=== PATIENT | male | born 1955 | race Caucasian/White ===

== ENCOUNTER 2017-07-28 08:03 | Day surgery (SDC) | payer OTHER, SELFPAY | END 2017-07-28 12:15 | disposition home or self-care (01) | PROVIDERS: Family Provider Pediatrics; Visit Provider Orthopaedic Surgery | DX: S83.241A Other tear of medial meniscus, current injury, right knee, initial encounter (principal); X58.XXXA Exposure to other specified factors, initial encounter; M67.51 Plica syndrome, right knee; M22.41 Chondromalacia patellae, right knee | CPT/HCPCS: 29882; 71020; 93005; 96375; J0131; J2405 ==

== ENCOUNTER → 2017-08-21 07:57 | Outpatient (CLI) | payer OTHER, SELFPAY ==
--- NOTE | 2017-08-21 08:04 | CT_ITS ---
CT heart w calcium score CLINICAL INDICATION: ITS.REASON: ABN EKG, REID ORDERING PHYSICIAN: Jaquan Martinez MD PATIENT AGE: 62 years COMPARISON: None FINDINGS: Coronary artery CT scoring demonstrates a coronary calcium score of 0 with no identifiable atherosclerotic plaque indicating a very low cardiovascular disease risk. Select images submitted are unremarkable. IMPRESSION: Coronary calcium score of 0 with no identifiable atherosclerotic plaque indicating a very low cardiovascular disease risk.
== END ==
PROVIDERS: Family Provider Pediatrics; PCP Internal Medicine Cardiovascular Disease; Visit Provider Internal Medicine Cardiovascular Disease
DX: R94.31 Abnormal electrocardiogram [ECG] [EKG] (principal); R06.09 Other forms of dyspnea
CPT/HCPCS: 75571

== ENCOUNTER → 2017-08-22 06:54 | Outpatient (CLI) | payer OTHER, SELFPAY ==
--- NOTE | 2017-08-22 07:03 | NM_ITS ---
History and Indications tobacco use, palpitations and abnormal EKG Procedure: Patient received a 0.4 mg of Lexiscan, resting heart rate was 75 bpm, resting blood pressure 160/95, with Lexiscan maximum heart rate achieved was 95 bpm which is less than 85% of the maximum predicted heart rate and a blood pressure was a 147/97, with Lexiscan patient complained of mild shortness of breath. Electrocardiogram: Resting electrocardiogram showed sinus rhythm nonspecific ST-T changes, with Lexiscan there is 0.[address] segment depression noted from the baseline EKG, the EKG portion of the Lexiscan Myoview is borderline for ischemia. Cardiac stress and resting SPECT images: Cardiac stress and rest SPECT images were obtained technetium 99 Myoview 10.2 mCi at rest and 32.6 mCi at stress, gated SPECT further analysis of segmental wall motion and calculation of the ejection fraction also done. Cardiac stress and rest SPECT images show a mild fixed defect inferoseptally and apically with normal contractility in the gated SPECT is likely secondary to soft tissue attenuation, no reversible ischemia seen. Computer derived ejection fraction is 56% with no obvious regional wall motion abnormality, right ventricle is mildly enlarged with normal contractility. Conclusion: 1. The EKG portion of the Lexiscan Myoview is borderline for ischemia. 2. No obvious scintigraphic evidence of reversible ischemia seen, computer derived ejection fraction is 56% with no obvious regional wall motion abnormality, right ventricle is mildly enlarged with normal contractility.
--- NOTE | 2017-08-22 08:53 | CA_ITS ---
PROCEDURE: 2-D M-mode and color Doppler study INDICATIONS FOR THE TEST: Chest pain COPD Heart Murmur Tobacco Smoking+ Palpitations+ Fatigue Syncope Edema Hypertension Diabetes Mellitus Rheumatic Fever SOB REID Obesity Hyperlipidemia Family History HD Additional History PATIENT INFORMATION HEIGHT: 70 WEIGHT:195 GENDER: M B/P:160/95 2-D/M-MODE INTERPRETATION: 2-D MEASUREMENTS OBSERVED VALUES IN CMS Right Ventricular Dimension (RVDd) 2.3 Interventricular Septum (Thickness)(IVsd) 1.1 Left Ventricular Internal Dimensions(LVIDd) 4.8 Left Ventricular Posterior Wall (Thickness)(LVPWd) 1.0 Aortic Root 3.9 Aortic Cusp Separation 2.4 Left Atrial Dimensions (LAD) 2.7 2D 1. Left atrium is qualitatively mildly enlarged, left ventricle is normal size, there is mild qualitative concentric left ventricular hypertrophy, visually estimated ejection fraction 55% with no obvious regional wall motion abnormality. 2. The right atrium and right ventricle are normal size and contractility. 3. The aortic valve is minimally thickened and calcified leaflet continue to display mobility. 4. The mitral and tricuspid valve leaflets are grossly normal. 5. The pulmonic valve is poorly visualized. 6. No significant pericardial effusion noted. DOPPLER INTERROGATION: Doppler interrogation of the aortic, mitral and tricuspid valvular presence of mild mitral and tricuspid regurgitation, tricuspid regurgitant jet velocity is insufficient for calculation of the right ventricular systolic pressure, grade 1 diastolic dysfunction seen without tissue Doppler evidence of raised left atrial pressure. CONCLUSION: 1. Mildly enlarged left atrium, normal left ventricular size, mild concentric left ventricular hypertrophy, visually estimated ejection fraction 55% with no obvious regional wall motion abnormality, grade 1 diastolic dysfunction seen without tissue Doppler evidence of raised left atrial pressure. 2. Mild mitral and tricuspid regurgitation. 3. No significant pericardial effusion noted.
== END ==
PROVIDERS: Family Provider Pediatrics; PCP Internal Medicine Cardiovascular Disease; Visit Provider Internal Medicine Cardiovascular Disease
DX: R94.31 Abnormal electrocardiogram [ECG] [EKG] (principal); R06.09 Other forms of dyspnea
CPT/HCPCS: 78452; 93017; 93306; A9502; J2785

== ENCOUNTER 2017-11-02 16:37 | Emergency (ER) | payer OTHER, SELFPAY ==
[2017-11-02 16:56] VITALS: BP 150/101; PULSE 67; RESP 20; TEMP 36.8; O2SAT 98; BMI 28.7
--- NOTE | 2017-11-02 17:11 | HMH.EDUTC ---
[facility] [place] Impression: Gastroenteritis Disposition: Home, Self-Care Condition on Discharge: Good Instructions: DI for Viral Gastroenteritis -- Adult Additional Instructions: ? Drink extra fluids . If you have difficulty drinking, try very small amounts or suck on ice chips. ? Avoid fruit juices, as these do not replace minerals and can actually increase diarrhea. ? Children and adults can use sports drinks to replenish electrolytes. Drink plenty of gatoraid over the next 24-48 hours to replace minerals lost in vomiting and diarrhea and to prevent dehydration ? let your stomach recover. ? Get lots of rest. You may feel tired or weak. ? Preventing Viral Gastroenteritis your Viral gastroenteritis is easily spread. There are some things you can do to lower chances of jeanie the virus or spreading it to others. ? Wash your hands often, especially after using the bathroom and before food preparation. If necessary, use hand svp monetization until you can access soap and water. ? If someone in your household is sick, do not share kitchen utensils, plates, or towels. ? Do not eat raw or undercooked foods. ? Wash fruits and vegetables thoroughly. ? Take special precautions to avoid contaminated water and food when traveling. Avoid ice cubes and use bottled water whenever possible. ? There are two vaccines for rotavirus. These are generally started when an is two months old. Ask your doctor if you should have your vaccinated. Collect stool specimen and bring back to lab for diarrhea panel as advised in [facility] Take medication as prescribed Follow up with family doctor or ER in 24-48 hours if no improvement or worsening of symptoms Straight to ER if any life threatening symptoms or stomach pain Prescriptions: Dicyclomine HCl [Bentyl 10mg capsule] 10 mg PO QID #20 cap Loperamide HCl [Loperamide] 2 mg PO DIRECTED PRN #8 tab PRN Reason: Diarrhea Ondansetron [Zofran 4mg ODT] 4 mg PO Q8H PRN #20 tab.rapdis PRN Reason: Nausea Referrals: Samy Bejarano [Primary Care Provider] - Time of Disposition: 18:42 Medical Decision Making - Medical Records Medical records reviewed: Yes: I reviewed the patient's medical records. - Dank Inquiry Pt receiving controlled substance: No Dank was queried for this patient: No Vital Signs: 11/02/17 16:56 Temperature 98.2 F Temperature Source Temporal Artery Scan Pulse Rate [Right Brachial] 67 Respiratory Rate 20 Blood Pressure [Right Arm] 150/101 Blood Pressure Mean [Right Arm] 117 Blood Pressure Source [Right Arm] Automatic Cuff Blood Pressure Position [Right Arm] Sitting 02 Sat by Pulse Oximetry 98 Oxygen Delivery Method Room Air - Lab Data Lab results reviewed: Yes: I reviewed the patient's lab results. Orders (Tests/Meds): ED MEDICATIONS Discontinued Medications Generic Name Dose Route Start Last Admin Trade Name Kim PRN Reason Stop Dose Admin Dicyclomine HCl 10 mg 11/02/17 17:39 11/02/17 17:46 Bentyl 10mg Capsule PO 11/02/17 17:40 10 mg ONCE ONE Administration Meclizine HCl 25 mg 11/02/17 17:14 11/02/17 17:22 Antivert 25mg Tablet PO 11/02/17 17:15 25 mg ONCE ONE Administration Ondansetron HCl 4 mg 11/02/17 17:14 11/02/17 17:22 Zofran 4mg Odt SL 11/02/17 17:15 4 mg ONCE ONE Administration - Reevaluation(s) Time: 17:42 Reevaluation #1: Patient state that dizziness now gone after medication however cramping has now returned, Again states that cramping like feeling in his middle abdomen and has been occuring just prior to him having an episode of vomiting or diarrhea. Patient given dose of bentyl 10mg po and consulted with ER physician Dr Caballero Time: 18:01 Reevaluation #3: Spoke with Dr Caballero ER physician and he advised that he would be over and speak with patient Time reevaluation 3: 18:24 Reevaluation #2: Dr Caballero came to [facility] and examined patient Patient state that he is now feeling much
--- NOTE | 2017-11-02 17:15 | ED_ITS ---
[facility] – [place] Disposition Clinical Impression: Gastroenteritis Disposition: Home, Self-Care Condition on Discharge: Good Instructions: DI for Viral Gastroenteritis -- Adult Additional Instructions: ? Drink extra fluids . If you have difficulty drinking, try very small amounts or suck on ice chips. ? Avoid fruit juices, as these do not replace minerals and can actually increase diarrhea. ? Children and adults can use sports drinks to replenish electrolytes. Drink plenty of gatoraid over the next 24-48 hours to replace minerals lost in vomiting and diarrhea and to prevent dehydration ? let your stomach recover. ? Get lots of rest. You may feel tired or weak. ? Preventing Viral Gastroenteritis your Viral gastroenteritis is easily spread. There are some things you can do to lower chances of jeanie the virus or spreading it to others. ? Wash your hands often, especially after using the bathroom and before food preparation. If necessary, use hand director advertising until you can access soap and water. ? If someone in your household is sick, do not share kitchen utensils, plates , or towels. ? Do not eat raw or undercooked foods. ? Wash fruits and vegetables thoroughly. ? Take special precautions to avoid contaminated water and food when traveling. Avoid ice cubes and use bottled water whenever possible. ? There are two vaccines for rotavirus. These are generally started when an infant is two months old. Ask your doctor if you should have your vaccinated. Collect stool specimen and bring back to lab for diarrhea panel as advised in [facility] Take medication as prescribed Follow up with family doctor or ER in 24-48 hours if no improvement or worsening of symptoms Straight to ER if any life threatening symptoms or stomach pain Prescriptions: Dicyclomine HCl [Bentyl 10mg capsule] 10 mg PO QID #20 cap Loperamide HCl [Loperamide] 2 mg PO DIRECTED PRN #8 tab PRN Reason: Diarrhea Ondansetron [Zofran 4mg ODT] 4 mg PO Q8H PRN #20 tab.rapdis PRN Reason: Nausea Referrals: Samy Bejarano [Primary Care Provider] - Time of Disposition: 18:42 Medical Decision Making - Medical Records Medical records reviewed: Yes: I reviewed the patient's medical records. - Dank Inquiry Pt receiving controlled substance: No Dank was queried for this patient: No Vital Signs: 11/02/17 16:56 Temperature 98.2 F Temperature Source Temporal Artery Scan Pulse Rate [Right Brachial] 67 Respiratory Rate 20 Blood Pressure [Right Arm] 150/101 Blood Pressure Mean [Right Arm] 117 Blood Pressure Source [Right Arm] Automatic Cuff Blood Pressure Position [Right Arm] Sitting 02 Sat by Pulse Oximetry 98 Oxygen Delivery Method Room Air - Lab Data Lab results reviewed: Yes: I reviewed the patient's lab results. Orders (Tests/Meds): ED MEDICATIONS Discontinued Medications Generic Name Dose Route Start Last Admin Trade Name Lionq PRN Reason Stop Dose Admin Dicyclomine HCl 10 mg 11/02/17 17:39 11/02/17 17:46 Bentyl 10mg Capsule PO 11/02/17 17:40 10 mg ONCE ONE Administration Meclizine HCl 25 mg 11/02/17 17:14 11/02/17 17:22 Antivert 25mg Tablet PO 11/02/17 17:15 25 mg ONCE ONE Administration Ondansetron HCl 4 mg 11/02/17 17:14 11/02/17 17:22 Zofran 4mg Odt SL 11/02/17 17:15 4 mg ONCE ONE Administration -
[2017-11-02 18:49] VITALS: BP 148/88; PULSE 70; RESP 20; TEMP 36.8; O2SAT 97
== END 2017-11-02 18:50 | disposition home or self-care (01) ==
PROVIDERS: Emergency Provider Nurse Practitioner; Family Provider Pediatrics; PCP Family Medicine
DX: K52.9 Noninfective gastroenteritis and colitis, unspecified (principal); F17.210 Nicotine dependence, cigarettes, uncomplicated
CPT/HCPCS: 99201

== ENCOUNTER 2017-11-03 07:46 | Emergency (ER) | payer OTHER, SELFPAY ==
[2017-11-03 07:50] VITALS: BP 150/107; PULSE 105; RESP 18; TEMP 36.6; O2SAT 95
--- NOTE | 2017-11-03 08:01 | CT_ITS ---
CT abdomen pelvis wo con CLINICAL INDICATION: Abdominal pain with nausea, vomiting, diarrhea, and creatinine ITS.REASON: ABDOMINAL PAIN ORDERING PHYSICIAN: Vamsi Cruz MD PATIENT AGE: 62 years COMPARISON: None 1914 TECHNIQUE: Axial images obtained with sagittal and coronal reformats. All CT scans at the facility use one or more dose reduction, viz: automated exposure control; ma/kV adjustment per patient size (including targeted exams where dose is matched to indication; i.e. head); or iterative reconstruction technique. PROCEDURE: Oral Contrast: None IV Contrast: None . FINDINGS: A 5 mm noncalcified nodular opacity is present in the right middle lobe nonspecific. 4 mm noncalcified nodular opacity is present in the left lower lobe not significantly changed. No focal liver lesion. No radio opaque gallstones or biliary dilatation. The spleen, adrenal glands, and pancreas have an unremarkable unenhanced CT appearance. There is some minimal stranding of the fat inferior to the antrum of the stomach nonspecific. The right kidney is unremarkable. There is a nonobstructing 6 mm stone in the lower pole the left kidney. Small exophytic densities project off the lower pole both kidneys and may be due to small cysts. No intestinal obstruction or free air. There is a small appendicolith at 3 mm but no evidence of appendicitis. No evidence of diverticulitis. No pelvic mass or abnormal fluid collection. Central prostate calcifications are present with mild prominence of the prostate. No acute bony anomalies. IMPRESSION: 1. Minimal stranding of the fat inferior to the antrum of the stomach. This is of questionable clinical significance. Mild focal inflammatory change is a consideration. 2. Nonobstructing left nephrolithiasis. 3. No evidence of appendicitis or obstructing ureteral calculus
[2017-11-03 08:16] LABS: Microscopic, Urine URINE MICROSCOPIC (MICROSCOPIC)
[2017-11-03 08:16] LABS: Basophils % 0.1 % (0.1-2.0); Eosinophils # 0.2 K/mm3 (0.0-0.4); Eosinophils % 1.4 % (0.1-12.0); Hematocrit 53.7 % (42.0-52.0); Lymphocytes # 0.8 K/mm3 (0.7-4.5); Lymphocytes % 4.4 K/mm3 (10-50); Mean Corpuscular HGB Conc 34.2 g/dL (31.8-35.4); Mean Corpuscular Hemoglobin 29.8 pg (27.0-31.2); Mean Corpuscular Volume 87.1 fl (80-94); Mean Platelet Volume 7.6 fl (7.4-10.4); Monocytes # 0.6 K/mm3 (0.1-1.0); Monocytes % 3.1 % (1.7-9.3); Platelet Count 289 K/mm3 (142-424); Red Blood Count 6.16 M/mm3 (4.60-6.20); White Blood Count 17.6 K/mm3 (4.8-10.8)
[2017-11-03 08:20] LABS: MANUAL DIFFERENTIAL MANUAL DIFFERENTIAL (MANUAL DIFF)
[2017-11-03 08:20] LABS: Appearance,Urine SL CLOUDY (Clear); Blood, Urine 2+ (Negative); Color,Urine YELLOW (Yellow); Glucose,Urine (UA) Negative (Negative); Ketones,Urine 1+ (Negative); Leukocyte Esterase,Urine Negative (Negative); Nitrate,Urine Negative (Negative); PH,Urine 5.5 (5.0-8.5); Protein,Urine 2+ (Negative); Specific Gravity, Urine >= 1.030 (1.005-1.030); Urobilinogen,Urine 0.2 EU/dl (0.2)
[2017-11-03 08:21] LABS: Bilirubin,Urine Negative (Negative)
--- NOTE | 2017-11-03 08:21 | HMH.EDABDPAI ---
ED Disposition Clinical Impression: Dehydration Gastritis Qualifiers: Gastritis type: unspecified gastritis Chronicity: unspecified Gastritis bleeding: without bleeding Qualified Code(s): K29.70 - Gastritis, unspecified, without bleeding Vomiting Qualifiers: Vomiting type: unspecified Vomiting Intractability: non-intractable Nausea presence: with nausea Qualified Code(s): R11.2 - Nausea with vomiting, unspecified Diarrhea Qualifiers: Diarrhea type: unspecified type Qualified Code(s): R19.7 - Diarrhea, unspecified Disposition: Home, Self-Care Condition on Discharge: Good Instructions: DI for Dehydration -- Adult, DI for Viral Gastroenteritis -- Adult Additional Instructions: Please take the medications prescribed, as directed. Drink plenty of fluids. May take [id number] Imodium, as needed for diarrhea. Prescriptions: Ondansetron [Zofran 4mg ODT] 4 mg PO QIDP PRN #20 tab.rapdis PRN Reason: Nausea Pantoprazole Sodium [Protonix 40mg tablet] 40 mg PO DAILY #30 tablet. Referrals: Samy Wright [Primary Care Provider] - Time of Disposition: 13:17 - Critical Care Critical Care Time: No Attestation: On 11/03/17, the high probability of a clinically significant, sudden or life threatening deterioration of the following system(s) required my full and direct attention, intervention and personal management. The time I documented below is in addition to time spent performing reported procedures but includes the following listed in this critical care notation. Medical Decision Making - Medical Records Medical records reviewed: Yes: I reviewed the patient's medical records. - Dank Inquiry Pt receiving controlled substance: No Vital Signs: 11/03/17 07:50 11/03/17 10:05 11/03/17 13:30 Temperature 98 F 98.5 F 98.3 F Temperature Source Oral Oral Oral Pulse Rate Pulse Rate [Right Radial] 105 H 47 L 49 L Respiratory Rate 18 Blood Pressure Blood Pressure [Right Arm] 150/107 175/104 167/84 Blood Pressure Mean [Right Arm] 121 127 111 Blood Pressure Source [Right Arm] Automatic Cuff Automatic Cuff Manual Cuff/ Palpation Blood Pressure Position [Right Arm] Supine Supine Sitting 02 Sat by Pulse Oximetry 95 98 97 Oxygen Delivery Method Room Air Room Air Room Air 11/03/17 13:37 Temperature 98.4 F Temperature Source Pulse Rate 56 L Pulse Rate [Right Radial] Respiratory Rate 20 Blood Pressure 167/84 Blood Pressure [Right Arm] Blood Pressure Mean [Right Arm] Blood Pressure Source [Right Arm] Blood Pressure Position [Right Arm] 02 Sat by Pulse Oximetry Oxygen Delivery Method Room Air - Lab Data Lab results reviewed: Yes: I reviewed the patient's lab results. Lab Results 11/03/17 08:05: WBC 17.6 H, RBC 6.16, Hgb 18.2 H*, Hct 53.7 H, MCV 87.1, MCH 29.8, MCHC 34.2, RDW 13.0, Plt Count 289, MPV 7.6, Neut % (Auto) 91.0 H, Lymph % (Auto) 4.4 L, Holmes % (Auto) 3.1, Eos % (Auto) 1.4, Baso % (Auto) 0.1, Neut # (Auto) 16.0 H, Lymph # (Auto) 0.8, Holmes # (Auto) 0.6, Eos # (Auto) 0.2, Baso # (Auto) 0.0, Total Counted 100, Neutrophils % (Manual) 89 H, Lymphocytes % (Manual) 4 L, Monocytes % (Manual) 7, Platelet Estimate Normal, RBC Morphology Normal 11/03/17 08:05: Sodium 133 L, Potassium 3.8, Chloride 97 L, Carbon Dioxide 26, Anion Gap 13.8, BUN 15, Creatinine 0.93, Estimated Creat Clear 108, Estimated GFR 83, Est GFR ( Amer) 100, Glucose 163 H, Calcium 9.1, Total Bilirubin 0.9, AST 22, ALT 31, Alkaline Phosphatase 117 H, Total Protein 8.9 H, Albumin 4.0, Globulin 4.9 H, Albumin/Globulin Ratio 0.8 L, Amylase 46, Lipase 149 11/03/17 08:10: Urine Color Yellow, Urine Appearance Sl cloudy, Urine pH 5.5, Ur Specific [place] >= 1.030, Urine Protein 2+, Urine Glucose (UA) Negative, Urine Ketones 1+, Urine Blood 2+, Urine Nitrate Negative, Urine Bilirubin Negative, Urine Urobilinogen 0.2, Ur Leukocyte Esterase Negative, Urine WBC 3-5, Ur Squamous Epith Cells Occasional, Urine Bacteria 4+ Resu
[2017-11-03 08:27] LABS: Hemoglobin 18.2 g/dL (14.1-18.0)
[2017-11-03 08:28] LABS: Alanine Aminotransferase 31 U/L (12-78); Albumin/Globulin Ratio 0.8 (1.1-1.8); Alkaline Phosphatase 117 U/L (46-116); Amylase 46 U/L (25-125); Anion Gap 13.8 mEq/L (5-15); Aspartate Amino Transferase 22 U/L (15-37); Bilirubin,Total 0.9 mg/dL (0.2-1.0); Blood Urea Nitrogen 15 mg/dL (7-18); Calcium 9.1 mg/dL (8.5-10.1); Carbon Dioxide 26 mmol/L (21.0-32.0); Chloride 97 mmol/L (98-107); Creatinine Clearance Estimated 108 mL/min (0-300); Creatinine,Serum 0.93 mg/dL (0.70-1.30); Estimated Glomerular Filt Rate 83 ml/min (>60); GFR (African American) 100 ML/MIN (>60); Globulin 4.9 gm/dl (1.3-3.2); Glucose 163 mg/dL (74-106); Lipase 149 u/L (73-393); Potassium 3.8 mmoL/L (3.5-5.1); Sodium 133 mmol/L (136-145); Total Protein,Serum 8.9 gm/dL (6.4-8.2)
[2017-11-03 08:31] LABS: Bacteria,Urine 4+ /lpf; Squamous Epithelial Cell,Urine Occasional #/hpf (0-5)
[2017-11-03 08:46] LABS: Lymphocytes % 4 % (10-50); Monocytes % 7 % (2-9); Neutrophils % 89 % (42-76); Total Cells Counted 100
[2017-11-03 08:48] LABS: Platelet Estimate Normal; RBC Morphology Normal
[2017-11-03 10:05] VITALS: BP 175/104; PULSE 47; RESP 18; TEMP 36.9; O2SAT 98
[2017-11-03 13:30] VITALS: BP 167/84; PULSE 49; RESP 18; TEMP 36.8; O2SAT 97
[2017-11-03 13:37] VITALS: BP 167/84; PULSE 56; RESP 20; TEMP 36.9; O2SAT 98
== END 2017-11-03 13:35 | disposition home or self-care (01) ==
PROVIDERS: Emergency Provider Emergency Medicine; Family Provider Pediatrics; PCP Internal Medicine Cardiovascular Disease
DX: K29.70 Gastritis, unspecified, without bleeding (principal); R42 Dizziness and giddiness; F17.210 Nicotine dependence, cigarettes, uncomplicated
CPT/HCPCS: 74176; 80053; 81001; 82150; 83690; 85007; 85025; 87086; 96365; 96366; 96375; 99283; J2405

== ENCOUNTER → 2017-11-24 09:39 | Outpatient (POV) | payer OTHER, SELFPAY | PROVIDERS: Family Provider Pediatrics; PCP Internal Medicine Cardiovascular Disease; Visit Provider Physician Assistant | DX: Z00.00 Encounter for general adult medical examination without abnormal findings (principal) ==

== ENCOUNTER → 2018-12-08 12:14 | Outpatient (CLI) | payer OTHER, SELFPAY | PROVIDERS: PCP Family Medicine; Visit Provider Family Medicine | DX: I49.9 Cardiac arrhythmia, unspecified (principal) | CPT/HCPCS: 93005 ==

== ENCOUNTER 2018-12-08 12:40 | Inpatient (IN) ==
--- NOTE | 2018-12-08 12:52 | Emergency Department Note ---
ED Disposition Clinical Impression: New onset atrial fibrillation Disposition: Admitted as Observation Condition on Discharge: Fair - Critical Care Critical Care Time: Yes Attestation: On , the high probability of a clinically significant, sudden or life threatening deterioration of the following system(s) required my full and direct attention, intervention and personal management. The time I documented below is in addition to time spent performing reported procedures but includes the following listed in this critical care notation. Vital system(s) involved:: Circulatory Failure My critical care processes included: Assessment & monitoring of V/S, Initial and Re-exams, Data Review/Interpretation, Coordinating Care, Medication Orders and management, Documentation Medical Decision Making - Dank Inquiry Pt receiving controlled substance: No Vital Signs: 12/08/18 12:44 12/08/18 13:11 12/08/18 15:17 Temperature 98.2 F Temperature Source Oral Pulse Rate [Right Brachial] 148 H 142 H 124 H Respiratory Rate 20 Blood Pressure [Right Arm] 162/105 H 124/89 118/83 Blood Pressure Mean [Right Arm] 124 100 94 Blood Pressure Source [Right Arm] Automatic Cuff Automatic Cuff Automatic Cuff Blood Pressure Position [Right Arm] Sitting Sitting Sitting 02 Sat by Pulse Oximetry 97 94 L 98 Oxygen Delivery Method Room Air Room Air Room Air - Lab Data Lab Results 12/08/18 12:36: WBC 10.3, RBC 5.29, Hgb 15.2, Hct 46.6, MCV 88.2, MCH 28.8, MCHC 32.7, RDW 13.7, Plt Count 240, MPV 7.5, Neut % (Auto) 65.8, Lymph % (Auto) 26.3, [place] % (Auto) 5.6, Eos % (Auto) 1.7, Baso % (Auto) 0.5, Neut # (Auto) 6.8, Lymph # (Auto) 2.7, [place] # (Auto) 0.6, Eos # (Auto) 0.2, Baso # (Auto) 0.1 12/08/18 12:36: Sodium 142, Potassium 4.5, Chloride 107, Carbon Dioxide 25, Anion Gap 14.5, BUN 20 H, Creatinine 1.00, Estimated Creat Clear 99, Estimated GFR 76, Est GFR ( Amer) 92, Glucose 106, Calcium 9.1, Troponin I < 0.02 12/08/18 12:36: TSH 1.85, Free T4 Index 2.7 L, Thyroxine (T4) 8.2, T3 Uptake 33 Result diagrams: 12/08/18 12:36 12/08/18 12:36 Orders (Tests/Meds): ED MEDICATIONS Generic Name Dose Route Start Last Admin Trade Name Freq PRN Reason Stop Dose Admin Enoxaparin Sodium 90 mg 12/08/18 21:00 Lovenox 100mg/Ml Syringe SQ 01/07/19 13:59 BID SINTIA Diltiazem HCl 125 mg/ Sodium 125 mls @ 5 mls/hr 12/08/18 15:23 Chloride IV 01/07/19 13:29 .Q25H SINTIA Discontinued Medications Generic Name Dose Route Start Last Admin Trade Name Freq PRN Reason Stop Dose Admin Diltiazem HCl 15 mg 12/08/18 13:06 12/08/18 13:35 Cardizem 25mg/5ml Vial IV 12/08/18 13:07 15 mg ONCE ONE Administration Enoxaparin Sodium 90 mg 12/08/18 14:00 12/08/18 14:23 Lovenox 100mg/Ml Syringe SQ 01/07/19 13:59 90 mg BID SINTIA Administration Diltiazem HCl 125 mg/ Sodium 125 mls @ 5 mls/hr 12/08/18 13:30 12/08/18 13:44 Chloride IV 01/07/19 13:29 5 mls/hr .Q25H SINTIA Administration ORDERS Category Date Time Status Consult to Cardiology [CONS] Routine Cons 12/08/18 15:23 Active - Radiology Data #1 Image(s): Chest Image Reviewed: Yes I reviewed the patient's radiology image Preliminary Findings: Normal/NAD - ECG Data Tracing #1 EKG interpreted by Cr Cameron MD: Rhythm: Atrial fibrillation with rapid ventricular response Rate: 158 [place]: Right Ectopy: none Conduction: normal ST Segment Changes: none T Wave Changes: none Q Waves: none Poor R wave progression - Physician Consults Physician Consulted: ANITRA Philippe, for Dr. De Jesus Time: 13:30 Reason -: Cardiology Eval/Care Comment/Response: He will see the patient. 3:30 PM: Seen by Long and echocardiogram performed. He has reviewed. He states patient has cardiomyopathy with estimated ejection fraction 40%. Feels it is likely due to his A. fib which she has likely been experiencing for 2 months. Recommends metoprolol 25 mg twice daily. He will see him in the morning. Additional Consult: Parker Time: 14:39 Reason -: Admission Comment/Response: He states that patient was found to have irregular heartbeat in the office, not a murmur, and atrial fibrillation was suspected, confirmed by EKG here. Agrees to admit the patient to the hospital. We discussed the patient's clinical information, including history, exam, laboratory and radiology results and ED course. Per hospital procedure, I will write temporary bridge inpatient orders on the patient. Specific orders requested by the admitting physician: Continue Cardizem. Anticoagulation per cardiology service. - Reevaluation(s) Time: 14:30 Reevaluation #1: Patient states he feels great. Heart rate approximately 110-115. Medical Decision Narrative: Prior ECHO: CONCLUSION: 1. Mildly enlarged left atrium, normal left ventricular size, mild concentric left ventricular hypertrophy, visually estimated ejection fraction 55% with no obvious regional wall motion abnormality, grade 1 diastolic dysfunction seen without tissue Doppler evidence of raised left atrial pressure. 2. Mild mitral and tricuspid regurgitation. 3. No significant pericardial effusion noted. Dictated By: Jaquan Martinez MD Signed By: <Electronically signed by Jaquan Martinez MD in [place]> 08/23/17 0710 Prior Stress Test: Conclusion: 1. The EKG portion of the Lexiscan Myoview is borderline for ischemia. 2. No obvious scintigraphic evidence of reversible ischemia seen, computer derived ejection fraction is 56% with no obvious regional wall motion abnormality, right ventricle is mildly enlarged with normal contractility. Dictated By: Jaquan Martinez MD Signed By: <Electronically signed by Jaquan Martinez MD in [place]> 08/22/[address]: IMPRESSION: Coronary calcium score of 0 with no identifiable atherosclerotic plaque indicating a very low cardiovascular disease risk. Dictated By: Joby Osuna Signed By: <Electronically signed by Joby Osuna in [place]> 08/21/17 1016 General Adult HPI - General Chief complaint: Shortness of Breath/Dyspnea Stated complaint: SOA elevated Heart Rate Time Seen by Provider: 12/08/18 13:00 Mode of Arrival: Ambulatory Limitations: No Limitations Description of Symptoms (Recalled from ER Triage Doc. by RN): Short of breath, tachycardia - History of Present Illness HPI narrative: Complains of dyspnea on exertion. He has had this for 2 months with the exception of a couple days a couple of weeks ago when he felt back to normal. He does not feel any chest pain or palpitations. He saw his primary care provider today Dr. Canales's office and was treated for bronchitis, but was also sent for an EKG because the patient states the primary care provider "thought that they heard a murmur". When he had his EKG done he was found to be in atrial fibrillation and was sent to the emergency room. No prior history of atrial fibrillation. He saw Dr. Martinez last year because he was going to have surgery and had an EKG which showed a possible old heart attack. He was evaluated and no signs of a prior heart attack were found. - Related Data Home Medications Medication Instructions Recorded Confirmed aspirin 81 mg chewable tablet 81 mg PO ONCE 08/13/17 12/08/18 Albuterol Sulfate [Albuterol HFA 1 - 2 puffs IH Q4-6H PRN 12/08/18 12/08/18 Inhaler] Azithromycin [Azithromycin 500mg 500 mg PO DAILY 12/08/18 12/08/18 Tab] Dexamethasone [Decadron 4mg tablet] 4 mg PO DAILY 12/08/18 12/08/18 Vit B12/Iod/mg/Zn/Se/Herb#193 1 each PO DAILY 12/08/18 12/08/18 [Adrenoid Capsule] Vit D3/Folic Acid/B2/B6/B12 1 each PO DAILY 12/08/18 12/08/18 [Folgard Tablet] Allergies Allergy/AdvReac Type Severity Reaction Status Date / Time No Known Allergies Allergy Verified 04/16/18 10:43 [facility] History - Hepatitis A Screen Drug use history?: No High risk sexual behaviors?: No History of sexually transmitted infection?: No Currently employed?: No Childcare worker?: No Do you have indoor plumbing?: Yes Do you have electricity?: Yes Attestation statement:: This patient has been screened for Hepatitis A risk factors. I have reviewed the patient's past medical history: Yes Medical History: Reports:: Kidney Stones Denies:: Cancer, Diabetes Mellitus Type 1, Diabetes Mellitus Type 2, MRSA Laterality Cases: Other Surgeries: Yes: Hernia Repair, Other Amputation: No - Social History Smoking Status: Current every day smoker Tobacco Type: cigarettes Alcohol Intake: never Alcohol Intake Frequency:: other Family Hx:: No significant family history ROS Obtained: Yes All systems reviewed & no additional complaints - Constitutional Constitutional: Denies fever(s) - Cardiovascular Cardiovascular: Denies chest pain, Denies palpitations, Denies rapid heart rate - Respiratory Respiratory: Yes dyspnea on exertion - Neurologic Neurologic: Reports tingling (Legs tingle with exertion) Physical Exam - General General appearance: alert, in no apparent distress - Head Head exam: atraumatic, normocephalic - Eye Eye exam: Present: normal appearance, EOMI - ENT ENT exam: Present: mucous membranes moist - Neck Neck exam: Present: normal inspection, trachea midline - Chest Chest inspection: Present: normal inspection, symmetric chest wall rise - Respiratory Respiratory exam: Present: normal lung sounds bilaterally. Absent: respiratory distress - Cardiovascular Cardiovascular exam: Present: tachycardia, irregular rhythm, normal heart sounds - Abdominal Exam Abdominal exam: Present: soft. Absent: distention, tenderness - Extremities Exam Extremities exam: Present: normal inspection, full ROM, normal capillary refill - Neurological Exam Neurological exam: Present: alert, oriented X3, CN II-XII intact. Absent: motor sensory deficit - Psychiatric Psychiatric exam: Present: normal affect, normal mood - Skin Skin exam: Present: warm, dry
[2018-12-08 13:06] LABS: Basophils # 0.1 K/mm3 (0-0.2); Basophils % 0.5 % (0.1-2.0); Eosinophils # 0.2 K/mm3 (0.0-0.4); Eosinophils % 1.7 % (0.1-12.0); Hematocrit 46.6 % (42.0-52.0); Hemoglobin 15.2 g/dL (14.1-18.0); Lymphocytes # 2.7 K/mm3 (0.7-4.5); Lymphocytes % 26.3 % (10-50); Mean Corpuscular HGB Conc 32.7 g/dL (31.8-35.4); Mean Corpuscular Hemoglobin 28.8 pg (27.0-31.2); Mean Corpuscular Volume 88.2 fl (80-94); Mean Platelet Volume 7.5 fl (7.4-10.4); Monocytes # 0.6 K/mm3 (0.1-1.0); Monocytes % 5.6 % (1.7-9.3); Neutrophils # 6.8 K/mm3 (1.8-7.8); Neutrophils % 65.8 % (37.0-80.0); Platelet Count 240 K/mm3 (142-424); Red Blood Count 5.29 M/mm3 (4.60-6.20); Red Cell Distribution Width 13.7 % (11.5-17.5); White Blood Count 10.3 K/mm3 (4.8-10.8)
[2018-12-08 13:18] LABS: Anion Gap 14.5 mEq/L (5-15); Blood Urea Nitrogen 20 mg/dL (7-18); Calcium 9.1 mg/dL (8.5-10.1); Carbon Dioxide 25 mmol/L (21.0-32.0); Chloride 107 mmol/L (98-107); Glucose 106 mg/dL (74-106); Potassium 4.5 mmoL/L (3.5-5.1); Sodium 142 mmol/L (136-145)
[2018-12-08 13:42] LABS: Thyroid Stimulating Hormone 1.85 uIU/ml (0.358-3.740)
--- NOTE | 2018-12-08 13:58 | Consult Report ---
History of Present Illness Consult date: 12/08/18 Requesting physician: Cait Canales Consult reason: atrial fibrillation Chief complaint: SOA, A. fib Additional Medical History:: 1. Preop cardiac work-up, 08/2017 A. Lexiscan Myoview, no ischemia with normal ejection fraction B. Echocardiogram, 1. Mildly enlarged left atrium, normal left ventricular size, mild concentric left ventricular hypertrophy, visually estimated ejection fraction 55% with no obvious regional wall motion abnormality, grade 1 diastolic dysfunction seen without tissue Doppler evidence of raised left atrial pressure. 2. Mild mitral and tricuspid regurgitation. 3. No significant pericardial effusion noted C. CT coronary calcium score, 0, 08/2017 2. History of right knee replacement 3. Tobacco use up to 3 packs/day History of present illness: 63-year-old white male sent to the emergency department from his primary care physician's office for complains of dyspnea on exertion. He has had this for 2 months with the exception of a couple days a couple of weeks ago when he felt back to normal. He does not feel any chest pain or palpitations. He saw his primary care provider today Dr. Canales's office and was treated for bronchitis, but was also sent for an EKG because the primary care provider thought that they heard a murmur. When he had his EKG done he was found to be in atrial fibrillation and was sent to the emergency room. No prior history of atrial fibrillation. The above per Dr. Cameron The patient relates over the last couple of months he has noticed that he has exertional shortness of breath that improves with rest. He does not at any time remember feeling that his heart was racing even today he does not notice his heart beating fast when his heart rate was in the 140s. At the time of my exam the patient was getting his Cardizem bolus with heart rate dropping into the low 100s. Initial troponin is normal. EKG is atrial for ablation with rapid ventricular response. Cardiology consulted for evaluation recommendations. [facility] History Medical History: Reports:: Kidney Stones Denies:: Cancer, Diabetes Mellitus Type 1, Diabetes Mellitus Type 2, MRSA *Have you ever received a pneumonia vaccine?: No *Have you received a flu vaccine this season?: Yes Laterality Cases: Other Surgeries: Yes: Hernia Repair, Other Amputation: No - *Social History Smoking Status: Current every day smoker Tobacco Type: cigarettes Alcohol Intake: never Alcohol Intake Frequency:: other Family Hx:: No significant family history Meds Home Medications Medication Instructions Recorded Confirmed Type aspirin 81 mg chewable tablet 81 mg PO ONCE 08/13/17 12/08/18 History Albuterol Sulfate [Albuterol HFA 1 - 2 puffs IH Q4-6H PRN 12/08/18 12/08/18 History Inhaler] Azithromycin [Azithromycin 500mg 500 mg PO DAILY 12/08/18 12/08/18 History Tab] Dexamethasone [Decadron 4mg tablet] 4 mg PO DAILY 12/08/18 12/08/18 History Vit B12/Iod/mg/Zn/Se/Herb#193 1 each PO DAILY 12/08/18 12/08/18 History [Adrenoid Capsule] Vit D3/Folic Acid/B2/B6/B12 1 each PO DAILY 12/08/18 12/08/18 History [Folgard Tablet] Allergies Allergy/AdvReac Type Severity Reaction Status Date / Time No Known Allergies Allergy Verified 04/16/18 10:43 Review of Systems - *Cardiovascular Reports shortness of breath with activity, Denies chest pain - *Respiratory Reports shortness of breath with activity - *Gastrointestinal Denies abdominal pain, Denies loose stools - *Genitourinary Denies blood in urine - *Musculoskeletal Reports joint pain, Reports back pain - *Neurologic Reports tingling (Legs tingle with exertion), Denies headache(s), Denies loss of vision Exam Vital signs and Labs for Last 24 Hours: Temp Pulse Resp BP Pulse Ox 98.2 F 142 H 20 124/89 94 L 12/08/18 12:44 12/08/18 13:11 12/08/18 12:44 12/08/18 13:11 12/08/18 13:11 Laboratory Results - last 24 hr 12/08/18 12:36: WBC 10.3, RBC 5.29, Hgb 15.2, Hct 46.6, MCV 88.2, MCH 28.8, MCHC 32.7, RDW 13.7, Plt Count 240, MPV 7.5, Neut % (Auto) 65.8, Lymph % (Auto) 26.3, [place] % (Auto) 5.6, Eos % (Auto) 1.7, Baso % (Auto) 0.5, Neut # (Auto) 6.8, Lymph # (Auto) 2.7, [place] # (Auto) 0.6, Eos # (Auto) 0.2, Baso # (Auto) 0.1 12/08/18 12:36: Sodium 142, Potassium 4.5, Chloride 107, Carbon Dioxide 25, Anion Gap 14.5, BUN 20 H, Creatinine 1.00, Estimated Creat Clear 99, Estimated GFR 76, Est GFR ( Amer) 92, Glucose 106, Calcium 9.1, Troponin I < 0.02 12/08/18 12:36: TSH 1.85 I & O for Last 24 hours: Intake & Output 12/06/18 12/07/18 12/08/18 12/09/18 11:59 11:59 11:59 11:59 Weight 198 lb - *Routine HEENT Exam Head: Present: normocephalic Eye: Present: EOMI, PERRL ENT: Present: mucous membranes moist - *Routine Neck Exam Present: supple. Absent: JVD, carotid bruit - *Routine Respiratory Exam Present: decreased breath sounds, wheezes. Absent: accessory muscle use, rales, rhonchi - *Routine Cardiovascular Exam Present: tachycardia, irregularly irregular. Absent: murmur, gallop, rubs - *Routine Abdominal Exam Present: soft. Absent: tenderness, distended, guarding - *Routine Extremities Exam Absent: edema, calf tenderness - *Routine Neurological Exam Present: alert, oriented X3, moving all extremities Assessment and Plan (1) Atrial fibrillation with rapid ventricular response Current visit: Yes Status: Acute Category: Medical Code(s): I48.91 - Unspecified atrial fibrillation (2) Tobacco use Current visit: Yes Status: Acute Category: Medical Code(s): Z72.0 - Tobacco use (3) REID (dyspnea on exertion) Problem details: Current visit: No Status: Acute Category: Medical Code(s): R06.09 - Other forms of dyspnea - Assessment and plan all Dx Assessment and Plan for all problems:: 1. Continue Cardizem drip for rate control 2. Start anticoagulation with Lovenox 1 mg/kg subcu twice daily and if echocardiogram is normal then switch to oral anticoagulant therapy in the form of either Xarelto or Eliquis. 2. Will obtain an echocardiogram to make sure the patient's cardiac function has not deteriorated over the last year. 3. We will obtain cardiac troponins to rule out myocardial infarction. 4. If the patient has not converted spontaneously to sinus rhythm over the next month then would anticipate proceeding with transesophageal echocardiogram and cardioversion.
[2018-12-08 14:42] LABS: Free Thyroxine Index 2.7 ug/dL (5.93-13.13)
--- NOTE | 2018-12-08 15:48 | Pharmacy Consult Notes ---
[facility] Pharmacy VTE Monitoring - Patient Demographics Admission date: 12/08/18 Report Date: 12/08/18 Time: 15:48 Allergies/Adverse Reactions: Patient Allergies No Known Allergies Allergy (Verified 04/16/18 10:43) Height: 1.75 m Weight: 89.811 kg Patient Problems: Current Active Problems (Updated 12/08/18 @ 14:40 by Cr Cameron MD) Atrial fibrillation with rapid ventricular response (Acute) Tobacco use (Acute) New onset atrial fibrillation (Acute) - VTE Risk Labs: VTE Related Lab Results Hgb 15.2 g/dL (14.1-18.0) 12/08/18 12:36 Hct 46.6 % (42.0-52.0) 12/08/18 12:36 Plt Count 240 K/mm3 (142-424) 12/08/18 12:36 BUN 20 mg/dL (7-18) H 12/08/18 12:36 Creatinine 1.00 mg/dL (0.70-1.30) 12/08/18 12:36 Estimated Creat Clear 99 mL/min (50-200) 12/08/18 12:36 - Prophylaxis VTE Prophylaxis Ordered?: Yes Types of VTE Prophylaxis: Pharmacological Pharmacologic Type: Enoxaparin - VTE Diagnosis Confirmed Treatment or plan recommended: Continue Current Treatment
--- NOTE | 2018-12-08 16:52 | Progress Note ---
Internal Medicine - PN: Subj *Date: 12/08/18 *Time: 16:48 Interval history: See H&P from [facility]. Was seen in [facility] by Sveta Rose APRN. Patient C/O SOA, congestion. Exam revealed cardiac irregularity. Patient was sent to [facility] for EKG which revealed new onset A-fibrillation with rate of 140. He was sent to the ER for further evaluation. Was treated with Cardizem drip. Was seen in consultation by Cardiology (see note). Exam Vital signs and Labs for Last 24 Hours: Temp Pulse Resp BP Pulse Ox 98.3 F 102 H 16 123/91 H 98 12/08/18 16:41 12/08/18 16:41 12/08/18 16:41 12/08/18 16:41 12/08/18 15:17 Laboratory Results - last 24 hr 12/08/18 12:36: WBC 10.3, RBC 5.29, Hgb 15.2, Hct 46.6, MCV 88.2, MCH 28.8, MCHC 32.7, RDW 13.7, Plt Count 240, MPV 7.5, Neut % (Auto) 65.8, Lymph % (Auto) 26.3, [place] % (Auto) 5.6, Eos % (Auto) 1.7, Baso % (Auto) 0.5, Neut # (Auto) 6.8, Lymph # (Auto) 2.7, [place] # (Auto) 0.6, Eos # (Auto) 0.2, Baso # (Auto) 0.1 12/08/18 12:36: Sodium 142, Potassium 4.5, Chloride 107, Carbon Dioxide 25, Anion Gap 14.5, BUN 20 H, Creatinine 1.00, Estimated Creat Clear 99, Estimated GFR 76, Est GFR ( Amer) 92, Glucose 106, Calcium 9.1, Troponin I < 0.02 12/08/18 12:36: TSH 1.85, Free T4 Index 2.7 L, Thyroxine (T4) 8.2, T3 Uptake 33 I & O for Last 24 hours: Intake & Output 12/06/18 12/07/18 12/08/18 12/09/18 11:59 11:59 11:59 11:59 Weight 198 lb Assessment and Plan (1) Atrial fibrillation with rapid ventricular response Current visit: Yes Status: Acute Category: Medical Code(s): I48.91 - Unspecified atrial fibrillation (2) Tobacco use Current visit: Yes Status: Acute Category: Medical Code(s): Z72.0 - Tobacco use (3) REID (dyspnea on exertion) Problem details: Current visit: No Status: Acute Category: Medical Code(s): R06.09 - Other forms of dyspnea (4) New onset atrial fibrillation Current visit: Yes Status: Acute Category: Medical Code(s): I48.91 - Unspecified atrial fibrillation (5) Abnormal EKG Problem details: Current visit: No Status: Acute Category: Medical Code(s): R94.31 - Abnormal electrocardiogram [ECG] [EKG] - Assessment and plan all Dx Assessment and Plan for all problems:: see orders.
--- NOTE | 2018-12-08 17:57 | Progress Note ---
Internal Medicine - PN: Subj *Date: 12/08/18 *Time: 17:54 Interval history: Patient is lying comfortably in the bed in the ICU. is at bedside. He denies chest pain and shortness of breath. Exam Vital signs and Labs for Last 24 Hours: Temp Pulse Resp BP Pulse Ox 98.3 F 103 H 24 137/66 97 12/08/18 16:41 12/08/18 17:36 12/08/18 17:36 12/08/18 17:36 12/08/18 17:36 Laboratory Results - last 24 hr 12/08/18 12:36: WBC 10.3, RBC 5.29, Hgb 15.2, Hct 46.6, MCV 88.2, MCH 28.8, MCHC 32.7, RDW 13.7, Plt Count 240, MPV 7.5, Neut % (Auto) 65.8, Lymph % (Auto) 26.3, [place] % (Auto) 5.6, Eos % (Auto) 1.7, Baso % (Auto) 0.5, Neut # (Auto) 6.8, Lymph # (Auto) 2.7, [place] # (Auto) 0.6, Eos # (Auto) 0.2, Baso # (Auto) 0.1 12/08/18 12:36: Sodium 142, Potassium 4.5, Chloride 107, Carbon Dioxide 25, Anion Gap 14.5, BUN 20 H, Creatinine 1.00, Estimated Creat Clear 99, Estimated GFR 76, Est GFR ( Amer) 92, Glucose 106, Calcium 9.1, Troponin I < 0.02 12/08/18 12:36: TSH 1.85, Free T4 Index 2.7 L, Thyroxine (T4) 8.2, T3 Uptake 33 I & O for Last 24 hours: Intake & Output 12/06/18 12/07/18 12/08/18 12/09/18 11:59 11:59 11:59 11:59 Intake Total 360 / 360 Balance 360 / 360 Weight 190 lb - Constitutional no acute distress Comments: Conversant and appears comfortable - *Routine Respiratory Exam Comments: Rare audible expiratory wheeze. Good bilateral breath sounds - *Routine Cardiovascular Exam Present: irregular rhythm (Monitor showing atrial fibrillation and ventricular response up to 120) - *Routine Extremities Exam Absent: edema Assessment and Plan (1) Atrial fibrillation with rapid ventricular response Current visit: Yes Status: Acute Category: Medical Code(s): I48.91 - Unspecified atrial fibrillation (2) Tobacco use Current visit: Yes Status: Acute Category: Medical Code(s): Z72.0 - Tobacco use (3) REID (dyspnea on exertion) Problem details: Current visit: No Status: Acute Category: Medical Code(s): R06.09 - Other forms of dyspnea (4) New onset atrial fibrillation Current visit: Yes Status: Acute Category: Medical Code(s): I48.91 - Unspecified atrial fibrillation (5) Abnormal EKG Problem details: Current visit: No Status: Acute Category: Medical Code(s): R94.31 - Abnormal electrocardiogram [ECG] [EKG] - Assessment and plan all Dx Assessment and Plan for all problems:: Patient has been seen by cardiology. Echocardiogram has been completed. He remains on Cardizem drip. We will continue with current care.
--- NOTE | 2018-12-08 21:59 | Cardiology Report ---
PROCEDURE: 2-D M-mode and color Doppler study INDICATIONS FOR THE TEST: Chest pain COPD Heart Murmur+ Tobacco Smoking+ PalpitationsHX Fatigue+ Syncope Edema Hypertension Diabetes Mellitus Rheumatic Fever SOB+REID+Obesity Hyperlipidemia Family History HD+ Additional History AFIB, tachycardia PATIENT INFORMATION HEIGHT: 69 WEIGHT: 198 GENDER: Male B/P: 128/78 2-D/M-MODE INTERPRETATION: 2-D MEASUREMENTS OBSERVED VALUES IN CMS Right Ventricular Dimension (RVDd) 2.7 Interventricular Septum (Thickness)(IVsd) 0.9 Left Ventricular Internal Dimensions(LVIDd) 5.0 Left Ventricular Posterior Wall (Thickness)(LVPWd) 0.8 Aortic Root 3.1 Aortic Cusp Separation 2.3 Left Atrial Dimensions (LAD) 3.3 2D 1. Left atrium is moderately enlarged, left ventricle is mildly dilated, there is severely reduced left ventricular systolic function, visually estimated ejection fraction approximately 30-35%, left ventricle is globally hypokinetic. 2. The right atrium and right ventricle is mildly enlarged with normal contractility. 3. The aortic valve is minimally thickened and fibrosed. 4. The mitral and tricuspid valve leaflets are minimally thickened 5. The pulmonic valve is poorly visualized. 6. No significant pericardial effusion noted. DOPPLER INTERROGATION: Doppler interrogation of the aortic, mitral and tricuspid valvular presence of mild mitral and tricuspid regurgitation, tricuspid regurgitation jet velocity is inadequate for calculation of the right ventricular systolic pressure, diastolic parameters are inconclusive. CONCLUSION: 1. Biatrial enlargement, dilated left ventricle, severely reduced left ventricular systolic function, visually estimated ejection fraction 30-35%, left ventricle is globally hypokinetic. 2. Mild mitral and tricuspid regurgitation 3. Pericardial effusion noted.
--- NOTE | 2018-12-09 08:38 | Progress Note ---
Internal Medicine - PN: Subj *Date: 12/09/18 *Time: 08:34 Interval history: Patient slept about 4 hours last night. He has trouble with sinus drainage. He denies chest pain shortness of breath. He does feel some chest congestion this a.m. He is ambulated to the bathroom without difficulty. He is eating without problems. Exam Vital signs and Labs for Last 24 Hours: Temp Pulse Resp BP Pulse Ox 98.1 F 88 20 113/74 93 L 12/09/18 04:09 12/09/18 06:00 12/09/18 06:00 12/09/18 06:00 12/09/18 06:00 Laboratory Results - last 24 hr 12/08/18 12:36: WBC 10.3, RBC 5.29, Hgb 15.2, Hct 46.6, MCV 88.2, MCH 28.8, MCHC 32.7, RDW 13.7, Plt Count 240, MPV 7.5, Neut % (Auto) 65.8, Lymph % (Auto) 26.3, [place] % (Auto) 5.6, Eos % (Auto) 1.7, Baso % (Auto) 0.5, Neut # (Auto) 6.8, Lymph # (Auto) 2.7, [place] # (Auto) 0.6, Eos # (Auto) 0.2, Baso # (Auto) 0.1 12/08/18 12:36: Sodium 142, Potassium 4.5, Chloride 107, Carbon Dioxide 25, Anion Gap 14.5, BUN 20 H, Creatinine 1.00, Estimated Creat Clear 99, Estimated GFR 76, Est GFR ( Amer) 92, Glucose 106, Calcium 9.1, Troponin I < 0.02 12/08/18 12:36: TSH 1.85, Free T4 Index 2.7 L, Thyroxine (T4) 8.2, T3 Uptake 33 I & O for Last 24 hours: Intake & Output 12/06/18 12/07/18 12/08/18 12/09/18 11:59 11:59 11:59 11:59 Intake Total 503 / 503 Output Total 1050 / 1050 Balance -547 / -547 Weight 190 lb Radiology Reports for the Last 24 Hours: Chest x-ray 12/08/2018 IMPRESSION: COPD, mild cardiomegaly Echocardiogram 12/08/2018 CONCLUSION: 1. Biatrial enlargement, dilated left ventricle, severely reduced left ventricular systolic function, visually estimated ejection fraction 30-35%, left ventricle is globally hypokinetic. 2. Mild mitral and tricuspid regurgitation 3. Pericardial effusion noted. - Constitutional no acute distress Comments: Sitting on the bedside eating his breakfast - *Routine Respiratory Exam Comments: Soft scattered expiratory wheeze audible posteriorly - *Routine Cardiovascular Exam Present: RRR, irregular rhythm (Monitor showing atrial fibrillation with a controlled ventricular response sometimes as low as in the 70s) - *Routine Abdominal Exam Present: soft, normoactive bowel sounds. Absent: tenderness - *Routine Extremities Exam Absent: edema, calf tenderness - *Routine Neurological Exam Present: alert, oriented X3 Assessment and Plan (1) Atrial fibrillation with rapid ventricular response Current visit: Yes Status: Acute Category: Medical Code(s): I48.91 - Unspecified atrial fibrillation (2) Tobacco use Current visit: Yes Status: Acute Category: Medical Code(s): Z72.0 - Tobacco use (3) REID (dyspnea on exertion) Problem details: Current visit: No Status: Acute Category: Medical Code(s): R06.09 - Other forms of dyspnea (4) New onset atrial fibrillation Current visit: Yes Status: Acute Category: Medical Code(s): I48.91 - Unspecified atrial fibrillation (5) Abnormal EKG Problem details: Current visit: No Status: Acute Category: Medical Code(s): R94.31 - Abnormal electrocardiogram [ECG] [EKG] (6) Heart failure with reduced left ventricular function Current visit: Yes Status: Acute Category: Medical Code(s): I50.20 - Unspecified systolic (congestive) heart failure (7) Pericardial effusion Current visit: Yes Status: Acute Category: Medical Code(s): I31.3 - Pericardial effusion (noninflammatory) - Assessment and plan all Dx Assessment and Plan for all problems:: Diuresis. Continue with Cardizem drip. Cardiology to follow.
--- NOTE | 2018-12-09 10:00 | Progress Note ---
Subjective Date: 12/09/18 Time: 09:00 Principal diagnosis: SOB and afib Interval history: This is a 63-year-old white gentleman who was sent to the emergency department by his primary care provider for complaints of shortness of breath with exertion. The patient states that he is noticed this shortness of breath for approximately 2 months. He states that when he wakes up in the morning he is extremely short of breath and he has a difficult time even getting up the steps in his house. However as the day progresses his shortness of breath does improve and he can walk more than 250 feet a grade with no difficulty at all or shortness of breath. He denies any chest pain or pressure. The patient was seen by Dr. Canales yesterday and they thought they heard a heart murmur and the patient was sent here to the emergency department. The patient was found to be in atrial fibrillation with RVR. The patient denied any palpitations or racing of the heart. Today the patient still remains in atrial fibrillation with a heart rate anywhere between 85 and 107 bpm. He is currently on a Cardizem drip, but given his cardiomyopathy a Cardizem drip is not indicated. We will switch over his Cardizem drip today to an amiodarone drip. His troponin is negative. He had a Lexiscan and echocardiogram in August 2017, both of which were normal. He had a CT calcium score of 0 in August 2017. The patient did have an echocardiogram yesterday which showed an ejection fraction of 30 to 35%. He denies any fevers, chills, nausea, vomiting, diarrhea, PND or orthopnea. Exam Vital signs and Labs for Last 24 Hours: Temp Pulse Resp BP Pulse Ox 97.0 F L 100 H 23 116/75 95 12/09/18 08:00 12/09/18 09:24 12/09/18 08:00 12/09/18 08:00 12/09/18 08:00 Laboratory Results - last 24 hr 12/08/18 12:36: WBC 10.3, RBC 5.29, Hgb 15.2, Hct 46.6, MCV 88.2, MCH 28.8, MCHC 32.7, RDW 13.7, Plt Count 240, MPV 7.5, Neut % (Auto) 65.8, Lymph % (Auto) 26.3, [place] % (Auto) 5.6, Eos % (Auto) 1.7, Baso % (Auto) 0.5, Neut # (Auto) 6.8, Lymph # (Auto) 2.7, [place] # (Auto) 0.6, Eos # (Auto) 0.2, Baso # (Auto) 0.1 12/08/18 12:36: Sodium 142, Potassium 4.5, Chloride 107, Carbon Dioxide 25, Anion Gap 14.5, BUN 20 H, Creatinine 1.00, Estimated Creat Clear 99, Estimated GFR 76, Est GFR ( Amer) 92, Glucose 106, Calcium 9.1, Troponin I < 0.02 12/08/18 12:36: TSH 1.85, Free T4 Index 2.7 L, Thyroxine (T4) 8.2, T3 Uptake 33 I & O for Last 24 hours: Intake & Output 12/06/18 12/07/18 12/08/18 12/09/18 23:59 23:59 23:59 23:59 Intake Total 446 / 446 537 / 537 Output Total 500 / 500 1025 / 1025 Balance -54 / -54 -488 / -488 Weight 190 lb 190 lb Narrative: His telemetry strip shows atrial fibrillation with a rate of 104. - Constitutional no acute distress, average body habitus - *Routine HEENT Exam Head: Present: normocephalic, atraumatic Eye: Present: EOMI, PERRL ENT: Present: mucous membranes moist - *Routine Neck Exam Present: supple, full ROM, normal carotid upstroke. Absent: JVD, carotid bruit, lymphadenopathy - *Routine Respiratory Exam Present: CTA bilaterally - *Routine Cardiovascular Exam Present: Normal S1, Normal S2, tachycardia, irregularly irregular - *Routine Abdominal Exam Present: soft, normoactive bowel sounds. Absent: tenderness, distended - *Routine Extremities Exam Present: full ROM, pulses intact, normal capillary refill. Absent: cyanosis, clubbing, edema - *Routine Skin Exam Present: intact, warm. Absent: erythema, rash - *Routine Neurological Exam Present: alert, oriented X3, CN II-XII intact. Absent: sensory deficit, motor deficit - Routine Psychiatric Exam Present: normal affect, normal thought process - Detailed Eye Exam Eyelids: Left normal inspection Progress Note: A&P (1) Atrial fibrillation with rapid ventricular response Status: Acute Current Visit: Yes (2) Tobacco use Status: Acute Current Visit: Yes (3) REID (dyspnea on exertion) Problem details: Status: Acute Current Visit: No (4) New onset atrial fibrillation Status: Acute Current Visit: Yes (5) Abnormal EKG Problem details: Status: Acute Current Visit: No (6) Heart failure with reduced left ventricular function Status: Acute Current Visit: Yes (7) Pericardial effusion Status: Acute Current Visit: Yes (8) Cardiomyopathy Status: Acute Current Visit: Yes (9) Acute systolic (congestive) heart failure Status: Acute Current Visit: Yes Assessment and Plan for All Diagnoses:: Plan: 1. The patient was admitted to the hospital with atrial fibrillation with RVR. The patient remains in atrial fibrillation today with a heart rate of 104. He denies any palpitations or racing of the heart. He is currently on Lovenox for anticoagulation. We will continue this medication. 2. The patient does have cardiomyopathy with an ejection fraction of 30 to 35%. This is a contraindication to being on diltiazem. We will stop his diltiazem and switch him over to an amiodarone drip with a bolus prior to starting the drip. Pharmacy to dose. 3. We will increase his Lopressor to 50 mg p.o. twice daily for better heart rate control. 4. If the patient remains in atrial fibrillation tomorrow we will plan to proceed with a KOLBY and cardioversion with Dr. KOO tomorrow. The patient has been educated on the risks and benefits of proceeding with KOLBY and cardioversion. The patient verbalizes understanding and is agreeable in proceeding with the procedure. 5. The patient will be n.p.o. after midnight. 6. His blood pressure is well controlled. 7. His LDL goal is less than 100. 8. Further recommendations were made pending the patient's response to treatment. Thank you for the opportunity to help participate in the care of this patient.
[2018-12-09 10:57] LABS: Creatine Kinase 60 U/L (39-308)
--- NOTE | 2018-12-10 08:21 | Progress Note ---
Internal Medicine - PN: Subj *Date: 12/10/18 *Time: 08:20 Interval history: Patient states he is feeling very nauseated this morning. He has not vomited. He did have one episode of diarrhea this morning. He states he feels slightly dehydrated. He continues to remain in A. fib and is scheduled for a KOLBY and cardioversion today. Exam Vital signs and Labs for Last 24 Hours: Temp Pulse Resp BP Pulse Ox 97.6 F 79 20 119/86 95 12/10/18 07:38 12/10/18 07:38 12/10/18 07:38 12/10/18 07:38 12/10/18 07:38 Laboratory Results - last 24 hr 12/09/18 10:01: Total Creatine Kinase 60, CK-MB (CK-2) 0.8, CK-MB (CK-2) Rel Index 1.3, Troponin I < 0.02 I & O for Last 24 hours: Intake & Output 12/07/18 12/08/18 12/09/18 12/10/18 11:59 11:59 11:59 11:59 Intake Total 983 / 1102 1127 / 1127 Output Total 1525 / 1975 925 / 925 Balance -542 / -873 202 / 202 Weight 190 lb 192 lb - Constitutional no acute distress - *Routine Respiratory Exam Present: CTA bilaterally - *Routine Cardiovascular Exam Present: irregularly irregular - *Routine Abdominal Exam Present: soft, normoactive bowel sounds. Absent: tenderness - *Routine Extremities Exam Absent: cyanosis, clubbing, edema - *Routine Skin Exam Present: warm. Absent: rash Assessment and Plan (1) Atrial fibrillation with rapid ventricular response Current visit: Yes Status: Acute Category: Medical Code(s): I48.91 - Unspecified atrial fibrillation (2) Tobacco use Current visit: Yes Status: Acute Category: Medical Code(s): Z72.0 - Tobacco use (3) REID (dyspnea on exertion) Problem details: Current visit: No Status: Acute Category: Medical Code(s): R06.09 - Other forms of dyspnea (4) New onset atrial fibrillation Current visit: Yes Status: Acute Category: Medical Code(s): I48.91 - Unspecified atrial fibrillation (5) Abnormal EKG Problem details: Current visit: No Status: Acute Category: Medical Code(s): R94.31 - Abnormal electrocardiogram [ECG] [EKG] (6) Heart failure with reduced left ventricular function Current visit: Yes Status: Acute Category: Medical Code(s): I50.20 - Unspecified systolic (congestive) heart failure (7) Pericardial effusion Current visit: Yes Status: Acute Category: Medical Code(s): I31.3 - Pericardial effusion (noninflammatory) (8) Cardiomyopathy Current visit: Yes Status: Acute Category: Medical Code(s): I42.9 - Cardiomyopathy, unspecified (9) Acute systolic (congestive) heart failure Current visit: Yes Status: Acute Category: Medical Code(s): I50.21 - Acute systolic (congestive) heart failure - Assessment and plan all Dx Assessment and Plan for all problems:: We will get labs this morning and order some Zofran for nausea. Cardiology to see this a.m. Patient is scheduled for a KOLBY and cardioversion this morning.
[2018-12-10 08:41] LABS: Basophils # 0.1 K/mm3 (0-0.2); Basophils % 0.5 % (0.1-2.0); Eosinophils # 0.2 K/mm3 (0.0-0.4); Hematocrit 45.4 % (42.0-52.0); Hemoglobin 14.8 g/dL (14.1-18.0); Lymphocytes # 2.4 K/mm3 (0.7-4.5); Lymphocytes % 25.9 % (10-50); Mean Corpuscular HGB Conc 32.5 g/dL (31.8-35.4); Mean Corpuscular Hemoglobin 28.7 pg (27.0-31.2); Mean Corpuscular Volume 88.1 fl (80-94); Mean Platelet Volume 7.8 fl (7.4-10.4); Monocytes # 0.6 K/mm3 (0.1-1.0); Monocytes % 6.9 % (1.7-9.3); Neutrophils % 64.7 % (37.0-80.0); Platelet Count 231 K/mm3 (142-424); Red Blood Count 5.16 M/mm3 (4.60-6.20); Red Cell Distribution Width 13.7 % (11.5-17.5); White Blood Count 9.3 K/mm3 (4.8-10.8)
[2018-12-10 08:54] LABS: Albumin Level 3.5 gm/dL (3.4-5.0); Albumin/Globulin Ratio 0.9 (1.1-1.8); Bilirubin,Total 1.4 mg/dL (0.2-1.0); Calcium 8.7 mg/dL (8.5-10.1); Globulin 3.7 gm/dl (1.3-3.2); Total Protein,Serum 7.2 gm/dL (6.4-8.2)
--- NOTE | 2018-12-10 08:55 | Progress Note ---
Subjective Date: 12/10/18 Time: 08:52 Principal diagnosis: SOB and afib Interval history: 63-year-old white male in the ICU in no acute distress. Patient remains on amiodarone drip. Telemetry continues to show atrial fibrillation but with controlled rate in the 80s. Patient relates some nausea and episode of vomiting and diarrhea overnight. 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 Exam Vital signs and Labs for Last 24 Hours: Temp Pulse Resp BP Pulse Ox 97.6 F 85 20 119/86 96 12/10/18 07:38 12/10/18 08:00 12/10/18 07:38 12/10/18 07:38 12/10/18 08:00 Laboratory Results - last 24 hr 12/09/18 10:01: Total Creatine Kinase 60, CK-MB (CK-2) 0.8, CK-MB (CK-2) Rel Index 1.3, Troponin I < 0.02 12/10/18 08:35: WBC 9.3, RBC 5.16, Hgb 14.8, Hct 45.4, MCV 88.1, MCH 28.7, MCHC 32.5, RDW 13.7, Plt Count 231, MPV 7.8, Neut % (Auto) 64.7, Lymph % (Auto) 25.9, [place] % (Auto) 6.9, Eos % (Auto) 2.0, Baso % (Auto) 0.5, Neut # (Auto) 6.0, Lymph # (Auto) 2.4, [place] # (Auto) 0.6, Eos # (Auto) 0.2, Baso # (Auto) 0.1 I & O for Last 24 hours: Intake & Output 12/07/18 12/08/18 12/09/18 12/10/18 11:59 11:59 11:59 11:59 Intake Total 983 / 1102 1127 / 1127 Output Total 1524 / 1974 925 / 925 Balance -542 / -873 202 / 202 Weight 190 lb 192 lb - *Routine HEENT Exam Head: Present: normocephalic Eye: Present: EOMI, PERRL ENT: Present: mucous membranes moist - *Routine Respiratory Exam Present: CTA bilaterally. Absent: accessory muscle use, rales, rhonchi, wheezes - *Routine Cardiovascular Exam Present: irregularly irregular. Absent: murmur, gallop, rubs - *Routine Neurological Exam Present: alert, oriented X3, moving all extremities Progress Note: A&P (1) Atrial fibrillation with rapid ventricular response Status: Acute Current Visit: Yes (2) Tobacco use Status: Acute Current Visit: Yes (3) REID (dyspnea on exertion) Problem details: Status: Acute Current Visit: No (4) New onset atrial fibrillation Status: Acute Current Visit: Yes (5) Abnormal EKG Problem details: Status: Acute Current Visit: No (6) Heart failure with reduced left ventricular function Status: Acute Current Visit: Yes (7) Pericardial effusion Status: Acute Current Visit: Yes (8) Cardiomyopathy Status: Acute Current Visit: Yes (9) Acute systolic (congestive) heart failure Status: Acute Current Visit: Yes Assessment and Plan for All Diagnoses:: 1. Continue amiodarone loading 2. KOLBY/cardioversion scheduled for later today 3. Cardiomyopathy treatment with beta-jose e therapy for rate control 4. Diuretic therapy continues with chest x-ray showing no evidence of congestive heart failure 5. Zofran for nausea 6. We will start low-dose KENNETH inhibitor therapy in the setting of cardiomyopathy 7. Further recommendations pending results of KOLBY/cardioversion
--- NOTE | 2018-12-10 12:20 | Progress Note ---
[facility] Anesthesia Checklist - Patient Identification Patient Identification: Arm Band, Verbal (Name & ) - Structural Data Admitted From: Inpatient Planned Operative Procedure/s: amelie cardioversion Consent for Planned Operative Procedure(s) Verified: Yes Verified Documents: History and Physical - NPO Status Verified Time NPO: 00:00 - Additional verifications Patient : No Anesthesia Reactions: No Hx Blood Transfusions: No Blood Transfusion Reaction: No Cephalosporin Allergy: No Previous Colonoscopy: No - Cardiovascular Assessment Pulse Rhythm: Irregular Peripheral Edema: No - Airway Assessment C-Spine Mobility Assessed: Yes TMJ Mobility Assessed: Yes Dentition: Good Dentition - Neurological Assessment Level of Consciousness: Awake, Alert, Appropriate Hx Seizures: No Numbness or tingling in extremities: No - Anesthesia Plan Anesthesia Risk discussed: Yes Anesthesia Plan: Verified ASA Class: III Anesthesia Type: MAC [facility] History I have reviewed the patient's past medical history: Yes Medical History: Reports:: Kidney Stones Denies:: Cancer, Diabetes Mellitus Type 1, Diabetes Mellitus Type 2, MRSA *Have you ever received a pneumonia vaccine?: No *Have you received a flu vaccine this season?: Yes Laterality Cases: Right: Arthroscopy Knee, Other, Bilateral: Tonsillectomy Other Surgeries: Yes: Hernia Repair, Other (meniscus repair) Amputation: No - *Social History Smoking Status: Current every day smoker Tobacco Type: cigarettes # Packs/Day (cigarettes): 2 Smoking End Date: 12/07/18 Alcohol Intake: current Alcohol Intake Frequency:: holidays/special occasions only *Occupational Status:: employed Housing: house *Travel in the last 8 weeks: None - Psychiatric History Expresses thoughts of harming self/others: None Suicide Plan Description: No Plan Family Hx:: No significant family history
[2018-12-10 14:02] LABS: Basophils % 0.5 % (0.1-2.0); Eosinophils # 0.1 K/mm3 (0.0-0.4); Eosinophils % 1.5 % (0.1-12.0); Hematocrit 44.3 % (42.0-52.0); Hemoglobin 14.5 g/dL (14.1-18.0); Lymphocytes # 2.4 K/mm3 (0.7-4.5); Lymphocytes % 27.7 % (10-50); Mean Corpuscular HGB Conc 32.7 g/dL (31.8-35.4); Mean Corpuscular Volume 88.6 fl (80-94); Mean Platelet Volume 7.9 fl (7.4-10.4); Monocytes # 0.5 K/mm3 (0.1-1.0); Monocytes % 6.2 % (1.7-9.3); Neutrophils # 5.5 K/mm3 (1.8-7.8); Neutrophils % 64.1 % (37.0-80.0); Platelet Count 220 K/mm3 (142-424); Red Cell Distribution Width 13.7 % (11.5-17.5); White Blood Count 8.6 K/mm3 (4.8-10.8)
--- NOTE | 2018-12-10 15:20 | Cardiology Report ---
Procedure: Transesophageal echocardiogram Indication for procedure: AF Procedure: Patient was in the ICU in hemodynamically stable condition, after the informed consent, conscious sedation was provided by anesthesiologist, local anesthesia was applied, transesophageal echocardiogram performed without difficulty. Patient tolerated the procedure well. Findings: 1. Left atrium is moderately enlarged, there is marked spontaneous echo contrast seen in the left atrium, there is echodense mobile density seen in the left atrial appendage, this likely represents left atrial appendage thrombus, there is poor appendage flow by spectral Doppler. 2. The right atrium is mildly enlarged. 3. The intra-atrial septum is intact, there is no flow across the intra-atrial septum, agitated saline contrast study fails to identify intracardiac shunt. 4. The aortic valve is minimally thickened and fibrosed. There is no aortic stenosis aortic insufficiency 5. The mitral valve is structurally normal, there is mild mitral regurgitation 6. The tricuspid valve is grossly normal, there is mild tricuspid regurgitation 7. The left ventricle is mildly dilated, severely reduced left ventricular systolic function, visually estimated ejection fraction of 30%, left ventricle is globally hypokinetic. 8. The right ventricle is mildly enlarged with moderate reduction contractility of the right ventricle. 9. No significant pericardial effusion noted 10. Ascending, arch and descending thoracic aorta there is no aneurysm or dissection. Conclusion: 1. Moderately enlarged left atrium, mildly spontaneous echo contrast seen in the left atrium, there is thrombus seen in the left atrial appendage. There is poor appendage flow by spectral Doppler. 2. Mildly enlarged right ventricle with moderate reduction contractility. 3. Mildly dilated left ventricle, severely reduced left ventricular systolic function, visually estimated ejection fraction 30% left ventricle is globally hypokinetic. 4. Mild mitral and tricuspid regurgitation 5. Agitated percent contrast study fails to identify intracardiac shunt. 6. No significant pericardial effusion noted.
--- NOTE | 2018-12-14 13:05 | Discharge Summary ---
General - General Admission date:: 12/08/18 Discharge date: 12/10/18 HPI HPI: Mr. Le is a 63-year-old white male who presented to the office of A for complains of dyspnea on exertion. He had had this for 2 months with the exception of a couple days a few weeks ago when he felt back to normal. He denied chest pain and palpitations. He saw Sveta and was treated for bronchitis, but was also sent for an EKG because she thought she heard a murmur. When he had his EKG done, he was found to be in atrial fibrillation and was sent to the emergency room. He has no prior history of atrial fibrillation. His heart rate was in the 140s. He was given a Cardizem bolus and his heart rate dropped into the low 100s. Cardiology was consulted for evaluation recommendations. Hospital Course Hospital Course: The patient's chest x-ray showed COPD and mild cardiomegaly. Cardiology continued his Cardizem drip for rate control and started him on anticoagulation with Lovenox 1 mg/kg subcu twice daily. They also ordered an echocardiogram. His echo showed an EF of 30 to 35%. There was biatrial enlargement and pericardial effusion noted. Cardiology stopped the diltiazem and switched him over to an amiodarone drip. They increased his Lopressor to 50 mg twice daily. They felt if hecontinued to remain in atrial fib, they would proceed with a KOLBY and cardioversion. The patient did become nauseated on amiodarone and was started on some Zofran. He remained in A. fib, therefore cardiology proceeded with a KOLBY. The KOLBY revealed an ALYCIA thrombus, therefore no cardioversion was performed. It was felt the patient would need long-term anticoagulation with plans to retry KOLBY and cardioversion in 4 weeks. The patient was started on Xarelto 20 mg daily. His rate was controlled with oral amiodarone and beta- blockers therefore he was stable to be discharged home. He will follow-up with cardiology in 1 week. Objective Vital signs: Temp Pulse Resp BP Pulse Ox 97.6 F 75 17 107/75 L 95 12/10/18 12:00 12/10/18 14:50 12/10/18 14:00 12/10/18 14:00 12/10/18 14:50 Narrative: - *Cardiovascular Reports shortness of breath with activity, Denies chest pain - *Respiratory Reports shortness of breath with activity - *Gastrointestinal Denies abdominal pain, Denies loose stools - *Genitourinary Denies blood in urine - *Musculoskeletal Reports joint pain, Reports back pain - *Neurologic Reports tingling (Legs tingle with exertion), Denies headache(s), Denies loss of vision DS: Diagnosis - Discharge Diagnosis (1) Atrial fibrillation with rapid ventricular response Status: Acute (2) Tobacco use Status: Acute (3) REID (dyspnea on exertion) Status: Acute Problem details: (4) New onset atrial fibrillation Status: Acute (5) Abnormal EKG Status: Acute Problem details: (6) Heart failure with reduced left ventricular function Status: Acute (7) Pericardial effusion Status: Acute (8) Cardiomyopathy Status: Acute (9) Acute systolic (congestive) heart failure Status: Acute Discharge Plan - Patient Discharge Instructions ACTIVITY: Limited activity DIET: continue same diet Patient Instructions: Atrial Fibrillation, DI for Atrial Fibrillation - Follow up Plan Follow up with: Enrique De Jesus MD [Staff Physician] - 1 week Disposition: Home, Self-Correction Medications: Home Medications Medication Instructions Recorded Confirmed Type Albuterol Sulfate [Albuterol HFA 1 - 2 puffs IH Q4-6H PRN 12/08/18 12/08/18 History Inhaler] Azithromycin [Azithromycin 500mg 250 mg PO DIRECTED 12/08/18 12/09/18 History Tab] Vit B12/Iod/mg/Zn/Se/Herb#193 1 each PO DAILY 12/08/18 12/08/18 History [Adrenoid Capsule] Vit D3/Folic Acid/B2/B6/B12 1 each PO DAILY 12/08/18 12/08/18 History [Folgard Tablet] dexAMETHasone [Decadron 4mg tablet] 4 mg PO BID 12/08/18 12/09/18 History Aspirin [Aspirin 81mg chewable 81 mg PO DAILY 12/09/18 12/09/18 History tab] Amiodarone HCl [Cordarone 200mg 200 mg PO DAILY #30 tab 12/10/18 Rx tablet] Furosemide [Lasix 20mg tablet] 20 mg PO BIDL #60 tab 12/10/18 Rx Lisinopril [Zestril 5mg 5 mg PO DAILY #30 tab 12/10/18 Rx Tablet] Metoprolol Tartrate [Lopressor 50 mg PO BID #60 tab 12/10/18 Rx 50mg tablet] Rivaroxaban [Xarelto 10mg tablet] 20 mg PO QPMWM #30 tab 12/10/18 Rx Prescriptions/Medication Reconciliation: New Metoprolol Tartrate [Lopressor 50mg tablet] 50 mg PO BID #60 tab Rivaroxaban [Xarelto 10mg tablet] 20 mg PO QPMWM #30 tab Lisinopril [Zestril 5mg Tablet] 5 mg PO DAILY #30 tab Amiodarone HCl [Cordarone 200mg tablet] 200 mg PO DAILY #30 tab Furosemide [Lasix 20mg tablet] 20 mg PO BIDL #60 tab Continued Albuterol Sulfate [Albuterol HFA Inhaler] 1 - 2 puffs IH Q4-6H PRN PRN Reason: Shortness Of Breath Or Wheezing Vit B12/Iod/mg/Zn/Se/Herb#193 [Adrenoid Capsule] 1 each PO DAILY Aspirin [Aspirin 81mg chewable tab] 81 mg PO DAILY Azithromycin [Azithromycin 500mg Tab] 250 mg PO DIRECTED dexAMETHasone [Decadron 4mg tablet] 4 mg PO BID Vit D3/Folic Acid/B2/B6/B12 [Folgard Tablet] 1 each PO DAILY
== END 2018-12-10 16:29 | disposition home or self-care (01) | DRG 308 ==
LOC: ER 12:40 → ICU 14:44
PROVIDERS: ADMIT Family Medicine; ATTEND Family Medicine
CPT/HCPCS: 36415; 71020; 71046; 80048; 80053; 82550; 82553; 84436; 84443; 84479; 84484; 85025; 93005; 93306; 93312; 96372; 96374; 99152; 99153; 99284; J0282; J2405; J7060

== ENCOUNTER → 2019-01-20 15:19 | Outpatient (CLI) | payer OTHER, SELFPAY ==
--- NOTE | 2019-01-20 15:24 | CT_ITS ---
CT lung screening EXAM: CT LUNG LOW DOSE WO CONTRAST HISTORY: Greater than 45 pack year smoking history, a submitted for lung cancer ITS.REASON: H/O NICOTINE DEPENDENCE ORDERING PHYSICIAN: Cory Erickson MD PATIENT AGE: 63 years COMPARISON: None TECHNIQUE: The exam was performed on a GE Light Speed [address] scanner using 2.90 mGy CTDI. A low dose helical CT CHEST was performed on a multi-detector scanner. All CT scans at the facility use one or more dose reduction, viz: automated exposure control, ma/kV adjustment per patient size (including targeted exams where dose is matched to indication, i.e. head), or iterative reconstruction technique. The LDCT was performed in a facility that meets the criteria for the screening program. Data regarding this exam was submitted to ACR which is an approved registry. The order for this exam indicates that it came as a result of a lung cancer screening counseling shard decision-making visit that included all the elements required of such a visit including smoking cessation. The radiologist interpreting this exam meets the CMS criteria for the LDCT lung cancer screening program. The exam is reported using the Lung-RADS classification scale and reported to the ACR registry. NOTE: This study was performed for the specific purposes of lung cancer screening and is not an alternative to diagnostic chest CT. RADIATION DOSE: CTDI vol(CT dose Index-volume) = 2.90mG DLP (Dose Length Product) = 113.59 mGcm FINDINGS: COPD with centrilobular edema. There is an 8 mm noncalcified nodule in the right middle lobe.. There is a noncalcified 5 mm nodule in the left upper lobe medially. A 6 mm noncalcified nodule is present in the left lower lobe. 6 mm noncalcified nodule left lower lobe laterally at CP angle IMPRESSION: 1. Lung RADS Category: 4 a, mildly suspicious, multiple noncalcified nodules the largest at 8 mm 2. Other findings: COPD/centrilobular emphysema RECOMMENDATIONS: 6 monthd LDCT follow-up
== END ==
PROVIDERS: PCP Family Medicine; Visit Provider Family Medicine
DX: Z12.2 Encounter for screening for malignant neoplasm of respiratory organs (principal); Z87.891 Personal history of nicotine dependence

== ENCOUNTER → 2019-02-09 12:42 | Outpatient (CLI) | payer OTHER, SELFPAY ==
--- NOTE | 2019-02-09 12:45 | CA_ITS ---
CA echo doppler complete PROCEDURE: INDICATIONS FOR THE TEST: Chest pain COPD Heart Murmur Tobacco Smoking Palpitations Fatigue Syncope Edema Hypertension+Diabetes Mellitus Rheumatic Fever SOB+REID+Obesity Hyperlipidemia Family History HD Additional History AFLUTTER, CHF, KOLBY 12/08/18 ALYCIA THROMBUS PATIENT INFORMATION HEIGHT: 69 WEIGHT:192 GENDER: Male B/P:123/80 2-D/M-MODE INTERPRETATION: 2-D MEASUREMENTS OBSERVED VALUES IN CMS Right Ventricular Dimension (RVDd) 2.6 Interventricular Septum (Thickness)(IVsd) 1.4 Left Ventricular Internal Dimensions(LVIDd) 5.1 Left Ventricular Posterior Wall (Thickness)(LVPWd) 1.0 Aortic Root 3.8 Aortic Cusp Separation 2.2 Left Atrial Dimensions (LAD) 3.1 2D 1. Left atrium is mildly enlarged, left ventricle is normal size, mild concentric left ventricular hypertrophy, visually estimated ejection fraction approximately 45%, with no regional wall motion abnormality. 2. The right atrium and right ventricle are mildly enlarged with normal contractility. 3. The aortic valve is minimally thickened and fibrosed. 4. The mitral and tricuspid valve leaflets are minimally thickened. 5. The pulmonic valve is poorly visualized. 6. No significant pericardial effusion noted. DOPPLER INTERROGATION: Doppler interrogation of the aortic, mitral and tricuspid valvular presence of mild mitral and tricuspid regurgitation, tricuspid regurgitation jet velocity is inadequate for calculation of the right ventricular systolic pressure, grade 1 diastolic dysfunction seen with tissue Doppler evidence of raised left atrial pressure, inferior vena cava is normal size with normal collapse. CONCLUSION: 1. Biatrial enlargement, normal left ventricular size, mild concentric left ventricular hypertrophy, visually estimated ejection fraction 45% with no regional wall motion abnormality, grade 1 diastolic dysfunction seen with tissue Doppler evidence of raised left atrial pressure. 2. Mild mitral and tricuspid regurgitation. 3. No significant pericardial effusion noted, inferior vena cava is normal size with normal inspiratory collapse.
== END ==
PROVIDERS: PCP Family Medicine; Visit Provider Internal Medicine
DX: I10 Essential (primary) hypertension (principal); I48.92 Unspecified atrial flutter; I50.21 Acute systolic (congestive) heart failure; I50.30 Unspecified diastolic (congestive) heart failure; I51.9 Heart disease, unspecified
CPT/HCPCS: 93306

== ENCOUNTER → 2019-05-03 11:47 | Outpatient (CLI) | payer OTHER, SELFPAY | PROVIDERS: PCP Family Medicine; Visit Provider Family Medicine | DX: I48.0 Paroxysmal atrial fibrillation (principal) | CPT/HCPCS: 93225; 93226 ==

== ENCOUNTER → 2019-06-09 11:18 | Outpatient (CLI) | payer OTHER, SELFPAY ==
[2019-06-09 11:51] LABS: Basophils # 0.1 K/mm3 (0-0.2); Basophils % 1.2 % (0.1-2.0); Eosinophils # 0.3 K/mm3 (0.0-0.4); Eosinophils % 2.9 % (0.1-12.0); Hematocrit 45.1 % (42.0-52.0); Hemoglobin 14.9 g/dL (14.1-18.0); Lymphocytes # 2.9 K/mm3 (0.7-4.5); Lymphocytes % 32.1 % (10-50); Mean Corpuscular HGB Conc 33.1 g/dL (31.8-35.4); Mean Corpuscular Hemoglobin 30.5 pg (27.0-31.2); Mean Platelet Volume 7.9 fl (7.4-10.4); Monocytes # 0.4 K/mm3 (0.1-1.0); Monocytes % 4.9 % (1.7-9.3); Neutrophils # 5.2 K/mm3 (1.8-7.8); Neutrophils % 58.9 % (37.0-80.0); Platelet Count 292 K/mm3 (142-424); Red Cell Distribution Width 13.1 % (11.5-17.5); White Blood Count 8.9 K/mm3 (4.8-10.8)
[2019-06-09 12:58] LABS: Alanine Aminotransferase 19 U/L (12-78); Albumin Level 3.6 gm/dL (3.4-5.0); Alkaline Phosphatase 98 U/L (46-116); Anion Gap 12.1 mEq/L (5-15); Aspartate Amino Transferase 13 U/L (15-37); Bilirubin,Direct 0.1 mg/dL (0.0-0.2); Bilirubin,Indirect 0.4 mg/dL (0.0-0.9); Bilirubin,Total 0.5 mg/dL (0.2-1.0); Blood Urea Nitrogen 23 mg/dL (7-18); Calcium 8.8 mg/dL (8.5-10.1); Carbon Dioxide 27 mmol/L (21.0-32.0); Chloride 105 mmol/L (98-107); Chol/HDL Ratio 4.1 (1-3.5); Cholesterol 198 mg/dL (140-200); Creatinine,Serum 1.14 mg/dL (0.70-1.30); Estimated Glomerular Filt Rate 65 ml/min (>60); Free T4 (Free Thyroxine) 1.14 ng/dl (0.76-1.46); GFR (African American) 79 ML/MIN (>60); Glucose 117 mg/dL (74-106); HDL Cholesterol 48 mg/dL (27-67); LDL Cholesterol 102 mg/dL (0-130); Potassium 4.1 mmoL/L (3.5-5.1); Sodium 140 mmol/L (136-145); Thyroid Stimulating Hormone 3.46 uIU/ml (0.358-3.740); Total Protein,Serum 7.2 gm/dL (6.4-8.2); Triglycerides 242 mg/dL (30-200); VLDL Cholesterol 48 mg/dL (0-40)
== END ==
PROVIDERS: Urology; PCP Family Medicine; Visit Provider Internal Medicine
DX: I42.9 Cardiomyopathy, unspecified (principal)
CPT/HCPCS: 36415; 80048; 80061; 80076; 84439; 84443; 85025

== ENCOUNTER → 2019-06-14 10:33 | Outpatient (CLI) | payer OTHER, SELFPAY ==
--- NOTE | 2019-06-14 10:36 | XR_ITS ---
PROCEDURE: XR CHEST 2V CLINICAL HISTORY: x Atrial fibrillation COMPARISON: CXR CHEST(2 VIEWS-NOT PORTABLE) from 07/28/2017 CXR2V XR chest 2V from 12/08/[address] lung screening from 01/20/2019 FINDINGS: The cardiomediastinal silhouette and pulmonary vascularity are within normal limits. There is hyperinflation with attenuation of the peripheral pulmonary vessels consistent with COPD. No lobar consolidation or collapse. No acute bony anomalies. IMPRESSION: COPD. No change with no acute finding Dictated by: Joby Osuna MD 06/14/2019 12:02 Electronically signed by Joby Osuna MD in [place] 06/14/2019 12:02
== END ==
PROVIDERS: PCP Family Medicine; Visit Provider Urology
DX: I42.9 Cardiomyopathy, unspecified (principal); I48.91 Unspecified atrial fibrillation
CPT/HCPCS: 71046

== ENCOUNTER → 2019-06-15 13:48 | Outpatient (POV) | payer OTHER, SELFPAY | PROVIDERS: Visit Provider Dermatology | DX: Z00.00 Encounter for general adult medical examination without abnormal findings (principal) ==

== ENCOUNTER → 2019-07-30 14:49 | Outpatient (CLI) | payer OTHER, SELFPAY ==
--- NOTE | 2019-07-30 14:54 | CT_ITS ---
PROCEDURE: CT CHEST WO CON CLINICAL INDICATION: PULMONARY NODULES Follow-up lung nodules COMPARISON: LUNGSCREEN CT lung screening from 01/20/2019 TECHNIQUE: Axial images obtained with sagittal and coronal reformats. All CT scans at the facility use one or more dose reduction, viz: automated exposure control, ma/kV adjustment per patient size (including targeted exams where dose is matched to indication, i.e. head), or iterative reconstruction technique. FINDINGS: Scattered small nodes are present in the mediastinum not significantly changed. There is mild prominence of the supravalvular portion of the aortic root at 4.1 cm. Changes of COPD. No change in the noncalcified 8 mm nodule in the right middle lobe, 4 mm nodule right lower lobe posteriorly, 5 mm nodule right upper lobe the. There are a few new small parenchymal opacities in the left upper lobe. In addition, there is a new 5 mm nodule in the left upper lobe laterally. There is a stable 5 mm nodule in the left lower lobe. There is a stable 5 mm nodule in the left lower lobe posteriorly. No effusions. No infiltrates. No acute bony findings. IMPRESSION: 1. There are numerous bilateral pulmonary nodules some of which are stable and some of which are new. These could be inflammatory/infectious or even neoplastic. Does the patient have a history of primary carcinoma? If not then, would consider continued 3 month follow-up to confirm short term stability. These nodules are likely below limits of resolution for PET scan inter too small for percutaneous biopsy. Dictated by: Joby Osuna MD 07/31/2019 14:24 Electronically signed by Joby Osuna MD in [place] 07/31/2019 14:24
== END ==
PROVIDERS: PCP Family Medicine; Visit Provider Family Medicine
DX: R91.8 Other nonspecific abnormal finding of lung field (principal)
CPT/HCPCS: 71250

== ENCOUNTER → 2019-12-21 14:42 | Outpatient (CLI) | payer OTHER, SELFPAY ==
--- NOTE | 2019-12-21 14:59 | XR_ITS ---
PROCEDURE: XR CHEST 2V CLINICAL HISTORY: Amiodarone Heart disease, atrial fibrillation COMPARISON: CXR CHEST(2 VIEWS-NOT PORTABLE) from 07/28/2017 CXR2V XR chest 2V from 12/08/2018 XR CHEST 2V from 06/14/2019 CT CHEST WO CON from 07/30/2019 FINDINGS: The cardiomediastinal silhouette and pulmonary vascularity are within normal limits. The lungs are clear without infiltrates, suspicious nodules, or pleural effusions. There is mild thoracic kyphosis with minimal wedging T8 T6 and T5 not significantly changed with degenerative changes in the thoracic spine IMPRESSION: No change no acute finding Dictated by: Joby Osuna MD 12/21/2019 15:22 Electronically signed by Joby Osuna MD in [place] 12/21/2019 15:22
[2019-12-21 19:22] LABS: Alanine Aminotransferase 15 U/L (12-78); Alkaline Phosphatase 72 U/L (38-126); Aspartate Amino Transferase 23 U/L (17-59); Bilirubin,Indirect 0.4 mg/dL (0.0-0.9); Bilirubin,Total 0.4 mg/dl (0.2-1.3); Bilirubin,Unconjugated 0.3 mg/dL (0.0-1.1)
[2019-12-21 19:23] LABS: Total Protein,Serum 7.1 g/dl (6.3-8.2)
[2019-12-21 19:54] LABS: Thyroid Stimulating Hormone 3.05 uIU/mL (0.465-4.68)
[2019-12-21 21:11] LABS: Free T4 (Free Thyroxine) 1.54 ng/dl (0.78-2.19)
== END ==
PROVIDERS: PCP Family Medicine; Visit Provider Urology
DX: I10 Essential (primary) hypertension (principal); I48.0 Paroxysmal atrial fibrillation; I50.22 Chronic systolic (congestive) heart failure
CPT/HCPCS: 36415; 71046; 80076; 84439; 84443

== ENCOUNTER → 2020-04-18 11:01 | Outpatient (CLI) | payer OTHER, SELFPAY ==
[2020-04-18 11:38] LABS: Basophils # 0.1 K/mm3 (0-0.2); Basophils % 0.8 % (0.1-2.0); Eosinophils # 0.2 K/mm3 (0.0-0.4); Eosinophils % 2.3 % (0.1-12.0); Hematocrit 43.6 % (42.0-52.0); Hemoglobin 14.6 g/dL (14.1-18.0); Lymphocytes # 2.6 K/mm3 (0.7-4.5); Lymphocytes % 28.3 % (10-50); Mean Corpuscular HGB Conc 33.6 g/dL (31.8-35.4); Mean Corpuscular Volume 92.2 fl (80-94); Mean Platelet Volume 7.5 fl (7.4-10.4); Monocytes # 0.6 K/mm3 (0.1-1.0); Monocytes % 6.2 % (1.7-9.3); Neutrophils # 5.8 K/mm3 (1.8-7.8); Neutrophils % 62.5 % (37.0-80.0); Platelet Count 243 K/mm3 (142-424); Red Blood Count 4.73 M/mm3 (4.60-6.20); Red Cell Distribution Width 14.1 % (11.5-17.5); White Blood Count 9.3 K/mm3 (4.8-10.8)
[2020-04-19 07:53] LABS: Covid-19 Nasal PCR Sendout Lex NOT DETECTED
== END ==
PROVIDERS: PCP Family Medicine; Visit Provider Nurse Practitioner
DX: Z03.818 Encounter for observation for suspected exposure to other biological agents ruled out (principal)
CPT/HCPCS: 85025; U0004

== ENCOUNTER → 2020-05-09 07:16 | Outpatient (CLI) | payer OTHER, SELFPAY ==
--- NOTE | 2020-05-09 07:21 | CT_ITS ---
PROCEDURE: CT CHEST WO CON CLINICAL INDICATION: PULMONARY NODULES Follow-up pulmonary nodules COMPARISON: CT LUNGSCREEN CT lung screening from 01/20/[address] CHEST WO CON from 07/30/2019 TECHNIQUE: Axial images obtained with sagittal and coronal reformats. All CT scans at the facility use one or more dose reduction, viz: automated exposure control, ma/kV adjustment per patient size (including targeted exams where dose is matched to indication, i.e. head), or iterative reconstruction technique. FINDINGS: HEART AND MEDIASTINAL STRUCTURES: Stable small lymph nodes. Stable mild supravalvular prominence of the aortic root. LUNGS AND PLEURAL SPACES: COPD with centrilobular emphysema. No change in the right middle lobe nodule and other smaller nodular opacities as previously described. No new nodules evident. Previously noted 5 mm nodule in the left upper lobe not apparent on today's study. 5 mm nodule in the left lower lobe unchanged. 4 mm nodule in the left lower lobe laterally unchanged. Parenchymal opacity in the left lung base inferiorly and laterally in the CP angle is unchanged. Atelectatic or fibrotic change present in the right middle lobe laterally slightly more prominent. High-resolution images are obtained showing scattered fibrotic changes. Overall, there is no interlobular septal thickening. There are some mild centrilobular emphysematous changes. BONY STRUCTURES: Mild kyphosis. UPPER ABDOMEN: 6 mm nonobstructing stone is present in the lower pole of the left kidney. There is minimal dilatation of the infrarenal abdominal aorta at 2.3 cm ADDITIONAL FINDINGS: No other significant abnormalities. IMPRESSION: Overall stable CT appearance of the chest. Please see above for detail. Dictated by: Jboy Osuna MD 05/10/2020 13:37 Joby Osuna MD in [place] 05/10/2020 13:37
== END ==
PROVIDERS: PCP Family Medicine; Visit Provider Family Medicine
DX: R91.8 Other nonspecific abnormal finding of lung field (principal)
CPT/HCPCS: 71250

== ENCOUNTER → 2020-06-21 13:40 | Outpatient (CLI) | payer OTHER, SELFPAY ==
--- NOTE | 2020-06-21 13:44 | XR_ITS ---
PROCEDURE: XR CHEST 2V CLINICAL HISTORY: on amiodarone Smoker, heart disease COMPARISON: CR CXR2V XR chest 2V from 12/08/2018 CR XR CHEST 2V from 06/14/2019 CR XR CHEST 2V from 12/21/[address] CHEST WO CON from 05/09/2020 FINDINGS: The cardiomediastinal silhouette and pulmonary vascularity are within normal limits. Lungs are clear bilaterally. No evidence of amiodarone lung toxicity. Degenerative changes are present in the thoracic spine with mild wedge contour T9-T7 and T6 unchanged. No acute bony abnormalities. IMPRESSION: No change with no acute finding. Dictated by: Joby Osuna MD 06/21/2020 14:05 Joby Osuna MD in [place] 06/21/2020 14:05
[2020-06-21 16:22] LABS: Alanine Aminotransferase 15 U/L (12-78); Albumin Level 4.2 g/dl (3.5-5.0); Alkaline Phosphatase 72 U/L (38-126); Aspartate Amino Transferase 24 U/L (17-59); Bilirubin,Direct 0.2 mg/dl (0.0-0.4); Bilirubin,Indirect 0.5 mg/dL (0.0-0.9); Bilirubin,Total 0.7 mg/dl (0.2-1.3); Bilirubin,Unconjugated 0.5 mg/dL (0.0-1.1); Total Protein,Serum 7.5 g/dl (6.3-8.2)
[2020-06-21 16:38] LABS: Free T4 (Free Thyroxine) 1.48 ng/dl (0.78-2.19)
[2020-06-21 16:52] LABS: Thyroid Stimulating Hormone 2.63 uIU/mL (0.465-4.68)
== END ==
PROVIDERS: PCP Family Medicine; Visit Provider Urology
DX: I10 Essential (primary) hypertension (principal); I48.0 Paroxysmal atrial fibrillation; I50.20 Unspecified systolic (congestive) heart failure; Z79.899 Other long term (current) drug therapy
CPT/HCPCS: 36415; 71046; 80076; 84439; 84443

== ENCOUNTER → 2020-06-28 07:46 | Outpatient (CLI) | payer OTHER, SELFPAY ==
--- NOTE | 2020-06-28 07:46 | CA_ITS ---
APPROVED REPORT EXAM: Comprehensive 2D, Doppler, and color-flow Echocardiogram Director Of Quality Improvement: Cleo Rascon, RT(R) Ht: 5 ft 9 in Wt: 175lbs BSA: 1.95 BP: 112/63 mmHg Indications: smoker, HTN, SOB, Aflutter, CHF, KOLBY 12/08/18, hx of cardioversion 2D Dimensions LVOT 2.05 cm (M/F) 1.5-2.5 M-Mode Dimensions RVDd 2.92 cm (0.9-2.6) LA Diam 2.63 cm (1.9-4.0) LVDd 4.97 cm (3.5-5.7) Ao Diam 3.47 cm (2.0-3.7) LVDs 3.45 cm (3.5-5.7) IVSd 1.06 cm (0.6-1.1) PWd 0.99 cm (0.6-1.1) EF (Teich) 57.90% FS 30.60% EDV (Teich) 116.60 mL ESV (Teich) 49.10 mL LV Diastology E Decel Time 240.00 (160-240 msec) E/A Ratio 1.5 MED E' 9.70 (< 7 cm/sec) E'/MED E' Ratio 7.41 (>14) LAT E' 8.40 (<10 cm/sec) E/LAT E' Ratio 8.56 (>14) Mitral Valve MV E Max Kale. 72.00 (40-130 cm/s) MV A Velocity 49.00 (40-130 cm/s) E/A Ratio 1.46 MV Decel. Time 240.00 (160-240 ms) MV PHT 70.00 ms Left Ventricle Left atrium is mildly enlarged, left ventricle is normal size, mild concentric left ventricular hypertrophy, visually estimated ejection fraction 55% with no regional wall motion abnormality, diastolic parameters are inconclusive. Right Ventricle Right atrium and right ventricle mildly enlarged with normal contractility. Aortic Valve Aortic valve is thickened and calcified leaflet continue to display good mobility, there is no aortic stenosis or aortic insufficiency. Mitral Valve Mitral valve is grossly normal, there is mild mitral regurgitation. Tricuspid Valve Tricuspid valve is grossly normal, there is mild tricuspid regurgitation, tricuspid regurgitation jet velocity is inadequate for calculation of the right ventricular systolic pressure. Pulmonic Valve Pulmonic valve is poorly visualized. Great Vessels Aortic root is normal size. Pericardium No significant pericardial effusion noted. Conclusion 1. Mild biatrial enlargement, normal left ventricular size, mild concentric left ventricular hypertrophy, visually estimated ejection fraction 55% with no regional wall motion abnormality, diastolic parameters inconclusive. 2. Mildly enlarged right ventricle with normal contractility. 3. Thickened and calcified aortic valve without aortic stenosis or aortic insufficiency. 4. Mild mitral and tricuspid regurgitation. 5. No significant pericardial effusion noted. Electronically signed by : Jaquan Martinez, 06/29/2020 11:18:30
== END ==
PROVIDERS: PCP Family Medicine; Visit Provider Urology
DX: I50.22 Chronic systolic (congestive) heart failure (principal); I10 Essential (primary) hypertension; I48.0 Paroxysmal atrial fibrillation
CPT/HCPCS: 93306

== ENCOUNTER → 2020-07-25 10:05 | Outpatient (CLI) | payer OTHER, SELFPAY ==
[2020-07-26 10:27] LABS: PSA, Free 4.49 ng/mL; Prostate Specific Ag 10.7 ng/mL (0.0-4.0)
== END ==
PROVIDERS: Visit Provider Urology
DX: R97.20 Elevated prostate specific antigen [PSA] (principal)
CPT/HCPCS: 36415; 84153; 84154

== ENCOUNTER 2020-07-29 15:24 | Emergency (ER) | payer OTHER, SELFPAY ==
[2020-07-29 15:25] VITALS: BP 149/53; PULSE 59; RESP 20; TEMP 36.6; O2SAT 98; BMI 25.7
--- NOTE | 2020-07-29 15:56 | HMH.EDUTC ---
[facility] [place] Disposition Clinical Impression: Sinusitis Qualifiers: Sinusitis location: unspecified location Chronicity: acute Recurrence: non-recurrent Qualified Code(s): J01.90 - Acute sinusitis, unspecified Disposition: Home, Self-Care Condition on Discharge: Good Instructions: Sinusitis, DI for Sinusitis Additional Instructions: Drink plenty of fluids. Take tylenol for pain or fever. Return if you begin to have difficulty breathing. Follow up with your regular doctor. GO TO THE ER FOR ANY WORSENING SYMPTOMS Prescriptions: Azithromycin [Z-Christ 250mg Tab*] 250 mg PO UD DOSE PK #6 tab Transmission Status: Received by [id number] Referrals: Cait Canales MD [Primary Care Provider] - Time of Disposition: 16:01 Medical Decision Making - Medical Records Medical records reviewed: No: I reviewed the patient's medical records. - Dank Inquiry Pt receiving controlled substance: No Vital Signs: 07/29/20 15:25 07/29/20 16:04 Temperature 97.8 F 97.8 F Temperature Source Oral Pulse Rate 59 L Pulse Rate [Left Brachial] 59 L Respiratory Rate 20 20 Blood Pressure 149/53 H Blood Pressure [Left Arm] 149/53 H Blood Pressure Mean [Left Arm] 85 Blood Pressure Source [Left Arm] Automatic Cuff Blood Pressure Position [Left Arm] Sitting 02 Sat by Pulse Oximetry 98 Oxygen Delivery Method Room Air [facility] [place] HPI - General Stated complaint: lower left jaw pain Time Seen by Provider: 07/29/20 15:56 Mode of Arrival: Ambulatory Source of Information: Patient Limitations: No Limitations Description of Symptoms (Recalled from Triage Doc. by RN): PATIENT C/O LEFT JAW PAIN THAT STARTED LAST NIGHT. STATES PAIN IS WORSE WITH CHEWING AND SWALLOWING. RATES PAIN 7/10 HEENT Symptoms (Recalled from RN notes): No Resp Symptoms (Recalled from RN notes): No Skin Symptoms (Recalled from RN notes): No MS Symptoms (Recalled from RN notes): No Functional Status (Recalled from RN notes): WNL - History of Present Illness Provider Complaint: He states that he has been having sinus congestion for the past 3 days. He has been having left jaw and left sided check pain since last night. He has this symptoms when he is having a sinus infection. He denies any chest pain. - Related Data Home Medications Medication Instructions Recorded Confirmed Vit D3/Folic Acid/B2/B6/B12 1 each PO DAILY 12/08/18 07/25/20 [Folgard Tablet] Previous Rx's Medication Instructions Recorded rivaroxaban 20 mg tablet 20 mg PO DAILY #30 tab 12/08/19 amiodarone 200 mg tablet 200 mg PO DAILY #30 tab 01/18/20 furosemide 20 mg tablet 20 mg PO BID #60 tab 01/18/20 losartan 50 mg tablet 50 mg PO DAILY #30 tab 01/18/20 metoprolol tartrate 50 mg tablet 50 mg PO BID #60 tab 04/21/20 digoxin 125 mcg (0.125 mg) tablet 125 mcg PO DAILY #90 tab 07/26/20 Azithromycin [Z-Christ 250mg Tab*] 250 mg PO UD DOSE PK #6 tab 07/29/20 Allergies Allergy/AdvReac Type Severity Reaction Status Date / Time lisinopril AdvReac Mild Cough Verified 07/25/20 09:30 - Worker's Comp Is this a Worker's Comp case?: No H History - Hepatitis A Screen Drug use history?: No High risk sexual behaviors?: No History of sexually transmitted infection?: No Currently employed?: No Childcare worker?: No Do you have indoor plumbing?: Yes Do you have electricity?: Yes Does patient agree to Hepatitis A vaccine administration?: Yes Attestation statement:: This patient has been screened for Hepatitis A risk factors. I have reviewed the patient's past medical history: Yes Medical History: Reports:: Atrial Fibrillation, Cardiomyopathy, Congestive Heart Failure, Hypertension, Kidney Stones Denies:: Cancer, Diabetes Mellitus Type 1, Diabetes Mellitus Type 2, MRSA, Seizures Other Medical History: Denies: Blood Transfusion Reaction Laterality Cases: Right: Arthroscopy Knee, Other, Bilateral: Tonsillectomy Other Surgeries: Yes: No Previous Surgery, Hernia Repair, Other Amp
[2020-07-29 16:04] VITALS: BP 149/53; PULSE 59; RESP 20; TEMP 36.6; O2SAT 98
== END 2020-07-29 16:09 | disposition home or self-care (01) ==
PROVIDERS: Emergency Provider Nurse Practitioner Family; PCP Family Medicine
DX: J01.90 Acute sinusitis, unspecified (principal); I48.91 Unspecified atrial fibrillation; I10 Essential (primary) hypertension; F17.210 Nicotine dependence, cigarettes, uncomplicated; Z87.442 Personal history of urinary calculi
CPT/HCPCS: 99201

== ENCOUNTER → 2020-08-30 14:34 | Outpatient (CLI) | payer OTHER, SELFPAY ==
[2020-09-01 11:33] LABS: PSA, Free 0.66 ng/mL; Prostate Specific Ag 2.5 ng/mL (0.0-4.0)
== END ==
PROVIDERS: Visit Provider Urology
DX: R97.20 Elevated prostate specific antigen [PSA] (principal)
CPT/HCPCS: 36415; 84153; 84154

== ENCOUNTER → 2020-12-20 14:03 | Outpatient (CLI) | payer OTHER, SELFPAY ==
[2020-12-20 15:49] LABS: Alanine Aminotransferase 16 U/L (12-78); Albumin Level 4.4 g/dl (3.5-5.0); Alkaline Phosphatase 88 U/L (38-126); Anion Gap 9.4 mEq/L (5-15); Aspartate Amino Transferase 26 U/L (17-59); Bilirubin,Direct 0.3 mg/dl (0.0-0.4); Bilirubin,Indirect 0.4 mg/dL (0.0-0.9); Bilirubin,Total 0.7 mg/dl (0.2-1.3); Bilirubin,Unconjugated 0.4 mg/dL (0.0-1.1); Blood Urea Nitrogen 20 mg/dl (9-20); Calcium 9.7 mg/dl (8.4-10.2); Carbon Dioxide 34 mmol/L (22.0-30.0); Chloride 102 mmol/L (98-107); Estimated Glomerular Filt Rate 61 ml/min (>60); GFR (African American) 74 ML/MIN (>60); Glucose 82 mg/dl (74-100); Potassium 4.4 mmoL/L (3.5-5.1); Sodium 141 mmol/L (136-145); Total Protein,Serum 7.7 g/dl (6.3-8.2)
[2020-12-20 16:04] LABS: Free T4 (Free Thyroxine) 1.87 ng/dl (0.78-2.19)
[2020-12-20 16:19] LABS: Thyroid Stimulating Hormone 2.99 uIU/mL (0.465-4.68)
== END ==
PROVIDERS: Visit Provider Physician Assistant
DX: I11.0 Hypertensive heart disease with heart failure (principal); I48.0 Paroxysmal atrial fibrillation; I50.22 Chronic systolic (congestive) heart failure; Z79.899 Other long term (current) drug therapy; E03.9 Hypothyroidism, unspecified
CPT/HCPCS: 36415; 80048; 80076; 84439; 84443

== ENCOUNTER → 2021-01-02 13:06 | Outpatient (CLI) | payer OTHER, SELFPAY ==
--- NOTE | 2021-01-02 13:06 | CT_ITS ---
PROCEDURE: CT HIGH RESOLUTION CHEST CLINICAL HISTORY: I48.0 - Paroxysmal atrial fibrillation Amiodarone therapy follow up No symptoms COMPARISON: CT CT CHEST WO CON from 05/09/2020 TECHNIQUE: Axial images obtained with sagittal and coronal reformats. HIGH-RESOLUTION IMAGES ALSO ACQUIRED. All CT scans at the facility use one or more dose reduction, viz: automated exposure control, ma/kV adjustment per patient size (including targeted exams where dose is matched to indication, i.e. head), or iterative reconstruction technique. FINDINGS: COPD changes with centrilobular emphysema. Scattered small nodular opacities are once again noted not significantly changed. There are few areas of scarring as before but no evidence of pulmonary fibrosis. No pleural effusions or infiltrates. No mediastinal or hilar mass or adenopathy. No acute bony findings. IMPRESSION: Stable CT appearance of the chest. COPD with centrilobular emphysema and scattered small stable nodular opacities. There are few areas of scarring but no convincing evidence of pulmonary fibrosis. Dictated by: Joby Osuna MD 01/04/2021 09:15 Joby Osuna MD in [place] 01/04/2021 09:15
== END ==
PROVIDERS: PCP Family Medicine; Visit Provider Physician Assistant
DX: I50.22 Chronic systolic (congestive) heart failure (principal); I48.0 Paroxysmal atrial fibrillation; I10 Essential (primary) hypertension; Z79.899 Other long term (current) drug therapy
CPT/HCPCS: 71250

== ENCOUNTER → 2021-02-13 10:13 | Outpatient (CLI) | payer OTHER, SELFPAY | PROVIDERS: Visit Provider Urology | DX: R97.20 Elevated prostate specific antigen [PSA] (principal) ==

== ENCOUNTER → 2021-04-03 07:44 | Outpatient (CLI) | payer OTHER, SELFPAY ==
[2021-04-03 08:40] VITALS: PULSE 69; PULSE 71
== END ==
PROVIDERS: PCP Family Medicine; Visit Provider Internal Medicine Pulmonary Disease
DX: R06.00 Dyspnea, unspecified (principal)
CPT/HCPCS: 94060; 94618; 94640; 94726; 94729

== ENCOUNTER → 2021-08-29 08:58 | Outpatient (CLI) | payer OTHER, SELFPAY ==
[2021-08-30 08:16] LABS: PSA, Free 0.86 ng/mL; Prostate Specific Ag 3.6 ng/mL (0.0-4.0)
== END ==
PROVIDERS: Visit Provider Urology
DX: R97.20 Elevated prostate specific antigen [PSA] (principal)
CPT/HCPCS: 36415; 84153; 84154

== ENCOUNTER → 2022-01-18 08:04 | Outpatient (CLI) | payer OTHER, SELFPAY ==
--- NOTE | 2022-01-18 08:13 | CT_ITS ---
FINAL REPORT CLINICAL HISTORY: NICOTINE DEPENDANCE SMOKER 2ppd x45 years COMPARISON: CT chest dated 07/30/2019 and 01/02/2021 FINDINGS: Axial images were obtained from the lung apex to the mid abdomen by computed tomography. Low-dose protocol was utilized. CTDl vol(mGy): 2.90 DLP (mGy-cm): 112.03 FINDINGS: There is no axillary adenopathy. There is no hilar or mediastinal adenopathy. The heart size is normal. There is no pericardial or pleural effusion. There is mild emphysema. There are several small pulmonary nodules. A 5mm nodule in the minor fissure previously measured 5 mm and may represent an intra fissural nodule. A left lung base nodule measures 5 mm and previously measured 5 mm. There are several other less than 5 mm nodules which are all stable since July 2019. There is no new mass or nodule. Limited images of the upper abdomen are unremarkable. IMPRESSION: Lung RADS category 1. Recommend 12 month follow-up low-dose chest CT. Reviewed, Interpreted and Dictated by Ross Humphries III, MD Transcribed by Yumiko Oliveros Authenticated and [facility]
== END ==
PROVIDERS: PCP Family Medicine; Visit Provider Family Medicine
DX: Z87.891 Personal history of nicotine dependence (principal); Z12.2 Encounter for screening for malignant neoplasm of respiratory organs
CPT/HCPCS: 71271

== ENCOUNTER → 2022-07-08 14:12 | Outpatient (CLI) | payer MEDICARE, SELFPAY ==
--- NOTE | 2022-07-08 14:42 | CT_ITS ---
FINAL REPORT TECHNIQUE: Postcontrast axial images of the chest were performed in a CTA protocol. This study was performed with techniques to keep radiation doses as low as reasonably achievable, (ALARA). Individualized dose reduction technique using automated exposure control or adjustment of mA and/or kV according to the patient's size were employed. CLINICAL HISTORY: dyspnea COMPARISON: 01/18/2022 FINDINGS: The heart is normal in size. No adenopathy is identified. No pleural or pericardial effusion is identified. The thoracic aorta is normal in caliber with no focal aneurysm or dissection identified. There is no filling defect to suggest pulmonary embolism. There is mild, diffuse bronchiectasis. There is no evidence of pneumonia. The images of the upper abdomen are unremarkable. IMPRESSION: No evidence for PE on this exam. Mild, diffuse bronchiectasis without evidence of pneumonia. Reviewed, Interpreted and Dictated by Cait Godinez MD Transcribed by Donna Pizarro Authenticated and [facility]
[2022-07-08 14:45] LABS: Basophils # 0.2 K/mm3 (0-0.2); Basophils % 1.9 % (0.1-2.0); Eosinophils # 0.2 K/mm3 (0.0-0.4); Eosinophils % 1.8 % (0.1-12.0); Hematocrit 53.3 % (42.0-52.0); Hemoglobin 17.1 g/dL (14.1-18.0); Lymphocytes # 2.2 K/mm3 (0.7-4.5); Lymphocytes % 26.2 % (10-50); Mean Corpuscular HGB Conc 32.1 g/dL (31.8-35.4); Mean Corpuscular Hemoglobin 29.8 pg (27.0-31.2); Mean Corpuscular Volume 92.8 fl (80-94); Mean Platelet Volume 8.1 fl (7.4-10.4); Monocytes # 0.6 K/mm3 (0.1-1.0); Neutrophils # 5.2 K/mm3 (1.8-7.8); Neutrophils % 63.1 % (37.0-80.0); Platelet Count 258 K/mm3 (142-424); Red Blood Count 5.74 M/mm3 (4.60-6.20); Red Cell Distribution Width 13.4 % (11.5-17.5); White Blood Count 8.3 K/mm3 (4.8-10.8)
[2022-07-08 14:52] LABS: Chloride 102 mmol/L (98-107)
[2022-07-08 14:53] LABS: Potassium 4.1 mmoL/L (3.5-5.1); Sodium 144 mmol/L (136-145)
[2022-07-08 14:56] LABS: Anion Gap 11.1 mEq/L (5-15); Blood Urea Nitrogen 22 mg/dl (9-20); Calcium 9.9 mg/dl (8.4-10.2); Carbon Dioxide 35 mmol/L (22.0-30.0); Estimated Glomerular Filt Rate 67 ml/min (>60); GFR (African American) 81 ML/MIN (>60); Glucose 97 mg/dl (74-100)
== END ==
PROVIDERS: PCP Family Medicine; Visit Provider Nurse Practitioner
DX: R06.09 Other forms of dyspnea (principal); R06.2 Wheezing; I63.9 Cerebral infarction, unspecified; I10 Essential (primary) hypertension; I50.21 Acute systolic (congestive) heart failure; R06.00 Dyspnea, unspecified; R94.31 Abnormal electrocardiogram [ECG] [EKG]; Z72.0 Tobacco use; I48.20 Chronic atrial fibrillation, unspecified
CPT/HCPCS: 36415; 71275; 80048; 85025; Q9967

== ENCOUNTER → 2022-07-11 13:27 | Outpatient (CLI) | payer MEDICARE, SELFPAY ==
--- NOTE | 2022-07-11 13:28 | CA_ITS ---
APPROVED REPORT EXAM: Comprehensive 2D, Doppler, and color-flow Echocardiogram Medical Typist: Shirley Dick RVT Ht: 5 ft 11 in Wt: 164lbs BSA: 1.94 BP: 133/74 mmHg Indications: SOA,HTN,A-FIB,SMOKER 2D Dimensions LVOT 2.49 cm (M/F) 1.5-2.5 LA Volume 25.10 mL LA Volume Index 12.94 mL/m2 (M/F) 16-34 M-Mode Dimensions RVDd 3.36 cm (0.9-2.6) LA Diam 3.03 cm (1.9-4.0) LVDd 4.22 cm (3.5-5.7) Ao Diam 3.39 cm (2.0-3.7) LVDs 3.11 cm (3.5-5.7) IVSd 1.29 cm (0.6-1.1) PWd 0.72 cm (0.6-1.1) EF (Teich) 51.90% FS 26.30% EDV (Teich) 79.50 mL TAPSE 1.69 (<1.7) ESV (Teich) 38.20 mL LV Diastology MED E' 12.60 (< 7 cm/sec) LAT E' 10.80 (<10 cm/sec) Aortic Valve AO Peak GR. 2.80 mmHg Pulmonary Valve PV Peak Velocity 46.00 (50-150 cm/s) Left Ventricle Left atrium is mildly enlarged, left ventricle is normal size, mild concentric left ventricular hypertrophy, estimated ejection fraction 40%, left ventricle is globally hypokinetic, diastolic parameters are inconclusive. Right Ventricle Right atrium and right ventricle are moderately enlarged, contractility of the right ventricle is mildly reduced. Aortic Valve Aortic valve is thickened and calcified without aortic stenosis or aortic insufficiency. Mitral valve Mitral Valve Mitral valve is grossly normal, there is trace mitral regurgitation. Tricuspid Valve Tricuspid valve grossly normal, there is trace tricuspid regurgitation, tricuspid regurgitation jet velocity is inadequate for calculation of the right ventricular systolic pressure. Pulmonic Valve Pulmonic valve is poorly visualized. Great Vessels Aortic root is normal size. Inferior vena cava is normal size with normal inspiratory collapse. Pericardium No significant pericardial effusion noted. Conclusion 1. Biatrial enlargement, normal left ventricular size, estimated ejection fraction 40% left ventricle is globally hypokinetic diastolic parameters are inconclusive. 2. Moderately enlarged right ventricle with mild reduced contractility. 3. Trace mitral and tricuspid regurgitation. 4. No significant pericardial effusion. 5. Inferior vena cava is poorly visualized. Electronically signed by : Jaquan Martinez MD 07/12/2022 12:24:05
== END ==
PROVIDERS: PCP Nurse Practitioner; Visit Provider Nurse Practitioner
DX: I10 Essential (primary) hypertension (principal); I48.2 Chronic atrial fibrillation; I48.91 Unspecified atrial fibrillation; I50.21 Acute systolic (congestive) heart failure; R06.00 Dyspnea, unspecified; R06.2 Wheezing; R94.31 Abnormal electrocardiogram [ECG] [EKG]; Z72.0 Tobacco use
CPT/HCPCS: 93306

== ENCOUNTER → 2022-07-15 14:55 | Outpatient (CLI) | payer MEDICARE, SELFPAY ==
--- NOTE | 2022-07-15 14:59 | XR_ITS ---
FINAL REPORT CLINICAL HISTORY: sob...a-fib..cough COMPARISON: 06/21/2020 FINDINGS: Two views of the chest were obtained. The heart size and pulmonary vascularity are within normal limits. The mediastinum is normal. The lungs are hyperinflated consistent with COPD. No acute pulmonary abnormality is identified. There is no pneumothorax. The bony thorax is intact. IMPRESSION: No acute cardiopulmonary process. Reviewed, Interpreted and Dictated by Ross Humphries III, MD Transcribed by Ester Wright Authenticated and [facility]
== END ==
PROVIDERS: PCP Nurse Practitioner; Visit Provider Internal Medicine Cardiovascular Disease
DX: R06.00 Dyspnea, unspecified (principal)
CPT/HCPCS: 71046

== ENCOUNTER → 2022-07-23 09:10 | Outpatient (CLI) | payer MEDICARE, SELFPAY ==
[2022-07-23 10:09] LABS: Blood Urea Nitrogen 21 mg/dl (9-20); Estimated Glomerular Filt Rate 67 ml/min (>60); GFR (African American) 81 ML/MIN (>60)
== END ==
PROVIDERS: PCP Family Medicine; Visit Provider Internal Medicine
DX: Z01.812 Encounter for preprocedural laboratory examination (principal)
CPT/HCPCS: 36415; 82565; 84520

== ENCOUNTER 2022-07-30 08:18 | Day surgery (SDC) | payer MEDICARE, SELFPAY ==
--- NOTE | 2022-07-30 07:36 | EXP.ANES.CKL ---
[facility] Disclaimer: The information contained in this section may have been updated after the patient was seen, as this information can be updated by other users. Medical History Atrial flutter Cardiomyopathy Congestive heart failure with LV diastolic dysfunction, NYHA class 1 Heart failure with reduced left ventricular function HTN (hypertension) LV dysfunction Systolic heart failure Tobacco use Tobacco user Social History Smoking Status: Current every day smoker tobacco type: cigarettes packs per day: 2 alcohol intake: current counseling provided: none substance use type: denies use current occupational status: other Travel in the last 8 weeks: Inside the [employer] [place] household members: spouse housing: house caffeine: Yes [facility] Anesthesia Checklist Patient Identification Patient Identification: Arm Band and Verbal (Name & ) Structural Data Admitted From: Home Planned Operative Procedure/s: Cardioversion Consent for Planned Operative Procedure(s) Verified: Yes NPO Status Verified Time NPO: 00:00 Additional verifications Anesthesia Reactions: No Hx Blood Transfusions: No Blood Transfusion Reaction: No Airway Assessment C-Spine Mobility Assessed: Yes TMJ Mobility Assessed: Yes Neurological Assessment Level of Consciousness: Awake Hx Seizures: No Numbness or tingling in extremities: No Anesthesia Plan Anesthesia Risk discussed: Yes Anesthesia Plan: Verified ASA Class: IV Anesthesia Type: MAC
[2022-07-30 08:24] VITALS: BMI 23.6
[2022-07-30 08:54] VITALS: BP 110/75; PULSE 79; RESP 18; O2SAT 99
[2022-07-30 09:00] VITALS: PULSE 79
[2022-07-30 09:07] VITALS: BP 95/59; PULSE 68; RESP 16
[2022-07-30 09:34] VITALS: BP 95/59; PULSE 60; RESP 16; O2SAT 95
--- NOTE | 2022-07-30 10:02 | EXP.CARDIOVE ---
[facility] Cardioversion Cardioversion Date: 07/30/22 Provider:: ANITRA Lozano Procedure Performed:: Synchronized electrical cardioversion Diagnosis:: Atrial fibrillation Procedure Summary:: Patient was brought to the cardiac [facility] [employer] [facility] as an outpatient. After informed consent was obtained, anesthesia provided sedation during which time a single 200 J synchronized shock was delivered which converted the patient from atrial fibrillation to normal sinus rhythm. Patient tolerated the procedure without complications. Complications:: None Conculsion:: Successful electrical cardioversion from atrial fibrillation to sinus rhythm. Routine postop care. Continue current medications. Follow-up in our office in 1 week.
== END 2022-07-30 09:52 | disposition home or self-care (01) ==
PROVIDERS: Internal Medicine Cardiovascular Disease; PCP Family Medicine; Visit Provider Internal Medicine
DX: I48.0 Paroxysmal atrial fibrillation (principal); I42.0 Dilated cardiomyopathy; I50.21 Acute systolic (congestive) heart failure; I11.0 Hypertensive heart disease with heart failure; F17.210 Nicotine dependence, cigarettes, uncomplicated; Z79.01 Long term (current) use of anticoagulants; Z79.899 Other long term (current) drug therapy
CPT/HCPCS: 92960

== ENCOUNTER → 2022-09-17 07:53 | Day surgery (SDC) | payer MEDICARE, SELFPAY ==
[2022-09-17 07:58] VITALS: BMI 23.7
--- NOTE | 2022-09-17 08:09 | ECG_ITS ---
APPROVED REPORT Exam: Resting ECG HR:47 bpm ECG Measurements Heart Rate 47 AXES DC 162 P 68 QRSd 101 QRS 60 QT 440 T 87 QTc 404 Conclusion SINUS BRADYCARDIA INDETERMINATE AXIS ST DEVIATION AND MODERATE T-WAVE ABNORMALITY, CONSIDER ANTERIOR ISCHEMIA [-0.1+ mV T-WAVE IN V3/V4] ABNORMAL ECG UNCONFIRMED REPORT Electronically signed by : Imer Ventura MD 09/17/2022 20:20:08
== END ==
PROVIDERS: PCP Family Medicine; Visit Provider Internal Medicine
DX: I48.0 Paroxysmal atrial fibrillation (principal); Z53.09 Procedure and treatment not carried out because of other contraindication
CPT/HCPCS: 93005

== ENCOUNTER 2022-12-02 08:05 | Inpatient (IN) | payer MEDICARE, SELFPAY ==
[2022-12-02] VITALS (25 sets, daily range): BP systolic 85–124; BP diastolic 46–79; PULSE 58–122; RESP 18–27; TEMP 36–37; O2SAT 87–94; BMI 23.6; BMI 22.9
--- NOTE | 2022-12-02 08:30 | EXP.UTC ---
Discharge Plan Disposition Patient Disposition: Still a Patient Condition: Fair Clinical Impressions Clinical Impression: Atrial flutter with rapid ventricular response, Acute non-ST elevation myocardial infarction (NSTEMI), Acute exacerbation of chronic obstructive pulmonary disease, Cardiorenal syndrome, Acute respiratory failure with hypoxia Discharge ED Provider: Rain Cain [facility] [place] [facility] <Rain Cain APRN - Last Filed: 12/02/22 13:56> General Chief complaint: Arrhythmia/Palpitations Stated complaint: congestion, drainage in eyes, cough Mode of Arrival: Ambulatory Source of Information: Patient Limitations: No Limitations Time Seen by Provider: 12/02/22 08:30 Description of Symptoms (Recalled from Triage Doc. by RN): productive cough, and congestion HEENT Symptoms (Recalled from RN notes): Yes Resp Symptoms (Recalled from RN notes): No Skin Symptoms (Recalled from RN notes): No MS Symptoms (Recalled from RN notes): No Functional Status (Recalled from RN notes): n/aa History of Present Illness Provider Complaint: Patient state that he has been sick for a week but got worse since Fri States that he has COPD but this is worse States that he hasnt been able to move around much without getting very short of breath fever, and coughing up mucous States he has a history of Afib at times and last night he was coughing and felt hot all over and felt like he was going to pass out and feeling shaky States that today he was still feeling short of breath shaky, and not able to move around much without getting winded and over all not feeling well so made him come in Related Data Home Medications Medication Instructions Recorded Confirmed atorvastatin 10 mg tablet 10 mg PO DAILY High cholesterol 10/18/22 12/02/22 amiodarone 200 mg tablet 200 mg PO BID Heart rhythm 12/02/22 12/02/22 digoxin 125 mcg (0.125 mg) tablet 125 mcg PO DAILY Heart failure 12/02/22 12/02/22 fluticasone propionate 50 1 spray intranasal DAILY Allergic 12/02/22 12/02/22 mcg/actuation nasal rhinitis spray,suspension furosemide 40 mg tablet 40 mg PO BID Fluid 12/02/22 12/02/22 losartan 50 mg tablet 50 mg PO DAILY High blood pressure 12/02/22 12/02/22 metoprolol succinate 100 mg 100 mg PO DAILY Heart rhythm 12/02/22 12/02/22 tablet,extended release 24 hr rivaroxaban 20 mg tablet (Xarelto) 20 mg PO DAILY Blood thinner, AFib 12/02/22 12/02/22 Allergies Allergy/AdvReac Type Severity Reaction Status Date / Time lisinopril AdvReac Mild Cough Verified 12/02/22 08:28 Worker's Comp Is this a Worker's Comp case?: No PFS <Rain Jordan Cain, [employer] - Last Filed: 12/02/22 13:56> [facility] Disclaimer: The information contained in this section may have been updated after the patient was seen, as this information can be updated by other users. Medical History Acute and chronic respiratory failure with hypoxia Atrial flutter CAD (coronary artery disease) Cardiomyopathy Cataracts, bilateral Chronic anticoagulation Congestive heart failure with LV diastolic dysfunction, NYHA class 1 COPD (chronic obstructive pulmonary disease) COPD exacerbation Encounter for screening colonoscopy Heart failure with reduced left ventricular function HTN (hypertension) Hyperlipidemia LV dysfunction Pneumonia Smoker Systolic heart failure Tobacco use Tobacco user Surgical History (Updated 12/02/22 @ 12:12 by Roselia Miller RN) H/O hernia repair H/O lateral meniscus repair of right knee Hx of tonsillectomy Family History (Updated 12/02/22 @ 12:12 by Roselia Miller RN) Other Coronary artery disease Stroke Social History (Updated 12/02/22 @ 12:12 by Roselia Miller RN) Smoking Status: Current every day smoker tobacco type: cigarettes packs per day: 2 alcohol intake: current counseling provided: none substance use type: denies use current occupational status: other Travel in the last 8 weeks: Inside the [place] household members: vaishnavi
--- NOTE | 2022-12-02 08:41 | ECG_ITS ---
APPROVED REPORT Exam: Resting ECG HR:110 bpm ECG Measurements Heart Rate 110 AXES QRSd 100 QRS -86 QT 250 T -89 QTc 315 Conclusion ATRIAL FLUTTER/TACHYCARDIA WITH RAPID VENTRICULAR RESPONSE LEFT AXIS DEVIATION [QRS AXIS < -30] PATTERN CONSISTENT WITH PULMONARY DISEASE ST DEVIATION AND MODERATE T-WAVE ABNORMALITY, CONSIDER ANTEROLATERAL ISCHEMIA [-0.1+ mV T-WAVE IN V3-V6] ST DEVIATION AND MODERATE T-WAVE ABNORMALITY, CONSIDER INFERIOR ISCHEMIA [-0.1+ mV T-WAVE IN II/aVF] ABNORMAL ECG UNCONFIRMED REPORT Electronically signed by : Imer Ventura MD 12/02/2022 19:43:46
--- NOTE | 2022-12-02 08:44 | XR_ITS ---
FINAL REPORT TECHNIQUE: Single view chest CLINICAL HISTORY: cough, sob COMPARISON: 07/15/2022 FINDINGS: A single view of the chest was obtained. The heart and mediastinum are within normal limits. The lungs are hyperexpanded consistent with COPD. Bibasilar opacities may represent atelectasis or pneumonia. There is no pneumothorax. Osseous structures are unremarkable. IMPRESSION: Bibasilar opacities which may represent atelectasis or pneumonia. Reviewed, Interpreted and Dictated by Ross Humphries III, MD Transcribed by Donna Pizarro Authenticated and [facility]
[2022-12-02 08:58] LABS: Basophils # 0.1 K/mm3 (0-0.2); Basophils % 0.6 % (0.1-2.0); Eosinophils # 0.1 K/mm3 (0.0-0.4); Eosinophils % 0.6 % (0.1-12.0); Hematocrit 48.1 % (42.0-52.0); Hemoglobin 15.5 g/dL (14.1-18.0); Lymphocytes # 1.3 K/mm3 (0.7-4.5); Lymphocytes % 9.3 % (10-50); Mean Corpuscular HGB Conc 32.3 g/dL (31.8-35.4); Mean Corpuscular Hemoglobin 30.4 pg (27.0-31.2); Mean Corpuscular Volume 94.4 fl (80-94); Mean Platelet Volume 8.2 fl (7.4-10.4); Monocytes # 1.3 K/mm3 (0.1-1.0); Monocytes % 8.9 % (1.7-9.3); Neutrophils # 11.6 K/mm3 (1.8-7.8); Neutrophils % 80.7 % (37.0-80.0); Platelet Count 315 K/mm3 (142-424); Red Blood Count 5.09 M/mm3 (4.60-6.20); Red Cell Distribution Width 13.5 % (11.5-17.5); White Blood Count 14.3 K/mm3 (4.8-10.8)
[2022-12-02 09:00] LABS: Chloride 94 mmol/L (98-107)
[2022-12-02 09:01] LABS: Sodium 134 mmol/L (136-145)
[2022-12-02 09:03] LABS: Blood Urea Nitrogen 31 mg/dl (9-20); Creatinine Clearance Estimated 50 mL/min (50-200); Estimated Glomerular Filt Rate 47 ml/min (>60); GFR (African American) 57 ML/MIN (>60)
[2022-12-02 09:04] LABS: Calcium 9.5 mg/dl (8.4-10.2); Carbon Dioxide 30 mmol/L (22.0-30.0); Glucose 108 mg/dl (74-100)
[2022-12-02 09:14] LABS: NT Pro Brain Natriuretic Pep. 2700 pg/mL (0-125)
[2022-12-02 09:16] LABS: Troponin I 0.07 ng/ml (0.00-0.034)
--- NOTE | 2022-12-02 09:32 | PC.NURSE ---
Dr Morris speaking with Dr Johnson
--- NOTE | 2022-12-02 09:35 | PC.NURSE ---
pt on 88-89% RA. Pt placed on 2L NC at this time.
--- NOTE | 2022-12-02 09:39 | PC.NURSE ---
Barbie in care management advised of admission
[2022-12-02 09:40] LABS: Coronavirus 19, PCR Not Detected (NotDetected); Influenza A, PCR Not Detected (NotDetected); Influenza B, PCR Not Detected (NotDetected)
--- NOTE | 2022-12-02 09:52 | HMH.PHAINT1 ---
Pharmacy Intervention Comments: Reconciled patient's home medications using pharmacy fill history ([facility]).
--- NOTE | 2022-12-02 10:00 | PC.NURSE ---
Report to PAULINE Veloz-- Awaiting COVID swab results before going to step down.
--- NOTE | 2022-12-02 10:10 | PC.NURSE ---
arrived to floor by w/c from ED
--- NOTE | 2022-12-02 11:43 | EXP.PULM.CON ---
History of Present Illness History of present illness: Mr. Le is a 67-year-old male presented to the hospital with worsening respiratory distress. History of severe COPD, last seen in pulmonary clinic in March 2021. Patient admits flulike symptoms for the last week continued to worsen along with worsening respiratory status cough and increasing productive phlegm and subjective fevers. Patient admits otherwise stable respiratory symptoms since he was last seen in pulmonary clinic in 2020. [facility] Disclaimer: The information contained in this section may have been updated after the patient was seen, as this information can be updated by other users. Medical History Acute and chronic respiratory failure with hypoxia Atrial flutter CAD (coronary artery disease) Cardiomyopathy Cataracts, bilateral Chronic anticoagulation Congestive heart failure with LV diastolic dysfunction, NYHA class 1 COPD (chronic obstructive pulmonary disease) COPD exacerbation Encounter for screening colonoscopy Heart failure with reduced left ventricular function HTN (hypertension) Hyperlipidemia LV dysfunction Pneumonia Smoker Systolic heart failure Tobacco use Tobacco user Surgical History (Updated 12/02/22 @ 12:12 by Roselia Miller RN) H/O hernia repair H/O lateral meniscus repair of right knee Hx of tonsillectomy Family History (Updated 12/02/22 @ 12:12 by Roselia Miller RN) Other Coronary artery disease Stroke Social History (Updated 12/02/22 @ 12:12 by Roselia Miller RN) Smoking Status: Current every day smoker tobacco type: cigarettes packs per day: 2 alcohol intake: current counseling provided: none substance use type: denies use current occupational status: other Travel in the last 8 weeks: [place] the [place] household members: spouse housing: house marital status: caffeine: Yes Review of Systems Constitutional Constitutional: Reports anorexia, Reports body ache(s) and Reports fatigue Eyes Eyes: Denies eye discharge, Denies dry eyes, Denies irritation and Denies itchy eyes ENT Ears, Nose, Mouth, and Throat: Denies epistaxis, Denies facial pain, Denies lip swelling and Denies throat swelling *Cardiovascular Cardiovascular: Reports dyspnea and Reports dyspnea on exertion *Respiratory Respiratory: Reports chest congestion, Reports cough, Reports dyspnea, Reports dyspnea on exertion, Reports excessive phlegm production, Denies hemoptysis, Denies pain on inspiration and Reports wheezing *Gastrointestinal Gastrointestinal: Denies abdominal pain, Denies belching and Denies cramping *Musculoskeletal Musculoskeletal: Reports back pain, Reports myalgias and Reports other (No small joint swelling or Pain) Psychiatric Psychiatric: Denies homicidal ideation and Denies suicidal ideation Endocrine Endocrine: Reports fatigue and Denies heat intolerance Hematologic/Lymphatic Hematologic/Lymphatic: Denies easy bleeding and Denies lymphadenopathy Allergic/Immunologic Allergic/Immunologic: Denies itchy eyes, Denies lip swelling, Denies throat swelling and Reports wheezing Pulmonology Exam Inpatient Vital signs and Labs for Last 24 Hours: Temp Pulse Resp BP Pulse Ox 98.6 F 98 H 20 90/59 L 88 L 12/02/22 11:38 12/02/22 10:18 12/02/22 10:18 12/02/22 10:18 12/02/22 10:18 Laboratory Results - last 24 hr 12/02/22 08:50: WBC 14.3 H, RBC 5.09, Hgb 15.5, Hct 48.1, MCV 94.4 H, MCH 30.4, MCHC 32.3, RDW 13.5, Plt Count 315, MPV 8.2, Neut % (Auto) 80.7 H, Lymph % (Auto) 9.3 L, [place] % (Auto) 8.9, Eos % (Auto) 0.6, Baso % (Auto) 0.6, Neut # (Auto) 11.6 H, Lymph # (Auto) 1.3, [place] # (Auto) 1.3 H, Eos # (Auto) 0.1, Baso # (Auto) 0.1 12/02/22 08:50: Sodium 134 L, Potassium 4.0, Chloride 94 L, Carbon Dioxide 30, Anion Gap 14.0, BUN 31 H, Creatinine 1.50 H, Estimated Creat Clear 50, Estimated GFR 47 L, Est GFR ( Amer) 57 L, Glucose 108 H, Calcium 9.5, Troponin I 0.07 H 12/02/22 08:50: NT-Pro
--- NOTE | 2022-12-02 11:45 | EXP.CARD.CON ---
History of Present Illness History of Present Illness Consult date: 12/02/22 Requesting physician: Teofilo Johnson Consult reason: atrial fibrillation and shortness of breath Chief complaint: SOA, cough Additional Medical History:: 1.? Prior cardiac work-up A.? Lexiscan Myoview, 08/2017, no ischemia with normal ejection fraction B.? Echocardiogram,?07/11/2022, biatrial enlargement, normal LV size, EF 40% with global hypokinesis. Moderate RV enlargement with mild reduced contractility. Trace MR and TR. C. CT coronary calcium score, 0, 08/2017 2.? History of right knee replacement 3.? Tobacco use up to 3 packs/day A. CTA of chest, negative for PE, 07/08/2022. Notation of mild diffuse bronchiectasis noted. 4. Paroxysmal atrial fibrillation A. Chronic amiodarone therapy B. Chronic Xarelto therapy C. KOLBY, 12/10/2018, moderate LAE, thrombus seen in the left atrial appendage. Poor appendage flow by Doppler. Mild RV enlargement with moderate reduced contractility. Mildly dilated LV with severely reduced LV systolic function at 30% with global hypokinesis. Mild MR and TR. History of present illness: 67-year-old white male smoker admitted to the hospital for increasing shortness of breath with respiratory distress over the last 3 to 4 days to the point that the patient has not smoked in 3 to 4 days. Patient was initially seen in the urgent treatment center but due to multiple issues including atrial fibrillation with RVR, elevated troponin, hypoxemia he was subsequently transferred to the ER for further evaluation and subsequent admission. Patient does have a history of paroxysmal atrial fibrillation and is on chronic Xarelto therapy along with amiodarone therapy. He denies missing any of these medications. Diltiazem drip has just been started with heart rate currently in the 100 to 120 bpm range. Initial troponin is slightly elevated at 0.07. COVID and flu type a and B are negative. Patient relates cleaning out his bird house recently. White count is elevated at 14,000. Chest x-ray abnormal with possible pneumonia. Elevated BUN and creatinine at 31 and 1.5 respectively. BNP 2700 PFSH PFS Disclaimer: The information contained in this section may have been updated after the patient was seen, as this information can be updated by other users. Medical History Atrial flutter Cardiomyopathy Chronic anticoagulation Congestive heart failure with LV diastolic dysfunction, NYHA class 1 Encounter for screening colonoscopy Heart failure with reduced left ventricular function HTN (hypertension) LV dysfunction Systolic heart failure Tobacco use Tobacco user Social History Smoking Status: Current every day smoker tobacco type: cigarettes packs per day: 2 alcohol intake: current counseling provided: none substance use type: denies use current occupational status: other Travel in the last 8 weeks: [place] the [place] household members: spouse housing: house caffeine: Yes Review of Systems Review of Systems Review of systems:: pertinent systems reviewed and negative unless documented below Constitutional Constitutional: Reports lethargy and Reports malaise Eyes Eyes: Reports irritation *Cardiovascular Cardiovascular: Denies chest pain and Reports dyspnea on exertion *Respiratory Respiratory: Reports cough and Reports dyspnea on exertion Exam Data for Last 24 hours Vital signs and Labs for Last 24 Hours: Temp Pulse Resp BP Pulse Ox 98.6 F 98 H 20 90/59 L 88 L 12/02/22 11:38 12/02/22 10:18 12/02/22 10:18 12/02/22 10:18 12/02/22 10:18 Laboratory Results - last 24 hr 12/02/22 08:50: WBC 14.3 H, RBC 5.09, Hgb 15.5, Hct 48.1, MCV 94.4 H, MCH 30.4, MCHC 32.3, RDW 13.5, Plt Count 315, MPV 8.2, Neut % (Auto) 80.7 H, Lymph % (Auto) 9.3 L, [place] % (Auto) 8.9, Eos % (Auto) 0.6, Baso % (Auto) 0.6, Neut # (Auto) 11.6 H, Lymph # (Auto) 1.3, [place] # (Auto)
[2022-12-02 12:02] LABS: Adenovirus,PCR Not Detected (NotDetected); Bordetella Pertussis Not Detected (NotDetected); Chlamydophila Pneumoniae, PCR Not Detected (NotDetected); Coronavirus 19, PCR Not Detected (NotDetected); Coronavirus 229E Not Detected (NotDetected); Coronavirus NL63 Not Detected (NotDetected); Coronavirus OC43 Not Detected (NotDetected); Coronovirus HKU1,PCR Not Detected (NotDetected); Human Metapneumovirus Not Detected (NotDetected); Influenza A, PCR Not Detected (NotDetected); Influenza AH1, 2009 Not Detected (NotDetected); Influenza AH1, PCR Not Detected (NotDetected); Influenza AH3,PCR Not Detected (NotDetected); Influenza B, PCR Not Detected (NotDetected); Mycoplasma Pneumoniae, PCR Not Detected (NotDetected); Parainfluenza 1, PCR Not Detected (NotDetected); Parainfluenza 2, PCR Not Detected (NotDetected); Parainfluenza 3, PCR Not Detected (NotDetected); Parainfluenza 4, PCR Not Detected (NotDetected); Respiratory Syncytial Virus Not Detected (NotDetected); Rhinovirus/Enterovirus Not Detected (NotDetected)
[2022-12-02 12:26] LABS: Troponin I 0.07 ng/ml (0.00-0.034)
--- NOTE | 2022-12-02 13:39 | EXP.HP ---
History of Present Illness *Admission Date: 12/02/22 *Reason for visit:: shortness of breath *History of present illness: Mr. Le Is a 67-year-old male with a history of atrial fibrillation and possible MN in the past, tobacco abuse, ASCVD, 7. Keratosis, hypertension and hyperlipidemia who presented to urgent treatment center after being sick for a week. He states he has had several days where he was worse. He notes that he has COPD and smoked 2 to 3 packs of cigarettes a day until 3 days ago. He states he has quit smoking. He also noted that he has been short of breath with minimal activity and ambulation. He has had a productive frequent cough of yellow thick mucus. He has had some dizziness and felt shaky at times. Thus he presented to the emergency room for evaluation following his narrative from his visit in the ER: History of Present Illness Provider Complaint: Patient state that he has been sick for a week but got worse since Wed States that he has COPD but this is worse States that he hasnt been able to move around much without getting very short of breath fever, and coughing up mucous States he has a history of Afib at times and last night he was coughing and felt hot all over and felt like he was going to pass out and feeling shaky States that today he was still feeling short of breath shaky, and not able to move around much without getting winded and over all not feeling well so made him come in I assumed care of the patient was transferred to the ER.? Patient has mild respiratory failure at 89% on room air and mild increased work of breathing.? He does become easily short of winded with speaking in full sentences.? Chest x-ray reviewed is unremarkable.? CBC, CMP, troponin, BNP, EKG ordered.? Patient placed on 2 L nasal cannula.? Patient is in A-fib with RVR with a rate averaging 110.? Ordered diltiazem bolus.? Patient is anticoagulated on Xarelto.? Laboratory studies reveal a BNP 2700.? Patient given 40 of Lasix IV.? Patient's troponin is elevated at 0.07.? Patient will need to be admitted for further management discussed with Dr. Johnson, covering for Dr. Canales. Patient was also seen by cardiology with the following documentation: Plan as per the following cardiology documentation: 1.? Acute respiratory failure with hypoxia Consult pulmonology for evaluation and assistance.? COVID and influenza both negative. 2.? Atrial fibrillation with rapid ventricular response, patient has history of PAF. Continue Xarelto therapy Continue amiodarone but will increase to 400 mg twice daily IV diltiazem has been ordered/ started.? If this fails to slow him down and convert him then would consider cardioversion once pulmonary status has improved. 3.? Acute kidney injury, IV fluids ordered 4.? HFrEF with known cardiomyopathy/EF 40%/global hypokinesis. Repeat echo 5.? Elevated troponin likely secondary to demand ischemia from recurrent A-fib exacerbated by pulmonary issues Will obtain echocardiogram to reevaluate EF. Continue trending troponins and consider cardiac catheterization this admission if need Addendum: EKG today does appear to show atrial flutter with variable block.? This should hopefully convert easily with increasing Amio and IV diltiazem but cardioversion is still a consideration. At the time of this visit patient appears comfortable sitting up in a recliner at the bedside. He has completed his echocardiogram. He was able to eat some lunch. He states his breathing is better especially since receiving a DuoNeb treatment. He continues with a productive cough. He denies chest pain.He has been seen by cardiology and pulmonology [facility] Disclaimer: The information contained in this section may have been updated after the patient was seen, as this information can be updated by other users. Medical History Acute and chronic respiratory failure with hypoxia Atrial flutter CAD (coronary artery disease) Cardiomyopathy Catarac
--- NOTE | 2022-12-02 14:47 | PC.NURSE ---
[address] Johnson via office that pt does not have a cardiology consult r/t nstemi and afib with RVR. (pt hr is in the low 100's) also notified office that pt o2 is 88-89 on 3lpm, pulmonology consult requested. 1105. ok to enter cardiology consult. pulmonology consult not needed
--- NOTE | 2022-12-02 14:51 | PC.NURSE ---
late entry: 1150 During Cardiology assessment, Hunter Guillen recommended pt have full PCR panel and pulmonology consult. orders entered per request. Hunter Guillen also stated pt to restart amiodarone 400mg bid. pt only took 200 this am, order to be entered for 200mg amio po now. 1440 clarified with hunter guillen if pt was to receive amio 200mg po now as order was not entered. order entered per hunter guillen request and amio given
[2022-12-02 15:27] LABS: Troponin I 0.05 ng/ml (0.00-0.034)
--- NOTE | 2022-12-02 16:27 | PC.NURSE ---
[id number] spoke with Hunter Guillen via phone. notified him that pt hr was 60-70 bpm. per hunter guillen transition to diltiazem 60mg po bid then stop the dilt drip.
--- NOTE | 2022-12-02 17:47 | PC.NURSE ---
Pt has rested in chair this shift, pt states that he does not want to lay in bed at this time because his bottom was sore. pt was offered a pillow to set on, pt refused. lungs are diminished with scattered wheezes in amada upper lobes. bowel sounds are active. nad noted. pt is a/o x 4. pt states that he feels much better compared to upon arrival. pt states that his breathing is much better. pt diltiazem drip stopped at this time per order from Hunter Rodriguez
[2022-12-03] VITALS (18 sets, daily range): BP systolic 85–104; BP diastolic 51–69; PULSE 57–112; RESP 15–20; TEMP 36.4–36.7; O2SAT 90–96; BMI 23.8
[2022-12-03 05:58] LABS: Basophils # 0.1 K/mm3 (0-0.2); Basophils % 0.3 % (0.1-2.0); Eosinophils % 0.1 % (0.1-12.0); Lymphocytes # 1.3 K/mm3 (0.7-4.5); Lymphocytes % 7.6 % (10-50); Mean Corpuscular HGB Conc 32.2 g/dL (31.8-35.4); Mean Corpuscular Hemoglobin 30.4 pg (27.0-31.2); Mean Corpuscular Volume 94.5 fl (80-94); Mean Platelet Volume 8.7 fl (7.4-10.4); Monocytes # 0.8 K/mm3 (0.1-1.0); Monocytes % 4.2 % (1.7-9.3); Neutrophils # 15.6 K/mm3 (1.8-7.8); Neutrophils % 87.8 % (37.0-80.0); Platelet Count 318 K/mm3 (142-424); Red Blood Count 4.44 M/mm3 (4.60-6.20); Red Cell Distribution Width 13.4 % (11.5-17.5); White Blood Count 17.8 K/mm3 (4.8-10.8)
[2022-12-03 06:06] LABS: Chloride 96 mmol/L (98-107); Sodium 134 mmol/L (136-145)
[2022-12-03 06:09] LABS: Blood Urea Nitrogen 45 mg/dl (9-20); Creatinine Clearance Estimated 49 mL/min (50-200); Estimated Glomerular Filt Rate 44 ml/min (>60); GFR (African American) 53 ML/MIN (>60)
[2022-12-03 06:10] LABS: Calcium 9.3 mg/dl (8.4-10.2); Carbon Dioxide 30 mmol/L (22.0-30.0); Glucose 158 mg/dl (74-100)
[2022-12-03 06:20] LABS: MANUAL DIFFERENTIAL MANUAL DIFFERENTIAL (MANUAL DIFF)
--- NOTE | 2022-12-03 06:21 | PC.NURSE ---
Pt remains in Afib/Aflutter. BP has been somewhat soft during shift with MAP in mid 60s. Pt states this is normal for him and he feels fine. Coccyx is noted to have some redness, Pt has been encouraged to lay down in bed to prevent further breakdown but has refused and has been up to chair t/o majority of shift. Attempted to wean pt o2, pt tolerated 2 L nc well t/o majority of shift but required going back up to 3 L nc this am to keep O2 sat >89%. Pt continues to have wet productive cough. Pt has not voiced any complaints to staff. Call light within reach.
[2022-12-03 06:24] LABS: Hemoglobin 13.2 g/dL (14.1-18.0)
[2022-12-03 07:13] LABS: Lymphocytes % 8 % (10-50); Monocytes % 8 % (2-9); Neutrophils % 74 % (42-76); Total Cells Counted 100
[2022-12-03 07:14] LABS: Platelet Estimate Normal; RBC Morphology Normal
--- NOTE | 2022-12-03 08:03 | EXP.ACUTE.PN ---
Subjective *Date: 12/03/22 *Time: 08:03 Interval history: Patient states he is breathing better today. His cough is less but still productive. He denies chest pain. He was able to sleep some last night. He sleeps better sitting up in the recliner. He actually is looking forward to eating and has been eating well since hospitalization. He is voiding QS. Bowels have moved. White blood cell has elevated further to 17,800. Noted to have high band neutrophils at 10%. Blood chemistries show potassium low at 3 with a BUN of 45 and creatinine of 1.6. Troponin I's been 0.070.07 and 0.05. Respiratory panel was negative. Sputum culture results are pending Medical Exam Vital signs and Labs for Last 24 Hours: Vital Signs Temp Pulse Pulse Resp BP BP BP 12/03/22 07:18 97.6 F 12/03/22 06:00 89 17 90/55 L 12/03/22 04:00 81 12/03/22 05:56 82 12/03/22 05:56 87 12/03/22 05:56 12/03/22 04:44 80 12/03/22 04:00 82 15 87/56 L 12/03/22 04:00 97.8 F 12/03/22 02:00 86 16 89/57 L 12/03/22 00:00 70 12/03/22 02:04 74 12/03/22 02:04 73 12/03/22 00:00 12/03/22 00:00 80 15 85/55 L 12/03/22 00:00 97.8 F 12/02/22 20:00 70 12/02/22 22:00 66 22 94/55 L 12/02/22 21:50 65 12/02/22 21:50 74 12/02/22 20:00 96.8 F L 68 20 88/52 L 12/02/22 19:33 73 12/02/22 18:00 65 20 85/46 L 12/02/22 18:32 58 L 12/02/22 18:32 65 12/02/22 18:32 12/02/22 17:45 66 12/02/22 16:00 73 12/02/22 16:00 97.5 F L 12/02/22 16:00 77 20 87/51 L 12/02/22 15:00 100 H 20 90/59 L 12/02/22 14:00 87 18 101/56 L 12/02/22 13:00 92 H 20 87/58 L 12/02/22 12:30 90 20 90/56 L 12/02/22 12:00 92 H 20 87/48 L 12/02/22 11:30 90 22 110/54 L 12/02/22 10:58 103 H 20 95/67 L 12/02/22 10:40 97 H 20 91/55 L 12/02/22 12:00 90 12/02/22 10:30 100 H 12/02/22 13:08 81 12/02/22 13:08 78 12/02/22 11:51 12/02/22 11:38 98.6 F 12/02/22 10:18 98.3 F 98 H 20 90/59 L 12/02/22 10:01 98.3 F 97 H 20 124/71 12/02/22 09:30 100 H 26 H 122/71 12/02/22 08:44 98.3 F 122 H 19 122/79 12/02/22 08:15 98.0 F 115 H 27 H 112/72 Pulse Ox 12/03/22 07:18 12/03/22 06:00 92 L 12/03/22 04:00 90 L 12/03/22 05:56 12/03/22 05:56 12/03/22 05:56 91 L 12/03/22 04:44 12/03/22 04:00 93 L 12/03/22 04:00 12/03/22 02:00 92 L 12/03/22 00:00 12/03/22 02:04 12/03/22 02:04 12/03/22 00:00 91 L 12/03/22 00:00 91 L 12/03/22 00:00 12/02/22 20:00 12/02/22 22:00 94 L 12/02/22 21:50 12/02/22 21:50 12/02/22 20:00 91 L 12/02/22 19:33 91 L 12/02/22 18:00 90 L 12/02/22 18:32 12/02/22 18:32 12/02/22 18:32 91 L 12/02/22 17:45 92 L 12/02/22 16:00 12/02/22 16:00 12/02/22 16:00 93 L 12/02/22 15:00 91 L 12/02/22 14:00 91 L 12/02/22 13:00 90 L 12/02/22 12:30 90 L 12/02/22 12:00 90 L 12/02/22 11:30 88 L 12/02/22 10:58 90 L 12/02/22 10:40 90 L 12/02/22 12:00 12/02/22 10:30 12/02/22 13:08 12/02/22 13:08 12/02/22 11:51 88 L 12/02/22 11:38 12/02/22 10:18 88 L 12/02/22 10:01 12/02/22 09:30 90 L 12/02/22 08:44 87 L 12/02/22 08:15 88 L Intake and Output 12/02/22 12/03/22 12/03/22 19:59 03:59 11:59 Intake Total 1237 / 1237 420 / 1657 Output Total 200 / 200 475 / 675 100 / 775 Balance 1037 / 1037 -475 / 562 320 / 882 Intake: Intake, Oral Amount 960 / 960 420 / 1380 Intake, Total IV Amount 277 / 277 Azithromycin 500 mg In 0.9 % 250 / 250 Sodium Chloride 250 ml @ 250 mls/hr IV ONCE ONE Rx#:[id number] dilTIAZem HCL 100 mg In 0.9 % 27 / 27 Sodium Chloride 100 ml @ 5 mls/ hr IV .Q20H [facility] Rx#:[id number] Output:
--- NOTE | 2022-12-03 08:28 | EXP.CARD.PN ---
Subjective Subjective Date: 12/03/22 Time: 08:29 Principal diagnosis: A. fib, Resp distress Interval history: 67-year-old white male sitting in bedside chair in no acute distress. States his breathing is improved. Telemetry still shows atrial fibrillation with a rapid ventricular response. Patient was on IV diltiazem yesterday with rates in the 60s at which time I switched him to oral diltiazem. Blood pressure remains soft in the 90-100 mm Hg systolic range. Echo report states unable to accurately measure LVEF but visually appears to be >50%. No significant valve disease. Aortic root measures 45 mm. RV enlargement suggestive of acute overload with concern for PE. RVSP 31 mm Hg Exam Data for Last 24 hours Vital signs and Labs for Last 24 Hours: Temp Pulse Resp BP Pulse Ox 97.6 F 89 17 90/55 L 92 L 12/03/22 07:18 12/03/22 06:00 12/03/22 06:00 12/03/22 06:00 12/03/22 06:00 Laboratory Results - last 24 hr 12/02/22 08:50: WBC 14.3 H, RBC 5.09, Hgb 15.5, Hct 48.1, MCV 94.4 H, MCH 30.4, MCHC 32.3, RDW 13.5, Plt Count 315, MPV 8.2, Neut % (Auto) 80.7 H, Lymph % (Auto) 9.3 L, [place] % (Auto) 8.9, Eos % (Auto) 0.6, Baso % (Auto) 0.6, Neut # (Auto) 11.6 H, Lymph # (Auto) 1.3, [place] # (Auto) 1.3 H, Eos # (Auto) 0.1, Baso # (Auto) 0.1 12/02/22 08:50: Sodium 134 L, Potassium 4.0, Chloride 94 L, Carbon Dioxide 30, Anion Gap 14.0, BUN 31 H, Creatinine 1.50 H, Estimated Creat Clear 50, Estimated GFR 47 L, Est GFR ( Amer) 57 L, Glucose 108 H, Calcium 9.5, Troponin I 0.07 H 12/02/22 08:50: NT-Pro-B Natriuret Pep 2700 H 12/02/22 09:35: SARS-CoV-2 (PCR) Not detected, Influenza A Untype (PCR) Not detected, Influenza Type B (PCR) Not detected 12/02/22 09:35: Chlamy pneumoniae PCR Not detected, Adenovirus (PCR) Not detected, B. pertussis DNA (PCR) Not detected, Coronavirus OC43 (PCR) Not detected, Coronavirus HKU1 (PCR) Not detected, Coronavirus 229E (PCR) Not detected, SARS-CoV-2 (PCR) Not detected, Coronavirus NL63 (PCR) Not detected, Human Metapneumovir PCR Not detected, Influenza A (H1) PCR Not detected, Influ A (H1N1/09) PCR Not detected, Influenza A (H3) PCR Not detected, Influenza Type A (PCR) Not detected, Influenza Type B (PCR) Not detected, M. pneumoniae (PCR) Not detected, Parainfluenza 1 (PCR) Not detected, Parainfluenza 2 (PCR) Not detected, Parainfluenza 3 (PCR) Not detected, Parainfluenza 4 (PCR) Not detected, RSV (PCR) Not detected, Entero/Rhino (PCR) Not detected 12/02/22 11:45: Troponin I 0.07 H 12/02/22 14:45: Troponin I 0.05 H 12/03/22 05:15: WBC 17.8 H, RBC 4.44 L, Hgb 13.2 L D, Hct 42.0, MCV 94.5 H, MCH 30.4, MCHC 32.2, RDW 13.4, Plt Count 318, MPV 8.7, Neut % (Auto) 87.8 H, Lymph % (Auto) 7.6 L, [place] % (Auto) 4.2, Eos % (Auto) 0.1, Baso % (Auto) 0.3, Neut # (Auto) 15.6 H, Lymph # (Auto) 1.3, [place] # (Auto) 0.8, Eos # (Auto) 0.0, Baso # (Auto) 0.1, Total Counted 100, Neutrophils % (Manual) 74, Band Neutrophils % 10.0 H, Lymphocytes % (Manual) 8 L, Monocytes % (Manual) 8, Platelet Estimate Normal, RBC Morphology Normal 12/03/22 05:15: Sodium 134 L, Potassium 3.0 L D, Chloride 96 L, Carbon Dioxide 30, Anion Gap 11.0, BUN 45 H D, Creatinine 1.60 H, Estimated Creat Clear 49, Estimated GFR 44 L, Est GFR ( Amer) 53 L, Glucose 158 H D, Calcium 9.3 I & O for Last 24 hours: Intake & Output 11/30/22 12/01/22 12/02/22 12/03/22 11:59 11:59 11:59 11:59 Intake Total 100 / 100 1657 / 1657 Output Total 200 / 200 925 / 925 Balance -100 / -100 732 / 732 Weight 164 lb 6 oz 166 lb 7.184 oz Microbiology Reports for the Last 24 Hours: Microbiology 12/02/22 13:04 Sputum - Expectorated Sputum Gram Stain - Final Constitutional Constitutional: no acute distress *Routine Respiratory Exam Respiratory: Present rhonchi and wheezes *Routine Cardiovascular Exam Cardiovascular: Present tachycardia and irregularly irregular Progress Note: A&P Assessment and plan (1) Acute respiratory failure with hypoxia: Status: Acute (2) A
--- NOTE | 2022-12-03 09:34 | EXP.PULM.PN ---
Subjective *Date: 12/03/22 *Time: 10:08 Interval history: No acute respiratory vents overnight. Patient admits improvement in respiratory symptoms. Pulmonology Exam Inpatient Vital signs and Labs for Last 24 Hours: Temp Pulse Resp BP Pulse Ox 97.6 F 89 17 90/55 L 92 L 12/03/22 07:18 12/03/22 06:00 12/03/22 06:00 12/03/22 06:00 12/03/22 06:00 Laboratory Results - last 24 hr 12/02/22 09:35: SARS-CoV-2 (PCR) Not detected, Influenza A Untype (PCR) Not detected, Influenza Type B (PCR) Not detected 12/02/22 09:35: Chlamy pneumoniae PCR Not detected, Adenovirus (PCR) Not detected, B. pertussis DNA (PCR) Not detected, Coronavirus OC43 (PCR) Not detected, Coronavirus HKU1 (PCR) Not detected, Coronavirus 229E (PCR) Not detected, SARS-CoV-2 (PCR) Not detected, Coronavirus NL63 (PCR) Not detected, Human Metapneumovir PCR Not detected, Influenza A (H1) PCR Not detected, Influ A (H1N1/09) PCR Not detected, Influenza A (H3) PCR Not detected, Influenza Type A (PCR) Not detected, Influenza Type B (PCR) Not detected, M. pneumoniae (PCR) Not detected, Parainfluenza 1 (PCR) Not detected, Parainfluenza 2 (PCR) Not detected, Parainfluenza 3 (PCR) Not detected, Parainfluenza 4 (PCR) Not detected, RSV (PCR) Not detected, Entero/Rhino (PCR) Not detected 12/02/22 11:45: Troponin I 0.07 H 12/02/22 14:45: Troponin I 0.05 H 12/03/22 05:15: WBC 17.8 H, RBC 4.44 L, Hgb 13.2 L D, Hct 42.0, MCV 94.5 H, MCH 30.4, MCHC 32.2, RDW 13.4, Plt Count 318, MPV 8.7, Neut % (Auto) 87.8 H, Lymph % (Auto) 7.6 L, [place] % (Auto) 4.2, Eos % (Auto) 0.1, Baso % (Auto) 0.3, Neut # (Auto) 15.6 H, Lymph # (Auto) 1.3, [place] # (Auto) 0.8, Eos # (Auto) 0.0, Baso # (Auto) 0.1, Total Counted 100, Neutrophils % (Manual) 74, Band Neutrophils % 10.0 H, Lymphocytes % (Manual) 8 L, Monocytes % (Manual) 8, Platelet Estimate Normal, RBC Morphology Normal 12/03/22 05:15: Sodium 134 L, Potassium 3.0 L D, Chloride 96 L, Carbon Dioxide 30, Anion Gap 11.0, BUN 45 H D, Creatinine 1.60 H, Estimated Creat Clear 49, Estimated GFR 44 L, Est GFR ( Amer) 53 L, Glucose 158 H D, Calcium 9.3 I & O for Labs for Last 24 Hours: Intake & Output 11/30/22 12/01/22 12/02/22 12/03/22 23:59 23:59 23:59 23:59 Intake Total 1337 / 1337 420 / 420 Output Total 500 / 500 625 / 625 Balance 837 / 837 -205 / -205 Weight 164 lb 6 oz 166 lb 7.184 oz Microbiology Reports for the Last 24 Hours: Microbiology 12/02/22 13:04 Sputum - Expectorated Sputum Gram Stain - Final Constitutional: Present moderate distress Head: Present normocephalic and atraumatic ENT: Present normal exam, normal oropharynx and mucous membranes moist Neck: Present normal inspection and full ROM Respiratory: Present respiratory distress, rhonchi, wheezes and able to speak in complete sentences; Absent accessory muscle use or crackles Cardiac: Present S1/S2, Tachycardia and radial pulses present GI: Present soft and distention; Absent tenderness or guarding Skin: Present intact; Absent cyanosis or jaundice Neuro: Present alert, awake and oriented x 3 Extremities: Present normal inspection; Absent clubbing or cyanosis Psychiatric: Present normal affect and cooperative Assessment and Plan *Assessment and plan (1) Pneumonia: Status: Acute Category: Medical Code(s): J18.9 - Pneumonia, unspecified organism (2) COPD exacerbation: Status: Acute Category: Medical Code(s): J44.1 - Chronic obstructive pulmonary disease with (acute) exacerbation (3) Acute and chronic respiratory failure with hypoxia: Status: Acute Category: Medical Code(s): J96.21 - Acute and chronic respiratory failure with hypoxia Plan 67-year-old male presented to the hospital with worsening respiratory distress. History of severe COPD, last seen in pulmonary clinic in March 2021. Patient admits flulike symptoms for the last week continued to worsen along with worsening respiratory status cough and increa
--- NOTE | 2022-12-03 10:04 | CT_ITS ---
FINAL REPORT TECHNIQUE: Then section axial CT images of the chest were obtained with contrast. Three-D reformatted images were also obtained.This study was performed with techniques to keep radiation doses as low as reasonably achievable (ALARA). Individualized dose reduction techniques using automated exposure control or adjustment of mA and/or kV according to the patient''s size were employed. CLINICAL HISTORY: hypoxia, resp distress, A. fib COMPARISON: 07/08/2022 FINDINGS: There is no evidence of pulmonary embolism. There is no evidence of thoracic aortic aneurysm or dissection. There are multiple mildly enlarged mediastinal lymph nodes which are stable and nonspecific. There is mild emphysema. Numerous new and worsening small nodules are seen throughout the lungs. An infectious/inflammatory process is favored such as mycobacterial/fungal infection. Neoplastic process is thought to be less likely. Bibasilar pulmonary opacities may represent atelectasis or pneumonia. Limited images of the upper abdomen are unremarkable. IMPRESSION: No evidence of pulmonary embolism. Bibasilar pulmonary opacities may represent atelectasis or pneumonia. Small nodules throughout the lungs are favored to represent an infectious/inflammatory process such as mycobacterial/fungal infection. Neoplastic process is thought to be less likely. Consider chest CT in 3-6 months. Reviewed, Interpreted and Dictated by Ross Humphries III, MD Transcribed by Yumiko Oliveros Authenticated and [facility]
--- NOTE | 2022-12-03 11:49 | PC.NURSE ---
Pt in OR
--- NOTE | 2022-12-03 17:58 | PC.NURSE ---
Pt remains on 2.5 L O2 NC with O2 sats in lower 90s. Pt has productive cough. He has ambulated in room and tolerated fair. Sitting in chair most of shift. BP has remained soft. He remains afib to afutter on telemetry. Medicated per lianet and MD orders. Call light within reach.
[2022-12-04] VITALS (26 sets, daily range): BP systolic 91–162; BP diastolic 49–69; PULSE 53–77; RESP 15–22; TEMP 36.4–36.6; O2SAT 90–98; BMI 23.8
--- NOTE | 2022-12-04 05:37 | PC.NURSE ---
NO ACUTE CHANGES SINCE PREVIOUS ASSESSMENT. PT HAS RESTED INTERMITTENTLY. PT HAS HAD AN INTERMITTENT COUGH. LUNG SOUNDS ARE DIMINISHED. PT CONVERTED FROM A-FLUTTER WITH A 3:1 RATIO TO NSR AROUND 2200 LAST NIGHT. NO C/O SOB OR CHEST DISCOMFORT THIS SHIFT. VSS.
--- NOTE | 2022-12-04 08:15 | EXP.ACUTE.PN ---
Subjective *Date: 12/04/22 *Time: 08:15 Interval history: Patient says he is feeling great this am. Converted to NSR last night. Less SOA, denies any chest pain. Slept well and is eating well. Medical Exam Vital signs and Labs for Last 24 Hours: Vital Signs Temp Pulse Pulse Resp BP Pulse Ox 12/04/22 07:29 97.6 F 70 16 110/62 94 L 12/04/22 05:52 63 12/04/22 05:52 68 12/04/22 05:52 95 12/04/22 04:00 70 12/04/22 04:00 97.7 F 71 18 113/63 97 12/04/22 02:12 72 12/04/22 02:12 72 12/04/22 00:00 97.9 F 66 18 99/57 L 97 12/04/22 00:00 60 12/03/22 22:31 75 12/03/22 22:31 75 12/03/22 20:00 97.7 F 62 18 104/61 L 94 L 12/03/22 20:00 70 12/03/22 16:01 60 12/03/22 18:06 65 12/03/22 15:06 98.0 F 57 L 18 96/51 L 94 L 12/03/22 14:45 108 H 12/03/22 14:45 92 H 12/03/22 12:00 60 12/03/22 11:01 98.0 F 105 H 20 101/69 L 96 12/03/22 09:49 103 H 12/03/22 09:49 112 H Intake and Output 12/03/22 12/04/22 12/04/22 19:59 03:59 11:59 Intake Total 480 / 480 0 / 480 Output Total 0 / 0 0 / 0 0 / 0 Balance 480 / 480 0 / 480 0 / 480 Intake: Intake, Oral Amount 480 / 480 0 / 480 Output: Output, Urine Amount 0 / 0 0 / 0 0 / 0 Other: Number of Unmeasured Voids 1 1 1 Weight 166 lb 7.184 oz 166 lb 7.184 oz Patient Weight 12/04/22 11:59 Weight 166 lb 7.184 oz I & O for Labs for Last 24 Hours: Intake & Output 12/01/22 12/02/22 12/03/22 12/04/22 11:59 11:59 11:59 11:59 Intake Total 100 / 100 1657 / 1657 480 / 480 Output Total 200 / 200 925 / 925 0 / 0 Balance -100 / -100 732 / 732 480 / 480 Weight 164 lb 6 oz 166 lb 7.184 oz 166 lb 7.184 oz Microbiology Reports for the Last 24 Hours: Microbiology 12/02/22 13:04 Sputum - Expectorated Sputum Gram Stain - Final 12/02/22 13:04 Sputum - Expectorated Sputum Sputum Culture - Preliminary Gram Negative Rods Constitutional: Present no acute distress Eyes: Present other (Sclera with less erythema of the right this a.m.) Respiratory: Present CTA bilaterally Cardiac: Present Reg Rate and Rhythm GI: Present soft and normal bowel sounds; Absent distention Extremities: Absent edema Neuro: Present alert and oriented x 3 Assessment and Plan *Assessment and plan (1) Acute respiratory failure with hypoxia: Status: Acute Category: Medical Code(s): J96.01 - Acute respiratory failure with hypoxia (2) Atrial fibrillation with rapid ventricular response: Status: Acute Category: Medical Code(s): I48.91 - Unspecified atrial fibrillation (3) Tobacco use: Status: Acute Category: Social Hx Code(s): Z72.0 - Tobacco use (4) Cardiomyopathy: Status: Chronic Qualifiers: Cardiomyopathy type: dilated Qualified Code(s): I42.0 - Dilated cardiomyopathy Category: Medical Code(s): I42.9 - Cardiomyopathy, unspecified (5) Acute on chronic HFrEF (heart failure with reduced ejection fraction): Status: Acute Category: Medical Code(s): I50.23 - Acute on chronic systolic (congestive) heart failure (6) MED (acute kidney injury): Status: Acute Category: Medical Code(s): N17.9 - Acute kidney failure, unspecified (7) Chronic anticoagulation: Status: Acute Category: Medical Code(s): 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
[2022-12-04 09:23] LABS: Chloride 99 mmol/L (98-107); Potassium 4.1 mmoL/L (3.5-5.1); Sodium 135 mmol/L (136-145)
[2022-12-04 09:26] LABS: Anion Gap 12.1 mEq/L (5-15); Blood Urea Nitrogen 46 mg/dl (9-20); Carbon Dioxide 28 mmol/L (22.0-30.0); Creatinine Clearance Estimated 56 mL/min (50-200); Estimated Glomerular Filt Rate 51 ml/min (>60); GFR (African American) 62 ML/MIN (>60)
[2022-12-04 09:27] LABS: Calcium 9.3 mg/dl (8.4-10.2); Glucose 112 mg/dl (74-100)
--- NOTE | 2022-12-04 09:28 | IR_ITS ---
APPROVED REPORT Patient Location: Outpatient Security Professional: MICHELLE Longoria RT (R) PROCEDURES 1. Left heart catheterization 2. Selective coronary arteriography 3. Left ventriculography 4. Right heart catheterization INDICATION 1. Angina pectoris, 2. Shortness of breath, 3. Congestive heart failure [facility] INDICATION Patient is a 67-year-old white male who presented with increasing shortness of breath and pressure in the chest. His EKG was atrial fibrillation. He converted with medications. He has not had an ischemic evaluation. Concern with the atrial fibrillation and abnormal EKG for coronary artery disease. Secondary to this and what was considered to be an anginal equivalent with shortness of breath referred directly for left heart catheterization. Also with symptoms of pulmonary hypertension and heart failure. Secondary to this referred for right heart catheterization as well. Informed consent was obtained prior to the procedure. COMPLICATIONS None Estimated Blood Loss: Less than 10 mls TECHNIQUE One percent lidocaine was used to anesthetize the right groin. The right femoral artery was accessed via the Seldinger technique. A 4-[place]ayan and 7 belarusian sheath was placed in the right femoral artery and vein respectfully. A 7 [place] sheath was introduced and a Beaumont-Nirali catheter was floated using hemodynamic waveforms in the pulmonary artery, right ventricle , and right atrium. Saturations were obtained in the pulmonary artery and the right atrium. The JR-4 and JL-4 catheter was also used to perform left heart catheterization, left ventriculography and selective coronary angiogram. At the end of the procedure the patient was transferred to the post-op holding area in stable condition for arterial sheath removal. ANGIOGRAPHIC RESULTS The left main artery Angiographically normal The left anterior descending artery Had a 30 to 40% napkin ring mid stenosis. Normal flow into the distal vessel The circumflex artery Angiographically normal The right coronary artery Large and dominant and angiographically normal The GUAMAN ventriculogram reveals Normal left ventricular systolic function with an ejection fraction of 55 to 60%. No wall motion abnormalities. No gradient on pullback of the catheter. No noted mitral insufficiency The left ventricular end-diastolic pressure 18 Patient's right atrial pressure was elevated as well as the right ventricular pressure and pulmonary artery pressure. Mild to moderate pulmonary hypertension. Elevated pulmonary capillary wedge pressure as well. Please see full report for oxygen saturations, cardiac output and index Right, retrograde femoral arteriogram performed. Sheath placed in the right common femoral artery. Angio-Seal device was deployed without difficulty. Also placed a minx device in the right common femoral vein IMPRESSION 1. Mild to moderate coronary artery disease mainly involving the mid left anterior descending 2. Normal left ventricular systolic function 3. Elevated left ventricular end-diastolic pressure and pulmonary capillary wedge pressure 4. Mild to moderate pulmonary hypertension 5. Normal pulmonary artery saturation 6. Successful placement of an Angio-Seal device in the right common femoral artery 7. Successful placement of a Mynx device in the right common femoral vein PLAN 1. Patient will continue with medical therapy. There is moderate stenosis in the mid left anterior descending. There is a napkin ring 30 to 40% stenosis. If clinically indicated at follow-up we could always consider a nuclear stress test to see if patient lights up in the anterior wall. He did not appear to be enough to d
--- NOTE | 2022-12-04 11:50 | EXP.CARD.PN ---
Subjective Subjective Date: 12/04/22 Time: 11:50 Principal diagnosis: A. fib, Resp distress Interval history: 67-year-old white male sitting in bedside chair no acute distress. Continues to improve daily and feel better. Telemetry shows patient did convert to sinus rhythm overnight. Heart rate currently in the 60 bpm range. Reviewed decision and recommendation for right and left heart catheterization today and patient agrees to proceed as planned. Exam Data for Last 24 hours Vital signs and Labs for Last 24 Hours: Temp Pulse Resp BP Pulse Ox 97.8 F 62 18 109/69 L 97 12/04/22 11:22 12/04/22 11:22 12/04/22 11:22 12/04/22 11:22 12/04/22 11:22 Laboratory Results - last 24 hr 12/04/22 08:00: Sodium 135 L, Potassium 4.1 D, Chloride 99, Carbon Dioxide 28, Anion Gap 12.1, BUN 46 H, Creatinine 1.40 H, Estimated Creat Clear 56, Estimated GFR 51 L, Est GFR ( Amer) 62, Glucose 112 H, Calcium 9.3 I & O for Last 24 hours: Intake & Output 12/01/22 12/02/22 12/03/22 12/04/22 11:59 11:59 11:59 11:59 Intake Total 100 / 100 1657 / 1657 480 / 480 Output Total 200 / 200 925 / 925 0 / 0 Balance -100 / -100 732 / 732 480 / 480 Weight 164 lb 6 oz 166 lb 7.184 oz 166 lb 7.184 oz Microbiology Reports for the Last 24 Hours: Microbiology 12/02/22 13:04 Sputum - Expectorated Sputum Gram Stain - Final 12/02/22 13:04 Sputum - Expectorated Sputum Sputum Culture - Preliminary Gram Negative Rods Constitutional Constitutional: no acute distress *Routine Respiratory Exam Respiratory: Present decreased breath sounds *Routine Cardiovascular Exam Cardiovascular: Present RRR Progress Note: A&P Assessment and plan (1) Acute respiratory failure with hypoxia: Status: Acute (2) Atrial fibrillation with rapid ventricular response: Status: Acute (3) Tobacco use: Status: Acute (4) Cardiomyopathy: Status: Chronic (5) Acute on chronic HFrEF (heart failure with reduced ejection fraction): Status: Acute (6) MED (acute kidney injury): Status: Acute (7) Chronic anticoagulation: Status: Acute (8) Conjunctivitis: Status: Acute (9) COPD (chronic obstructive pulmonary disease): Status: Acute (10) CAD (coronary artery disease): Status: Acute Assessment and Plan Assessment and Plan for All Diagnoses:: 1.? Acute respiratory failure with hypoxia COVID and influenza both negative. CTA of the chest negative for PE but concerning for both fungal and bacterial infection. Pulmonary following 2.? Atrial fibrillation/flutter with rapid ventricular response, patient has history of PAF. Continue Xarelto therapy Continue amiodarone but will increase to 400 mg twice daily Spontaneous conversion to sinus rhythm. We will discontinue digoxin and continue amiodarone and diltiazem 3.? Acute kidney injury, improving IV fluids ordered 4.? HFrEF with known cardiomyopathy/EF 40%/global hypokinesis. Echo done, visually EF >50% 5.? Elevated troponin likely secondary to demand ischemia from recurrent A-fib exacerbated by pulmonary issues Echo EF at least 50% troponins (0.07 Max and trending down) Last stress myoview was normal in 2018. Coronary calcium score was 0 in 2018 with recent scans also showing no coronary calcium. Proceed with right and left heart catheterization this admission [facility] report A9
--- NOTE | 2022-12-04 13:26 | EXP.PULM.PN ---
Subjective *Date: 12/04/22 *Time: 13:26 Interval history: No acute respiratory events overnight. Patient admits continued improvement in his respiratory symptoms. Pulmonology Exam Inpatient Vital signs and Labs for Last 24 Hours: Temp Pulse Resp BP Pulse Ox 97.8 F 62 18 109/69 L 97 12/04/22 11:22 12/04/22 11:22 12/04/22 11:22 12/04/22 11:22 12/04/22 11:22 Laboratory Results - last 24 hr 12/04/22 08:00: Sodium 135 L, Potassium 4.1 D, Chloride 99, Carbon Dioxide 28, Anion Gap 12.1, BUN 46 H, Creatinine 1.40 H, Estimated Creat Clear 56, Estimated GFR 51 L, Est GFR ( Amer) 62, Glucose 112 H, Calcium 9.3 I & O for Labs for Last 24 Hours: Intake & Output 12/01/22 12/02/22 12/03/22 12/04/22 23:59 23:59 23:59 23:59 Intake Total 1337 / 1337 900 / 900 0 / 0 Output Total 500 / 500 625 / 625 0 / 0 Balance 837 / 837 275 / 275 0 / 0 Weight 164 lb 6 oz 166 lb 7.184 oz 166 lb 7.184 oz Microbiology Reports for the Last 24 Hours: Microbiology 12/02/22 13:04 Sputum - Expectorated Sputum Gram Stain - Final 12/02/22 13:04 Sputum - Expectorated Sputum Sputum Culture - Preliminary Gram Negative Rods Constitutional: Present mild distress Head: Present normocephalic and atraumatic ENT: Present normal exam, normal oropharynx and mucous membranes moist Neck: Present normal inspection and full ROM Respiratory: Present respiratory distress, rhonchi and able to speak in complete sentences; Absent accessory muscle use, wheezes or crackles Cardiac: Present S1/S2, Tachycardia and radial pulses present GI: Present soft and distention; Absent tenderness or guarding Skin: Present intact; Absent cyanosis or jaundice Neuro: Present alert, awake and oriented x 3 Extremities: Present normal inspection; Absent clubbing or cyanosis Psychiatric: Present normal affect and cooperative Assessment and Plan *Assessment and plan (1) Pneumonia: Status: Acute Category: Medical Code(s): J18.9 - Pneumonia, unspecified organism (2) COPD exacerbation: Status: Acute Category: Medical Code(s): J44.1 - Chronic obstructive pulmonary disease with (acute) exacerbation (3) Acute and chronic respiratory failure with hypoxia: Status: Acute Category: Medical Code(s): J96.21 - Acute and chronic respiratory failure with hypoxia Plan 67-year-old male presented to the hospital with worsening respiratory distress. History of severe COPD, last seen in pulmonary clinic in March 2021. Patient admits flulike symptoms for the last week continued to worsen along with worsening respiratory status cough and increasing productive phlegm and subjective fevers. Patient admits otherwise stable respiratory symptoms since he was last seen in pulmonary clinic in 2020. Low-dose CT from November 2019 reviewed, bilateral emphysematous changes with lung nodules less than 6 mm in size. Chest x-ray on the admission reviewed, bilateral lower lobe airspace disease with no dense consolidation. Bronchial thickening noted with possible associated bronchiectasis. Labs from admission reviewed, neutrophilic leukocytosis.MED on CKD. Afebrile. MAP greater than 65. Interval update: Continued improvement in respiratory distress. Improving breath sounds with decreasing wheezing. Decreasing oxygen comments. CTA performed as echo concerning for Boo sign, no evidence of pulm embolism multiple micronodular disease concerning for atypical fungal/AFB infections. Plan: -Follow with sputum AFB and PEDRO LUIS -Trelegy 100 inhaler scheduled along with DuoNebs every 6 hours on as-needed basis -Continue nasal cannula oxygen supplementation to maintain O2 saturation goal of 89% and above -Continue ceftriaxone azithromycin pending sputum cultures, prelim sputum gram-positive cocci, gram-negative rods and budding yeast, antibiotics can be weaned to levofloxacin upon discharge to complete a total of 7-day course. Foll
[2022-12-04 15:28] LABS: CATHL Arterial O2 SAT 77.4 % (90-100); CATHL Venous O2 SAT 79.7 % (75-80)
--- NOTE | 2022-12-04 17:32 | PC.NURSE ---
Pt is alert and oriented x4. Lungs are diminished throughout. He's been weaned to RA with O2 sats measuring >89%. He's been NSR on telemetry. He was up to the chair for approx half of the shift. Dressing to right groin has a small amount of sanguineous drainage. His only complaint was mild back pain, ibuprofen administered with relief noted on reassessment. He is currently sitting up in bed eating supper. His is at bedside. His bed is locked and in the lowest position, call light is within reach.
[2022-12-05] VITALS: BP 102/63; PULSE 55; PULSE 60; RESP 20; TEMP 36.5; O2SAT 92
[2022-12-05 04:00] VITALS: BP 103/55; PULSE 50; PULSE 54; RESP 17; TEMP 36.5; O2SAT 93; BMI 23.6
[2022-12-05 06:17] VITALS: O2SAT 91
--- NOTE | 2022-12-05 07:49 | EXP.CARD.PN ---
Subjective Subjective Date: 12/05/22 Time: 07:49 Principal diagnosis: A. fib, Resp distress Interval history: 67-year-old white male in bedside chair no acute distress. Oxygen has been removed since yesterday with oxygen saturation on room air maintaining in the low 90% range. Telemetry shows continued sinus rhythm. Results of right and left heart catheterization reviewed with the patient. Exam Data for Last 24 hours Vital signs and Labs for Last 24 Hours: Temp Pulse Resp BP Pulse Ox 97.7 F 54 L 17 103/55 L 91 L 12/05/22 04:00 12/05/22 04:00 12/05/22 04:00 12/05/22 04:00 12/05/22 06:17 Laboratory Results - last 24 hr 12/04/22 02:50: ABG O2 Sat (Measured) 77.4 L, POC VBG O2 Sat (Kain) 79.7 12/04/22 08:00: Sodium 135 L, Potassium 4.1 D, Chloride 99, Carbon Dioxide 28, Anion Gap 12.1, BUN 46 H, Creatinine 1.40 H, Estimated Creat Clear 56, Estimated GFR 51 L, Est GFR ( Amer) 62, Glucose 112 H, Calcium 9.3 I & O for Last 24 hours: Intake & Output 12/02/22 12/03/22 12/04/22 12/05/22 11:59 11:59 11:59 11:59 Intake Total 100 / 100 1657 / 1657 480 / 480 900 / 900 Output Total 200 / 200 925 / 925 0 / 0 600 / 600 Balance -100 / -100 732 / 732 480 / 480 300 / 300 Weight 164 lb 6 oz 166 lb 7.184 oz 166 lb 7.184 oz 165 lb 1.984 oz Microbiology Reports for the Last 24 Hours: Microbiology 12/02/22 13:04 Sputum - Expectorated Sputum Gram Stain - Final 12/02/22 13:04 Sputum - Expectorated Sputum Sputum Culture - Final Pseudomonas aeruginosa Constitutional Constitutional: no acute distress *Routine Respiratory Exam Respiratory: Present CTA bilaterally and diminished air movement *Routine Cardiovascular Exam Cardiovascular: Present RRR Progress Note: A&P Assessment and plan (1) Pneumonia: Status: Acute (2) COPD exacerbation: Status: Acute (3) Acute and chronic respiratory failure with hypoxia: Status: Acute (4) Acute respiratory failure with hypoxia: Status: Acute (5) Atrial fibrillation with rapid ventricular response: Status: Acute (6) Tobacco use: Status: Acute (7) Cardiomyopathy: Status: Chronic (8) Acute on chronic HFrEF (heart failure with reduced ejection fraction): Status: Acute (9) MED (acute kidney injury): Status: Acute (10) Chronic anticoagulation: Status: Acute (11) Conjunctivitis: Status: Acute (12) COPD (chronic obstructive pulmonary disease): Status: Acute (13) CAD (coronary artery disease): Status: Acute Assessment and Plan Assessment and Plan for All Diagnoses:: 1.? Acute respiratory failure with hypoxia COVID and influenza both negative. CTA of the chest negative for PE but concerning for both fungal and bacterial infection. Pulmonary following 2.? Atrial fibrillation/flutter with rapid ventricular response, patient has history of PAF. Continue Xarelto therapy Continue amiodarone 400 mg twice daily Spontaneously converted to sinus rhythm. We will discontinue digoxin and continue amiodarone and diltiazem 3.? Acute kidney injury, improving IV fluids ordered after cardiac cath. BMP pending 12/05/2022 4.? HFrEF with known cardiomyopathy/EF 40%/global hypokinesis. Echo done, visually EF >50% 5.? Elevated troponin likely secondary to demand ischemia from recurrent A-fib exacerbated by pulmonary issues Echo EF at least 50% troponins (0.07 Max and trending down) Last stress myoview was normal in 2018. Coronary calcium score was 0 in 2018 with recent scans also showing no coronary calcium. Proceed with right and left heart catheterization this admission Right heart cath shows Mild to moderate pulmonary hypertension Left heart catheterization showed mild to moderate coronary artery disease involving the mid LAD (30 to 40% napkin ring lesion. Normal LV systolic function. LVEDP 18 mmHg. Stable from a cardiac standpoint for discharge home. Home med
[2022-12-05 07:53] VITALS: BP 141/74; PULSE 60; RESP 20; TEMP 36.4; O2SAT 91
[2022-12-05 07:57] LABS: Chloride 103 mmol/L (98-107); Potassium 5.1 mmoL/L (3.5-5.1); Sodium 138 mmol/L (136-145)
[2022-12-05 08:00] VITALS: PULSE 60
[2022-12-05 08:00] LABS: Anion Gap 12.1 mEq/L (5-15); Blood Urea Nitrogen 42 mg/dl (9-20); Calcium 9.1 mg/dl (8.4-10.2); Carbon Dioxide 28 mmol/L (22.0-30.0); Creatinine Clearance Estimated 52 mL/min (50-200); Estimated Glomerular Filt Rate 47 ml/min (>60); GFR (African American) 57 ML/MIN (>60); Glucose 91 mg/dl (74-100)
--- NOTE | 2022-12-05 08:29 | EXP.ACUTE.PN ---
Subjective *Date: 12/05/22 *Time: 08:29 Interval history: Patient is feeling much better this AM. He has stayed in sinus rhythm and denies any chest pain or shortness of breath. He had a heart cath yesterday and did not require any stenting. Medical Exam Vital signs and Labs for Last 24 Hours: Vital Signs Temp Pulse Pulse Resp BP Pulse Ox 12/05/22 08:00 60 12/05/22 07:53 97.6 F 60 20 141/74 H 91 L 12/05/22 06:17 91 L 12/05/22 04:00 50 L 12/05/22 04:00 97.7 F 54 L 17 103/55 L 93 L 12/05/22 00:00 60 12/04/22 20:00 60 12/05/22 00:00 97.7 F 55 L 20 102/63 L 92 L 12/04/22 22:20 53 L 15 93/52 L 92 L 12/04/22 20:00 91 L 12/04/22 21:20 56 L 18 91/49 L 92 L 12/04/22 20:20 61 22 91/57 L 91 L 12/04/22 19:20 62 22 97/52 L 91 L 12/04/22 19:49 97.8 F 71 18 99/56 L 92 L 12/04/22 18:20 76 20 117/68 92 L 12/04/22 17:50 66 16 117/63 92 L 12/04/22 17:20 68 20 119/59 L 93 L 12/04/22 16:50 62 15 109/59 L 91 L 12/04/22 16:00 70 12/04/22 16:05 60 18 162/63 H 93 L 12/04/22 16:20 77 16 107/68 L 93 L 12/04/22 15:50 72 20 112/64 92 L 12/04/22 15:35 74 20 107/66 L 90 L 12/04/22 15:15 59 L 20 117/65 98 12/04/22 15:20 58 L 20 93 L 12/04/22 15:20 60 59 L 20 114/68 98 12/04/22 12:00 60 12/04/22 11:22 97.8 F 62 18 109/69 L 97 12/04/22 10:08 61 12/04/22 10:08 64 Intake and Output 12/04/22 12/05/22 12/05/22 19:59 03:59 11:59 Intake Total 780 / 1260 120 / 1260 360 / 1260 Output Total 50 / 600 300 / 600 250 / 600 Balance 730 / 660 -180 / 660 110 / 660 Intake: Intake, Oral Amount 480 / 960 120 / 960 360 / 960 Intake, Total IV Amount 300 / 300 Azithromycin 500 mg In 0.9 % 250 / 250 Sodium Chloride 250 ml @ 250 mls/hr IV Q24H [facility] Rx#:[id number] Ceftriaxone 1 gm 1 gm In 0.9 % 50 / 50 Sodium Chloride 50 ml @ 100 mls /hr IV Q24H [facility] Rx#:[id number] Output: Output, Urine Amount 50 / 600 300 / 600 250 / 600 Other: Number of Unmeasured Voids 0 1 Weight 165 lb 1.984 oz Patient Weight 12/05/22 11:59 Weight 165 lb 1.984 oz Laboratory Results - last 24 hr 12/04/22 02:50: ABG O2 Sat (Measured) 77.4 L, POC VBG O2 Sat (Kain) 79.7 12/04/22 08:00: Sodium 135 L, Potassium 4.1 D, Chloride 99, Carbon Dioxide 28, Anion Gap 12.1, BUN 46 H, Creatinine 1.40 H, Estimated Creat Clear 56, Estimated GFR 51 L, Est GFR ( Amer) 62, Glucose 112 H, Calcium 9.3 12/05/22 07:46: Sodium 138, Potassium 5.1 D, Chloride 103, Carbon Dioxide 28, Anion Gap 12.1, BUN 42 H, Creatinine 1.50 H, Estimated Creat Clear 52, Estimated GFR 47 L, Est GFR ( Amer) 57 L, Glucose 91, Calcium 9.1 I & O for Labs for Last 24 Hours: Intake & Output 12/02/22 12/03/22 12/04/22 12/05/22 11:59 11:59 11:59 11:59 Intake Total 100 / 100 1657 / 1657 480 / 480 1260 / 1260 Output Total 200 / 200 925 / 925 0 / 0 600 / 600 Balance -100 / -100 732 / 732 480 / 480 660 / 660 Weight 164 lb 6 oz 166 lb 7.184 oz 166 lb 7.184 oz 165 lb 1.984 oz Microbiology Reports for the Last 24 Hours: Microbiology 12/02/22 13:04 Sputum - Expectorated Sputum Gram Stain - Final 12/02/22 13:04 Sputum - Expectorated Sputum Sputum Culture - Final Pseudomonas aeruginosa Constitutional: Present no acute distress Respiratory: Present CTA bilaterally Cardiac: Present Reg Rate and Rhythm GI: Present soft and normal bowel sounds; Absent distention Extremities: Absent edema Neuro: Present alert and oriented x 3 Assessment and Plan *Assessment and plan (1) Acute respiratory failure with hypoxia: Status: Acute Category: Medical Code(s): J96.01 - Acute respiratory failure with hypoxia (2) Atrial fibrillation with rapid ventricular response: Status: Acute Category: Medical Code(
--- NOTE | 2022-12-05 10:39 | EXP.PULM.PN ---
Subjective *Date: 12/05/22 *Time: 10:39 Interval history: No acute respiratory vents overnight. Patient admits continued improvement in his respiratory symptoms. He continued to have cough and productive phlegm, improving from admission Pulmonology Exam Inpatient Vital signs and Labs for Last 24 Hours: Temp Pulse Resp BP Pulse Ox 97.6 F 60 20 141/74 H 91 L 12/05/22 07:53 12/05/22 08:00 12/05/22 07:53 12/05/22 07:53 12/05/22 07:53 Laboratory Results - last 24 hr 12/04/22 02:50: ABG O2 Sat (Measured) 77.4 L, POC VBG O2 Sat (Kain) 79.7 12/05/22 07:46: Sodium 138, Potassium 5.1 D, Chloride 103, Carbon Dioxide 28, Anion Gap 12.1, BUN 42 H, Creatinine 1.50 H, Estimated Creat Clear 52, Estimated GFR 47 L, Est GFR ( Amer) 57 L, Glucose 91, Calcium 9.1 I & O for Labs for Last 24 Hours: Intake & Output 12/02/22 12/03/22 12/04/22 12/05/22 23:59 23:59 23:59 23:59 Intake Total 1337 / 1337 900 / 900 780 / 900 480 / 480 Output Total 500 / 500 625 / 625 150 / 150 525 / 525 Balance 837 / 837 275 / 275 630 / 750 -45 / -45 Weight 164 lb 6 oz 166 lb 7.184 oz 166 lb 7.184 oz 165 lb 1.984 oz Microbiology Reports for the Last 24 Hours: Microbiology 12/02/22 13:04 Sputum - Expectorated Sputum Gram Stain - Final 12/02/22 13:04 Sputum - Expectorated Sputum Sputum Culture - Final Pseudomonas aeruginosa Constitutional: Present mild distress Head: Present normocephalic and atraumatic ENT: Present normal exam, normal oropharynx and mucous membranes moist Neck: Present normal inspection and full ROM Respiratory: Present respiratory distress, rhonchi and able to speak in complete sentences; Absent accessory muscle use, wheezes or crackles Cardiac: Present S1/S2, Tachycardia and radial pulses present GI: Present soft and distention; Absent tenderness or guarding Skin: Present intact; Absent cyanosis or jaundice Neuro: Present alert, awake and oriented x 3 Extremities: Present normal inspection; Absent clubbing or cyanosis Psychiatric: Present normal affect and cooperative Assessment and Plan *Assessment and plan (1) Pneumonia: Status: Acute Category: Medical Code(s): J18.9 - Pneumonia, unspecified organism (2) COPD exacerbation: Status: Acute Category: Medical Code(s): J44.1 - Chronic obstructive pulmonary disease with (acute) exacerbation (3) Acute and chronic respiratory failure with hypoxia: Status: Acute Category: Medical Code(s): J96.21 - Acute and chronic respiratory failure with hypoxia Plan 67-year-old male presented to the hospital with worsening respiratory distress. History of severe COPD, last seen in pulmonary clinic in March 2021. Patient admits flulike symptoms for the last week continued to worsen along with worsening respiratory status cough and increasing productive phlegm and subjective fevers. Patient admits otherwise stable respiratory symptoms since he was last seen in pulmonary clinic in 2020. Low-dose CT from November 2019 reviewed, bilateral emphysematous changes with lung nodules less than 6 mm in size. Chest x-ray on the admission reviewed, bilateral lower lobe airspace disease with no dense consolidation. Bronchial thickening noted with possible associated bronchiectasis. Labs from admission reviewed, neutrophilic leukocytosis.MED on CKD. Afebrile. MAP greater than 65. CTA performed as echo concerning for Boo sign, no evidence of pulm embolism multiple micronodular disease concerning for atypical fungal/AFB infections. Left heart cath no significant right coronary respite elevated pulmonary wedge pressure on RA pressure concerning for volume overload and pulmonary hypertension. Sputum culture from this admission growing Pseudomonas, will change cefepime azithromycin to levofloxacin to complete a total of 5-day course Interval update: Continued improvement in respiratory distress. Weaned to room air this
--- NOTE | 2022-12-05 12:00 | HMH.PHAINT1 ---
Pharmacy Intervention Comments: Counseled patient on 7 new medications to START at discharge (amiodarone, DuoNeb, levofloxacin, Xarelto, prednisone, diltiazem, potassium) and 3 medications to STOP (Xarelto 20mg, digoxin, amiodarone 200mg BID). Patient expressed understanding of new medications' indication, dose, route, frequency, and potential side effects.
--- NOTE | 2022-12-05 12:15 | PC.NURSE ---
Home meds returned to patient on dc (inhaler and eye drops);
--- NOTE | 2022-12-05 13:32 | CARE MANAGER ---
Patient discharging home with neblizers and will need a nebulizer machine. [facility] [employer] signed for Mo, order/clinical faxed. Device will be delivered to home.
--- NOTE | 2022-12-11 08:38 | EXP.DC.SUM ---
General Admission date:: 12/02/22 Discharge date: 12/05/22 HPI HPI HPI: Mr. Le Is a 67-year-old male with a history of atrial fibrillation and possible AK in the past, tobacco abuse, ASCVD, 7. Keratosis, hypertension and hyperlipidemia who presented to urgent treatment center after being sick for a week. He states he has had several days where he was worse. He notes that he has COPD and smoked 2 to 3 packs of cigarettes a day until 3 days ago. He states he has quit smoking. He also noted that he has been short of breath with minimal activity and ambulation. He has had a productive frequent cough of yellow thick mucus. He has had some dizziness and felt shaky at times. Thus he presented to the emergency room for evaluation following his narrative from his visit in the ER: History of Present Illness Provider Complaint: Patient state that he has been sick for a week but got worse since Wed States that he has COPD but this is worse States that he hasnt been able to move around much without getting very short of breath fever, and coughing up mucous States he has a history of Afib at times and last night he was coughing and felt hot all over and felt like he was going to pass out and feeling shaky States that today he was still feeling short of breath shaky, and not able to move around much without getting winded and over all not feeling well so made him come in I assumed care of the patient was transferred to the ER.? Patient has mild respiratory failure at 89% on room air and mild increased work of breathing.? He does become easily short of winded with speaking in full sentences.? Chest x-ray reviewed is unremarkable.? CBC, CMP, troponin, BNP, EKG ordered.? Patient placed on 2 L nasal cannula.? Patient is in A-fib with RVR with a rate averaging 110.? Ordered diltiazem bolus.? Patient is anticoagulated on Xarelto.? Laboratory studies reveal a BNP 2700.? Patient given 40 of Lasix IV.? Patient's troponin is elevated at 0.07.? Patient will need to be admitted for further management discussed with Dr. Johnson, covering for Dr. Canales. Patient was also seen by cardiology with the following documentation: Plan as per the following cardiology documentation: 1.? Acute respiratory failure with hypoxia Consult pulmonology for evaluation and assistance.? COVID and influenza both negative. 2.? Atrial fibrillation with rapid ventricular response, patient has history of PAF. Continue Xarelto therapy Continue amiodarone but will increase to 400 mg twice daily IV diltiazem has been ordered/ started.? If this fails to slow him down and convert him then would consider cardioversion once pulmonary status has improved. 3.? Acute kidney injury, IV fluids ordered 4.? HFrEF with known cardiomyopathy/EF 40%/global hypokinesis. Repeat echo 5.? Elevated troponin likely secondary to demand ischemia from recurrent A-fib exacerbated by pulmonary issues Will obtain echocardiogram to reevaluate EF. Continue trending troponins and consider cardiac catheterization this admission if need Addendum: EKG today does appear to show atrial flutter with variable block.? This should hopefully convert easily with increasing Amio and IV diltiazem but cardioversion is still a consideration. At the time of this visit patient appears comfortable sitting up in a recliner at the bedside. He has completed his echocardiogram. He was able to eat some lunch. He states his breathing is better especially since receiving a DuoNeb treatment. He continues with a productive cough. He denies chest pain.He has been seen by cardiology and pulmonology Hospital Course Hospital Course Hospital Course: The patient was started on eyedrops for conjunctivitis and was started on steroids and DuoNeb treatments for his shortness of breath. He was continued on antibiotics for pneumonia. Cardiology and pulmonology were consulted. The development expert felt he should have DuoNebs every 4 hours along with Pu
== END 2022-12-05 12:13 | disposition home or self-care (01) | DRG 286 ==
LOC: UTC 08:08 → ER 08:32 → 2ND 09:46
PROVIDERS: Internal Medicine Cardiovascular Disease; Physician Assistant; Admitting Provider Family Medicine; Emergency Provider Family Medicine; PCP Family Medicine; Visit Provider Family Medicine
DX: I13.0 Hypertensive heart and chronic kidney disease with heart failure and stage 1 through stage 4 chronic kidney disease, or unspecified chronic kidney disease (principal); I50.23 Acute on chronic systolic (congestive) heart failure; J96.21 Acute and chronic respiratory failure with hypoxia; J18.9 Pneumonia, unspecified organism; I48.92 Unspecified atrial flutter; J44.1 Chronic obstructive pulmonary disease with (acute) exacerbation; N17.9 Acute kidney failure, unspecified; J44.0 Chronic obstructive pulmonary disease with (acute) lower respiratory infection; I42.9 Cardiomyopathy, unspecified; N18.9 Chronic kidney disease, unspecified; F17.210 Nicotine dependence, cigarettes, uncomplicated; I48.91 Unspecified atrial fibrillation; E87.6 Hypokalemia; I27.20 Pulmonary hypertension, unspecified; I25.119 Atherosclerotic heart disease of native coronary artery with unspecified angina pectoris; H10.9 Unspecified conjunctivitis; R77.8 Other specified abnormalities of plasma proteins
CPT/HCPCS: 36415; 71045; 71275; 80048; 82810; 83880; 84484; 85007; 85025; 87070; 87077; 87186; 87205; 87581; 87632; 87798; 93005; 93306; 93460; 94640; 94761; 99152; 99285; C1725; C1760; C1769; C1894; C9803; J0456; J0696; J1644; Q9967; U0003; U0005

== ENCOUNTER → 2023-03-04 12:38 | Outpatient (CLI) | payer MEDICARE, SELFPAY ==
--- NOTE | 2023-03-04 13:20 | PC.NURSE ---
PFT and 6 Minute Walk Test completed with no complaints. Albuterol 0.083% given via HHN, per protocol, Pt tolerated tx well.
--- NOTE | 2023-03-04 13:39 | CT_ITS ---
FINAL REPORT CLINICAL HISTORY: lung cancer screening, former smoker of 50 yrs- quit 2 months ago, smoked 2 ppd. Has COPD & CAD. Occupational exposure to asbestos, arsenic, chromium, diesel fumes & coal smoke. Exposed to second hand smoke. COMPARISON: CTA of 07/08/2022 FINDINGS: CT CHEST LOW DOSE SCREENING HISTORY: Screening exam for lung cancer. Former smoker, 100 pack year smoking history DOSE: CTDIvol: 2.9 mGy, DLP: 115.68 mGy*cm COMPARISON: 07/08/2022. TECHNIQUE: Axial CT without IV contrast administration using low dose protocol FINDINGS: No acute lung disease is present . No pulmonary lesions are seen suspicious for neoplasm. There is a 4 mm left lower lobe nodule, stable since the prior CT. There is right middle lobe scarring and mild bronchiectasis also unchanged. Emphysema is present. No pleural or pericardial effusion is seen . No adenopathy or mass lesion is present . IMPRESSION: 1. No evidence of lung cancer LUNG RADS CATEGORY 2 RECOMMENDATION: 12 month LDCT follow up Reviewed, Interpreted and Dictated by Cait Godinez MD Transcribed by Mai Correa Authenticated and [facility]
== END ==
PROVIDERS: PCP Family Medicine; Visit Provider Internal Medicine Pulmonary Disease
DX: R06.09 Other forms of dyspnea (principal); Z87.891 Personal history of nicotine dependence; Z12.2 Encounter for screening for malignant neoplasm of respiratory organs
CPT/HCPCS: 71271; 94060; 94618; 94726; 94729

== ENCOUNTER → 2023-03-17 10:27 | Outpatient (CLI) | payer MEDICARE, SELFPAY ==
--- NOTE | 2023-03-17 10:41 | CT_ITS ---
FINAL REPORT CLINICAL HISTORY: HEMATURIA COMPARISON: None FINDINGS: Axial CT images of the abdomen and pelvis were obtained without intravenous contrast. Coronal reformatted images were also obtained.This study was performed with techniques to keep radiation doses as low as reasonably achievable (ALARA). Individualized dose reduction techniques using automated exposure control or adjustment of mA and/or kV according to the patient''s size were employed. Abdomen:The lung bases are clear. There is a 6 mm nonobstructing stone in the lower pole of the left kidney which is increased in size from prior. There is no evidence of hydronephrosis. There is a 13 mm mass in the posterior right kidney which is stable from prior and favored to represent a cyst. There is a 22 mm mass in the posterior left kidney which is increased in size from prior, was 13 mm. This does not represent a simple cyst and may represent a complex cyst or renal neoplasm. The liver, spleen and pancreas have an unremarkable, unenhanced appearance. No mass or adenopathy is seen. No inflammatory process is identified. Pelvis: Images of the pelvis reveal no evidence of ureteral dilation or ureteral stone.No mass or abnormal fluid collection is identified. The appendix is normal. There are small inguinal hernias containing fat. IMPRESSION: Posterior left kidney mass increased in size to 22 mm. This may represent a complex cyst or renal neoplasm. Recommend renal mass protocol CT. Reviewed, Interpreted and Dictated by Ross Humphries III, MD Transcribed by Cristal Pisano Authenticated and [facility]
--- NOTE | 2023-03-17 10:42 | US_ITS ---
FINAL REPORT CLINICAL HISTORY: HEMATURIA COMPARISON: None FINDINGS: ULTRASOUND BLADDER WITH POST VOID RESIDUAL Bladder volumes were estimated based on 3 dimensional measurements, pre- and postvoid. Prevoid bladder volume: 86 mls Postvoid bladder volume: 12 mls There is a 13 mm soft tissue focus in the bladder. Neoplasm is not excluded. IMPRESSION: Estimated bladder volumes as above with small postvoid residual. 13 mm soft tissue focus, neoplasm not excluded. Recommend correlation with cystoscopy. Reviewed, Interpreted and Dictated by Ross Humphries III, MD Transcribed by Cristal Pisano Authenticated and [facility]
== END ==
PROVIDERS: PCP Psychiatry & Neurology Psychiatry; Visit Provider Family Medicine
DX: R31.0 Gross hematuria (principal)
CPT/HCPCS: 74176; 76857

== ENCOUNTER → 2023-04-28 09:42 | Outpatient (CLI) | payer MEDICARE, SELFPAY ==
[2023-04-28 10:43] LABS: Blood Urea Nitrogen 37 mg/dl (9-20); Estimated Glomerular Filt Rate 36 ml/min (>60); GFR (African American) 43 ML/MIN (>60)
== END ==
PROVIDERS: PCP Family Medicine; Visit Provider Urology
DX: Z01.812 Encounter for preprocedural laboratory examination (principal)
CPT/HCPCS: 36415; 82565; 84520

== ENCOUNTER → 2023-04-29 09:05 | Outpatient (CLI) | payer MEDICARE, SELFPAY ==
--- NOTE | 2023-04-29 09:08 | CT_ITS ---
FINAL REPORT TECHNIQUE: Axial images were obtained from the lung bases through the pubic symphysis before and after the administration of intravenous contrast. Oral contrast was administered. This study was performed with techniques to keep radiation doses as low as reasonably achievable (ALARA). Individualized dose reduction techniques using automated exposure control or adjustment of mA and/or kV according to the patient's size were employed. CLINICAL HISTORY: HEMATURIA COMPARISON: March 17, 2023 FINDINGS: Precontrast images demonstrate a 7 mm nonobstructing stone in the lower pole of the left kidney. Abdomen: The lung bases are clear. The liver parenchyma is homogeneous. The gallbladder is present. The spleen, pancreas and adrenal glands are unremarkable. Exophytic lesion arising from both kidneys measure up to 22 mm on the left posteriorly and a 15 mm on the right posteriorly. The posterior left renal mass demonstrates 48 Hounsfield units precontrast and 56 Hounsfield units postcontrast. The posterior right exophytic renal lesion demonstrates 7 Hounsfield units precontrast and 8 Hounsfield units postcontrast. There is no mass or adenopathy identified. There is no evidence of bowel obstruction. Pelvis: The appendix is normal. The urinary bladder is unremarkable. There is no mass, free fluid or adenopathy. IMPRESSION: Nonobstructing left renal stone. Complex benign renal cysts. Reviewed, Interpreted and Dictated by Iban Bey MD Transcribed by Rodolfo Tello Authenticated and [facility]
== END ==
PROVIDERS: PCP Family Medicine; Visit Provider Urology
DX: R31.0 Gross hematuria (principal)
CPT/HCPCS: 74178; Q9967

== ENCOUNTER → 2023-06-16 10:14 | Outpatient (CLI) | payer MEDICARE, SELFPAY ==
[2023-06-16 11:29] LABS: Alanine Aminotransferase 20 U/L (12-78); Albumin Level 3.8 g/dl (3.5-5.0); Alkaline Phosphatase 92 U/L (38-126); Aspartate Amino Transferase 27 U/L (17-59); Bilirubin,Direct 0.3 mg/dl (0.0-0.4); Bilirubin,Indirect 0.3 mg/dL (0.0-0.9); Bilirubin,Total 0.6 mg/dl (0.2-1.3); Bilirubin,Unconjugated 0.4 mg/dL (0.0-1.1); Total Protein,Serum 6.9 g/dl (6.3-8.2)
[2023-06-16 11:44] LABS: Free T4 (Free Thyroxine) 1.87 ng/dl (0.78-2.19)
[2023-06-16 11:56] LABS: Thyroid Stimulating Hormone 5.42 uIU/mL (0.465-4.68)
== END ==
PROVIDERS: PCP Family Medicine; Visit Provider Physician Assistant
DX: I10 Essential (primary) hypertension (principal); R06.00 Dyspnea, unspecified; Z72.0 Tobacco use; Z79.899 Other long term (current) drug therapy
CPT/HCPCS: 36415; 80076; 84439; 84443

== ENCOUNTER → 2023-06-23 07:40 | Outpatient (CLI) | payer MEDICARE, SELFPAY ==
--- NOTE | 2023-06-23 07:41 | CT_ITS ---
FINAL REPORT TECHNIQUE: Axial images were obtained through the chest without contrast. CLINICAL HISTORY: pain, NODULES COMPARISON: 03/04/2023 FINDINGS: There are mild to moderate changes of centrilobular emphysema. There is scarring in the right middle lobe and lingula unchanged since the prior CT. The heart size is normal. There is no pericardial or pleural effusion. Limited images of the upper abdomen are unremarkable. There is a soft tissue nodular opacity in the posterior left lower lobe, measuring 4 mm in size, image #152, series 3. There is a second left lower lobe soft tissue density, measuring 5 mm in size, best seen on image #188 of series 3. There is a third nodular opacity in the right lung base measuring 4 mm in size, best seen on image #205 of series 3. These nodules are all stable in appearance when compared with the prior CT of February 2023. IMPRESSION: No acute process. Nodular opacities bilaterally as described, not significantly changed since the prior CT of February 2023. Changes of mild to moderate centrilobular emphysema. Reviewed, Interpreted and Dictated by Iban Bey MD Transcribed by Mai Correa Authenticated and [facility]
== END ==
PROVIDERS: PCP Family Medicine; Visit Provider Physician Assistant
DX: R93.89 Abnormal findings on diagnostic imaging of other specified body structures (principal)
CPT/HCPCS: 71250

== ENCOUNTER 2023-10-08 14:24 | Outpatient (CLI) | payer MEDICARE, SELFPAY | END 2023-10-08 23:59 | PROVIDERS: PCP Psychiatry & Neurology Sleep Medicine; Visit Provider Internal Medicine | DX: I10 Essential (primary) hypertension (principal); I48.0 Paroxysmal atrial fibrillation; I51.9 Heart disease, unspecified; Z79.01 Long term (current) use of anticoagulants; Z79.899 Other long term (current) drug therapy | CPT/HCPCS: 93270 ==

== ENCOUNTER 2023-10-21 08:41 | Outpatient (CLI) | payer MEDICARE, SELFPAY ==
--- NOTE | 2023-10-21 08:41 | CA_ITS ---
APPROVED REPORT EXAM: Comprehensive 2D, Doppler, and color-flow Echocardiogram [employer] Developer: Shirley Dick RVT Ht: 5 ft 10 in Wt: 190lbs BSA: 2.04 BP: 116/76 mmHg Indications: A-FIB,COPD,SMOKER,HTN,CM,CHF 2D Dimensions LA Volume 38.50 mL LA Volume Index 18.87 mL/m2 (M/F) 16-34 M-Mode Dimensions RVDd 3.38 cm (0.9-2.6) LA Diam 3.03 cm (1.9-4.0) LVDd 4.19 cm (3.5-5.7) LVDs 3.14 cm (3.5-5.7) IVSd 1.05 cm (0.6-1.1) PWd 0.68 cm (0.6-1.1) EF (Teich) 49.90% FS 25.10% EDV (Teich) 78.10 mL TAPSE 2.26 (<1.7) ESV (Teich) 39.10 mL LV Diastology E Decel Time 127 (160-240 msec) E/A Ratio 2.0 Aortic Valve PAGE Index 1.60 cm2/m2 AoV Peak Kale. 114.0 (50-130 cm/s) AO Peak GR. 5.20 mmHg AO Mean GR. 2.90 (<5 mmHg) AO VTI 17.9 (18-25 cm) PAGE (VTI) 3.34 (2.5-4.5 cm2) Mitral Valve MV E Max Kale. 71.0 (40-130 cm/s) MV A Velocity 35.0 (40-130 cm/s) E/A Ratio 2.05 MV PHT 37.0 ms Pulmonary Valve PV Peak Velocity 49.0 (50-150 cm/s) Left Ventricle The left ventricle is normal size. The left ventricular systolic function is low normal. There is increased LV wall thickness. There is borderline global hypokinesis present. Diastolic function is indeterminate. LVEF is 50%. Right Ventricle The right ventricle is moderately dilated. Right ventricle is moderately hypokinetic. Atria The left atrium size is normal. Right atrium is severely dilated. There is no Doppler evidence of interatrial shunt. Aortic Valve The aortic valve opens well. There is no aortic valvular stenosis. No aortic regurgitation is present. Mitral Valve The mitral valve is normal in structure. No evidence of mitral valve stenosis. Trace mitral regurgitation. Tricuspid Valve The tricuspid valve leaflets are thin and pliable. Trace tricuspid regurgitation. There is insufficient TR jet to estimate RVSP. Pulmonic Valve The pulmonary valve is normal in structure. Trace pulmonic regurgitation. Great Vessels The aortic root is normal in size. The ascending aorta is not well-visualized. IVC is normal in size and collapses >50% with inspiration. Pericardium There is no pericardial effusion. Other Information Study Quality: Fair Conclusion Low normal LV systolic function (LVEF 50%). Moderate RV dilation with moderate reduction in RV function. Severe RA dilation. No significant valvular stenosis or regurgitation. Of note, the previously visualized dilated aortic root is not seen on this study. Electronically signed by : Sadie Thornton MD 10/22/2023 21:24:35
== END 2023-10-21 23:59 ==
LOC: RT 08:41
PROVIDERS: PCP Family Medicine; Visit Provider Internal Medicine
DX: I11.9 Hypertensive heart disease without heart failure (principal); I48.0 Paroxysmal atrial fibrillation; Z79.01 Long term (current) use of anticoagulants; Z87.891 Personal history of nicotine dependence
CPT/HCPCS: 93306

== ENCOUNTER 2024-03-08 06:26 | Outpatient (CLI) | payer MEDICARE, SELFPAY ==
--- NOTE | 2024-03-08 06:29 | CT_ITS ---
FINAL REPORT TECHNIQUE: Thin section axial images were obtained through the lungs using a low-dose technique per lung cancer screening protocol. Reconstruction images were obtained using the axial data. Exam was performed using dose reduction technique. CLINICAL HISTORY: lung cancer screening former smoker quit 8 months ago, 2ppd x50 years COMPARISON: 06/23/2023, 03/04/2023 FINDINGS: CTDLvol: 2.90 DLP: 108.90 recent smoker 100 pack year history Lungs: There is a 5 mm, left lower lobe nodule on image 51 which is unchanged. There is also a stable, 4 mm left lower lobe nodule on image 64. There is a new, left lower lobe 5 mm nodule on image 73. On image 58 is a 4 mm right lower lobe nodule. Nodularity in the right middle lobe is stable. No acute pulmonary abnormality. Lymph nodes: No thoracic lymphadenopathy. Mediastinum: Heart size is normal. Pleura/pericardium: No pleural or pericardial effusion. Other: No acute abnormality in the upper abdomen. IMPRESSION: New 5 mm nodule in the left lower lobe. Lung RADS: 3 Recommendation: 6-month follow-up. Reviewed, Interpreted and Dictated by Jennifer Pham MD Transcribed by Donna Pizarro Authenticated and [facility]
== END 2024-03-08 23:59 | disposition home or self-care (01) ==
PROVIDERS: PCP Family Medicine; Visit Provider Internal Medicine Pulmonary Disease
DX: F17.210 Nicotine dependence, cigarettes, uncomplicated (principal)
CPT/HCPCS: 71271

== ENCOUNTER 2024-03-31 07:47 | Day surgery (SDC) | payer MEDICARE, SELFPAY ==
[2024-03-29 11:15] VITALS: BMI 26.6
[2024-03-31] VITALS (7 sets, daily range): BP systolic 88–120; BP diastolic 47–76; PULSE 67–74; RESP 16–18; TEMP 36.2–36.3; O2SAT 95–98
--- NOTE | 2024-03-31 08:23 | ECG_ITS ---
APPROVED REPORT Exam: Resting ECG HR:69 bpm ECG Measurements Heart Rate 69 AXES NH 167 P 82 QRSd 97 QRS 50 QT 442 T 45 QTc 461 Conclusion SINUS RHYTHM PROLONGED QT INTERVAL ABNORMAL ECG UNCONFIRMED REPORT Electronically signed by : Imer Ventura MD 03/31/2024 14:05:48
[2024-03-31] MEDS: LACTATED RINGERS 1000ML 1,000 ML 100 ML IV (08:30)
--- NOTE | 2024-03-31 09:21 | EXP.ANES.CKL ---
[facility] Disclaimer: The information contained in this section may have been updated after the patient was seen, as this information can be updated by other users. Medical History History of bladder cancer Bladder cancer Screening for lung cancer Abnormal computerized axial tomography of chest History of amiodarone therapy Dyspnea on exertion Multiple lung nodules on CT Encounter for screening for malignant neoplasm of lung Stopped smoking with greater than 30 pack year history Acute and chronic respiratory failure with hypoxia COPD exacerbation Pneumonia Cataracts, bilateral Smoker COPD (chronic obstructive pulmonary disease) CAD (coronary artery disease) Hyperlipidemia Chronic anticoagulation Acute respiratory failure with hypoxia Cardiorenal syndrome Acute non-ST elevation myocardial infarction (NSTEMI) Encounter for screening colonoscopy Wheezing on both sides of chest Atrial fibrillation Atrial flutter with rapid ventricular response Systolic heart failure Congestive heart failure with LV diastolic dysfunction, NYHA class 1 LV dysfunction HTN (hypertension) Atrial flutter Acute systolic (congestive) heart failure Cardiomyopathy Pericardial effusion Heart failure with reduced left ventricular function New onset atrial fibrillation Tobacco use Hematuria Ureterolithiasis Diarrhea Vomiting Gastritis Dehydration Gastroenteritis Tobacco user Surgical History Hx of cardiac cath Hx of tonsillectomy Hx of tonsillectomy H/O lateral meniscus repair of right knee H/O hernia repair Family History Other Coronary artery disease Stroke Social History Smoking Status: Former smoker tobacco type: cigarettes packs per day: 2 smoking status stop date: 12/02/2022 alcohol intake: current alcohol intake frequency: holidays/special occasions only counseling provided: none substance use type: denies use current occupational status: employed Travel in the last 8 weeks: None household members: spouse housing: house marital status: caffeine: Yes [facility] Anesthesia Checklist Patient Identification Patient Identification: Arm Band, Family and Verbal (Name & ) Structural Data Admitted From: Home Planned Operative Procedure/s: Colonoscopy Consent for Planned Operative Procedure(s) Verified: Yes Verified Documents: Surgical Consent and History and Physical NPO Status Verified Time NPO: 21:00 Chart Verification Results Verified: CBC, BMP, ECG and Chest Xray Additional verifications Patient : No Anesthesia Reactions: No Hx Blood Transfusions: No Blood Transfusion Reaction: No Cardiovascular Assessment Heart Sounds: S1 & S2 Pulse Rhythm: Irregular Peripheral Edema: No Airway Assessment Mallampati Score:: Class II C-Spine Mobility Assessed: Yes (FROM) TMJ Mobility Assessed: Yes Dentition: Good Dentition (Nothing loose per pt.) Neurological Assessment Level of Consciousness: Awake, Alert, Appropriate and Follows Commands Hx Seizures: No Numbness or tingling in extremities: No Anesthesia Plan Anesthesia Risk discussed: Yes Anesthesia Plan: Verified ASA Class: III Anesthesia Type: MAC
--- NOTE | 2024-03-31 09:36 | HMH.SCOPE ---
Procedure: Date: 03/31/24 Patient Date of :: 1955 Procedure Performed:: Colonoscopy Indications:: The patient is a 68-year-old who presents for colonoscopy evaluation for having a positive Cologuard test. This is the patient's first colonoscopy. Performing Provider:: Juancho Bonilla MD Referring Provider:: Warren Canales MD Sedation:: See RN records Procedure:: After placing the patient in the left lateral decubitus position, the colonoscopy was gently inserted into the rectum and under direct visualization advanced to the cecum which was identified by transillumination in the right lower quadrant, identification of the ileocecal valve, appendiceal orifice, and cecal strap. Color, texture, mucosa, and anatomy of the colon were carefully examined with the scope. Findings:: The quality of the bowel preparation was excellent. There was a diminutive (1 to 3 mm) polyp in the cecum. The polyp was sessile. The polyp was removed completely with a cold forceps. There was a diminutive (1 to 3 mm) polyp in the descending colon. The polyp was sessile. The polyp was removed completely with a cold forceps. There was a large (greater than 10 mm in size) polyp in the rectum. The polyp was pedunculated. The polyp was removed completely by a hot snare polypectomy. Internal hemorrhoids were seen. Impression: Polyp of the cecum Polyp of the descending colon Polyp of the rectum Hemorrhoids Recommendations:: Await pathology result Repeat colonoscopy in 3 years Complications:: None Estimated blood obtained (mL): 0 Colonoscopy Component Colonoscopy Component Was a colonoscopy performed during today's procedure?: Yes Recommended follow up colonoscopy of at least 10 years?: Yes
--- NOTE | 2024-03-31 09:42 | EXP.ANES.I ---
[facility] Anesthesia Record Part I Anesthesia Record I Intake, IV Amount: 500 Hydration: Adequate Estimated blood loss (mL): 1 Urine output (mL): 0 Blood Products used (#): none Blood Pressure: 88/53 SaO2: 97 Pulse Rate: 70 Airway Patency: Patent Respiratory Rate: 16 Temperature: 97.2 F Patient is:: Awake (Talking) and Stable Stable to PACU at:: 09:42
== END 2024-03-31 10:02 | disposition home or self-care (01) ==
PROVIDERS: PCP Family Medicine; Visit Provider Internal Medicine
PROC: (CPT 45380; principal; 2024-03-31 09:00)
DX: Z12.11 Encounter for screening for malignant neoplasm of colon (principal); R19.5 Other fecal abnormalities; D12.0 Benign neoplasm of cecum; D12.4 Benign neoplasm of descending colon; K63.5 Polyp of colon
CPT/HCPCS: 45380; 45385; 93005; J7120

== ENCOUNTER 2024-09-23 15:48 | Outpatient (CLI) | payer MEDICARE, SELFPAY ==
--- NOTE | 2024-09-23 16:13 | ECG_ITS ---
APPROVED REPORT Exam: Resting ECG HR:65 bpm ECG Measurements Heart Rate 65 AXES [place] 150 P 79 QRSd 91 QRS 87 QT 393 T 65 QTc 404 Conclusion SINUS RHYTHM WITH OCCASIONAL VENTRICULAR PREMATURE COMPLEXES WITH OCCASIONAL SUPRAVENTRICULAR PREMATURE COMPLEXES NONSPECIFIC T-WAVE ABNORMALITY BORDERLINE ECG UNCONFIRMED REPORT Electronically signed by : Imer Ventura MD 09/24/2024 15:50:10
== END 2024-09-23 23:59 | disposition home or self-care (01) ==
LOC: RT 15:50
PROVIDERS: PCP Family Medicine; Visit Provider Family Medicine
DX: I48.0 Paroxysmal atrial fibrillation (principal)
CPT/HCPCS: 93005

== ENCOUNTER 2024-09-27 13:44 | Outpatient (CLI) | payer MEDICARE, SELFPAY ==
--- NOTE | 2024-09-27 13:45 | CT_ITS ---
FINAL REPORT TECHNIQUE: Thin section axial images were obtained from the lung apices through the upper abdomen without contrast. This study was performed with techniques to keep radiation doses as low as reasonably achievable (ALARA). Individualized dose reduction techniques using automated exposure control or adjustment of mA and/or kV according to the patient's size were employed. CLINICAL HISTORY: 6-month nodule follow-up COMPARISON: 03/08/2024 FINDINGS: There is no mediastinal, hilar, or axillary lymphadenopathy. No pleural or pericardial effusion. There are several, noncalcified, left lower lobe pulmonary nodules. A nodule on series 2 image 74 was new on the previous exam and is stable. Other left lower lobe nodules are unchanged. There is a 4 mm right lower lobe pulmonary nodule on image 60 which is stable. A subpleural right lower lobe nodule on image 72 is likely calcified. A right midlung nodule is stable. There is no new pulmonary mass or nodule. Linear filling defects in the trachea are likely secretions. Limited, unenhanced evaluation of the upper abdomen is without acute abnormality. There is no acute osseous abnormality. IMPRESSION: Stable, bilateral, pulmonary nodules have been stable for at least 9 months. Left follow-up exam in 1 year is recommended. Reviewed, Interpreted and Dictated by Jennifer Phma MD Transcribed by Yumiko Oliveros Authenticated and [facility]
== END 2024-09-27 23:59 | disposition home or self-care (01) ==
LOC: RAD 13:45
PROVIDERS: PCP Family Medicine; Visit Provider Internal Medicine Pulmonary Disease
DX: R91.8 Other nonspecific abnormal finding of lung field (principal)
CPT/HCPCS: 71250

== ENCOUNTER 2024-09-28 14:40 | Outpatient (CLI) | payer MEDICARE, SELFPAY | END 2024-09-28 23:59 | disposition home or self-care (01) | LOC: RT 14:42 | PROVIDERS: PCP Family Medicine; Visit Provider Nurse Practitioner Family | DX: I48.0 Paroxysmal atrial fibrillation (principal) | CPT/HCPCS: 93270; 93272 ==

== ENCOUNTER 2024-10-11 11:48 | Outpatient (CLI) | payer MEDICARE, SELFPAY ==
--- NOTE | 2024-10-11 11:56 | ECG_ITS ---
APPROVED REPORT Exam: Resting ECG HR:150 bpm ECG Measurements Heart Rate 150 AXES QRSd 86 QRS 86 QT 303 T 86 QTc 389 Conclusion ATRIAL FLUTTER/TACHYCARDIA WITH RAPID VENTRICULAR RESPONSE ST ELEVATION, CONSIDER INFERIOR INJURY [MARKED ST ELEVATION W/O NORMALLY INFLECTED T-WAVE IN II/aVF] ACUTE [place] UNCONFIRMED REPORT Electronically signed by : Imer Ventura MD 10/12/2024 08:05:21
--- NOTE | 2024-10-11 12:00 | PC.NURSE ---
EKG taken to . wants pt to go see cardiology today Relayed this to patient and he stated he had already cancelled his appointment I told him that he needs to go down even tho it was cancelled per .
== END 2024-10-11 23:59 | disposition home or self-care (01) ==
LOC: RT 11:49
PROVIDERS: PCP Family Medicine; Visit Provider Family Medicine
DX: I48.0 Paroxysmal atrial fibrillation (principal)
CPT/HCPCS: 93005

== ENCOUNTER 2025-01-01 06:44 | Emergency (ER) | payer MEDICARE, SELFPAY ==
[2025-01-01] VITALS (20 sets, daily range): BP systolic 106–152; BP diastolic 67–89; PULSE 47–63; RESP 12–18; TEMP 36.3–36.6; O2SAT 93–99; BMI 25.0
--- NOTE | 2025-01-01 06:52 | HMH.EDGENADL ---
Discharge Plan Disposition Patient Disposition: Xfer Short-Term Hosp Condition: Good Prescriptions Prescriptions: No Action atorvastatin 10 mg tablet 10 mg PO DAILY ipratropium-albuterol 0.5 mg-3 mg(2.5 mg base)/3 mL solution for nebulization 3 ml inhalation Q6HP PRN (Reason: Shortness Of Breath Or Wheezin) Qty: 120 4RF diltiazem HCl 120 mg capsule,extended release 24hr 120 mg PO DAILY Qty: 30 2RF furosemide 40 mg tablet 40 mg PO BID Qty: 180 3RF albuterol sulfate 90 mcg/actuation HFA aerosol inhaler 1 inh INHALATION Q6H PRN (Reason: shortness of breath or wheezing) 90 Days Qty: 8.5 3RF fluticasone propionate 50 mcg/actuation spray,suspension 1 spray intranasal DAILY Qty: 48 3RF Eliquis 5 mg tablet 5 mg PO BID Qty: 180 1RF metoprolol succinate 200 mg tablet extended release 24 hr 200 mg PO DAILY Qty: 90 1RF Stiolto Respimat 2.5-2.5 mcg/actuation mist See Rx Instructions .ROUTE .COMPLEX Qty: 4 2RF Dose Instruction: INHALE 2 PUFFS INTO THE LUNGS ONCE DAILY FOR 90 DAYS Rx Instructions: INHALE 2 PUFFS INTO THE LUNGS ONCE DAILY FOR 90 DAYS potassium chloride 20 mEq tablet extended release 20 meq PO DAILY Qty: 30 4RF Referrals Follow up/Referrals: Cait Canales MD [Primary Care Provider] - See instructions Clinical Impressions Clinical Impression: Gross hematuria Print Language Print Language: Liberian Discharge ED Provider: Shania Ballesteros General Adult HPI <Eduar Street MD - Last Filed: 01/01/25 07:00> General Chief complaint: PAIN Stated complaint: Cant urinate, dripping blood Time Seen by Provider: 01/01/25 06:50 History of Present Illness HPI narrative: 69-year-old male with history of A-fib on qu, history of of bladder cancer with cystoscopy and resection of a small lesion on Friday presents for lower abdominal pain, archana blood from the urethra. He restarted his Eliquis on Friday and has had a couple of drops of blood here and there, but this morning and last night he has not been able to pee at all. Denies fever. Related Data Home Medications ?Medication ?Instructions ?Recorded ?Confirmed atorvastatin 10 mg tablet 10 mg PO DAILY High cholesterol 10/18/22 11/15/24 Previous Rx's ?Medication ?Instructions ?Recorded potassium chloride 20 mEq 20 meq PO DAILY replacement #30 12/05/22 tablet,extended release tabs ipratropium 0.5 mg-albuterol 3 mg 3 ml inhalation Q6HP PRN Shortness 03/12/23 (2.5 mg base)/3 mL nebulization Of Breath Or Wheezin #120 mL soln furosemide 40 mg tablet 40 mg PO BID Fluid #180 tabs 03/10/24 albuterol sulfate 90 mcg/actuation 1 inh inhalation Q6H PRN shortness 08/23/24 aerosol inhaler of breath or wheezing 90 days #8.5 grams fluticasone propionate 50 1 spray intranasal DAILY Allergic 09/08/24 mcg/actuation nasal rhinitis #48 grams spray,suspension apixaban 5 mg tablet (Eliquis) 5 mg PO BID #180 tabs 10/25/24 metoprolol succinate 200 mg 200 mg PO DAILY #90 tabs 10/25/24 tablet,extended release 24 hr diltiazem HCl 120 mg capsule,24 120 mg PO DAILY #30 caps 11/15/24 hr,extended release tiotropium 2.5 mcg-olodaterol 2.5 See Rx Instructions .Route 11/22/24 mcg/actuation mist for inhalation .COMPLEX #4 mL (Stiolto Respimat) Allergies Allergy/AdvReac Type Severity Reaction Status Date / Time lisinopril AdvReac Mild Cough Verified 11/15/24 09:20 [facility] <Eduar Street MD - Last Filed: 01/01/25 07:00> [facility] Disclaimer: The information contained in this section may have been updated after the patient was seen, as this information can be updated by other users. Medical History CAD in [place] artery Atrial flutter with rapid ventricular response History of bladder cancer Bladder cancer Screening for lung cancer Abnormal computerized axial tomography of chest History of amiodarone therapy Dyspnea on exertion Multiple lung nodules on CT Encounter for screening for malignant neoplasm of lung Stopped smoking with greater than 30 pack year history Acute and chronic respiratory failure with hypoxia COPD exacerbation Pneumonia Cataracts, bilateral Smoker COPD (chronic obstructive pulmonary disease) CAD (coronary artery disease) Hyperlipidemia Chronic anticoagulation Acute respiratory failure with hypoxia Cardiorenal syndrome Acute non-ST elevation myocardial infarction (NSTEMI) Encounter for screening colonoscopy Wheezing on both sides of chest Atrial fibrillation Systolic heart failure Congestive heart failure with LV diastolic dysfunction, NYHA class 1 LV dysfunction HTN (hypertension) Atrial flutter Acute systolic (congestive) heart failure Cardiomyopathy Pericardial effusion Heart failure with reduced left ventricular function New onset atrial fibrillation Tobacco use Hematuria Ureterolithiasis Diarrhea Vomiting Gastritis Dehydration Gastroenteritis Tobacco user Surgical History Hx of cardiac cath Hx of tonsillectomy Hx of tonsillectomy H/O lateral meniscus repair of right knee H/O hernia repair Family History Other Coronary artery disease Stroke Social History Smoking Status: Former smoker tobacco type: cigarettes packs per day: 2 smoking status stop date: 12/02/2022 alcohol intake: current alcohol intake frequency: holidays/special occasions only counseling provided: none substance use type: denies use current occupational status: other Travel in the last 8 weeks?: None household members: spouse housing: house marital status: caffeine: Yes Have you lived/traveled outside [place] in past 30 days?: No Contact w/someone who lives/traveled outside US past 30 days?: No Exposure to someone with infectious disease in past 14 days?: No Do you have a fever (greater than 100.4 F or 38 C)?: No Have you tested positive for COVID-19?: No Exposed to someone with COVID-19 in past 14 days?: No Do you have a sore throat?: No Do you have a cough?: No Do you have any weakness?: No Do you have any diarrhea?: No Are you experiencing any unusual bleeding?: Yes Do you have any muscle aches/pain?: No Do you have any abdominal pain?: No Are you experiencing loss of taste or smell?: No Other Medical History Have you received the Flu Vaccine for this season: No Have you received the Pneumonia Vaccine: Yes <Eduar Street MD - Last Filed: 01/01/25 07:00> ROS Obtained: Yes All systems reviewed & no additional complaints except as documented Physical Exam <Eduar Street MD - Last Filed: 01/01/25 07:00> General General appearance: alert and in no apparent distress Head Head exam: atraumatic and normocephalic Eye Eye exam: Present normal appearance, PERRL and EOMI ENT ENT exam: Present normal oropharynx and normal external ear exam Neck Neck exam: Present normal inspection and full ROM Chest Chest inspection: Present normal inspection and symmetric chest wall rise; Absent tenderness Respiratory Respiratory exam: Present normal lung sounds bilaterally; Absent respiratory distress Cardiovascular Cardiovascular exam: Present regular rate and normal rhythm Abdominal Exam Abdominal exam: Present soft and tenderness (Lower abdominal tenderness and fullness); Absent distention or guarding Extremities Exam Extremities exam: Present normal inspection; Absent edema or joint swelling Back Exam Back exam: Present normal inspection; Absent tenderness Neurological Exam Neurological exam: Present alert and oriented X3; Absent motor sensory deficit Psychiatric Psychiatric exam: Present normal affect and normal mood Skin Skin exam: Present warm, dry and normal color Lymphatic Lymphatic Findings: no adenopathy Medical Decision Making <Eduar Street MD - Last Filed: 01/01/25 07:00> Medical Records Medical records reviewed: Yes I reviewed the patient's medical records. Screening: Per USPSTF and CDC recommendations, given the prevalence of disease in our region, it is our hospital?s policy to screen for HIV and viral Hepatitis for all patients aged 18 and over and those with ongoing risk factors. Dank Inquiry Pt receiving controlled substance: No Dank was queried for this patient: No Vital Signs: 01/01/25 06:54 01/01/25 07:00 01/01/25 07:30 Temperature 97.4 F L Temperature Source Oral Pulse Rate 55 L 52 L Pulse Rate [Left] 61 Respiratory Rate 18 Blood Pressure 139/82 130/81 Blood Pressure [Right Arm] 134/89 Blood Pressure Mean Blood Pressure Mean [Right Arm] 104 Blood Pressure Source [Right Arm] Automatic Cuff 02 Sat by Pulse Oximetry 94 L 97 93 L Oxygen Delivery Method Room Air 01/01/25 08:00 01/01/25 08:30 01/01/25 09:00 Temperature Temperature Source Pulse Rate 50 L 51 L 48 L Pulse Rate [Left] Respiratory Rate 14 18 15 Blood Pressure 133/73 145/84 H 139/71 Blood Pressure [Right Arm] Blood Pressure Mean 92 Blood Pressure Mean [Right Arm] Blood Pressure Source [Right Arm] 02 Sat by Pulse Oximetry 97 98 98 Oxygen Delivery Method 01/01/25 09:30 01/01/25 10:00 01/01/25 10:30 Temperature Temperature Source Pulse Rate 47 L 59 L 57 L Pulse Rate [Left] Respiratory Rate 13 14 16 Blood Pressure 135/72 130/70 Blood Pressure [Right Arm] Blood Pressure Mean Blood Pressure Mean [Right Arm] Blood Pressure Source [Right Arm] 02 Sat by Pulse Oximetry 97 95 95 Oxygen Delivery Method 01/01/25 11:01 01/01/25 11:30 01/01/25 12:00 Temperature Temperature Source Pulse Rate 54 L 51 L Pulse Rate [Left] Respiratory Rate 13 18 15 Blood Pressure 110/71 120/75 129/72 Blood Pressure [Right Arm] Blood Pressure Mean Blood Pressure Mean [Right Arm] Blood Pressure Source [Right Arm] 02 Sat by Pulse Oximetry 97 96 Oxygen Delivery Method 01/01/25 12:43 01/01/25 13:00 01/01/25 13:31 Temperature Temperature Source Pulse Rate 50 L 48 L 47 L Pulse Rate [Left] Respiratory Rate 12 16 Blood Pressure 152/78 H 129/76 116/68 Blood Pressure [Right Arm] Blood Pressure Mean 84 Blood Pressure Mean [Right Arm] Blood Pressure Source [Right Arm] 02 Sat by Pulse Oximetry 97 97 97 Oxygen Delivery Method Lab Data Lab results reviewed: Yes I reviewed the patient's lab results. Lab Results 01/01/25 07:11: WBC 8.3, RBC 5.36, Hgb 15.9, Hct 48.6, MCV 90.7, MCH 29.7, MCHC 32.7, RDW 13.4, Plt Count 229, MPV 9.8, Neut % (Auto) 54.0, Lymph % (Auto) 30.9, Roberts % (Auto) 10.8 H, Eos % (Auto) 2.9, Baso % (Auto) 0.8, Neut # (Auto) 4.5, Lymph # (Auto) 2.6, Roberts # (Auto) 0.9, Eos # (Auto) 0.2, Baso # (Auto) 0.1, PT 11.0, INR 0.99, APTT 30.2, Sodium 141, Potassium 4.9, Chloride 108 H, Carbon Dioxide 26, Anion Gap 11.9, BUN 39 H, Creatinine 1.50 H, Estimated Creat Clear 53, Estimated GFR 47 L, Est GFR ( Amer) 56 L, Glucose 89, Calcium 9.1, Total Bilirubin 0.7, AST 31, ALT 16, Alkaline Phosphatase 90, Total Protein 7.0, Albumin 4.2, Globulin 2.8, Albumin/Globulin Ratio 1.5 01/01/25 07:51: Urine Color Red, Urine Appearance Cloudy, Urine pH 7.0, Ur Specific [place] 1.025, Urine Protein 3+ A, Urine Glucose (UA) Negative, Urine Ketones Negative, Urine Blood 3+ A, Urine Nitrate Negative, Urine Bilirubin Negative, Urine Urobilinogen 0.2, Ur Leukocyte Esterase Negative, Urine RBC Tntc, Urine WBC Occasional, Ur Squamous Epith Cells Occasional, Urine Bacteria Trace 01/01/25 12:43: Hgb 13.8 L D, Hct 42.4 01/01/25 12:43 01/01/25 07:11 Orders (Tests/Meds): ED MEDICATIONS Generic Name Dose Route Start Last Admin Trade Name Kim PRN Reason Stop Dose Admin Lactated Ringer's 3,000 mls @ 998.983 mls/hr 01/01/25 06:53 01/01/25 08:15 Lactated Ringer's For Irr 3000ml IR 01/31/25 06:52 998.983 mls/hr NEEDED PRN Administration CONTINUOUS BLADDER IRRIGATION Discontinued Medications Generic Name Dose Route Start Last Admin Trade Name Kim PRN Reason Stop Dose Admin Acetaminophen 1,000 mg 01/01/25 06:54 01/01/25 07:20 Acetaminophen 500mg Tab PO 01/01/25 06:55 1,000 mg ONCE ONE Administration Iopamidol 80 ml 01/01/25 12:40 01/01/25 12:41 Iopamidol-370 (76%);100ml Bottle IV 01/01/25 12:41 80 ml ONCE ONE Administration Lidocaine HCl 10 ml 01/01/25 11:24 01/01/25 11:25 Lidocaine 2% Urojet 10ml TP 01/01/25 11:25 10 ml ONCE ONE Administration Morphine Sulfate 4 mg 01/01/25 06:54 01/01/25 07:20 Morphine 4mg/Ml Syringe IV 01/01/25 06:55 4 mg ONCE ONE Administration Sodium Chloride 50 ml 01/01/25 12:40 01/01/25 12:41 0.9 % Sodium Chloride 50 Ml Vial IV 01/01/25 12:41 50 ml ONCE ONE Administration Sodium Chloride 10 ml 01/01/25 12:40 01/01/25 12:41 Sodium Chloride 0.9% 10ml Syr (Rad Only) IV 01/01/25 12:41 10 ml ONCE ONE Administration ORDERS Category Date Time Status CT angio abdomen pelvis Stat Cat Scan 01/01/25 12:13 Completed Complete Blood Count Auto Diff Stat Lab 01/01/25 07:11 Completed Comprehensive Metabolic Panel Stat Lab 01/01/25 07:11 Completed Hemoglobin and Hematocrit Stat Lab 01/01/25 12:43 Completed PT INR [Prothrombin Time INR] Stat Lab 01/01/25 07:11 Completed PTT [Activated Partial Thrombo Time] Stat Lab 01/01/25 07:11 Completed UA [Urinalysis and Microscopic] Stat Lab 01/01/25 07:51 Completed Medical Decision Narrative: 69-year-old male with history of A-fib on , bladder cancer with small resection on Friday during cystoscopy, presents for gross hematuria and inability to void. History was obtained via interactive discussion with patient, chart review. On arrival, patient is [afebrile, hemodynamically stable, satting appropriately, alert, oriented x4, GCS 15], moving all extremities spontaneously. Full physical exam performed and significant for lower abdominal tenderness, blood at the urethral meatus Differential includes but is not limited to hematuria, urinary obstruction, coagulopathy. Patient was given Tylenol, morphine for symptomatic management and correction of underlying abnormalities. Workup initiated including bladder scan. A indwelling catheter was placed and patient was initiated on continuous bladder irrigation. At this time care handed off to oncoming physician. <Shania Ballesteros, DO - Last Filed: 01/01/25 14:01> Vital Signs: 01/01/25 06:54 01/01/25 07:00 01/01/25 07:30 Temperature 97.4 F L Temperature Source Oral Pulse Rate 55 L 52 L Pulse Rate [Left] 61 Respiratory Rate 18 Blood Pressure 139/82 130/81 Blood Pressure [Right Arm] 134/89 Blood Pressure Mean Blood Pressure Mean [Right Arm] 104 Blood Pressure Source [Right Arm] Automatic Cuff 02 Sat by Pulse Oximetry 94 L 97 93 L Oxygen Delivery Method Room Air 01/01/25 08:00 01/01/25 08:30 01/01/25 09:00 Temperature Temperature Source Pulse Rate 50 L 51 L 48 L Pulse Rate [Left] Respiratory Rate 14 18 15 Blood Pressure 133/73 145/84 H 139/71 Blood Pressure [Right Arm] Blood Pressure Mean 92 Blood Pressure Mean [Right Arm] Blood Pressure Source [Right Arm] 02 Sat by Pulse Oximetry 97 98 98 Oxygen Delivery Method 01/01/25 09:30 01/01/25 10:00 01/01/25 10:30 Temperature Temperature Source Pulse Rate 47 L 59 L 57 L Pulse Rate [Left] Respiratory Rate 13 14 16 Blood Pressure 135/72 130/70 Blood Pressure [Right Arm] Blood Pressure Mean Blood Pressure Mean [Right Arm] Blood Pressure Source [Right Arm] 02 Sat by Pulse Oximetry 97 95 95 Oxygen Delivery Method 01/01/25 11:01 01/01/25 11:30 01/01/25 12:00 Temperature Temperature Source Pulse Rate 54 L 51 L Pulse Rate [Left] Respiratory Rate 13 18 15 Blood Pressure 110/71 120/75 129/72 Blood Pressure [Right Arm] Blood Pressure Mean Blood Pressure Mean [Right Arm] Blood Pressure Source [Right Arm] 02 Sat by Pulse Oximetry 97 96 Oxygen Delivery Method 01/01/25 12:43 01/01/25 13:00 01/01/25 13:31 Temperature Temperature Source Pulse Rate 50 L 48 L 47 L Pulse Rate [Left] Respiratory Rate 12 16 Blood Pressure 152/78 H 129/76 116/68 Blood Pressure [Right Arm] Blood Pressure Mean 84 Blood Pressure Mean [Right Arm] Blood Pressure Source [Right Arm] 02 Sat by Pulse Oximetry 97 97 97 Oxygen Delivery Method Lab Data Lab Results 01/01/25 07:11: WBC 8.3, RBC 5.36, Hgb 15.9, Hct 48.6, MCV 90.7, MCH 29.7, MCHC 32.7, RDW 13.4, Plt Count 229, MPV 9.8, Neut % (Auto) 54.0, Lymph % (Auto) 30.9, Roberts % (Auto) 10.8 H, Eos % (Auto) 2.9, Baso % (Auto) 0.8, Neut # (Auto) 4.5, Lymph # (Auto) 2.6, Roberts # (Auto) 0.9, Eos # (Auto) 0.2, Baso # (Auto) 0.1, PT 11.0, INR 0.99, APTT 30.2, Sodium 141, Potassium 4.9, Chloride 108 H, Carbon Dioxide 26, Anion Gap 11.9, BUN 39 H, Creatinine 1.50 H, Estimated Creat Clear 53, Estimated GFR 47 L, Est GFR ( Amer) 56 L, Glucose 89, Calcium 9.1, Total Bilirubin 0.7, AST 31, ALT 16, Alkaline Phosphatase 90, Total Protein 7.0, Albumin 4.2, Globulin 2.8, Albumin/Globulin Ratio 1.5 01/01/25 07:51: Urine Color Red, Urine Appearance Cloudy, Urine pH 7.0, Ur Specific [place] 1.025, Urine Protein 3+ A, Urine Glucose (UA) Negative, Urine Ketones Negative, Urine Blood 3+ A, Urine Nitrate Negative, Urine Bilirubin Negative, Urine Urobilinogen 0.2, Ur Leukocyte Esterase Negative, Urine RBC Tntc, Urine WBC Occasional, Ur Squamous Epith Cells Occasional, Urine Bacteria Trace 01/01/25 12:43: Hgb 13.8 L D, Hct 42.4 Orders (Tests/Meds): ED MEDICATIONS Generic Name Dose Route Start Last Admin Trade Name Freq PRN Reason Stop Dose Admin Lactated Ringer's 3,000 mls @ 998.983 mls/hr 01/01/25 06:53 01/01/25 08:15 Lactated Ringer's For Irr 3000ml IR 01/31/25 06:52 998.983 mls/hr NEEDED PRN Administration CONTINUOUS BLADDER IRRIGATION Discontinued Medications Generic Name Dose Route Start Last Admin Trade Name Freq PRN Reason Stop Dose Admin Acetaminophen 1,000 mg 01/01/25 06:54 01/01/25 07:20 Acetaminophen 500mg Tab PO 01/01/25 06:55 1,000 mg ONCE ONE Administration Iopamidol 80 ml 01/01/25 12:40 01/01/25 12:41 Iopamidol-370 (76%);100ml Bottle IV 01/01/25 12:41 80 ml ONCE ONE Administration Lidocaine HCl 10 ml 01/01/25 11:24 01/01/25 11:25 Lidocaine 2% Urojet 10ml TP 01/01/25 11:25 10 ml ONCE ONE Administration Morphine Sulfate 4 mg 01/01/25 06:54 01/01/25 07:20 Morphine 4mg/Ml Syringe IV 01/01/25 06:55 4 mg ONCE ONE Administration Sodium Chloride 50 ml 01/01/25 12:40 01/01/25 12:41 0.9 % Sodium Chloride 50 Ml Vial IV 01/01/25 12:41 50 ml ONCE ONE Administration Sodium Chloride 10 ml 01/01/25 12:40 01/01/25 12:41 Sodium Chloride 0.9% 10ml Syr (Rad Only) IV 01/01/25 12:41 10 ml ONCE ONE Administration ORDERS Category Date Time Status CT angio abdomen pelvis Stat Cat Scan 01/01/25 12:13 Completed Complete Blood Count Auto Diff Stat Lab 01/01/25 07:11 Completed Comprehensive Metabolic Panel Stat Lab 01/01/25 07:11 Completed Hemoglobin and Hematocrit Stat Lab 01/01/25 12:43 Completed PT INR [Prothrombin Time INR] Stat Lab 01/01/25 07:11 Completed PTT [Activated Partial Thrombo Time] Stat Lab 01/01/25 07:11 Completed UA [Urinalysis and Microscopic] Stat Lab 01/01/25 07:51 Completed Medical Decision Narrative: 69-year-old male with history of A-fib on , bladder cancer with small resection on Friday during cystoscopy, presents for gross hematuria and inability to void. History was obtained via interactive discussion with patient, chart review. On arrival, patient is [afebrile, hemodynamically stable, satting appropriately, alert, oriented x4, GCS 15], moving all extremities spontaneously. Full physical exam performed and significant for lower abdominal tenderness, blood at the urethral meatus Differential includes but is not limited to hematuria, urinary obstruction, coagulopathy. Patient was given Tylenol, morphine for symptomatic management and correction of underlying abnormalities. Workup initiated including bladder scan. A indwelling catheter was placed and patient was initiated on continuous bladder irrigation. At this time care handed off to oncoming physician. DO Favian: I assumed care of the patient at 7 AM at time of departure previous provider. Initially, a 16 [place] three-way Petersen catheter was placed for continuous irrigation, but there was still archana blood after 2 L of irrigation. I called and had an interactive discussion with Dr. Olivares at [facility] billing collections specialist for patient's urologist who recommended placing a larger 22 [place] catheter and continuing irrigation. A 22 [place] catheter was placed without issue, and irrigation was continued. The catheter stopped draining, and multiple attempts were made to flush the catheter with no improvement. Given this, decision was made to pull the catheter. When we pulled the catheter, a very large blood clot came with it. At that point, elected to obtain lab evaluation as well as CT angiogram to evaluate for active bleeding/clot retention. I independently interpreted CT scan prior to radiology read and I do not see active contrast blush but the patient does have a lot of clots in his bladder. Labs show creatinine around his baseline at 1.5. Initial hemoglobin was 15.9 and repeat after 5.5 hours was 13.8. Patient remains hemodynamically stable. He continues to have difficulty urinating secondary to blood clots, so I called [place] back. I spoke with Dr. Jacinto hospitalist who came to the patient to [place] for transfer for urology evaluation. Patient was transferred in stable condition. Procedures <Eduar Street MD - Last Filed: 01/01/25 07:00> Risk/Benefits of Procedure(s) Were Explained: Yes Critical Care <Eduar Street MD - Last Filed: 01/01/25 07:00> Critical Care Time Critical Care Time: No <Shania Ballesteros DO - Last Filed: 01/01/25 14:01> Critical Care Time Critical Care Time: Yes Attestation: On 01/01/25, the high probability of a clinically significant, sudden or life threatening deterioration of the following system(s) required my full and direct attention, intervention and personal management. The time I documented below is in addition to time spent performing reported procedures but includes the following listed in this critical care notation. Total Time Total Critical Care Time: 35
--- NOTE | 2025-01-01 07:01 | PC.NURSE ---
Bladder scan shows greater than 448mL in bladder
[2025-01-01] MEDS: MORPHINE 4MG/ML SYRINGE 4 MG IV (07:20)
[2025-01-01] MEDS: ACETAMINOPHEN 500MG TAB 1000 MG PO (07:20)
--- OUTSIDE RECORDS SUMMARY | 2025-01-01 07:27 | XMS_ITS | Data Portability ---
Author Organization DRU YUE Bearden [place] [facility] Address [address] [facility] [address] [place] [address] Assessment Encounter Date Assessment Date Assessment LastModified by Organization Details LastModified Time 11/24/2023 11/24/2023 PREOPERATIVE DIAGNOSIS: History of bladder cancer. POSTOPERATIVE DIAGNOSIS: History of bladder cancer. PROCEDURE: Cystoscopy. SURGEON: Bertrand Blankenship MD OPERATIVE NOTE: The patient was placed in the supine position and prepped and draped in the usual sterile fashion. UroJet was instilled for topical anesthesia. Flexible cystoscope was inserted. The urethra was normal. 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 A large median lobe component was present. The bladder mucosa was normal. There was no evidence of bladder tumor. Ureteral orifices were in normal position and configuration. No other abnormalities were seen. The cystoscope was removed. The patient tolerated the procedure well and left the operating room in satisfactory condition. [email or web address] Not available 11/24/2023 10:25:31 07/05/2024 07/05/2024 PREOPERATIVE DIAGNOSIS: History of bladder cancer. POSTOPERATIVE DIAGNOSIS: History of bladder cancer. PROCEDURE: Cystoscopy. SURGEON: Bertrand Blankenship MD OPERATIVE NOTE: The patient was placed in the supine position and prepped and draped in the usual sterile fashion. UroJet was instilled for topical anesthesia. Flexible cystoscope was inserted. The urethra was normal. 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 The endoscope was advanced into the bladder. There were no evidence of recurrent bladder tumor. Ureteral orifices were in normal position and configuration. No other inflammatory changes were seen. The cystoscope was removed. The patient tolerated the procedure well and left the operating room in satisfactory condition. [email or web address] Not available 07/05/2024 11:18:14 12/20/2024 12/20/2024 SURGERY DATE: 12/20/2024 PREOPERATIVE DIAGNOSIS: History of bladder cancer. POSTOPERATIVE DIAGNOSIS: History of bladder cancer. PROCEDURE: Cystoscopy. SURGEON: Bertrand Blankenship MD OPERATIVE NOTE: The patient was placed in the supine position and prepped and draped in the usual sterile fashion. UroJet was instilled for topical anesthesia. Flexible cystoscope was inserted. The urethra was normal. 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 The endoscope was advanced into the bladder. Ureteral orifices were in normal position and configuration. A small papillary tumor was seen on the lateral wall of the bladder. The rest of the bladder mucosa was normal. The cystoscope was removed. The patient tolerated the procedure well. [email or web address] Not available 12/20/2024 11:29:36 12/27/2024 12/27/2024 PREOPERATIVE DIAGNOSIS: Bladder tumor. POSTOPERATIVE DIAGNOSIS: Bladder tumor. PROCEDURE: Cystoscopy, transurethral resection of bladder tumor. SURGEON: Bertrand Blankenship MD OPERATIVE NOTE: After the induction of general aesthesia, the patient was prepped and draped in the dorsal lithotomy position. A 21-endodcope sheath was inserted under direct vision. The urethra was normal. Prostate showed obstruction from lateral lobe hypertrophy. The endoscope was advanced into the bladder. Ureteral orifices were in normal position and configuration. Two papillary tumors were seen on the left lateral wall of the bladder. The rest of the bladder mucosa was normal. The cystoscope was removed. A 26-continuous flow resectoscope sheath was inserted. The tumors were resected using electrocautery. The resection obliterated the tumors and those specimens were sent to pathology. The base of the tumors were cauterized. The bladder was drained or irrigating fluid and the endoscope was removed. The patient tolerated the procedure well and left the operating room in satisfactory condition. [email or web address] Not available 12/27/2024 19:21:31 Plan of Treatment Reminders Order Date Submit Date Provider Last Modified By Organization Details Last Modified Time Details Appointments None recorded. Lab urinalysis panel, auto 2023 024 [facility], [address], [place], [address], 4 09:48:03 Referral None recorded. Procedures None recorded. Surgeries cystoscopy (SURG) 2023 024 [email or web address], [address] [facility], [place], [address], 4 14:57:41 Imaging None recorded. Medication Orders Cipro 500 mg tablet 2024 025 [id number], [address] [place], [address], 5 10:14:17 Patient TargetsNo targets recorded. Patient InstructionsNo instructions recorded. Reason for Referral None Reported. Results Created Date Observation Date Name Description Value Unit Range Abnormal Flag Note LastModifiedBy Organization Detail LastModifiedTime 10/29/19 24 10/29/2023 urina lysis panel , auto Unknown Analyte Clean Catch Not Available [facility] [address], [place], [address], 10/29/2023 09:32:45 10/29/19 24 10/29/2023 urina lysis panel , auto Unknown Analyte Yellow Not Available [facility] [address], [place], [address], 10/29/2023 09:32:45 10/29/19 24 10/29/2023 urina lysis panel , auto Unknown Analyte Clear Not Available [facility] [address] [place] [address] [address], [place], [address], 10/29/2023 09:32:45 10/29/19 24 10/29/2023 urina lysis panel , auto Unknown Analyte 1.005 Not Available [facility] [address], [place], [address], 10/29/2023 09:32:45 10/29/19 24 10/29/2023 urina lysis panel , auto Unknown Analyte 1.003- 1.035 Not Available [facility] [address], [place], [address], 10/29/2023 09:32:45 10/29/19 24 10/29/2023 urina lysis panel , auto Unknown Analyte 8.0 Not Available [facility] [address], [place], [address], 10/29/2023 09:32:45 10/29/19 24 10/29/2023 urina lysis panel , auto Unknown Analyte 5.0-8. 0 Not Available [facility] [address], [place], [address], 10/29/2023 09:32:45 10/29/19 24 10/29/2023 urina lysis panel , auto Unknown Analyte 25 Rupinder/ul Trace Not Available [facility] [address], [place], [address], 10/29/2023 09:32:45 10/29/19 24 10/29/2023 urina lysis panel , auto Unknown Analyte Negati ve Not Available [facility] [address], [place], [address], 10/29/2023 09:32:45 10/29/19 24 10/29/2023 urina lysis panel , auto Unknown Analyte Negati ve Not Available [facility] [address], [place], [address], 10/29/2023 09:32:45 10/29/19 24 10/29/2023 urina lysis panel , auto Unknown Analyte Negati ve Not Available [facility] [address], [place], [address], 10/29/2023 09:32:45 10/29/19 24 10/29/2023 urina lysis panel , auto Unknown Analyte Negati ve Not Available [facility] [address], [place], [address], 10/29/2023 09:32:45 10/29/19 24 10/29/2023 urina lysis panel , auto Unknown Analyte Negati ve Not Available [facility] [address], [place], [address], 10/29/2023 09:32:45 10/29/19 24 10/29/2023 urina lysis panel , auto Unknown Analyte Normal Not Available [facility] [address], [place], [address], 10/29/2023 09:32:45 10/29/19 24 10/29/2023 urina lysis panel , auto Unknown Analyte Normal Not Available [facility] [address], [place], [address], 10/29/2023 09:32:45 10/29/19 24 10/29/2023 urina lysis panel , auto Unknown Analyte Negati ve Not Available [facility] [address], [place], [address], 10/29/2023 09:32:45 10/29/19 24 10/29/2023 urina lysis panel , auto Unknown Analyte Negati ve Not Available [facility] [address], [place], [address], 10/29/2023 09:32:45 10/29/19 24 10/29/2023 urina lysis panel , auto Unknown Analyte Normal Not Available [facility] [address], [place], [address], 10/29/2023 09:32:45 10/29/19 24 10/29/2023 urina lysis panel , auto Unknown Analyte Normal 1 mg/dl Not Available [facility] [address], [place], [address], 10/29/2023 09:32:45 10/29/19 24 10/29/2023 urina lysis panel , auto Unknown Analyte Negati ve Not Available [facility] [address], [place], [address], 10/29/2023 09:32:45 10/29/19 24 10/29/2023 urina lysis panel , auto Unknown Analyte Negati ve Not Available [facility] [address], [place], [address], 10/29/2023 09:32:45 10/29/19 24 10/29/2023 urina lysis panel , auto Unknown Analyte Negati ve Not Available [facility] [address], [place], [address], 10/29/2023 09:32:45 10/29/19 24 10/29/2023 urina lysis panel , auto Unknown Analyte Negati ve Not Available [facility] [address], [place], [address], 10/29/2023 09:32:45 12/28/19 25 12/27/2024 POTAS SIUM potassium 4.9 mmol/ L 3.4-5. 0 normal Not Available [facility] [address] [place], [address], 12/27/2024 08:04:02 Result Notes None recorded. Problems Name Problem SNOMED Code Status Onset Date Resolution Date Notes Provider Name and Address Organization Details Recorded Time Renal mass 839216131 Active 023 CHULA TURNER JR, MD [address] [place] [address], [address], [facility] 3 08:18:52 Nilo hematuria 666621216 Active 023 CHULA TURNER JR, MD [address] [place] [address], [address], [facility] 3 08:18:53 Neoplasm of urinary bladder 225462465 Active 023 [place] [address] [place] [address], [address], [facility] 3 08:18:54 Malignant neoplasm of urinary bladder 731706112 Active 023 [place] [address] [place] [address], [address], [facility] 3 20:48:55 Kidney stone 13754712 Active 023 CHULA TURNER JR, MD [address] [place] [address], [address], [facility] 3 20:49:09 Cyst of kidney 746687187 Active 023 CHULA TURNER JR, MD [address] [place], [address], [facility] 20:49:38 Problem Notes None recorded. Procedures Surgical History Date Name Laterality Status Provider Name and Address Organization Details Recorded Time 08/20/19 24 Cystoscopy - male completed CHULA TURNER JR, MD [address] [place], [address], [facility] 08/20/2023 13:15:27 06/09/20 23 EXTRA CORPOREAL SHOCK WAVE LITHOTRIPSY (SURG) completed Chencho Charles [facility] 06/09/2023 16:35:55 04/30/20 23 Cystoscopy - male completed CHULA TURNER JR, MD [address] [place], [address], [facility] 04/30/2023 15:30:04 hernia repair completed Jaqueline Correa [facility] 03/24/2023 10:57:32 tonsillectomy completed Jaqueline Correa [facility] 03/24/2023 10:57:40 arthroplasty of knee completed Jaqueline Correa [facility] 03/24/2023 10:57:52 Imaging Results None recorded. Procedure Notes None recorded. Medical Equipment None Reported. Allergies No known drug allergies Medications Name Sig Start Date Stop Date Status Note LastModified by Organization Details LastModified Time losartan 50 mg tablet Take 1 tablet every day by oral route. active Not Available Not Available No t Available furosemide 40 mg tablet Take 1 tablet twice a day by oral route. active Not Available Not Available No t Available Percocet 7.5 mg-325 mg tablet Take 1 tablet every 6 hours by oral route as needed. 2022 active Not Available Not Available Not Avai lable atorvastatin 10 mg tablet Take 1 tablet every day by oral route. active Not Available Not Available No t Available doxycycline monohydrate 100 mg capsule Take 1 capsule twice a day by oral route. 2022 active Not Available Not Available Not Avai lable Cipro 500 mg tablet Take 1 tablet every 12 hours by oral route. 2024 active Not Available Not Available Not Avai lable potassium chloride active Not Available Not Available Not Available albuterol active Not Available Not Natalie ilable Not Available diltiazem HCl active Not Available Not Available Not Available metoprolol succinate active Not Available Not Available No t Available Vitamin D3 active Not Available Not Av ailable Not Available Vitamin B12 active Not Available Not A vailable Not Available Xarelto 15 mg tablet Take 1 tablet every day by oral route. active Not Available Not Available No t Available Vitals Date Recorded Body height Body mass index (BMI) Body weight Provider Name and Address Organization Details Last Updated DateTime 10/29/2023 177.8 cm 24.4 kg/m2 99580.7 g Christa Nevarez [facility] 10/29/2023 09:34:15 Social History Question Answer Notes LastModified by [employer] Details LastModified Time Tobacco Smoking Status Former Smoker quit 2 months ago Jaqueline Sunny [facility] 03/24/2023 10:57:23 What Is Your Relationship Status? [email or web address] Information not available 03/24/2023 Sex: Male Functional Status Question Answer Note LastModified by [employer] Details LastModified Time What is your level of alcohol consumption? Occasional [email or web address] Information not available 03/24/2023 Mental Status None recorded. Family History Relationship Description Onset Age of this Age Resolved Age Notes LastModified by Organization Details LastModified Time Unspecified Relation Diabetes mellitus [email or web address] Not available 2022 10:57:09 Medical History Condition Response Heart Disease Y Kidney Stones Y Hypertension Y Past Encounters Encounter ID Performer Location Encounter Start Date Encounter Closed Date Diagnosis/Indication Diagnosis SNOMED-CT Code Diagnosis ICD10 Code Diagnosis Note [id number] CHULA TURNER JR, MD [facility] [address] [facility] [place] [address] 03/24/2023 09:19:00 04/03/2023 04:53:54 Renal mass 089140480 N28.89 Nilo hematuria 14579843 5 R31.0 Neoplasm o f urinary bladder 761198247 D49.4 [id number] CHULA TURNER JR, MD SURGERY SCHEDULE [address] [place] [address] 04/30/2023 13:07:13 04/30/2023 15:30:29 Neoplasm of urinary bladder 833266007 D49.4 [id number] CHULA TURNER JR, MD [facility] [address] [facility] [address] [address] 05/12/2023 11:13:50 05/12/2023 16:21:35 Malignant neoplasm of urinary bladder 465963735 C67.9 Kidney stone 50902150 N2 0.0 Cyst of kidney 141871277 N28.1 [id number] CHULA TURNER JR, MD [facility] [address] [facility] [address] [address] [address] 07/16/2023 08:48:03 07/16/2023 09:13:25 Malignant neoplasm of urinary bladder 091566838 C67.9 Kidney stone 67398259 N2 0.0 [id number] CHULA TURNER JR, MD SURGERY SCHEDULE [address] [place] [address] 1 08/20/2023 11:30:32 08/20/2023 11:31:23 Malignant neoplasm of urinary bladder 929101464 C67.9 Kidney stone 85228078 N2 0.0 [id number] BERTRAND BLANKENSHIP MD [facility] [address] [facility] [address],[place] [address] 0 10/29/2023 08:49:16 10/29/2023 09:40:51 Kidney stone 62469009 N20.0 History of malignant neoplasm of bladder 710213285 Z85.51 [id number] BERTRAND BLANKENSHIP MD SURGERY SCHEDULE [address] [place] [address] 1 11/24/2023 07:45:27 11/24/2023 07:45:52 [id number] BERTRAND BLANKENSHIP MD SURGERY SCHEDULE [address] [place] [address] 1 07/05/2024 06:48:05 07/05/2024 06:48:51 [id number] BERTRAND BLANKENSHIP MD SURGERY SCHEDULE [address] [place] [address] 1 12/20/2024 06:35:58 12/20/2024 06:36:24 [id number] BERTRAND BLANKENSHIP MD SURGERY SCHEDULE [address] [place] [address] 12/27/2024 07:43:53 12/27/2024 07:44:06 Malignant neoplasm of urinary bladder 380069872 C67.9 Health Concerns Section Related Observation LastModified by Organization Detai ls LastModified Time None Recorded Concern Status LastModified by Organization Details LastModified Time None Recorded Advance Directives Directive None Recorded Payers Insurance Date Sequence Insurance Name Policy Number Policy Leon Covered Member ID Leon Member ID Guarantor Name 03/24/2023 1 [employer] [place] (HMO) HIXKY Claude Le Jr [id number] Claude Le 12/17/2024 1 [place] Claude Le Jr [id number] Claude Le 12/24/2024 2 AARP (MEDICARE SUPPLEMENT) Claude Le Jr [id number] Claude Le Notes Date Note Type Note Provider Name and Address Organization Details Recorded Time 10/29/2023 text/html He has previousl y undergone ESWL. KUB today shows no residual fragments. He is not have any flank or abdominal pain. He has a history of superficial bladder cancer we will arrange cystoscopy BERTRAND BLANKENSHIP MD [address] [place] [address], [address], [facility] 10/29/2023 09:48:19
--- OUTSIDE RECORDS SUMMARY | 2025-01-01 07:27 | XMS_ITS | Continuity of Care Document ---
Author Organization [facility], SURGERY SCHEDULE Address [address] [place] [address] Assessment Encounter Date Assessment Date Assessment LastModified by Organization Details LastModified Time 12/20/2024 12/20/2024 SURGERY DATE: 12/20/2024 PREOPERATIVE DIAGNOSIS: [...] procedure well. [email or web address] Not available 12/20/2024 11:29:36 Plan of Treatment Reminders Order Date Submit Date Provider Last Modified By Organization Details Last Modified Time Details Appointments None record ed. Lab None record ed. Referral None record ed. Procedures None record ed. Surgeries None record ed. Imaging None record ed. Medication Orders None record ed. Patient TargetsNo targets recorded. Patient InstructionsNo instructions recorded. Reason for Referral None Reported. Problems Name Problem SNOMED Code Status Onset Date Resolution Date Notes Provider Name and Address Organization Details Recorded Time Renal mass 806070716 Active 023 CHULA TURNER JR, MD [address] [place] [address], [address], [facility] 3 08:18:52 Nilo hematuria 736245551 Active 023 [place] [address] [place] [address], [address], [facility] 3 08:18:53 Neoplasm of urinary bladder 100444649 Active 023 [place] [address] [place] [address], [address], [facility] 3 08:18:54 Malignant neoplasm of urinary bladder 725845064 Active 023 [place] [address] [place] [address], [address], [facility] 3 20:48:55 Kidney stone 40877867 Active 023 CHULA TURNER JR, MD [address] [place] [address], [address], [facility] 3 20:49:09 Cyst of kidney 848167298 Active 023 CHULA TURNER JR, MD [address] [place] [address], [address], [facility] 3 20:49:38 Problem Notes None recorded. Procedures Surgical History Date Name Laterality Status Provider Name and Address Organization Details Recorded Time 08/20/19 24 Cystoscopy - male completed CHULA TURNER JR, MD [address] [place] [address], [address], [facility] 08/20/2023 13:15:27 06/09/20 23 EXTRA CORPOREAL SHOCK WAVE LITHOTRIPSY (SURG) completed Chencho Charles [facility] 06/09/2023 16:35:55 04/30/20 23 Cystoscopy - male completed CHULA TURNER JR, MD [address] [place] [address], [address], [facility] 04/30/2023 15:30:04 hernia repair completed Jaqueline Correa [facility] 03/24/2023 10:57:32 tonsillectomy completed Jaqueline Correa [facility] 03/24/2023 10:57:40 arthroplasty of knee completed Jaqueline Correa [facility] 03/24/2023 10:57:52 Imaging Results None recorded. Procedure [...] Available Not Available No t Available Vitals None Recorded Social History Question Answer Notes LastModified by Organizat ion Details LastModified Time Tobacco Smoking Status Former Smoker quit 2 months ago Jaqueline carranza [facility] 03/24/2023 10:57:23 What Is Your Relationship Status? [email or web address] Information not available 03/24/2023 Sex: Male Functional Status Question Answer Note LastModified by Organizat ion Details LastModified Time What is your level of alcohol consumption? Occasional [email or web address] Information not available 03/24/2023 Mental Status None recorded. Family History Relationship Description Onset Age of this Age Resolved Age Notes LastModified by Organization Details LastModified Time Unspecified Relation Diabetes mellitus Not available 2022 10:57:09 Medical History Condition Response Kidney Stones Y Heart Disease Y Hypertension Y Past Encounters Encounter ID Performer Location Encounter Start Date Encounter Closed Date Diagnosis/Indication Diagnosis SNOMED-CT Code Diagnosis ICD10 Code Diagnosis Note [id number] BERTRAND BLANKENSHIP MD SURGERY SCHEDULE [address] [place] [address] 12/20/2024 06:35:58 12/20/2024 06:36:24 Health Concerns Section Related Observation LastModified by Organization Detai ls LastModified Time None Recorded Concern Status LastModified by Organization Details LastModified Time None Recorded Payers Encounter Date Sequence Insurance Name Policy Number Policy Leon Covered Member ID Leon Member ID Guarantor Name 12/20/2024 1 [place] Claude Le Jr [id number] Claude Le 12/20/2024 2 AARP (MEDICARE SUPPLEMENT) Claude Le Jr [id number] Claude Le
--- OUTSIDE RECORDS SUMMARY | 2025-01-01 07:27 | XMS_ITS | Continuity of Care Document ---
Author Organization [facility], SURGERY SCHEDULE Address [address] [place] [address] Assessment Encounter Date Assessment Date Assessment LastModified by Organization Details LastModified Time 12/27/2024 12/27/2024 PREOPERATIVE DIAGNOSIS: Bladder tumor. POSTOPERATIVE [...] Details Last Modified Time Details Appointments None recorded . Lab None recorded . Referral None recorded . Procedures None recorded . Surgeries None recorded . Imaging None recorded . Medication Orders Cipro 500 mg tablet 025 12/28/[address] [facility]/Pharmacy #[id number], [address] [place], [address], 5 10:14:17 Patient TargetsNo targets recorded. Patient InstructionsNo instructions recorded. Reason for Referral None Reported. Problems Name Problem SNOMED Code Status Onset Date Resolution Date Notes Provider Name and Address Organization Details Recorded Time Renal mass 050138171 Active 023 CHULA TURNER JR, MD [address] [place] [address], [phone] 1, [facility] 3 08:18:52 Nilo hematuria 318417054 Active 023 CHULA TURNER JR, MD [address] [place] [address], [phone] 1, [facility] 3 08:18:53 Neoplasm of urinary bladder 553151306 Active 023 CHULA TURNER JR, MD [address] [place] [address], [phone] 1, [facility] 3 08:18:54 Malignant neoplasm of urinary bladder 854333529 Active 023 CHULA TURNER JR, MD [address] [place] [address], [address] 1, [facility] 3 20:48:55 Kidney stone 11497861 Active 023 CHULA TURNER JR, MD [address] [place] [address], [phone] 1, [facility] 3 20:49:09 Cyst of kidney 046596291 Active 023 CHULA TURNER JR, MD [address] [place] [address], [phone] 1, [facility] 3 20:49:38 Problem Notes None recorded. Procedures Surgical History Date Name Laterality Status Provider Name and Address Organization Details Recorded Time 08/20/19 24 Cystoscopy - male completed CHULA TURNER JR, MD [address] [place] [address], [phone], [facility] 08/20/2023 13:15:27 06/09/20 23 EXTRA CORPOREAL SHOCK WAVE LITHOTRIPSY (SURG) completed Chencho [facility] 06/09/2023 16:35:55 04/30/20 Cystoscopy - male completed CHULA TURNER JR, MD [address] [place] [address], [phone], [facility] 04/30/2023 15:30:04 hernia repair completed Jaqueline [facility] 03/24/2023 10:57:32 tonsillectomy completed Jaqueline Correa [facility] 03/24/2023 10:57:40 arthroplasty of knee completed Jaqueline Correa [facility] 03/24/2023 10:57:52 Imaging Results None recorded. Procedure [...] Former Smoker quit 2 months ago Ja[facility]eline [facility] 03/24/2023 10:57:23 What Is Your Relationship Status? [email or web address] Information not available 03/24/2023 Sex: Male Functional Status Question Answer Note LastModified by Organizat ion Details LastModified Time What is your level of alcohol consumption? Occasional [email or web address] Information not available 03/24/2023 Mental Status None [...] SNOMED-CT Code Diagnosis ICD10 Code Diagnosis Note [id number] BERTRAND BLANKENSHIP MD SURGERY SCHEDULE [address] [place] [phone] 1 12/20/2024 06:35:58 12/20/2024 06:36:24 [id number] BERTRAND BLANKENSHIP MD SURGERY SCHEDULE [address] [place] [phone] 1 12/27/2024 07:43:53 12/27/2024 07:44:06 Malignant neoplasm of urinary bladder 084510780 C67.9 Health Concerns Section Related Observation LastModified by Organization Detai ls LastModified Time None Recorded Concern Status LastModified by Organization Details LastModified Time None Recorded Payers Encounter Date Sequence Insurance Name Policy Number Policy Leon Covered Member ID Leon Member ID Guarantor Name 12/27/2024 1 [place] Claude Le Jr [id number] Claude Le 12/27/2024 2 [employer] (MEDICARE SUPPLEMENT) Claude Le Jr [id number] Claude Le
[2025-01-01 07:59] LABS: Microscopic, Urine URINE MICROSCOPIC (MICROSCOPIC)
[2025-01-01 08:10] LABS: Appearance,Urine CLOUDY (Clear); Bilirubin,Urine Negative (Negative); Blood, Urine 3+ (Negative); Color,Urine RED (Yellow); Glucose,Urine (UA) Negative (Negative); Ketones,Urine Negative (Negative); Leukocyte Esterase,Urine Negative (Negative); Nitrate,Urine Negative (Negative); Protein,Urine 3+ (Negative); Specific Gravity, Urine 1.025 (1.005-1.030); Urobilinogen,Urine 0.2 EU/dl (0.2)
[2025-01-01] MEDS: RINGERS SOLUTION,LACTATED 3,000 ML 998.983 ML IR (08:15)
--- NOTE | 2025-01-01 08:15 | PC.NURSE ---
CBI started at this time, immeditley got 1200 ml of bright red blood. patient reported immediate relief. provider states no labs needed at this time. patient had lesion removed from bladder on friday at [facility].
[2025-01-01 08:30] LABS: Bacteria,Urine Trace /lpf; RBC,Urine TNTC #/hpf (0-3); Squamous Epithelial Cell,Urine Occasional #/hpf (0-5); WBC,Urine Occasional #/hpf (0-3)
--- NOTE | 2025-01-01 09:12 | PC.NURSE ---
pts [address] way chapman irrigated with 60 mls of irrigation saline due to slow output from chapman. flow restored with irrigation.
--- NOTE | 2025-01-01 09:25 | PC.NURSE ---
I called and spoke with dietary to request a breakfast tray.
--- NOTE | 2025-01-01 10:42 | PC.NURSE ---
Provider states we do not need lab work at this time.
--- NOTE | 2025-01-01 10:46 | PC.NURSE ---
Called for a consult per . They are paging the urologist and going to call back.
[2025-01-01 11:22] LABS: Basophils # 0.1 K/mm3 (0-0.2); Basophils % 0.8 % (0.1-2.0); Eosinophils # 0.2 Kmm3 (0.0-0.4); Eosinophils % 2.9 % (0.1-12.0); Hematocrit 48.6 % (42.0-52.0); Hemoglobin 15.9 g/dL (14.1-18.0); Immature Granulocytes # 0.05 10^3uL; Immature Granulocytes % 0.6 %; Lymphocytes # 2.6 K/mm3 (0.7-4.5); Lymphocytes % 30.9 % (10-50); Mean Corpuscular HGB Conc 32.7 g/dL (31.8-35.4); Mean Corpuscular Hemoglobin 29.7 pg (27.0-31.2); Mean Corpuscular Volume 90.7 fl (80-94); Mean Platelet Volume 9.8 fl (7.4-10.4); Monocytes # 0.9 K/mm3 (0.1-1.0); Monocytes % 10.8 % (1.7-9.3); Neutrophils # 4.5 K/mm3 (1.8-7.8); Nucleated Red Blood Cells # 0 10^3/uL; Nucleated Red Blood Cells % 0 %; Platelet Count 229 K/mm3 (142-424); Red Blood Count 5.36 M/mm3 (4.60-6.20); Red Cell Distribution Width 13.4 % (11.5-17.5); Red Cell Distribution Width-SD 44.8 fL; White Blood Count 8.3 K/mm3 (4.8-10.8)
[2025-01-01] MEDS: LIDOCAINE 2% UROJET 10ML 10 ML TP (11:25)
[2025-01-01 11:29] LABS: Alanine Aminotransferase 16 U/L (12-78); Albumin Level 4.2 g/dl (3.5-5.0); Albumin/Globulin Ratio 1.5 (1.1-1.8); Alkaline Phosphatase 90 U/L (38-126); Anion Gap 11.9 mEq/L (5-15); Aspartate Amino Transferase 31 U/L (17-59); Bilirubin,Total 0.7 mg/dl (0.2-1.3); Blood Urea Nitrogen 39 mg/dl (9-20); Calcium 9.1 mg/dl (8.4-10.2); Carbon Dioxide 26 mmol/L (22.0-30.0); Chloride 108 mmol/L (98-107); Creatinine Clearance Estimated 53 mL/min (50-200); Estimated Glomerular Filt Rate 47 ml/min (>60); GFR (African American) 56 ML/MIN (>60); Globulin 2.8 g/dL (1.3-3.2); Glucose 89 mg/dl (74-100); Potassium 4.9 mmoL/L (3.5-5.1); Sodium 141 mmol/L (136-145)
[2025-01-01 11:30] LABS: Activated Partial Thrombo Time 30.2 seconds (22.8-30.6); INR 0.99 (0.9-1.1)
--- NOTE | 2025-01-01 11:37 | PC.NURSE ---
removed 16fr [address] placed a 22fr [address] way per provider order.
--- NOTE | 2025-01-01 12:03 | PC.NURSE ---
bladder scan showed 341 ml
--- NOTE | 2025-01-01 12:13 | CT_ITS ---
PROCEDURE INFORMATION: Exam: CTA Abdomen and Pelvis With Contrast Exam date and time: 01/01/2025 12:35 PM Age: 69 years old Clinical indication: Other: Gross hematuria with clots, acute bleed TECHNIQUE: Imaging protocol: Computed tomographic angiography of the abdomen and pelvis with contrast. Exam focused on the arteries. 3D rendering (Not supervised by radiologist): MIP and/or 3D reconstructed images were created by the technologist. Radiation optimization: All CT scans at this facility use at least one of these dose optimization techniques: automated exposure control; mA and/or kV adjustment per patient size (includes targeted exams where dose is matched to clinical indication); or iterative reconstruction. Contrast material: ISO 370; Contrast volume: 80 ml; Contrast route: INTRAVENOUS (IV); COMPARISON: CT ABDOMEN PELVIS WO/W CON 04/29/2023 9:21 AM FINDINGS: Aorta: Stable focal infrarenal aortic aneurysm with continued right lateral peripheral thrombus. Measures 2.2 x 3.7 cm. Celiac trunk and mesenteric arteries: Severe short-segment stenosis proximal celiac artery. SMA and VICKI patent. Renal arteries: No occlusion or significant stenosis. Right iliac arteries: No occlusion or significant stenosis. Left iliac arteries: No occlusion or significant stenosis. Liver: No mass. Gallbladder and biliary ducts: Unremarkable. No calcified stones. No ductal dilation. Pancreas: Unremarkable. No mass. No ductal dilation. Spleen: Unremarkable. No splenomegaly. Adrenal glands: Unremarkable. No mass. Kidneys and ureters: Irregular hyperdense lesion in the inferior pole left kidney posteriorly measuring 9 x 16 mm, previously seen as larger hyperdense cyst. Question surgical resection versus cyst rupture. Stable intermediate density focus in the inferior pole right kidney adjacent to cortical renal scarring. Multiple small simple cortical renal cysts bilaterally. Nonobstructing renal calculi inferior pole left kidney. No hydronephrosis. Stomach and bowel: Unremarkable. No obstruction. No mucosal thickening. Appendix: No evidence of appendicitis. Intraperitoneal space: Unremarkable. No free air. No significant fluid collection. Lymph nodes: Unremarkable. No enlarged lymph nodes. Urinary bladder: Lobulated density within the bladder base measures 3.1 x 6.4 x 3 cm (AP/TV/SI). May be blood clots although neoplasm can not be excluded. Gas within the bladder lumen, likely iatrogenic. Reproductive: Prostate gland mildly enlarged measuring 4.2 x 4.4 cm. Bones/joints: No acute fracture. Soft tissues: Unremarkable. IMPRESSION: 1. Lobulated density within the bladder base measures 3.1 x 6.4 x 3 cm (AP/TV/SI). May be blood clots although neoplasm can not be excluded. 2. Gas within the bladder lumen, likely iatrogenic. 3. Irregular hyperdense lesion in the inferior pole left kidney posteriorly measuring 9 x 16 mm, previously seen as larger hyperdense cyst. Question surgical resection versus cyst rupture. 4. Nonobstructing renal calculi inferior pole left kidney. 5. Severe short-segment stenosis proximal celiac artery. 6. Stable focal infrarenal aortic aneurysm with continued right lateral peripheral thrombus. Measures 2.2 x 3.7 cm.
[2025-01-01] MEDS: 0.9 % SODIUM CHLORIDE 50 ML VIAL IV (12:41)
[2025-01-01] MEDS: SODIUM CHLORIDE 0.9% 10ML SYR (RAD ONLY) 10 ML IV (12:41)
[2025-01-01] MEDS: IOPAMIDOL-370 (76%);100ML BOTTLE 80 ML IV (12:41)
--- NOTE | 2025-01-01 12:41 | PC.NURSE ---
Addendum entered by Lourdes Morales RN 01/01/25 12:46: provider notified and was told to leave catheter out at this time Original Note: after placing 22fr chapman patient recieved 300 ml more of CBI and he began feeling pressure. immediatley stopped CBI. attempted to flush catheter was unsuccessful. removed catheter and multiple clots were passed as well as large clot clogging tip of catheter. patient stood up and had 250 ml out on his own
[2025-01-01 13:02] LABS: Hematocrit 42.4 % (42.0-52.0)
--- NOTE | 2025-01-01 13:02 | PC.NURSE ---
Called for a patient transfer they are paging the hospitalist.
--- NOTE | 2025-01-01 13:11 | PC.NURSE ---
HUANG called back. Dr kelley Speaking with Dr HUMPHREY at this time
[2025-01-01 13:35] LABS: Hemoglobin 13.8 g/dL (14.1-18.0)
--- NOTE | 2025-01-01 15:00 | PC.NURSE ---
attempted to call report [facility] refused report due to bed being dirty at this time said call back in one hour
--- NOTE | 2025-01-01 15:47 | PC.NURSE ---
attempted report again, nurse states room is dirty and still will not take report. will call back when room is dirty
--- NOTE | 2025-01-01 15:58 | PC.NURSE ---
report given to giselle blanc aware patietn will come POV
== END 2025-01-01 16:08 | disposition short-term general hospital (02) ==
PROVIDERS: Emergency Medicine; Emergency Provider Emergency Medicine; PCP Family Medicine
DX: R10.30 Lower abdominal pain, unspecified (principal); R31.0 Gross hematuria; R33.8 Other retention of urine; I25.10 Atherosclerotic heart disease of native coronary artery without angina pectoris; I10 Essential (primary) hypertension; E78.5 Hyperlipidemia, unspecified; F17.210 Nicotine dependence, cigarettes, uncomplicated; J44.9 Chronic obstructive pulmonary disease, unspecified; Z79.01 Long term (current) use of anticoagulants; Z85.51 Personal history of malignant neoplasm of bladder
CPT/HCPCS: 51702; 74174; 80053; 81001; 85014; 85018; 85025; 85610; 85730; 96374; 99291; J2270; Q9967

== ENCOUNTER 2025-01-10 15:17 | Outpatient (CLI) | payer MEDICARE, SELFPAY ==
--- NOTE | 2025-01-10 15:15 | CA_ITS ---
FINAL REPORT CLINICAL HISTORY: SWELLING,REDNESS LT CALF X SEVERAL DAYS,PT HAS BLADDER CA WITH RECENT SURGERY,PT WAS ON ELIQUIS BUT STOPPED 1 WEEK AGO BECAUSE OF HEMATURIA AND PASSING CLOTS,RESTARTED ELIQUIS THIS AM FINDINGS: DUPLEX VENOUS SONOGRAPHY OF THE LEFT LOWER EXTREMITY Multiple transverse and longitudinal scans were performed of the femoropopliteal deep venous system, with augmentation and compression maneuvers. FINDINGS: Normal phasic flow was noted in the visualized deep venous system. No intraluminal increased echogenicity is noted to suggest thrombus. There is normal compression and augmentation of the venous structures. There are prominent venous varicosities in the medial left calf. Echogenic material is seen within several of these. Findings are most consistent with superficial thrombophlebitis. IMPRESSION: No evidence of deep venous thrombosis of the left lower extremity. Superficial thrombophlebitis left medial calf. Reviewed, Interpreted and Dictated by Jennifer Pham MD Transcribed by Cristal Pisano Authenticated and [facility]
--- OUTSIDE RECORDS SUMMARY | 2025-01-10 15:20 | XMS_ITS | Continuity of Care Document ---
Author Organization [facility], SURGERY SCHEDULE Address [address] [place] [address] Care Team Providers [employer] First Officer Name Role Phone CHLOE MITCHELL Primary Care Provider Assessment Encounter Date Assessment Date Assessment LastModified [...] Address Organization Details Recorded Time Renal mass 731134691 Active 023 CHULA TURNER JR, MD [address] [place] [address], [phone], [facility] 3 08:18:52 Nilo hematuria 215237789 Active 023 Marisela Murillo [facility] 5 09:01:21 Neoplasm of urinary bladder 173230040 Active 023 [place] [address] [place] [address], [phone] 1, [facility] 3 08:18:54 Malignant neoplasm of urinary bladder 598076839 Active 023 [place] [address] [place] [address], [address] 1, [facility] 3 20:48:55 Kidney stone 25414171 Active 023 CHULA TURNER JR, MD [address] [place] [address], [phone] 1, [facility] 3 20:49:09 Cyst of kidney 330798118 Active 023 CHULA TURNER JR, MD [address] [place] [address], 955[address]-830 1, [facility] 3 20:49:38 Problem Notes None recorded. Procedures Surgical History Date Name Laterality Status Provider Name and Address Organization Details Recorded Time 08/20/19 24 Cystoscopy - [place] [address] [place] [address], [phone], [facility] 08/20/2023 13:15:27 06/09/20 23 EXTRA CORPOREAL SHOCK WAVE LITHOTRIPSY (SURG) completed [facility] 06/09/2023 16:35:55 04/30/20 23 Cystoscopy - male completed CHULA TURNER JR, MD [address] [place] [address], [phone], [facility] 04/30/2023 15:30:04 hernia repair completed Jaqueline Correa [facility] 03/24/2023 10:57:32 tonsillectomy completed Jaqueline Correa [facility] 03/24/2023 10:57:40 arthroplasty of knee completed Jaqueline Correa [facility] 03/24/2023 10:57:52 Imaging Results None recorded. Procedure Notes None recorded. Medical Equipment None Reported. Allergies Allergen ID Allergen Name Allergen Category Reaction Reaction Severity Criticality Documentation Date Start Date Code Code System Note Provider Name and Address Organization Details Recorded Time 618051 lisinopri l medicatio n Not available Not available Not available 01/04/20252022 82599 RxNorm Marisela Murillo [facility] 09:01:21 Medications Name Sig Start Date Stop Date [...] Smoker quit 2 months ago Jaqueline Correa [facility] 03/24/2023 10:57:23 What Is Your Relationship Status? [email or web address] Information not available 03/24/2023 Sex: Male Functional Status Question Answer Note LastModified by Organizat ion Details LastModified Time What is your level of alcohol consumption? Occasional [email or web address] Information not available 03/24/2023 Mental Status None recorded. Family History Relationship Description Onset Age of this Age Resolved Age Notes LastModified by Organization Details LastModified Time Unspecified Relation Diabetes mellitus [email or web address] Not available 2022 10:57:09 Medical History Condition Response Kidney Stones Y Heart Disease Y Hypertension Y Past Encounters Encounter ID Performer Location Encounter Start Date Encounter Closed Date Diagnosis/Indication Diagnosis SNOMED-CT Code Diagnosis ICD10 Code Diagnosis Note [id number] BERTRAND BLANKENSHIP MD SURGERY SCHEDULE [address] [place] [address] 12/20/2024 06:35:58 12/20/2024 06:36:24 Health Concerns Section Related Observation LastModified by Organization Detai ls LastModified Time None Recorded Concern Status LastModified by Organization Details LastModified Time None Recorded Payers Encounter Date Sequence Insurance Name Policy Number Policy Leon Covered Member ID Leon Member ID Guarantor Name 12/20/2024 1 [place] Claude Le Jr [id number] Claude Le 12/20/2024 2 [employer] (MEDICARE SUPPLEMENT) Claude Le Jr [id number] Claude Le
[2025-01-10 18:33] LABS: Basophils # 0.1 K/mm3 (0-0.2); Basophils % 0.5 % (0.1-2.0); Eosinophils # 0.2 Kmm3 (0.0-0.4); Eosinophils % 1.3 % (0.1-12.0); Hematocrit 38.6 % (42.0-52.0); Immature Granulocytes # 0.09 10^3uL; Immature Granulocytes % 0.7 %; Lymphocytes # 2.2 K/mm3 (0.7-4.5); Lymphocytes % 17.1 % (10-50); Mean Corpuscular HGB Conc 31.1 g/dL (31.8-35.4); Mean Corpuscular Hemoglobin 28.8 pg (27.0-31.2); Mean Corpuscular Volume 92.8 fl (80-94); Mean Platelet Volume 9.4 fl (7.4-10.4); Monocytes # 1.2 K/mm3 (0.1-1.0); Monocytes % 9.4 % (1.7-9.3); Nucleated Red Blood Cells # 0 10^3/uL; Nucleated Red Blood Cells % 0 %; Platelet Count 280 K/mm3 (142-424); Red Blood Count 4.16 M/mm3 (4.60-6.20); Red Cell Distribution Width 13.5 % (11.5-17.5); Red Cell Distribution Width-SD 45.8 fL; White Blood Count 12.7 K/mm3 (4.8-10.8)
[2025-01-10 19:08] LABS: Alanine Aminotransferase 13 U/L (12-78); Albumin Level 3.7 g/dl (3.5-5.0); Albumin/Globulin Ratio 1.4 (1.1-1.8); Alkaline Phosphatase 99 U/L (38-126); Anion Gap 8.8 mEq/L (5-15); Aspartate Amino Transferase 20 U/L (17-59); Bilirubin,Total 0.7 mg/dl (0.2-1.3); Blood Urea Nitrogen 22 mg/dl (9-20); Calcium 8.9 mg/dl (8.4-10.2); Carbon Dioxide 30 mmol/L (22.0-30.0); Chloride 103 mmol/L (98-107); Estimated Glomerular Filt Rate 55 ml/min (>60); GFR (African American) 67 ML/MIN (>60); Globulin 2.6 g/dL (1.3-3.2); Glucose 91 mg/dl (74-100); Potassium 4.8 mmoL/L (3.5-5.1); Sodium 137 mmol/L (136-145); Total Protein,Serum 6.3 g/dl (6.3-8.2)
== END 2025-01-10 23:59 | disposition home or self-care (01) ==
LOC: RT 15:17
PROVIDERS: PCP Family Medicine; Visit Provider Nurse Practitioner
DX: I80.252 Phlebitis and thrombophlebitis of left calf muscular vein (principal); C67.9 Malignant neoplasm of bladder, unspecified; M79.662 Pain in left lower leg; Z98.890 Other specified postprocedural states
CPT/HCPCS: 80053; 85025; 93971

== ENCOUNTER 2025-04-29 14:49 | Outpatient (CLI) | payer MEDICARE, SELFPAY ==
--- OUTSIDE RECORDS SUMMARY | 2025-04-12 09:00 | XMS_ITS | Encounter Summary ---
Author Organization [facility] Address [address] [place] [address] Care Team Providers Care Manager Proposal Name Role Phone Abbe Canales MD Primary Care Provider [phone] Reason for Referral * Cardiac Stress Testing (Routine) - Authorized Specialty Diagnoses / Procedures Referred By Contac t Referred To Contact Diagnoses Paroxysmal atrial fibrillation Heart failure with mildly reduced ejection fraction (HFmrEF) Procedures Stress Test With Myocardial Perfusion (1 Day) Stress Test With Myocardial Perfusion (1 Day) Jadon Cedeño PA-C [address] [facility] [address] [place] [address] Phone: tel: fax: [address] [address] Phone: tel: Referral ID Status Reason Start Date Expiration Date V isits Requested Visits Authorized [id number] Authorized 04/12/2025 07/12/2026 4 4 Reason for Visit * Reason Comments Atrial flutter with rapid ventricular re sponse Encounter Details Date Type Department Care Team (Late st Contact Info) Description 04/12/2025 9:00 AM EDT Office Visit [facility] CARDIOLOGY [address] [place] [phone] Jadon Cedeño PA-C [address] [facility] [address] [place] [address] Paroxysmal atrial fibrillation (Primary Dx); Essential hypertension; [...] were not included. Cardiac Electrophysiology Outpatient Note [facility] Office Visit Claude Le Jr. [id number] 11/23/2024 Primary Care Physician: Abbe Canales MD [...] Amiodarone today).; Surgeon: Siddharth Garcia MD; Location: [facility]; Service: Cardiovascular; Laterality: N/A; [...] Patient will get a stress test at [facility] as soonas reasonable. If this rules out [...] or concerns. Jadon Cedeño PA-C Cardiac Electrophysiology [facility] documented in this encounter Plan of Treatment Upcoming Encounters Date Type Department Care Team (Late st Contact Info) Description 05/03/2025 8:15 AM EDT Appointment [facility] [place] [address] [facility] [address] [place] [address] 05/03/2025 9:45 AM EDT Appointment [facility] [place] [address] [facility] [address] [place] [address] 12/13/2025 10:15 AM EDT Office Visit [facility] C[facility] [address] [facility] [address] [place] [phone] Siddharth Garcia MD 1720 [facility] [address] [place] [phone] Scheduled Orders Name Type Priority Associated Diagnoses Orde r Schedule Stress Test With Myocardial Perfusion (1 Day) Cardiac Services Routine Paroxysmal atrial fibrillation Heart failure with mildly reduced ejection fraction (HFmrEF) Expected: 04/19/2025 (Approximate), Expires: 04/12/2026 documented as of this encounter Procedures Procedure Name Priority Date/Time Associated Diagnosis Comments ECG 12-LEAD Routine 04/12/2025 Paroxysmal atrial fibrillation documented in this encounter Results * ECG 12-LEAD (04/12/2025) Narrative 04/12/2025 Jadon Cedeño PA-C 04/12/2025 9:16 AM ECG 12 Lead Date/Time: 04/12/2025 9:15 AM Performed by: Jadon Cedeño PA-C Authorized by: Jadon Cedeño PA-C Comparison: compared with previous ECG from 11/23/2024 Rhythm: sinus rhythm Ectopy: atrial premature contractions Other findings: T wave abnormality Clinical impression: abnormal EKG Procedure Note Davidson DIVINA Diop - 04/12/2025 9:00 AM EDT Images from the original note were not included. Cardiac Electrophysiology Outpatient Note [facility] Office Visit Claude Le Jr. [id number] 11/23/2024 Primary Care Physician: Abbe Canales MD [...] stoppingAmiodarone today).; Surgeon: Siddharth Garcia MD; Location: [facility]; Service: Cardiovascular; Laterality: N/A; CARDIOVERSION 2020 [...] Echo Complete W/ Cont if Necessary Per Gecpihso37/29/2025 4:13 PM Interpretation Summary Left ventricular systolic [...] Rhythm, lateral t wave inversions likelynonspecific Claude Ramesh Rey Campos reports that he quit smoking about [...] 46-50%. Patient will get astress test at [facility] as soon as reasonable. If this rules outobstructive disease, we will start flecainide. We also discussed redo ablation. He is interested in this at some point,but wants to wait for now. Patient has had recurrent hematuria from urothelial cancer. Bleeding isunder control currently he is back on Eliquis. If this continues to be arecurrent problem, we can further discuss watchman implantation. If hecan tolerate NOAC, this would be preferable as he has had a left atrialappendage thrombus before. 2. Hypertension BP controlled in office today. Continue current antihypertensiveregimen. Follow Up: 6 months Thank you for allowing me to participate in the care of your patient.Please do not hesitate to contact me with additional questions orconcerns. Jadon Cedeño PA-C Cardiac Electrophysiology [facility] Jadon Cedeño PA-C ECG ORDERABLES Final Result documented in this encounter Visit Diagnoses Diagnosis Paroxysmal atrial fibrillation- Primary Atrial fibrillation Essential hypertension Unspecified essential hypertension Heart failure with mildly reduced ejection fraction (HFmrEF) documented in this encounter Care Teams Manager Proposal Relationship Specialty Start Date End Date Abbe Canales MD [address] [facility] [address] [facility] [address] [place] [address] PCP - General Family Medicine 12/15/23 documented as of this encounter
--- OUTSIDE RECORDS SUMMARY | 2025-04-29 14:52 | XMS_ITS | Clinical Summary ---
Author Organization [facility] Address [address] [place] [address] Phone Care Team Providers Care Forming Process Worker Name Role Phone Unavailable Primary Care Provider Unavailabl e Allergies No known active allergies Medications buPROPion (WELLBUTRIN XL) 150 mg Oral Tablet Sustained Release 24 hr Take 150 mg by mouth every morning. Active Active Problems Problem Noted Date Diagnosed Date Screening for depression 12/30/2016 Overview (12/30/2016): Depression Screening: In the past two weeks, how often have you felt down, depressed, or hopeless? None Have you felt little interest or pleasure in doing things? no Alcohol screening 12/30/2016 Overview (12/30/2016): May drink a 6 pack in a year. Encounter for hepatitis C sc reening test for low risk patient 12/30/2016 Overview (12/30/2016): 12/30/16 Tobacco abuse 12/30/2016 Overview (12/30/2016): stop Umbilical hernia 04/05/2014 Immunizations Immunization Administration Dates Next Due Pneumococcal Polysaccharide 23 Valent 12/30/2016 Tdap 03/17/2014 Surgical History Surgery Date Site/Laterality Comments TONSILLECTOMY AND ADENOIDECTOMY UMBILICAL HERNIA REPAIR 05/09/2014 N/A OPEN REPAIR OF UMBILICAL HERNIA ; Surgeon: Summer Tabares MD; Location: [facility]; Service: General KNEE SURGERY 07/28/2017 Right Meniscus Repair CATARACT EXTRACTION EXTRACAPSULAR W/ INTRAOCULAR LENS IMPLANTATION 12/11/[address] Whitaker CATARACT EXTRACTION EXTRACAPSULAR W/ INTRAOCULAR LENS IMPLANTATION 12/25/[address] Vaibhav Whitaker Family History Medical History Relation Name Comments High Blood Pressure Father Claude Colon Cancer Neg Hx Prostate Cancer Neg Hx Relation Name Status Comments Father Claude Social History Tobacco Use Types Packs/Day Years Used Date Smoking Tobacco: Every Day Cigarettes 2 40 Smokeless Tobacco: Never Tobacco Cessation:Ready to Q uit: No; Counseling Given: Yes Alcohol Use Standard Drinks/Week Comments No 0 (1 standard drink = 0.6 oz pur e alcohol) Sexually Active Control Partners Comments Yes Female Sex and Gender Information Value Date Recorded Sex Assigned at Not on file Legal Sex Male 8:20 AM EDT Gender Identity Not on file Sexual Orientation Not on file Obstetrics History Last Filed Vital Signs Vital Sign Reading Time Taken Comments Blood Pressure 134/70 09/12/2017 11:09 AM EST Pulse 76 09/12/2017 11:09 AM EST Temperature 36.7 C (98 F) 09/12/2017 11:09 AM EST Respiratory Rate 16 09/12/2017 11:0 9 AM EST Oxygen Saturation 98% 09/12/2017 11: 09 AM EST Inhaled Oxygen Concentration - - Weight 90.2 kg (198 lb 12.8 oz) 018 11:09 AM EST Height 177.8 cm (5' 10 ) 09/12/2017 11: 09 AM EST Body Mass Index 28.52 09/12/2017 11:09 AM EST Plan of Treatment Health Maintenance Due Date Last Done Comments Cologuard 2002 Colon Cancer Screening 2002 Colonoscopy 2002 FIT 2002 Sigmoidoscopy 2002 Virtual Colonography 2002 Low Dose Lung Cancer Screening 2007 Zoster (1 of 2) 2007 Annual Wellness Exam 03/17/2015 03/17/2014 Pneumococcal Vaccine 50+ (2 of 2 - PCV) 05/03/2021 05/03/2020, 12/30/2016 DTaP/TDaP/Td (2 - Td or Tdap) 03/17/2024 03/17/2014 COVID-19 Vaccine ( season) 2025 04/25/2021, 09/05/2020, 08/08/2020 Influenza Vaccine (#1) 2025 1, 05/03/2020, 08/17/2019, Additional history exists Hepatitis C Screening Completed 12/30/2016 Hepatitis B Vaccine Aged Out No longe r eligible based on patient's age to complete this topic Meningococcal B Vaccine Aged Out No l onger eligible based on patient's age to complete this topic Goals Goal Patient Goal Type Associated Problems Recent Progress Patient-Stated? Author Maintain a healthy diet, exercise regularly and maintain an ideal body weight General No Samy Bejarano MD Stay Tobacco Free Lifestyle No Samy Bejarano MD Procedures Procedure Name Priority Date/Time Associated Diagnosis Comments HCV ANTIBODY SCREEN W/ REFLEX Routine 12/30/2016 9:14 AM EDT Encounter for hepatitis C screening test for low risk patient from Last 3 Months or Most Recently Relevant to Health Maintenance Results * HEPATITIS C ANTIBODY - SCREENING (12/30/2016 9:14 AM EDT) Hep C Ab Negative Negative [facility] Blood specimen (specimen) UPPER LIMB STRUCTURE / Unknown 12/30/2016 9:14 AM EDT 12/30/2016 5:52 PM EDT Samy Bejarano MD HEMATOLOGY ORDERABLES Final Result [facility] [address] [place] [address] from Last 3 Months or Most Recently Relevant to [place] [address]
--- OUTSIDE RECORDS SUMMARY | 2025-04-29 14:52 | XMS_ITS | Encounter Summary ---
Author Organization [facility] Address [address] [place] [id number] Care Team Providers Care Gas Station Cashier Name Role Phone Abbe Canales MD Primary Care Provider [phone] Reason for Visit * Reason Onset Date Comments Med Refill 04/27/2025 Encounter Details Date Type Department Care Team (Late st Contact Info) Description 04/27/2025 Refill [facility] C[facility]IOLOG[facility] [address] [facility] [address] [place] [phone] Siddharth Garcia MD [address] [facility] [address] [place] [address] Med Refill Social History Tobacco Use Types Packs/Day Years [...] or training? Not on file Preferred Language Grenadian 03/09/2024 Sex and Gender Information Value Date Recorded Sex Assigned at Male 04/06/2025 9:17 AM EDT Legal Sex Male 10:32 AM EDT Gender Identity Not on file Sexual Orientation Not on file documented as of this encounter Plan of Treatment Upcoming Encounters Date Type Department Care Team (Late st Contact Info) Description 05/03/2025 8:15 AM EDT Appointment [facility] [place] [address] [facility] [address] [place] [address] 05/03/2025 9:45 AM EDT Appointment [facility] [place] [address] [facility] [address] [place] [address] 12/13/2025 10:15 AM EDT Office Visit [facility] [address] [facility] [address] [place] [address] Siddharth Garcia MD [address] [facility] [address] [place] [address] documented as of this encounter Visit Diagnoses Not on filedocumented in this encounter Care Teams Gas [employer] Cashier Relationship Specialty Start Date End Date Abbe Canales MD [address]10 [facility] [address] [place] [address] PCP - General Family Medicine 12/15/23 documented as of this encounter
--- OUTSIDE RECORDS SUMMARY | 2025-04-29 14:52 | XMS_ITS | Clinical Summary ---
Author Organization [facility] Address [address] [place] [address] Care Team Providers Care Med Dir Name Role Phone Abbe Canales MD Primary Care Provider [phone] [phone] Allergies Active Allergy Reactions Criticality Noted Date Comments Lisinopril Cough,Other (See Comments) Low 3 Cough Medications atorvastatin (LIPITOR) 10 MG tablet Take 1 tablet by mouth Daily. 12/10/19 23 Active Coenzyme Q10 (CoQ10) 400 MG capsule Daily. 12/15/19 24 Active vitamin B-12 (CYANOCOBALAMI N) 1000 MCG tablet 1 tablet Daily. 11/14/19 23 Active fluticasone (FLONASE) 50 MCG/ACT nasal spray INSTILL 1 SPRAY INTRANASALLY DAILY FOR ALLERGIC RHINITIS 11/20/19 24 Active furosemide (LASIX) 40 MG tablet Take 1 tablet by mouth 2 (Two) Times a Day. 10/10/19 19 Active losartan (COZAAR) 50 MG tablet Take 1 tablet by mouth Daily. 12/10/19 23 Active Stiolto Respimat 2.5-2.5 MCG/ACT aerosol solution inhaler 2 puffs Daily. 02/20/20 23 Active albuterol sulfate HFA 108 (90 Base) MCG/ACT inhaler Inhale 2 puffs Every 4 (Four) Hours As Needed for Wheezing. Active vitamin D3 125 MCG (5000 UT) capsule capsule Take 1 capsule by mouth Daily. Active dilTIAZem HCl ER 120 MG tablet sustained-rele ase 24 hour Take 120 mg by mouth Daily. 11/12/19 25 Active metoprolol succinate XL (TOPROL-XL) 200 MG 24 hr tablet Take 1 tablet by mouth Daily. 10/26/19 25 Active apixaban (ELIQUIS) 5 MG tablet tablet Take 1 tablet by mouth 2 (Two) Times a Day. 60 tablet 5 04/27/20 25 Active apixaban (ELIQUIS) 5 MG tablet tablet Take 1 tablet by mouth 2 (Two) Times a Day. 60 tablet 3 06/15/20 24 025 Discontinue d(Reorder) naproxen (NAPROSYN) 500 MG tablet Take 1 tablet by mouth Every 12 (Twelve) Hours. 08/13/19 25 025 Discontinue d(Patient Reported Not Taking) predniSONE (DELTASONE) 20 MG tablet Take 1 tablet by mouth Every 12 (Twelve) Hours. 08/13/19 025 Discontinue d(Patient Reported Not Taking) Active Problems Problem Noted Date Diagnosed Date Heart failure with mildly re duced ejection fraction (HFmrEF) 04/12/2025 Essential hypertension 11/23/2024 Atrial flutter with rapid ventricular response 0 12/16/2023 Paroxysmal atrial fibrillation 12/16/2023 Encounters Date Type Department Care Team Description 04/27/2025 Refill [facility] [address] [facility] [address] [place] [address] Siddharth Garcia MD Med Refill 04/12/2025 9:00 AM EDT Office Visit [facility] [address] [facility] [address] [place] [address] Jadon Cedeño PA-C Paroxysmal atrial fibrillation (Primary Dx); Essential hypertension; Heart failure with mildly reduced ejection fraction (HFmrEF) 04/12/2025 Travel 03/14/2025 Telephone [facility] [address] [place] [address] Siddharth Garcia MD Appointment from Last 3 Months Immunizations Immunization Administration Dates Next Due 31-influenza Vac Quardvalent Preservativ 06/01/2021,05/03/2020,08/17/2019,04/17 Arexvy (RSV, Adults 60+ yrs) 06/18/2023 Pneumococcal Conjugate 20-Va lent (PCV20) 05/18/2024 Pneumococcal Polysaccharide (PPSV23) 05/03/2020, 12/30/2016 Tdap 03/17/2014 Family History Medical History Relation Name Comments Clotting disorder Mother [place] Clots in l egs Thrombosis Mother [place] Relation Name Status Comments Father Mother [place] Alive Social History Tobacco Use Types Packs/Day Years [...] or training? Not on file Preferred Language Citizen Of [place] 03/09/2024 Sex and Gender Information Value Date Recorded Sex Assigned at Male 04/06/2025 9:17 AM EDT Legal Sex Male 10:32 AM EDT Gender Identity Not on file Sexual Orientation Not on file Last Filed Vital Signs Vital Sign Reading Time Taken Comments Blood Pressure 110/70 04/12/2025 8:45 AM EDT Pulse 65 04/12/2025 8:45 AM EDT Temperature 35.8 C (96.5 F) 04/14/2024 9:12 AM EDT Respiratory Rate 18 04/14/2024 9:12 AM EDT Oxygen Saturation 96% 04/12/2025 8:45 AM EDT Inhaled Oxygen Concentration - - Weight 76 kg (167 lb 9.6 oz) 04/12/2025 8:45 AM EDT Height 177.8 cm (5' 10 ) 04/12/2025 8:45 AM EDT Body Mass Index 24.05 04/12/2025 8:45 AM EDT Plan of Treatment Upcoming Encounters Date Type Department Care Team (Late st Contact Info) Description 05/03/2025 8:15 AM EDT Appointment [facility] [place] [address] [facility] [address] [place] [address] 05/03/2025 9:45 AM EDT Appointment [facility] [place] [address] [facility] [address] [place] [address] 12/13/2025 10:15 AM EDT [facility] [address] [facility] [address] [place] [address] Siddharth Garcia MD [address] [facility] [address] [place] [id number] Health Maintenance Due Date Last Done Comments COLON CANCER SCREENING 5 YEA R SIGMOIDOSCOPY [address] COLONOGRAPHY 2002 FECAL OCCULT BLOOD TEST 2002 FIT Testing (1 year) 2002 ZOSTER VACCINE (1 of 2) 2007 AAA SCREEN ONCE 2022 ANNUAL WELLNESS VISIT 12/15/2023 HEPATITIS C SCREENING 12/15/2023 TDAP/TD VACCINES (2 - Td or Tdap) 03/17/2024 014 INFLUENZA VACCINE 03/11/2025 06/01/2021, , 08/17/2019, Additional history exists COVID-19 Vaccine (5 - 2023-2 5 season) 2025 05/18/2024, 04/25/2021, 09/05/2020, Additional history exists COLOGUARD 09/29/2026 09/29/2023, 05/16/2020 COLORECTAL CANCER SCREENING 09/29/2026 Pneumococcal Vaccine 50+ Completed 024, 05/03/2020, 12/30/2016 Procedures Procedure Name Priority Date/Time Associated Diagnosis Comments ECG 12-LEAD Routine 04/12/2025 Paroxysmal atrial fibrillation from Last 3 Months Results * ECG 12-LEAD (04/12/2025) Narrative 04/12/2025 [...] were not included. Cardiac Electrophysiology Outpatient Note [facility] Office Visit Claude Ramesh Rey Campos [id number] 11/23/2024 Primary Care Physician: Abbe Canales MD [...] stoppingAmiodarone today).; Surgeon: Siddharth Garcia MD; Location: [facility] LOCATION; Service: Cardiovascular; Laterality: N/A; CARDIOVERSION [...] Echo Complete W/ Cont if Necessary Per Fdmxwfqq31/29/2025 4:13 PM Interpretation Summary Left ventricular systolic [...] lateral t wave inversions likelynonspecific Claude Le . reports that he quit smoking about 2 [...] 46-50%. Patient will get astress test at [place] as soon as reasonable. If this rules [...] questions orconcerns. Jadon Cedeño PA-C Cardiac Electrophysiology [facility] Jadon Cedeño PA-C ECG ORDERABLES Final Result from Last [address] [facility] OPTIONS MEDICARE A & B Member Subscriber Plan / Payer (Ef fective 2022-Present) Name:Claude Le Jr. Member ID:[id number] Relation to Subscriber:Self Name:Claude Le Jr. Subscriber ID:[id number] Payer ID:[id number] Group ID:Not on file Type:Not on file Address: [facility] [id number] [place] [id number] Care Teams Med Dir Relationship Specialty Start Date End Date Abbe Canales MD [address] [facility] [address] [facility] [address] [address] PCP - General Family Medicine 12/15/23
--- OUTSIDE RECORDS SUMMARY | 2025-04-29 14:52 | XMS_ITS | Clinical Summary ---
Author Organization Healthcare Address [address] [place] [address] Care Team Providers Care Veterinary Radiologist Name Role Phone Unavailable Primary Care Provider Unavailabl e Social History Tobacco Use Types Packs/Day Years Used Date Smoking Tobacco: Never Assessed Sex and Gender Information Value Date Recorded Sex Assigned at Not on file Legal Sex Male 3:45 PM EDT Gender Identity Not on file Sexual Orientation Not on file Plan of Treatment Health Maintenance Due Date Last Done Comments [facility]-Depression Screening 1957 [facility]-/Child/Adol SDOH Screenings 1955 [facility]- SDOH Screenings 1975 [facility]-Adult SDOH Screenings 1975 CT Colonography 2002 Colonoscopy 2002 FIT-DNA 2002 FIT 2002 FOBT 2002 Sigmoidoscopy 2002 [facility]-Colorectal Cancer Screening 2002 [facility]-Zoster Vaccines (1 of 2) 2007 [facility]-Pneumococcal Vaccine: 50+ Years (2 of 2 - PCV) 05/03/2021 05/03/2020, 12/30/2016 [facility]-DTaP,Tdap,and Td Vaccines (2 - Td or Tdap) 03/17/2024 03/17/2014 [id number] Vaccine (4 - season) 2025 04/25/2021, 09/05/2020, 08/08/2020 [facility]-Influenza Vaccine (#1) 04/11/202506/01, 05/03/2020, 08/17/2019, Additional history exists [facility]-RSV Vaccine: 60+ Years or (1 - 1-dose 75+ series) 2032 HPV Vaccines Aged Out No longer eligi ble based on patient's age to complete this topic [facility]-HIB Vaccines Aged Out No longer e ligible based on patient's age to complete this topic [facility]-Hepatitis A Vaccines Aged Out No longer eligible based on patient's age to complete this topic [facility]-IPV Vaccines Aged Out No longer e ligible based on patient's age to complete this topic [facility]Y-Rotavirus Vaccines Aged Out No lo nger eligible based on patient's age to complete this topic Insurance MEDICARE
--- OUTSIDE RECORDS SUMMARY | 2025-04-29 14:52 | XMS_ITS | Encounter Summary ---
Author Organization [facility] Address [address] [place] [id number] Care Team Providers Care Plastic Surgery Specialist Name Role Phone Abbe Canales MD Primary Care Provider [phone] [phone] Reason for Visit * Reason Onset Date Comments Appointment 03/14/2025 Encounter Details Date Type Department Care Team (Late st Contact Info) Description 03/14/2025 Telephone [facility] [address] [facility] [address] [place] [address] Siddharth Garcia MD [address] [facility] [address] [place] [address] Appointment Social History Tobacco Use Types Packs/Day Years [...] or training? Not on file Preferred Language Nauruan 03/09/2024 Sex and Gender Information Value Date Recorded Sex Assigned at Male 04/06/2025 9:17 AM EDT Legal Sex Male 10:32 AM EDT Gender Identity Not on file Sexual Orientation Not on file documented as of this encounter Miscellaneous Notes * Telephone Encounter - Gary Pelaez RegSched Rep - 03/14/2025 4:41 PM EDT LVM FOR PATIENT TO RETURN CALL TO [facility] APPT. documented in this encounter Plan of Treatment Upcoming Encounters Date Type Department Care Team (Late st Contact Info) Description 05/03/2025 8:15 AM EDT Appointment [facility] [address] [place] [address] 05/03/2025 9:45 AM EDT Appointment [facility] [address] [place] [address] 12/13/2025 10:15 AM EDT Office Visit [facility] [address] [facility] [address] [place] [address] Siddharth Garcia MD [address] [facility] [address] [place] [address] documented as of this encounter Visit Diagnoses Not on filedocumented in this encounter Care Teams Plastic Surgery Specialist Relationship Specialty Start Date End Date Abbe Canales MD [address] [facility] [address] [place] [address] PCP - General Family Medicine 12/15/23 documented as of this encounter
--- OUTSIDE RECORDS SUMMARY | 2025-04-29 14:52 | XMS_ITS | Encounter Summary ---
Author Organization [facility] Address [address] [place] [address] Care Team Providers Care Manager Product Support Name Role Phone Abbe Canales MD Primary Care Provider [phone] [phone] Encounter Details Date Type Department Care Team (Latest Contact Info) Description 04/12/2025 Travel Social History Tobacco Use Types Packs/Day Years [...] Info) Description 05/03/2025 8:15 AM EDT Appointment [facility] [place] [address] [facility] [address] [place] [address] 05/03/2025 9:45 AM EDT Appointment [facility] [place] [address] [facility] [address] [place] [address] 12/13/2025 10:15 AM EDT Office Visit [facility] [address] [facility] [address] [place] [address] Siddharth Garcia MD [address] [facility] [address] [place] [address] documented as of this encounter Visit Diagnoses Not on filedocumented in this encounter Care Teams Manager Product Support Relationship Specialty Start Date End Date Abbe Canales MD [address] [facility] [address] [facility] [address] [place] [address] PCP - General Family Medicine 12/15/23 documented as of this encounter
[2025-04-29] MEDS: ALBUTEROL 0.083% 2.5 MG/3 ML NEB IH (16:15)
--- NOTE | 2025-04-29 16:15 | PC.NURSE ---
Pre and Post Spirometry completed without incident. Albuterol 0.083% given via HHN, per written protocol, Pt tolerated tx well.
== END 2025-04-29 23:59 | disposition home or self-care (01) ==
LOC: RT 14:50
PROVIDERS: PCP Family Medicine; Visit Provider Internal Medicine Pulmonary Disease
DX: J44.9 Chronic obstructive pulmonary disease, unspecified (principal); R94.2 Abnormal results of pulmonary function studies
CPT/HCPCS: 94010; 94618

== ENCOUNTER 2025-05-09 07:54 | Outpatient (CLI) | payer MEDICARE, SELFPAY ==
--- OUTSIDE RECORDS SUMMARY | 2024-10-11 06:45 | XMS_ITS ---
Author Organization [facility] Address [address] [facility] [address] [place] [address] [place] [id number] Care Team Providers Care [employer] Name Role Phone Hunter Canales Primary Care Provider [phone] Allergies No Known Allergies Results Component Value Reference Range Notes EKG Reviewed date:10/11/2024 12:23:22 PM Interpretation: Performing Lab: Notes/Report: REASON FOR VISIT 2 week f/u Medications Medication SIG (Take, Route, Frequency, Duration) Notes Start Date End Date Status Potassium Chloride ER 20 MEQ 1 tablet with food Orally Once a day; Duration: 90 days Active Atorvastatin Calcium 10 MG 1 tab(s) orally once a day; Duration: 90 days Active Metoprolol Succinate ER 100 MG 1 tab(s) orally once a day; Duration: 30 day(s) Active dilTIAZem HCl ER Coated Beads 120 MG TAKE 1 CAPSULE ORALLY ONCE DAILY; Duration: 30 days Not-Taking Albuterol Sulfate HFA 108 (90 Base) MCG/ACT 1 puff(s) inhaled every morning Active Stiolto Respimat 2.5-2.5 MCG/ACT 2 puffs Inhalation Twice a day Active Vitamin D3 125 MCG (5000 UT) 1 cap(s) orally once a day 02/20/2018 Active B-12 1000 MCG 1 tab(s) orally once a day 02/20/2018 Active Furosemide 40 MG 1 tab(s) orally once a day Active Fluticasone Propionate 50 MCG/ACT 1 spray(s) intranasally once a day; Duration: 30 day(s) Active Co Q-10 400 MG as directed Orally Active Eliquis 5 MG as directed Orally t wice a day Active Losartan Potassium 50 MG 1 tablet Orally Once a day; Duration: 30 day(s) Active Ipratropium-Albuterol 0.5-2.5 (3) MG/3ML 3 mL as needed Inhalation every 6 hrs Active Social History Tobacco Use: Social History Observation Description Date Details (start date - stop date) Former Smoker NA - 12/12/2022 CURRENT TOBACCO USE: Question Answer Notes Are you a: former smoker When did you stop smoking? 12/12/2022 Problems Problem Type SNOMED Code ICD Code Onset Dates Problem Status W/U Status Risk Notes Problem Paroxysmal tachycardia (89945633) Paroxysmal tachycardia (I47.9) Active confirmed Problem Atrial flutter (4786675) Atrial flutter, unspecified type (I48.92) Active confirmed Vital Signs Blood pressure systolic 80 mm Hg 10/12/19 25 Blood pressure diastolic 64 mm Hg 025 Heart Rate 65 /min 10/11/2024 Height 69 in 10/11/2024 Weight 175.0 lbs 10/11/2024 BMI 25.84 kg/m2 10/11/2024 Encounters Encounter Location Date Provider Diagnosis [facility] [address] [facility] [address] [place], [place] [id number] 10/11/2024 Hunter Canales Paroxysmal atrial fibrillation I48.0 ; Atrial flutter, unspecified type I48.92 ; S/P atrioventricular jules ablation Z98.890 and Paroxysmal tachycardia I47.9 Assessments Encounter Date Diagnosis (ICD Code) Assessment Notes Treatment Notes Treatment Clinical Notes Section Notes 10/11/2024 Paroxysmal atrial fibrillation (ICD-10 - I48.0) 10/11/2024 Atrial flutter, unspecified type (ICD-10 - I48.92) 10/11/2024 S/P atrioventricular jules ablation (ICD-10 - Z98.890) 10/11/2024 Paroxysmal tachycardia (ICD-10 - I47.9) I spoke with Teofilo Carrillo [facility] cardiology. He is to come to their office for evaluation. Plan Of Treatment Treatment Notes Assessment Notes Paroxysmal tachycardia I spoke with Celia Carrillo [facility] cardiology. He is to come to their office for evaluation. Next Appt Details Follow Up: 4 Weeks, Reason: Provider Name:Hunter Wei er, 06/27/2025 01:15:00 PM, [address], [address], [place], [place], [id number], Progress Notes * STACY LE JrDOB: (69 yo M)Acc No.[id number]:10/11/2024 Progress Notes Patient: STACY WEI Jr Provider: Hunter Canales M.D. :1955 A ge:69 Y S ex:Male Date:10/11/2024 Address:[address] [place] [address], [facility], [id number] Subjective: * Chief Complaints: * 1 . 2 week f/u. * HPI: C ardiology: The patient is here for a 2 week follow up on A Fib. Pt states he saw Dr De Jesus and he was not in A fib but is doing the heart monitor for 30 days. 69 year old male presents with c/o Short of Breath w ith exertion. c/o Dizziness w hile getting up from sitting position. Denies : Chest Pain. D enies : Palpitations. * ROS: D ERMATOLOGY: no R nyla. n o H jason. G ASTROENTEROLOGY: no N ausea. n o V omiting. n o D iarrhea.? U ROLOGY: no D ifficulty urinating. n o B lood in urine. * Medical History: A denosine GXT 08/2017, Kidney Stones, Dt 2005, A-Fib, 11/2018 , EF=30-35%, 11/2018, EF=45%, 02/09/2019. * Surgical History: H ernia Removal - [facility] in [place], [place] , RT Meniscus Repair - Dr. Acosta 07/22/2017, Tonsillectomy 1968, Colonoscopy, Dr. Everett, 3 polyps 03/31/2024 , Ablation, [facility] Dr. Garcia 03/15/2024. * Hospitalization/Major Diagno stic Procedure: A -Fib 12/08/2018. * Family History: F ather: . M other: . 1 brother(s) . 2 son(s) . . Mother-Blood Clot in Lungs. * Social History: C URRENT TOBACCO USE A re you a: f ormer smoker, W hen did you stop smoking? 0 12/12/2022. C affeine: yes, frequency:soft drinks. Home smoke detector use: yes. Marital Status: . Alcohol: Yes, Type: , Frequency: ,Years: , Determination:, occasional. Travel ouside [place]: no. * Medications: T aking Co Q-10 400 MG Capsule as directed Orally , Taking Eliquis 5 MG Tablet as directed Orally twice a day , Taking Losartan Potassium 50 MG Tablet 1 tablet Orally Once a day , Taking Ipratropium-Albuterol 0.5-2.5 (3) MG/3ML Solution 3 mL as needed Inhalation every 6 hrs , Taking Stiolto Respimat 2.5-2.5 MCG/ACT Aerosol Solution 2 puffs Inhalation Twice a day , Taking Vitamin D3 125 MCG (5000 UT) Capsule 1 cap(s) orally once a day , Taking B-12 1000 MCG Tablet 1 tab(s) orally once a day , Taking Furosemide 40 MG Tablet 1 tab(s) orally once a day , Taking Fluticasone Propionate 50 MCG/ACT Suspension 1 spray(s) intranasally once a day , Taking Albuterol Sulfate HFA 108 (90 Base) MCG/ACT Aerosol Solution 1 puff(s) inhaled every morning , Taking Potassium Chloride ER 20 MEQ Tablet Extended Release 1 tablet with food Orally Once a day , Taking Atorvastatin Calcium 10 MG Tablet 1 tab(s) orally once a day , Taking Metoprolol Succinate ER 100 MG Tablet Extended Release 24 Hour 1 tab(s) orally once a day , Not-Taking dilTIAZem HCl ER Coated Beads 120 MG Capsule Extended Release 24 Hour TAKE 1 CAPSULE ORALLY ONCE DAILY , Medication List reviewed and reconciled with the patient * Allergies: N .K.D.A. Objective: * Vitals: W t:175.0, Temp:97.8, BP:80/64, HR:65, O2 Sat:97% on RA, Nurse:FREDDY, Ht: 69, BMI:25.84. * Examination: G eneral Examination: General Appearance: N AD. H EENT: u nremarkable.?Oral cavity: m ucosa moist and WNL, no erythema. N jeff: s upple, no lymphadenopathy.?Chest: n ormal shape and expansion. H eart: i rregular rhythm, 100. Runs of tachycardia. L ungs: c lear to auscultation. A bdomen: soft and nontender. N eurologic Exam: I ntact, gait normal. S kin: s kin is dry, no rash. P eripheral pulses: n ormal . E xtremities: n o leg edema. Assessment: * Assessment: 1. A trial flutter, unspecified type - I48.92 (Primary) 2 . P aroxysmal atrial fibrillation - I48.0 3 . S /P atrioventricular jules ablation - Z98.890 4 . P aroxysmal tachycardia - I47.9 Plan: * Treatment: 2.?Paroxysmal tachycardia? Notes: I spoke with Teofilo Carrillo [facility] cardiology. He is to come to their office for evaluation. ? * Procedure Codes: G 2211 Complex e/[place], [address] [place], 3074F SYST BP LT 130 MM HG, 3078F DIAST BP < 80 MM HG * Follow Up: 4 Weeks * Images: Billing Information: * Visit Code: 41212 Office Visit, Est Pt., Level 3. * Procedure Codes: G2211 Complex e/[place]. [address] P[place]SE [place]. 3074F SYST BP LT 130 MM HG. 3078F DIAST BP < 80 MM HG. * Electronic signature of Hunter Canales MD on 05/09/2025 at 07:59 AM EDT Sign off status: Pending * Provider: Hunter Canales M.D. Date: 0 10/11/2024 Generated for Mary contreras/Sally/eTransmitting on: 0 05/09/2025 07:59 AM EDT History and Physical Notes * HPI (History of Present Illness) Category Sub-Category Detail Notes Category Not es Cardiology Short of Breath with exertion Chest Pain Palpitations Dizziness while getting up fro m sitting position Examination Category Sub-Category Detail Notes Category Not es General Examination HEENT: unremarkable Heart: irregular rhythm, 10 0. Runs of tachycardia Lungs: clear to auscultatio n Abdomen: soft and nontender Extremities: no leg edema General Appearance: NAD Skin: skin is dry, no rash Neurologic Exam: Intact, gait normal Neck: supple, no lymphaden opathy Oral cavity: mucosa moist and WNL , no erythema Peripheral pulses: normal Chest: normal shape and exp ansion
--- OUTSIDE RECORDS SUMMARY | 2025-02-07 11:00 | XMS_ITS ---
Author Organization [facility] Address [address] [facility] [address] [place] [id number] Care Team Providers Care Survey Researcher Name Role Phone Hunter Canales Primary Care Provider [phone] Allergies No Known Allergies Results Component Value Reference Range Notes CBC Venipuncture (in house) Reviewed date:02/08/2025 06:06:55 PM Interpretation: Performing Lab: Notes/Report: wbc 10.0 3.5 - 10 lymph 25.2% 15 - 50 mid 6.1% 2 - 15 gran 68.7% 35 - 80 rbc 4.58 3.5 - 5.5 hgb 13.3 11.5 - 16.5 hct 41.4 35 - 55 mcv 90.4 75 - 100 mch 29.1 25 - 35 mchc 32.2 31 - 38 platlet 258 100 - 400 P-Basic Metabolic Panel (BMP ) Reviewed date:03/15/2025 03:29:43 PM Interpretation:satisfactory Performing Lab: Notes/Report: CLIA: [id number] Conrad Baires MD, Informatics Nurse [facility] [facility] , [address], [place] [address] Test performed by [facility], [facility] Sodium 141 135-145 mmol/L Potassium 4.5 3.5-5.3 mmol/L Chloride 104 97-108 mmol/L CO2 26 20-32 mmol/L Glucose 84 65-99 mg/dL BUN 27 8-23 mg/dL Creatinine 1.20 0.70-1.30 mg/dL Calcium 9.4 8.6-10.4 mg/dL eGFR by Creatinine 66 >59 mL/min/1.73m2 REASON FOR VISIT 6 weeks Medications Medication SIG (Take, Route, Frequency, Duration) Notes Start Date End Date Status Losartan Potassium 50 MG 1 tablet Orally Once a day; Duration: 30 day(s) Not-Mayco ing dilTIAZem HCl ER Coated Beads 120 MG TAKE 1 CAPSULE ORALLY ONCE DAILY; Duration: 30 days Active Potassium Chloride ER 20 MEQ TAKE 1 TABLET BY MOUTH EVERY DAY WITH FOOD FOR 90 DAYS; Duration: 90 Active Atorvastatin Calcium 10 MG 1 tab(s) orally once a day; Duration: 90 days Active Metoprolol Succinate ER 200 MG 1 tab(s) orally once a day; Duration: 30 days Active Vitamin D3 125 MCG (5000 UT) 1 cap(s) orally once a day 02/20/2018 Active Fluticasone Propionate 50 MCG/ACT 1 spray(s) intranasally once a day; Duration: 30 day(s) Active Albuterol Sulfate HFA 108 (90 Base) MCG/ACT 1 puff(s) inhaled every morning Active B-12 1000 MCG 1 tab(s) orally once a day 02/20/2018 Active Furosemide 40 MG 1 tab(s) orally once a day Active dilTIAZem HCl ER 120 MG 1 capsule Orally Twice a day Active Stiolto Respimat 2.5-2.5 MCG/ACT 2 puffs Inhalation Twice a day Active Eliquis 5 MG as directed Orally t wice a day Active Social History Tobacco Use: Social History Observation Description Date Details (start date - stop date) Former Smoker NA - 12/12/2022 CURRENT TOBACCO USE: Question Answer Notes Are you a: former smoker When did you stop smoking? 12/12/2022 Vital Signs Blood pressure systolic 100 mm Hg 02/08/20 25 Blood pressure diastolic 68 mm Hg 025 Heart Rate 57 /min 02/07/2025 Height 69 in 02/07/2025 Weight 170 lbs 02/07/2025 BMI 25.1 kg/m2 02/07/2025 Encounters Encounter Location Date Provider Diagnosis [facility] [address] [facility] [address] [place], [place] [id number] 02/07/2025 Hunter Canales Paroxysmal atrial fibrillation I48.0 ; Bladder carcinoma C67.9 ; S/P atrioventricular jules ablation Z98.890 and BMI 25.0-25.9,adult Z68.25 Assessments Encounter Date Diagnosis (ICD Code) Assessment Notes Treatment Notes Treatment Clinical Notes Section Notes 02/07/2025 Paroxysmal atrial fibrillation (ICD-10 - I48.0) 02/07/2025 Bladder carcinoma (ICD-10 - C67.9) 02/07/2025 S/P atrioventricular jules ablation (ICD-10 - Z98.890) 02/07/2025 BMI 25.0-25.9,adult (ICD-10 - Z68.25) Plan Of Treatment Next Appt Details Follow Up: 2 Weeks, Reason: Provider Name:Hunter Wei er, 06/27/2025 01:15:00 PM, [address], [address], [place], [place], [id number], Progress Notes * STACY LE JrDOB: (69 yo M)Acc No.[id number]:02/07/2025 Progress Notes Patient: Summer VELSTACY Sawant Provider: Hunter Canales M.D. :1955 A ge:69 Y S ex:Male Date:02/07/2025 Address:[address] [place] [address], [facility], [id number] Subjective: * Chief Complaints: * 1 . 6 weeks. * HPI: C ardiology: 69 year old male presents with c/o Palpitations P t is here for f/u on A fib. Pt states he is doing good. Pt states he saw Dr Slade for a follow-up on Bladder cancer. See pt docs. Pt states the subsequent biopsy 12/27/24 was malignant. Pt states after the biopsy a day or two after could not use the bathroom came to ER and then when he did finally go it was blood for 2 days and blood clots. Pt was transferred to [facility]. See pt docs. W ill follow-up with Dr. Slade. Recommended chemo in the bladder. Has not yet been scheduled.. Denies : Chest Pain. D enies : Short of Breath. D enies : Dizziness. While off the blood thinner he developed superficial thrombosis posterior left calf. This lesion persists. * ROS: D ERMATOLOGY: no R nyla. n o H jason. G ASTROENTEROLOGY: no N ausea. n o V omiting. n o D iarrhea.? U ROLOGY: no D ifficulty urinating. n o B lood in urine. * Medical History: A denosine GXT 08/2017, Kidney Stones, Dt 2005, A-Fib, 11/2018 , EF=30-35%, 11/2018, EF=45%, 02/09/2019. * Surgical History: H ernia Removal - [place] in [place], [place] , RT Meniscus Repair - Dr. Acosta 07/22/2017, Tonsillectomy 1968, Colonoscopy, Dr. Everett, 3 polyps 03/31/2024, Ablation, [facility] Dr. Garcia 03/15/2024. * Hospitalization/Major Diagno [...] ouside US: no. * Medications: T aking dilTIAZem HCl ER 120 MG Capsule Extended Release 12 Hour 1 capsule Orally Twice a day , Taking Eliquis 5 MG Tablet as directed Orally twice a day , Taking Stiolto Respimat 2.5-2.5 MCG/ACT Aerosol [...] 1 puff(s) inhaled every morning , Taking Atorvastatin Calcium 10 MG Tablet 1 tab(s) orally once a day , Taking Metoprolol Succinate ER 200 MG Tablet Extended Release 24 Hour 1 tab(s) orally once a day , Taking dilTIAZem HCl ER Coated Beads 120 MG Capsule Extended Release 24 Hour TAKE 1 CAPSULE ORALLY ONCE DAILY , Taking Potassium Chloride ER 20 MEQ Tablet Extended Release TAKE 1 TABLET BY MOUTH EVERY DAY WITH FOOD FOR 90 DAYS , Not-Taking Losartan Potassium 50 MG Tablet 1 tablet Orally Once a day , Discontinued Co Q-10 400 MG Capsule as directed Orally , Discontinued Ipratropium-Albuterol 0.5-2.5 (3) MG/3ML Solution 3 mL as needed Inhalation every 6 hrs , Medication List reviewed and reconciled with the patient * Allergies: N .K.D.A. Objective: * Vitals: W t: 170, Temp: 97.2, BP: 100/68, HR: 57, Nurse: singh, Ht: 69, BMI:25.1. * Examination: G eneral Examination: General Appearance: N AD. H EENT: u nremarkable.?Oral cavity: m ucosa moist and WNL, no erythema. N jeff: s upple, no lymphadenopathy.?Chest: n ormal shape and expansion. H eart: s eems RSR today. L ungs: c lear to auscultation. A bdomen: soft and nontender. N eurologic Exam: I ntact, gait normal. S kin: s kin is dry, no rash. P eripheral pulses: n ormal . E xtremities: t hrombosed lesion of the posterior calf, firm and measures 6 cm. Assessment: * Assessment: 1. P aroxysmal atrial fibrillation - I48.0 (Primary) 2 . B ladder carcinoma - C67.9 3 . S /P atrioventricular jules ablation - Z98.890 4 .?BMI 25.0-25.9,adult - Z68.25 Plan: * Treatment: Value Reference Range B UN 27 H 8-23 - mg/dL * C alcium 9.4 8.6-10.4 - mg/dL * C hloride 104 97-108 - mmol/L * C O2 26 20-32 - mmol/L * C reatinine 1.20 0.70-1.30 - mg/dL * G lucose 84 65-99 - mg/dL * P otassium 4.5 3.5-5.3 - mmol/L * S odium 141 135-145 - mmol/L * e GFR by Creatinine 66 >59 - mL/min/1.73m2 * Ting Cruz 03/15/2025 03: 29:25 PM EDT > Patient informed of normal results. ?LAB: CBC Venipuncture (in house) (Collection Date & Time - 02/07/2025)* Value Reference Range w bc 10.0 3.5 - 10 * l ymph 25.2% 15 - 50 * m id 6.1% 2 - 15 * g ran 68.7% 35 - 80 * r bc 4.58 3.5 - 5.5 * h gb 13.3 11.5 - 16.5 * h ct 41.4 35 - 55 * m cv 90.4 75 - 100 * m ch 29.1 25 - 35 * m chc 32.2 31 - 38 * p latlet 258 100 - 400 * Elisa Barajas 02/07/2025 05:13: 25 PM EDT > * Procedure Codes: G 2211 Complex e/[place], [address] CBC WITH AUTO DIFF, 59181 VENIPUNCT, ROUTINE*, 1036F TOBACCO NON-USER, G8420 BMI<30 AND >=22 CALC & DOCU, G8783 BP SCR PRFRM RCMDD DEFIND SCR INTVL, G8752 MOST RECENT SYSTOLIC BP < 140MM HG, G8754 MOST RECENT DIASTOLIC BP < 90MM HG * Follow Up: 2 Weeks * Images: Billing Information: * Visit Code: 38991 Office Visit, Est Pt., Level 4. * Procedure Codes: G2211 Complex e/[place]. [address] CBC WITH AUTO DIFF. 02252 VENIPUNCT, ROUTINE*. 1036F TOBACCO NON-USER. G8420 BMI<30 AND >=22 CALC & DOCU. G8783 BP SCR PRFRM RCMDD DEFIND SCR INTVL. G8752 MOST RECENT SYSTOLIC BP < 140MM HG. G8754 MOST RECENT DIASTOLIC BP < 90MM HG. * Electronic signature of Hunter Canales MD on 05/09/2025 at 07:58 AM EDT Sign off status: Pending * Provider: Hunter Canales M.D. Date: 0 02/07/2025 Generated for Mary contreras/Sally/Erumitting on: 0 05/09/2025 07:58 AM EDT History and Physical Notes * HPI (History of Present Illness) Category Sub-Category Detail Notes Category Not es Cardiology Short of Breath While off th e blood thinner he developed superficial thrombosis posterior left calf. This lesion persists. Chest Pain Palpitations Pt is here for f/u o n A fib. Pt states he is doing good. Pt states he saw Dr Slade for a follow-up on Bladder cancer. See pt docs. Pt states the subsequent biopsy 12/27/24 was malignant. Pt states after the biopsy a day or two after could not use the bathroom came to ER and then when he did finally go it was blood for 2 days and blood clots. Pt was transferred to [facility]. See pt docs. Will follow-up with Dr. Slade. Recommended chemo in the bladder. Has not yet been scheduled. Dizziness Examination Category Sub-Category Detail Notes Category Not es General Examination HEENT: unremarkable Heart: seems RSR today Lungs: clear to auscultatio n Abdomen: soft and nontender Extremities: thrombosed lesion of the posterior calf, firm and measures 6 cm General Appearance: NAD Skin: skin is dry, no rash Neurologic Exam: Intact, gait normal Neck: supple, no lymphaden opathy Oral cavity: mucosa moist and WNL , no erythema Peripheral pulses: normal Chest: normal shape and exp ansion
--- OUTSIDE RECORDS SUMMARY | 2025-02-21 09:45 | XMS_ITS ---
Author Organization [facility] Address [address] [id number] Care Team Providers Care Student Outreach Coordinator Name Role Phone Hunter Canales Primary Care Provider Allergies No Known Allergies REASON FOR VISIT 2 week f/u Medications Medication SIG (Take, Route, Frequency, Duration) Notes Start Date End Date Status Furosemide 40 MG 1 tab(s) orally once a day Active Fluticasone Propionate 50 MCG/ACT 1 spray(s) intranasally once a day; Duration: 30 day(s) Active Albuterol Sulfate HFA 108 (90 Base) MCG/ACT 1 puff(s) inhaled every morning Active Metoprolol Succinate ER 200 MG 1 tab(s) orally once a day; Duration: 30 days Active dilTIAZem HCl ER Coated Beads 120 MG TAKE 1 CAPSULE ORALLY ONCE DAILY; Duration: 30 days Active B-12 1000 MCG 1 tab(s) orally once a day 02/20/2018 Active dilTIAZem HCl ER 120 MG 1 capsule Orally Twice a day Active Eliquis 5 MG as directed Orally t wice a day Active Stiolto Respimat 2.5-2.5 MCG/ACT 2 puffs Inhalation Twice a day Active Vitamin D3 125 MCG (5000 UT) 1 cap(s) orally once a day 02/20/2018 Active Potassium Chloride ER 20 MEQ TAKE 1 TABLET BY MOUTH EVERY DAY WITH FOOD FOR 90 DAYS; Duration: 90 Active Atorvastatin Calcium 10 MG TAKE 1 TABLET BY MOUTH EVERY DAY FOR 90 DAYS; Duration: 90 Active Losartan Potassium 50 MG 1 tablet Orally Once a day; Duration: 30 day(s) Not-Mayco ing Social History Tobacco Use: Social History Observation Description Date Details (start date - stop date) Former Smoker NA - 12/12/2022 CURRENT TOBACCO USE: Question Answer Notes Are you a: former smoker When did you stop smoking? 12/12/2022 Vital Signs Blood pressure systolic 110 mm Hg 02/22/20 25 Blood pressure diastolic 78 mm Hg 025 Heart Rate 62 /min 02/21/2025 Height 69 in 02/21/2025 Weight 170.0 lbs 02/21/2025 BMI 25.1 kg/m2 02/21/2025 Encounters Encounter Location Date Provider Diagnosis [facility] [address] [facility] [address] [facility] [address] [place] [id number] 02/21/2025 Hunter Canales Paroxysmal atrial fibrillation I48.0 ; Arteriosclerotic cardiovascular disease I25.10 ; Bladder carcinoma C67.9 and BMI 25.0-25.9,adult Z68.25 Assessments Encounter Date Diagnosis (ICD Code) Assessment Notes Treatment Notes Treatment Clinical Notes Section Notes 02/21/2025 Paroxysmal atrial fibrillation (ICD-10 - I48.0) continue current therapy 02/21/2025 Arteriosclerotic cardiovascular disease (ICD-10 - I25.10) 02/21/2025 Bladder carcinoma (ICD-10 - C67.9) 02/21/2025 BMI 25.0-25.9,adult (ICD-10 - Z68.25) Plan Of Treatment Treatment Notes Assessment Notes Paroxysmal atrial fibrillation continue current therapy Next Appt Details Follow Up: 2 Months, Reason: Provider Name:Hunter Wei er, 06/27/2025 01:15:00 PM, [address] [facility] [address] [facility], [address], [place], [id number], Progress Notes * STACY LE JrDOB: (69 yo M)Acc No.[id number]:02/21/2025 Patient: STACY WEI Jr Provider: Hunter Canales M.D. :1955 A ge:69 Y S ex:Male Date:02/21/2025 Address:[address] [place] [address] [facility], [id number] Subjective: * Chief Complaints: * 1 . 2 week f/u. * HPI: C ardiology: The pt is here for a follow up on swelling in the left leg. Pt states the swelling is some better.? Has appt to be scheduled for echo. Also will be scheduling chemo for bladder. The calf lesion is still prominent, but not painful. Denies : Chest Pain. D enies : Short of Breath. D enies : Dizziness. D enies : Palpitations. * ROS: D [...] * Surgical History: H ernia Removal - [place] in [place], [place] , RT Meniscus Repair - Dr. Acosta 07/22/2017, Tonsillectomy 1969, Colonoscopy, Dr. Everett, 3 polyps 03/31/2024, Ablation, [facility] Dr. Garcia 03/15/2024. * Hospitalization/Major Diagno [...] 1 puff(s) inhaled every morning , Taking Metoprolol Succinate ER 200 MG Tablet Extended Release 24 Hour 1 tab(s) orally once a day , Taking dilTIAZem HCl ER Coated Beads 120 MG Capsule Extended Release 24 Hour TAKE 1 CAPSULE ORALLY ONCE DAILY , Taking Potassium Chloride ER 20 MEQ Tablet Extended Release TAKE 1 TABLET BY MOUTH EVERY DAY WITH FOOD FOR 90 DAYS , Taking Atorvastatin Calcium 10 MG Tablet TAKE 1 TABLET BY MOUTH EVERY DAY FOR 90 DAYS , Not-Taking Losartan Potassium 50 MG Tablet 1 tablet Orally Once a day , Medication List reviewed and reconciled with the patient * Allergies: N .K.D.A. Objective: * Vitals: W t: 170.0, Temp: 97.6, BP: 110/78, HR: 62, O2 Sat: 98% on RA, Nurse: FREDDY, Ht: 69, BMI:25.1. * Examination: G eneral Examination: General Appearance: N AD. H EENT: u nremarkable.?Oral cavity: m ucosa moist and WNL, no erythema. N jeff: s upple, no lymphadenopathy.?Chest: n ormal shape and expansion. H eart: R SR today. L ungs: c lear to auscultation. A bdomen: soft and nontender. N eurologic Exam: I ntact, gait normal. S kin: s kin is dry, no rash. P eripheral pulses: n ormal . E xtremities: t hrombosed lesion of the posterior calf, firm and still prominent. Assessment: * Assessment: 1. P aroxysmal atrial fibrillation - I48.0 (Primary) 2 . A rteriosclerotic cardiovascular disease - I25.10 3 . B ladder carcinoma - C67.9 4 . B [place] 25.0-25.9,adult - Z68.25 Plan: * Treatment: * Procedure Codes: G 2211 Complex e/m visit add on, G8420 BMI<30 AND >=22 CALC & DOCU, 1036F TOBACCO NON-USER, G8783 BP SCR PRFRM RCMDD DEFIND SCR INTVL, G8752 MOST RECENT SYSTOLIC BP < 140MM HG, G8754 MOST RECENT DIASTOLIC BP < 90MM HG * Follow Up: 2 Months * Images: Billing Information: * Visit Code: 46301 Office Visit, Est Pt., Level 3. * Procedure Codes: G2211 Complex e/m visit add on. G8420 BMI<30 AND >=22 CALC & DOCU. 1036F TOBACCO NON-USER. G8783 BP SCR PRFRM RCMDD DEFIND SCR INTVL. G8752 MOST RECENT SYSTOLIC BP < 140MM HG. G8754 MOST RECENT DIASTOLIC BP < 90MM HG. * Electronic signature of Hunter Canales MD on 05/09/2025 at 07:58 AM EDT Sign off status: Pending * Provider: Hunter Canales M.D. Date: 0 02/21/2025 Generated for Susanai diane/Sally/eTransmitting on: 0 05/09/2025 07:58 AM EDT History and Physical Notes * HPI (History of Present Illness) Category Sub-Category Detail Notes Category Not es Cardiology Short of Breath Chest Pain Palpitations Dizziness Examination Category Sub-Category Detail Notes Category Not es General Examination HEENT: unremarkable Heart: RSR today Lungs: clear to auscultatio n Abdomen: soft and nontender Extremities: thrombosed lesion of the posterior calf, firm and still prominent General Appearance: NAD Skin: skin is dry, no rash Neurologic Exam: Intact, gait normal Neck: supple, no lymphaden opathy Oral cavity: mucosa moist and WNL , no erythema Peripheral pulses: normal Chest: normal shape and exp ansion
--- OUTSIDE RECORDS SUMMARY | 2025-04-12 09:00 | XMS_ITS | Encounter Summary ---
Author Organization [facility] Address [address] [place] [address] Care Team Providers Care Hydrologic Engineer Name Role Phone Abbe Canales MD Primary Care Provider [phone] Reason for Referral * Cardiac Stress Testing (Routine) - Authorized Specialty Diagnoses / Procedures Referred By Contac t Referred To Contact Diagnoses Paroxysmal atrial fibrillation Heart failure with mildly reduced ejection fraction (HFmrEF) Procedures Stress Test With Myocardial Perfusion (1 Day) Stress Test With Myocardial Perfusion (1 Day) Jadon Cedeño PA-C [address] [facility] [address] [place] [address] Phone: tel: fax: [address] [address] Phone: tel: Referral ID Status Reason Start Date Expiration Date V isits Requested Visits Authorized [id number] Authorized 04/12/2025 07/12/2026 4 4 Reason for Visit * Reason Comments Atrial flutter with rapid ventricular re sponse Encounter Details Date Type Department Care Team (Late st Contact Info) Description 04/12/2025 9:00 AM EDT Office Visit [facility] [address] [facility] [address] [place] [id number] Jadon Cedeño PA-C [address] [facility] [address] [place] [address] Paroxysmal atrial fibrillation (Primary Dx); Essential hypertension; Heart failure with mildly reduced ejection fraction (HFmrEF) Social History Tobacco Use Types Packs/Day Years Used Date Smoking Tobacco: Former Cigarettes Q uit: 2022 Passive Smoke Exposure: Past Smokeless Tobacco: Never Alcohol Use Standard Drinks/Week Comments Not Currently 0 (1 standard drink = 0.6 oz pur e alcohol) 2 BEERS YEARLY AUDIT-C Answer Date Recorded Q1: How often do you have a drink containing alcohol? Never 03/15/2024 Q2: How many drinks containi ng alcohol do you have on a typical day when you are drinking? Patient does not drink Q3: How often do you have si x or more drinks on one occasion? Never 03/15/2024 Abuse Screen Answer Date Recorded Feels Unsafe at Home or Work/School no 03/15/2024 Feels Threatened by Someone no 12/2023 Does Anyone Try to Keep You From Having Contact with Others or Doing Things Outside Your Home? no 03/15/2024 Physical Signs of Abuse Present no 03/15/2024 Housing Stability Answer Date Recorded Current Living Arrangements home 12/2023 Potentially Unsafe Housing Conditions Not on clau e 03/15/2024 Disabilities Answer Date Recorded Difficulty Concentrating, Remembering or Making Decisions no 03/15/2024 Difficulty Managing Errands Independently no 03/15/2024 Education Answer Date Recorded Help with school or training? Not on file Preferred Language Algerian 03/09/2024 Sex and Gender Information Value Date Recorded Sex Assigned at Male 04/06/2025 9:17 AM EDT Legal Sex Male 10:32 AM EDT Gender Identity Not on file Sexual Orientation Not on file documented as of this encounter Last Filed Vital Signs Vital Sign Reading Time Taken Comments Blood Pressure 110/70 04/12/2025 8:45 AM EDT Pulse 65 04/12/2025 8:45 AM EDT Temperature - - Respiratory Rate - - Oxygen Saturation 96% 04/12/2025 8:45 AM EDT Inhaled Oxygen Concentration - - Weight 76 kg (167 lb 9.6 oz) 04/12/2025 8:45 AM EDT Height 177.8 cm (5' 10 ) 04/12/2025 8:45 AM EDT Body Mass Index 24.05 04/12/2025 8:45 AM EDT documented in this encounter Progress Notes * Jadon Cedeño PA-C - 04/12/2025 9:00 AM EDTAssociated Order(s): ECG 12 Lead Post-Procedure Diagnose(s): Paroxysmal atrial fibrillation Images from the original note were not included. Cardiac Electrophysiology Outpatient Note [facility] Office Visit Claude Le Jr. [id number] 11/23/2024 Primary Care Physician: Abbe Canales MD Referred By: No ref. provider found Subjective Chief Complaint Patient presents with Atrial flutter with rapid ventricular response Problem List: Paroxysmal atrial fibrillation, atrial flutter 2-week monitor (date ?) : A-fib >60%, 3.2-second conversion pause ECV 2022 TTE 2023 LVEF 50%, moderate RV dilation with moderate RV function reduction, severe RA dilation, nosignificant VHD PVA 03/2024 Dr. Garcia with typical CTI dependent atrial flutter ablation and left atrial roof dependent flutter ablation Monitor 11/2024 40% afib-under media tab 11/23/24 CAD, data deficit Hypertension Dyslipidemia Bladder cancer Surgical history: History of hernia repair History of lateral meniscus repair right knee History tonsillectomy History of Present Illness: Claude Le Jr. is a 69 y.o. male who presents to my electrophysiology clinic for follow upof atrial fibrillation and flutter. He underwent ablation in March 2024. This consisted of pulmonary vein isolation, ablation of a roof dependent atrial flutter, and ablation of typical CTI dependent atrial flutter. Patient was last seen in our office in November 2024. At that time, he reported he was having intermittent atrial fibrillation recurrence. 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 This has remained about the samesince we last saw him. We set him up for echocardiogram to rule out structural heart disease ahead of starting flecainide. The echo showed LVEF mildly reduced 46-50%. Stress test was ordered prior to starting flecainide. The patient had issues with recurrence of urothelial cancer that was found kat benign. It caused fairly problematic hematuria requiring outside hospital admission and holding Eliquis for a week. His also had pretty debilitating issues with what was eventually diagnosed as fibromyalgia. Her medicines were adjusted and she is doing better now as well. He has no chest pain or palpitations. He just has functional limitations and fatigue that are very noticeable when he is out of rhythm. 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 Past Medical History: Diagnosis Date Abnormal ECG 2017 Atrial fibrillation and flutter Cancer 2022 bladder COPD (chronic obstructive pulmonary disease) Hyperlipidemia Hypertension Past Surgical History: Procedure Laterality Date ABLATION OF DYSRHYTHMIC FOCUS March 2024 BLADDER SURGERY CARDIAC CATHETERIZATION 2021 CARDIAC ELECTROPHYSIOLOGY PROCEDURE N/A 03/15/2024 Procedure: Ablation atrial fibrillation and atrial flutter ablation. Hold Xarelto the night before the procedure. (The patient is stopping Amiodarone today).; Surgeon: Siddharth Garcia MD; Location: [facility] LOCATION; Service: Cardiovascular; Laterality: N/A; CARDIOVERSION 2020 CATARACT EXTRACTION KNEE CARTILAGE SURGERY Right TONSILLECTOMY UMBILICAL HERNIA REPAIR Family History Problem Relation Age of Onset Thrombosis Mother Clotting disorder Mother Clots in legs Social History Socioeconomic History Marital status: Tobacco Use Smoking status: Former Current packs/day: 0.00 Types: Cigarettes Quit date: 2022 Years since quittin.6 Passive exposure: Past Smokeless tobacco: Never Vaping Use Vaping status: Never Used Substance and Sexual Activity Alcohol use: Not Currently Comment: 2 BEERS YEARLY Drug use: Never Sexual activity: Not Currently Current Outpatient Medications: albuterol sulfate HFA 108 (90 Base) MCG/ACT inhaler, Inhale 2 puffs Every 4 (Four) Hours As Needed for Wheezing., Disp: , Rfl: apixaban (ELIQUIS) 5 MG tablet tablet, Take 1 tablet by mouth 2 (Two) Times a Day., Disp: 60 tablet, Rfl: 3 atorvastatin (LIPITOR) 10 MG tablet, Take 1 tablet by mouth Daily., Disp: , Rfl: Coenzyme Q10 (CoQ10) 400 MG capsule, Daily., Disp: , Rfl: dilTIAZem HCl ER 120 MG tablet sustained-release 24 hour, Take 120 mg by mouth Daily., Disp: , Rfl: fluticasone (FLONASE) 50 MCG/ACT nasal spray, INSTILL 1 SPRAY INTRANASALLY DAILY FOR ALLERGIC RHINITIS, Disp: , Rfl: furosemide (LASIX) 40 MG tablet, Take 1 tablet by mouth 2 (Two) Times a Day., Disp: , Rfl: losartan (COZAAR) 50 MG tablet, Take 1 tablet by mouth Daily., Disp: , Rfl: metoprolol succinate XL (TOPROL-XL) 200 MG 24 hr tablet, Take 1 tablet by mouth Daily., Disp: , Rfl: Stiolto Respimat 2.5-2.5 MCG/ACT aerosol solution inhaler, 2 puffs Daily., Disp: , Rfl: vitamin B-12 (CYANOCOBALAMIN) 1000 MCG tablet, 1 tablet Daily., Disp: , Rfl: vitamin D3 125 MCG (5000 UT) capsule capsule, Take 1 capsule by mouth Daily., Disp: , Rfl: Allergies: Allergies Allergen Reactions Lisinopril Cough and Other (See Comments) Cough Objective Vital Signs: Blood pressure 110/70, pulse 65, height 177.8 cm (70 ), weight 76 kg (167 lb 9.6 oz), SpO2 96%. PHYSICAL EXAM General appearance: Awake, alert, cooperative Head: Normocephalic, without obvious abnormality, atraumatic Lungs: Clear to ascultation bilaterally Heart: Regular rate and rhythm, no murmurs, no lower extremity swelling Skin: Skin color, turgor normal, no rashes or lesions Neurologic: Grossly normal Lab Results Component Value Date GLUCOSE 106 (H) 03/09/2024 CALCIUM 9.6 03/09/2024 NA 144 03/09/2024 K 4.4 03/09/2024 CO2 32.0 (H) 03/09/2024 CL 106 03/09/2024 BUN 28 (H) 03/09/2024 CREATININE 1.96 (H) 03/09/2024 BCR 14.3 03/09/2024 ANIONGAP 6.0 03/09/2024 Lab Results Component Value Date WBC 7.54 03/09/2024 HGB 14.2 03/09/2024 HCT 44.7 03/09/2024 MCV 92.7 03/09/2024 PLT 227 03/09/2024 Lab Results Component Value Date INR 0.95 01/01/2025 PROTIME 10.6 01/01/2025 Lab Results Component Value Date TSH 7.610 (H) 03/09/2024 Results for orders placed during the hospital encounter of 12/07/24 Adult Transthoracic Echo Complete W/ Cont if Necessary Per Protocol 12/07/2024 4:13 PM Interpretation Summary Left ventricular systolic function is mildly decreased. Left ventricular ejection fraction appears to be 46 - 50%. Left ventricular diastolic function was indeterminate. The right ventricular cavity is moderately dilated. RV function preserved by TAPSE. RA dilated. I personally viewed and interpreted the patient's EKG/Telemetry/lab data ECG 12 Lead Date/Time: 04/12/2025 9:15 AM Performed by: Jadon Cedeño PA-C Authorized by: Jadon Cedeño PA-C Comparison: compared with previous ECG from 11/23/2024 Rhythm: sinus rhythm Ectopy: atrial premature contractions Other findings: T wave abnormality Clinical impression: abnormal EKG EKG 11/23/2024 Normal Sinus Rhythm, lateral t wave inversions likely nonspecific Claude Estradasourav Campos reports that he quit smoking about 2 years ago. His smoking use included cigarettes. He has been exposed to tobacco smoke. He has never used smokeless tobacco. Advance Care Planning Advance Care Planning: ACP discussion was declined by the patient. Patient does not have an advancedirective, information provided. Assessment & Plan 1. Paroxysmal atrial fibrillation/Atrial flutter He underwent ablation in March 2024. This consisted of pulmonary vein isolation, ablation of a roof dependent atrial flutter, and ablation of typical CTI dependent atrial flutter. 30-day monitor from November showed about 40% A-fib. The patient is symptomatic with this mostly in the form of fatigue and increased difficulty performing daily activities. 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 Echocardiogram showed mildly reduced LVEF 46-50%. Patient will get a stress test at [place] as soonas reasonable. If this rules out obstructive disease, we will start flecainide. We also discussed redo ablation. He is interested in this at some point, but wants to wait for now. Patient has had recurrent hematuria from urothelial cancer. Bleeding is under control currently he is back on Eliquis. If this continues to be a recurrent problem, we can further discuss watchman implantation. If he can tolerate NOAC, this would be preferable as he has had a left atrial appendage thrombus before. 2. Hypertension BP controlled in office today. Continue current antihypertensive regimen. Follow Up: 6 months Thank you for allowing me to participate in the care of your patient. Please do not hesitate to contact me with additional questions or concerns. Jadon Cedeño PA-C Cardiac Electrophysiology [facility] documented in this encounter Plan of Treatment Upcoming Encounters Date Type Department Care Team (Late st Contact Info) Description 12/13/2025 10:15 AM EDT Office Visit [facility] CARDIOLOGY [address] [place] [address] Siddharth Garcia MD [address] [facility] [address] [place], [place] [id number] documented as of this encounter Procedures Procedure Name Priority Date/Time Associated Diagnosis Comments ECG 12-LEAD Routine 04/12/2025 Paroxysmal atrial fibrillation documented in this encounter Results * STRESS TEST, REGADENOSON W MYOCARDIAL PERFUSION SPECT (MULTI STUDY) (05/03/2025 8:14 AM EDT) CV REST NUCLEAR ISOTOPE DOSE 8.9 mCi CV STRESS PROTOCOL 1 Pharmacologic Stage 1 1.0 Duration Min Stage 1 1 Duration Sec Stage 1 0 Stress Dose Regadenoson Stage 1 0.40 Stress Comments Stage 1 10 sec bolus injection Stage 2 2.0 Duration Min Stage 2 1 Duration Sec Stage 2 0 Stage 3 3.0 Duration Min Stage 3 1 Duration Sec Stage 3 0 Stage 4 4.0 Duration Min Stage 4 1 Duration Sec Stage 4 0 Target HR (85%) 130 bpm Max. Pred. HR (100%) 153 bpm Exercise duration (min) 4 min Exercise duration (sec) 0 sec Estimated workload 1.7 METS Baseline HR 57 bpm Baseline BP 122/74 mmHg O2 sat rest 96 % HR Stage 1 66 O2 Stage 1 95 HR Stage 2 70 BP Stage 2 123/69 O2 Stage 2 96 HR Stage 3 80 BP Stage 3 153/80 O2 Stage 3 96 HR Stage 4 77 BP Stage 4 141/82 O2 Stage 4 97 Peak HR 82 bpm Peak BP 153/80 mmHg O2 sat peak 97 % Recovery HR 67 bpm Recovery BP 136/81 mmHg Recovery O2 96 % Percent Max Pred HR 53.59 % Percent Target HR 63 % BH CV STRESS NUCLEAR ISOTOPE DOSE 27.2 mCi Nuc Stress EF 70 % Anatomical Region Laterality Modality Ultrasound Narrative 05/03/2025 4:04 PM EDT Myocardial perfusion imaging indicates a normal myocardial perfusion study with no evidence of ischemia. Impressions are consistent with a low risk study. Left ventricular ejection fraction is normal (Calculated EF = 70%). Study Impression Myocardial perfusion imaging indicates a normal myocardial perfusion study with no evidence of ischemia. Impressions are consistent with a low risk study. Carbonated lemon [place] soda given prior rest images to mitigate bowel uptake artifact.. Rest Perfusion Defect 1 No rest myocardial perfusion defect noted. Stress Perfusion Defect 1 No stress myocardial perfusion defect noted. Nuclear Study Description A 1-day rest/stress protocol myocardial perfusion imaging study was performed. A 22 G peripheral IV was started in the left antecubital fossa. While at rest, the patient was injected intravenously with 8.9 mCi of technetium sestamibi at 08:10 EDT. Regadenoson (0.4 mg / 5 mL) was given intravenously over approximately 10 seconds followed by 5 mL flush of saline according to protocol. While at peak stress, the patient was injected intravenously with 27.2 mCi of technetium sestamibi at 09:35 EDT. The total amount of radiation received in the study is about 10.91 mSv. Rest ECG Baseline ECG rhythm of sinus bradycardia noted. PVCs and non-specific ST-T wave changes noted. Stress ECG Stress ECG of normal sinus rhythm noted. Non-specific ST-T wave changes noted during stress. There was no ST segment deviation noted during stress. Arrhythmias during stress: PVCs. Stress ECG was interpretable. Ventricle Size / Description Left ventricular ejection fraction is normal (Calculated EF = 70%). Normal LV wall motion noted. Stress Description A pharmacological stress test was performed using regadenoson with low-level exercise. The patient reached the end of the protocol. The clinician observed expected effects during the stress test. The patient reported shortness of breath during the stress test. Recovery ECG During recovery, the patient complained of no significant symptoms following stress. Sinus rhythm was noted during recovery. Non-specific ST-T wave changes noted on ECG during recovery stage. Arrhythmias during recovery: PVC's. Test Physician Specialist ECG [place] [facility] Jadon Cedeño PA-C CV STRESS ORDERABLES Final R esult * ECG 12-LEAD (04/12/2025) Narrative 04/12/2025 Jadon Cedeño PA-C 04/12/2025 9:16 AM ECG 12 Lead Date/Time: 04/12/2025 9:15 AM Performed by: Jadon Cedeño PA-C Authorized by: Jadon Cedeño PA-C Comparison: compared with previous ECG from 11/23/2024 Rhythm: sinus rhythm Ectopy: atrial premature contractions Other findings: T wave abnormality Clinical impression: abnormal EKG Procedure Note Jadon Cedeño PA-C - 04/12/2025 9:00 AM EDT Images from the original note were not included. Cardiac Electrophysiology Outpatient Note [facility] Office Visit Claude Le Jr. [id number] 11/23/2024 Primary Care Physician: Abbe Canales MD Referred By: No ref. provider found Subjective Chief Complaint Patient presents with Atrial flutter with rapid ventricular response Problem List: Paroxysmal atrial fibrillation, atrial flutter 2-week monitor (date ?) : A-fib >60%, 3.2-second conversion pause ECV 2022 TTE 2023 LVEF 50%, moderate RV dilation with moderate RV functionreduction, severe RA dilation, no significant VHD PVA 03/2024 Dr. Garcia with typical CTI dependent atrial flutter ablationand left atrial roof dependent flutter ablation Monitor 11/2024 40% afib-under media tab 11/23/24 CAD, data deficit Hypertension Dyslipidemia Bladder cancer Surgical history: History of hernia repair History of lateral meniscus repair right knee History tonsillectomy History of Present Illness: Claude Le Jr. is a 69 y.o. male who presents to myelectrophysiology clinic for follow up of atrial fibrillation and flutter.He underwent ablation in March 2024. This consisted of pulmonary veinisolation, ablation of a roof dependent atrial flutter, and ablation oftypical CTI dependent atrial flutter. Patient was last seen in our office in November 2024. At that time, hereported he was having intermittent atrial fibrillation recurrence. 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 This hasremained about the same since we last saw him. We set him up forechocardiogram to rule out structural heart disease ahead of startingflecainide. The echo showed LVEF mildly reduced 46-50%. Stress test wasordered prior to starting flecainide. The patient had issues withrecurrence of urothelial cancer that was found to be benign. It causedfairly problematic hematuria requiring outside hospital admission andholding Eliquis for a week. His also had pretty debilitating issueswith what was eventually diagnosed as fibromyalgia. Her medicines wereadjusted and she is doing better now as well. He has no chest pain or palpitations. He just has functional limitationsand fatigue that are very noticeable when he is out of rhythm. 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 Past Medical History: Diagnosis Date Abnormal ECG 2017 Atrial fibrillation and flutter Cancer 2022 bladder COPD (chronic obstructive pulmonary disease) Hyperlipidemia Hypertension Past Surgical History: Procedure Laterality Date ABLATION OF DYSRHYTHMIC FOCUS March 2024 BLADDER SURGERY CARDIAC CATHETERIZATION 2021 CARDIAC ELECTROPHYSIOLOGY PROCEDURE N/A 03/15/2024 Procedure: Ablation atrial fibrillation and atrial flutter ablation. HoldXarelto the night before the procedure. (The patient is stoppingAmiodarone today).; Surgeon: Siddharth Garcia MD; Location: [facility] LOCATION; Service: Cardiovascular; Laterality: N/A; CARDIOVERSION 2020 CATARACT EXTRACTION KNEE CARTILAGE SURGERY Right TONSILLECTOMY UMBILICAL HERNIA REPAIR Family History Problem Relation Age of Onset Thrombosis Mother Clotting disorder Mother Clots in legs Social History Socioeconomic History Marital status: Tobacco Use Smoking status: Former Current packs/day: 0.00 Types: Cigarettes Quit date: 2022 Years since quittin.6 Passive exposure: Past Smokeless tobacco: Never Vaping Use Vaping status: Never Used Substance and Sexual Activity Alcohol use: Not Currently Comment: 2 BEERS YEARLY Drug use: Never Sexual activity: Not Currently Current Outpatient Medications: albuterol sulfate HFA 108 (90 Base) MCG/ACT inhaler, Inhale 2 puffsEvery 4 (Four) Hours As Needed for Wheezing., Disp: , Rfl: apixaban (ELIQUIS) 5 MG tablet tablet, Take 1 tablet by mouth 2 (Two)Times a Day., Disp: 60 tablet, Rfl: 3 atorvastatin (LIPITOR) 10 MG tablet, Take 1 tablet by mouth Daily.,Disp: , Rfl: Coenzyme Q10 (CoQ10) 400 MG capsule, Daily., Disp: , Rfl: dilTIAZem HCl ER 120 MG tablet sustained-release 24 hour, Take 120 mg bymouth Daily., Disp: , Rfl: fluticasone (FLONASE) 50 MCG/ACT nasal spray, INSTILL 1 SPRAYINTRANASALLY DAILY FOR ALLERGIC RHINITIS, Disp: , Rfl: furosemide (LASIX) 40 MG tablet, Take 1 tablet by mouth 2 (Two) Times aDay., Disp: , Rfl: losartan (COZAAR) 50 MG tablet, Take 1 tablet by mouth Daily., Disp: ,Rfl: metoprolol succinate XL (TOPROL-XL) 200 MG 24 hr tablet, Take 1 tabletby mouth Daily., Disp: , Rfl: Stiolto Respimat 2.5-2.5 MCG/ACT aerosol solution inhaler, 2 puffsDaily., Disp: , Rfl: vitamin B-12 (CYANOCOBALAMIN) 1000 MCG tablet, 1 tablet Daily., Disp: ,Rfl: vitamin D3 125 MCG (5000 UT) capsule capsule, Take 1 capsule by mouthDaily., Disp: , Rfl: Allergies: Allergies Allergen Reactions Lisinopril Cough and Other (See Comments) Cough Objective Vital Signs: Blood pressure 110/70, pulse 65, height 177.8 cm (70 ),weight 76 kg (167 lb 9.6 oz), SpO2 96%. PHYSICAL EXAM General appearance: Awake, alert, cooperative Head: Normocephalic, without obvious abnormality, atraumatic Lungs: Clear to ascultation bilaterally Heart: Regular rate and rhythm, no murmurs, no lower extremity swelling Skin: Skin color, turgor normal, no rashes or lesions Neurologic: Grossly normal Lab Results Component Value Date GLUCOSE 106 (H) 03/09/2024 CALCIUM 9.6 03/09/2024 NA 144 03/09/2024 K 4.4 03/09/2024 CO2 32.0 (H) 03/09/2024 CL 106 03/09/2024 BUN 28 (H) 03/09/2024 CREATININE 1.96 (H) 03/09/2024 BCR 14.3 03/09/2024 ANIONGAP 6.0 03/09/2024 Lab Results Component Value Date WBC 7.54 03/09/2024 HGB 14.2 03/09/2024 HCT 44.7 03/09/2024 MCV 92.7 03/09/2024 PLT 227 03/09/2024 Lab Results Component Value Date INR 0.95 01/01/2025 PROTIME 10.6 01/01/2025 Lab Results Component Value Date TSH 7.610 (H) 03/09/2024 Results for orders placed during the hospital encounter of 12/07/24 Adult Transthoracic Echo Complete W/ Cont if Necessary Per Aajblfgh65/29/2025 4:13 PM Interpretation Summary Left ventricular systolic function is mildly decreased. Left ventricularejection fraction appears to be 46 - 50%. Left ventricular diastolic function was indeterminate. The right ventricular cavity is moderately dilated. RV functionpreserved by TAPSE. RA dilated. I personally viewed and interpreted the patient's EKG/Telemetry/lab data ECG 12 Lead Date/Time: 04/12/2025 9:15 AM Performed by: Jadon Cedeño PA-C Authorized by: Jadon Cedeño PA-C Comparison: compared with previousECG from 11/23/2024 Rhythm: sinus rhythm Ectopy: atrial premature contractions Other findings: T wave abnormality Clinical impression: abnormal EKG EKG 11/23/2024 Normal Sinus Rhythm, lateral t wave inversions likelynonspecific Claude Le Jr. reports that he quit smoking about 2 years ago.His smoking use included cigarettes. He has been exposed to tobacco smoke.He has never used smokeless tobacco. Advance Care Planning Advance Care Planning: ACP discussion was declined by the patient. Patientdoes not have an advance directive, information provided. Assessment & Plan 1. Paroxysmal atrial fibrillation/Atrial flutter He underwent ablation in March 2024. This consisted of pulmonary veinisolation, ablation of a roof dependent atrial flutter, and ablation oftypical CTI dependent atrial flutter. 30-day monitor from November showed about 40% A-fib. The patient issymptomatic with this mostly in the form of fatigue and increaseddifficulty performing daily activities. 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 Echocardiogram showed mildly reduced LVEF 46-50%. Patient will get astress test at [place] as soon as reasonable. If this rules outobstructive disease, we will start flecainide. We also discussed redo ablation. He is interested in this at some point,but wants to wait for now. Patient has had recurrent hematuria from urothelial cancer. Bleeding isunder control currently he is back on Eliquis. If this continues to be arecurrent problem, we can further discuss watchman implantation. 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 2. Hypertension BP controlled in office today. Continue current antihypertensiveregimen. Follow Up: 6 months Thank you for allowing me to participate in the care of your patient.Please do not hesitate to contact me with additional questions orconcerns. Jadon Cedeño PA-C Cardiac Electrophysiology [facility] Jadon Cedeño PA-C ECG ORDERABLES Final Result documented in this encounter Visit Diagnoses Diagnosis Paroxysmal atrial fibrillation- Primary Atrial fibrillation Essential hypertension Unspecified essential hypertension Heart failure with mildly reduced ejection fraction (HFmrEF) Paroxysmal atrial fibrillation Atrial fibrillation Heart failure with mildly reduced ejection fraction (HFmrEF) documented in this encounter Care Teams Hydrologic Engineer Relationship Specialty Start Date End Date Abbe Canales MD [address] [facility] [address] [place] [address] PCP - General Family Medicine 12/15/23 documented as of this encounter
--- OUTSIDE RECORDS SUMMARY | 2025-04-25 09:15 | XMS_ITS ---
Author Organization [facility] Address [address] [facility] [address] [place] [phone] Care Team Providers Care Loss Prevention Representative Name Role Phone Hunter Canales Primary Care Provider Allergies No Known Allergies Results Component Value Reference Range Notes CBC Venipuncture (in house) Reviewed date:05/03/2025 12:48:28 PM Interpretation:Normal Performing Lab: Notes/Report: Normal wbc 9..1 3.5 - 10 lymph 29.5% 15 - 50 mid 6.8% 2 - 15 gran 63.7% 35 - 80 rbc 5.53 3.5 - 5.5 hgb 16.3 11.5 - 16.5 hct 50.1 35 - 55 mcv 90.5 75 - 100 mch 29.5 25 - 35 mchc 32.5 31 - 38 platlet 245 100 - 400 P-Basic Metabolic Panel (BMP ) Reviewed date:04/28/2025 10:52:37 AM Interpretation:Normal Performing Lab: Notes/Report: CLIA: [id number] Conrad Baires MD, [employer]airy [employer] Laboratory Assistant [facility][note 3][address] , [address], [place] [address] Test performed by [employer] [employer] Sodium 138 135-145 mmol/L Potassium 4.9 3.5-5.3 mmol/L Chloride 102 97-108 mmol/L CO2 25 20-32 mmol/L Glucose 81 65-99 mg/dL BUN 21 8-23 mg/dL Creatinine 1.28 0.70-1.30 mg/dL Calcium 9.6 8.6-10.4 mg/dL eGFR by Creatinine 61 >59 mL/min/1.73m2 P-TSH Reviewed date:04/28/2025 10:52:51 AM Interpretation:Normal Performing Lab: Notes/Report: Test performed by [employer], [employer] [address] [place] [address] , [address], [place] [address] Conrad Baires MD, Dairy And Food Laboratory Assistant CLIA: [id number] TSH 1.78 0.43-5.25 mU/L REASON FOR VISIT 2 months Medications Medication SIG (Take, Route, Frequency, Duration) Notes Start Date End Date Status Metoprolol Succinate ER 200 MG 1 tab(s) orally once a day; Duration: 30 days Active Potassium Chloride ER 20 MEQ TAKE 1 TABLET BY MOUTH EVERY DAY WITH FOOD FOR 90 DAYS; Duration: 90 Active Atorvastatin Calcium 10 MG TAKE 1 TABLET BY MOUTH EVERY DAY FOR 90 DAYS; Duration: 90 Active dilTIAZem HCl ER Coated Beads 120 MG TAKE 1 CAPSULE ORALLY ONCE DAILY 30 DAYS; Duration: 90 Active Losartan Potassium 50 MG 1 tablet Orally Once a day; Duration: 30 day(s) Not-Mayco ing B-12 1000 MCG 1 tab(s) orally once a day 02/20/2018 Active Fluticasone Propionate 50 MCG/ACT 1 spray(s) intranasally once a day; Duration: 30 day(s) Active Albuterol Sulfate HFA 108 (90 Base) MCG/ACT 1 puff(s) inhaled every morning Active Stiolto Respimat 2.5-2.5 MCG/ACT 2 puffs Inhalation Twice a day Active Vitamin D3 125 MCG (5000 UT) 1 cap(s) orally once a day 02/20/2018 Active Eliquis 5 MG as directed Orally t wice a day Active Furosemide 40 MG 1/2 orally once a day Active Social History Tobacco Use: Social History Observation Description Date Details (start date - stop date) Former Smoker NA - 12/12/2022 CURRENT TOBACCO USE: Question Answer Notes Are you a: former smoker When did you stop smoking? 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 current us e of anticoagulant therapy Z79.01 ; Persistent atrial fibrillation I48.19 ; Bladder carcinoma C67.9 ; Hypotension, unspecified hypotension type I95.9 and BMI 24.0-24.9, adult Z68.24 Assessments Encounter Date Diagnosis (ICD Code) Assessment Notes Treatment Notes Treatment Clinical Notes Section Notes 04/25/2025 USP current use of anticoagulant therapy (ICD-10 - Z79.01) 04/25/2025 Persistent atrial fibrillation (ICD-10 - I48.19) 04/25/2025 Bladder carcinoma (ICD-10 - C67.9) 04/25/2025 Hypotension, unspecified hypotension type (ICD-10 - I95.9) 04/25/2025 BMI 24.0-24.9, adult (ICD-10 - Z68.24) Plan Of Treatment Medication Medication Name Sig Start Date Stop Date Notes Furosemide 40 MG 1/2 orally once a day Next Appt Details Follow Up: 2 Months, Reason: Provider Name:Hunter Wei er, 06/27/2025 01:15:00 PM, [address] [facility] [address] [facility], [address], [place], [id number], Progress Notes * STACY LE JrDOB: (69 yo M)Acc No.[id number]:04/25/2025 Progress Notes Patient: STACY WEI Provider: Hunter Canales M.D. :1955 A ge:69 Y S ex:Male Date:04/25/2025 Address:[address] [place] [place] [address], [id number] Subjective: * Chief Complaints: * 1 . 2 months. * HPI: C ardiology: The pt is here for a check-up on A fib and bladder cancer. Pt states he is doing much better and feels like he is back to normal. Pt states he has had some blood in the urine after his treatments, which he has just completed. P t states he is still taking Eliquis twice a day. Denies feeling faint despite low BP. Is scheduled for GXT next week. Also sees Dr. Mendez this week. 69 year old male presents with c/o Palpitations. Denies : Chest Pain. D enies : Short of Breath. D enies : Dizziness. * Medical History: A denosine GXT 08/2017, Kidney Stones, Dt 2005, A-Fib, 11/2018 , EF=30-35%, 11/2018, EF=45%, 02/09/2019. * Surgical History: H ernia Removal - [employer] in [place], [place] , RT Meniscus Repair - Dr. Acosta 07/22/2017, Tonsillectomy 1968, Colonoscopy, Dr. Everett, 3 polyps 03/31/2024, Ablation, [facility] Dr. Garcia 03/15/2024. * Hospitalization/Major Diagno [...] ouside US: no. * Medications: T aking Eliquis 5 MG Tablet as directed Orally [...] tab(s) orally once a day , Taking Potassium Chloride ER 20 MEQ Tablet Extended Release TAKE 1 TABLET BY MOUTH EVERY DAY WITH FOOD FOR 90 DAYS , Taking Atorvastatin Calcium 10 MG Tablet TAKE 1 TABLET BY MOUTH EVERY DAY FOR 90 DAYS , Taking dilTIAZem HCl ER Coated Beads 120 MG Capsule Extended Release 24 Hour TAKE 1 CAPSULE ORALLY ONCE DAILY 30 DAYS , Not-Taking Losartan Potassium 50 MG Tablet 1 tablet Orally Once a day , Medication List reviewed and reconciled with the patient * Allergies: N .K.D.A. Objective: * Vitals: W t: 166.6, Temp: 97.6, BP: 82/62, HR: 58, O2 Sat: 97% on RA, Nurse: FREDDY, Ht: 69, BMI:24.6. * Examination: G eneral Examination: General Appearance: N AD. H EENT: u nremarkable.?Oral cavity: m ucosa moist and WNL, no erythema. N jeff: s upple, no lymphadenopathy.?Chest: n ormal shape and expansion. H eart: i rregular rhythm, repeat BP is low, 82/68. L ungs: c lear to auscultation. A bdomen: soft and nontender. N eurologic Exam: I ntact, gait normal. S kin: s kin is dry, no rash. P eripheral pulses: n ormal . E xtremities: t race. Assessment: * Assessment: 1. P ersistent atrial fibrillation - I48.19 (Primary) 2 . L radha term current use of anticoagulant therapy - Z79.01 3 . B ladder carcinoma - C67.9 ? 4 . H ypotension, unspecified hypotension type - I95.9 5 . B WI 24.0-24.9, adult - Z68.24 Plan: * Treatment: Value Reference Range T SH 1.78 0.43-5.25 - mU/L * Ting Cruz 04/26/2025 03 :10:08 PM EDT >left message for pt to call back for resultsFransicoCleo 04/28/2025 10:52:44 AM EDT >pt informed 2.?Hypotension, unspecified hypotension type? Decrease Furosemide Tablet, 40 MG, 1/2, orally, once a day.?LAB: P-Basic Metabolic Panel (BMP) (Collection Date & Time - 04/25/2025 01:52 PM)?Normal* Value Reference Range B UN 21 8-23 - mg/dL * C alcium 9.6 8.6-10.4 - mg/dL * C hloride 102 97-108 - mmol/L * C O2 25 20-32 - mmol/L * C reatinine 1.28 0.70-1.30 - mg/dL * G lucose 81 65-99 - mg/dL * P otassium 4.9 3.5-5.3 - mmol/L * S odium 138 135-145 - mmol/L * e GFR by Creatinine 61 >59 - mL/min/1.73m2 * Ting Cruz 04/26/2025 03 :10:08 PM EDT >left message for pt to call back for resultsCleo Bateman 04/28/2025 10:52:32 AM EDT >pt informed * Labs: * L ab: CBC Venipuncture (in house) (Collection Date & Time - 04/25/2025) N ormal Value Reference Range w bc 9..1 3.5 - 10 * l ymph 29.5% 15 - 50 * m id 6.8% 2 - 15 * g ran 63.7% 35 - 80 * r bc 5.53 3.5 - 5.5 * h gb 16.3 11.5 - 16.5 * h ct 50.1 35 - 55 * m cv 90.5 75 - 100 * m ch 29.5 25 - 35 * m chc 32.5 31 - 38 * p latlet 245 100 - 400 * Ting Cruz 04/25/2025 02 :10:12 PM EDT > Provider reviewed results while patient in office. Ting Cruz 04/26/2025 03:10:08 PM EDT >left message for pt to call back for resultsTing Cruz 05/03/2025 12:48:15 PM EDT > Patient informed of normal results. * Procedure Codes: G 2211 Complex e/[place], [address] CBC WITH AUTO DIFF, 30290 VENIPUNCT, ROUTINE*, 1036F TOBACCO NON-USER, G8420 BMI<30 AND >=22 CALC & DOCU, G8783 BP SCR PRFRM RCMDD DEFIND SCR INTVL, G8752 MOST RECENT SYSTOLIC BP < 140MM HG, G8754 MOST RECENT DIASTOLIC BP < 90MM HG, 3074F SYST BP LT 130 MM HG, 3078F DIAST BP < 80 MM HG * Follow Up: 2 Months * Images: Billing Information: * Visit Code: 40552 Office Visit, Est Pt., Level 4. * Procedure Codes: G2211 Complex e/[place] [address] CBC WITH AUTO DIFF. 87652 VENIPUNCT, ROUTINE*. 1036F TOBACCO NON-USER. G8420 BMI<30 AND >=22 CALC & DOCU. G8783 BP SCR PRFRM RCMDD DEFIND SCR INTVL. G8752 MOST RECENT SYSTOLIC BP < 140MM HG. G8754 MOST RECENT DIASTOLIC BP < 90MM HG. 3074F SYST BP LT 130 MM HG. 3078F DIAST BP < 80 MM HG. * Electronic signature of Hunter Canales MD on 05/09/2025 at 07:58 AM EDT Sign off status: Pending * Provider: Hunter Canales M.D. Date: 0 04/25/2025 Generated for Mary contreras/Sally/Barbarasmitting on: 0 05/09/2025 07:58 AM EDT History and Physical Notes * HPI (History of Present Illness) Category Sub-Category Detail Notes Category Not es Cardiology Short of Breath Chest Pain Palpitations Dizziness Examination Category Sub-Category Detail Notes Category Not es General Examination HEENT: unremarkable Heart: irregular rhythm, re peat BP is low, 82/68 Lungs: clear to auscultatio n Abdomen: soft and nontender Extremities: trace General Appearance: NAD Skin: skin is dry, no rash Neurologic Exam: Intact, gait normal Neck: supple, no lymphaden opathy Oral cavity: mucosa moist and WNL , no erythema Peripheral pulses: normal Chest: normal shape and exp ansion
--- OUTSIDE RECORDS SUMMARY | 2025-05-03 07:45 | XMS_ITS | Encounter Summary ---
Author Organization [facility] Address [address] [place] [address] Care Team Providers Care Industrial Equipment Wirer Name Role Phone Abbe Canales MD Primary Care Provider [phone] [phone] Reason for Referral * Cardiac Stress Testing (Routine) - Authorized Specialty Diagnoses / Procedures Referred By Contac t Referred To Contact Diagnoses Paroxysmal atrial fibrillation Heart failure with mildly reduced ejection fraction (HFmrEF) Procedures Stress Test With Myocardial Perfusion (1 Day) Stress Test With Myocardial Perfusion (1 Day) Jadon Cedeño PA-C [address] [place] [address] Phone: tel: fax: [address] [address] Phone: tel: Referral ID Status Reason Start Date Expiration Date V isits Requested Visits Authorized [id number] Authorized 04/12/2025 07/12/2026 4 4 Reason for Visit * Cardiac Stress Testing (Routine) - Authorized Specialty Diagnoses / Procedures Referred By Contac t Referred To Contact Diagnoses Paroxysmal atrial fibrillation Heart failure with mildly reduced ejection fraction (HFmrEF) Procedures Stress Test With Myocardial Perfusion (1 Day) Stress Test With Myocardial Perfusion (1 Day) Jadon Cedeño PA-C [address] [address] Phone: tel: fax: [facility] [address] [place] [address] Phone: tel: Referral ID Status Reason Start Date Expiration Date V isits Requested Visits Authorized [id number] Authorized 04/12/2025 07/12/2026 4 4 Encounter Details Date Type Department Care Team (Latest Contact Info) Description 05/03/2025 7:45 AM EDT - 05/03/2025 11:59 PM EDT Hospital Encounter [facility] [place] [address] [facility] [address] [place] [address] Paroxysmal atrial fibrillation; Heart failure with mildly reduced ejection fraction (HFmrEF) Discharge Disposition: Home or Self Care Social History Tobacco Use Types Packs/Day Years [...] or training? Not on file Preferred Language Nepalese 03/09/2024 Sex and Gender Information Value Date Recorded Sex Assigned at Male 04/06/2025 9:17 AM EDT Legal Sex Male 10:32 AM EDT Gender Identity Not on file Sexual Orientation Not on file documented as of this encounter Medications at Time of Discharge albuterol sulfate HFA 108 (90 Base) MCG/ACT inhaler Inhale 2 puffs Every 4 (Four) Hours As Needed for Wheezing. apixaban (ELIQUIS) 5 MG tablet tablet Take 1 tablet by mouth 2 (Two) Times a Day. 60 tablet 5 04/27/2025 atorvastatin (LIPITOR) 10 MG tablet Take 1 tablet by mouth Daily. 12/09/2022 Coenzyme Q10 (CoQ10) 400 MG capsule Daily. 12/15/2023 dilTIAZem HCl ER 120 MG tablet sustained-releas e 24 hour Take 120 mg by mouth Daily. 11/11/2024 furosemide (LASIX) 40 MG tablet Take 1 tablet by mouth 2 (Two) Times a Day. 10/09/2018 losartan (COZAAR) 50 MG tablet Take 1 tablet by mouth Daily. 12/09/2022 metoprolol succinate XL (TOPROL-XL) 200 MG 24 hr tablet Take 1 tablet by mouth Daily. 10/25/2024 Stiolto Respimat 2.5-2.5 MCG/ACT aerosol solution inhaler 2 puffs Daily. 02/19/2023 vitamin B-12 (CYANOCOBALAMIN) 1000 MCG tablet 1 tablet Daily. 11/13/2022 vitamin D3 125 MCG (5000 UT) capsule capsule Take 1 capsule by mouth Daily. fluticasone (FLONASE) 50 MCG/ACT nasal spray INSTILL 1 SPRAY INTRANASALLY DAILY FOR ALLERGIC RHINITIS 11/20/2023 documented as of this encounter Plan of Treatment Upcoming Encounters Date Type Department Care Team (Late st Contact Info) Description 12/13/2025 10:15 AM EDT Office Visit [facility] [address] [facility] [address] [place] [address] Siddharth Garcia MD [facility]0 [facility] [address] [place] [address] documented as of this encounter Procedures Procedure Name Priority Date/Time Associated Diagnosis Comments STRESS TEST, GUS W MYOCARDIAL PERFUSION SPECT (MULTI STUDY) Routine 05/03/2025 8:14 AM EDT Paroxysmal atrial fibrillation Heart failure with mildly reduced ejection fraction (HFmrEF) documented in this encounter Results * STRESS [...] 53.59 % Percent Target HR 63 % CV STRESS NUCLEAR ISOTOPE DOSE 27.2 mCi [...] with a low risk study. Carbonated lemon [place] soda given prior rest images to mitigate [...] recovery stage. Arrhythmias during recovery: PVC's. Test Range Mounter ECG [place] Jadon Cedeño PA-C CV STRESS ORDERABLES Final R esult documented in this encounter Visit Diagnoses Diagnosis Paroxysmal atrial fibrillation Atrial fibrillation Heart failure with mildly reduced ejection fraction (HFmrEF) documented in this encounter Administered Medications Inactive Administered Medications - up to 3 most recent administrations Medication Order MAR Action Action Date Dose Rate Site regadenoson (LEXISCAN) injection 0.4 mg 0.4 mg, Intravenous, Once in Imaging, On Fri05/03/25 at 0915, For 1 dose, Administer over approximately 10 seconds. Given 05/03/2025 9:32 AM EDT 0.4 mg technetium sestamibi (CARDIOLITE) injection 1 dose 1 dose, Intravenous, Once in Imaging, On Fri05/03/25 at 0900, For 1 dose, Millicuries: 8.9 Given 05/03/2025 8:10 AM EDT 1 dose technetium sestamibi (CARDIOLITE) injection 1 dose 1 dose, Intravenous, Once in Imaging, On Fri05/03/25 at 1045, For 1 dose, Millicuries: 27.2 Given 05/03/2025 9:35 AM EDT 1 dose documented in this encounter Care Teams Industrial Equipment Wirer Relationship Specialty Start Date End Date Abbe Canales MD [facility] [address] [facility] 2 [place] [address] PCP - General Family Medicine 12/15/23 documented as of this encounter
--- OUTSIDE RECORDS SUMMARY | 2025-05-03 23:59 | XMS_ITS | Encounter Summary ---
Author Organization [facility] Address [address] [place] [address] Care Team Providers Care Medical Tech Name Role Phone Abbe Canales MD Primary Care Provider [phone] [phone] Reason for Visit * Cardiac Stress Testing (Routine) - Authorized Specialty Diagnoses / Procedures Referred By Contac t Referred To Contact Diagnoses Paroxysmal atrial fibrillation Heart failure with mildly reduced ejection fraction (HFmrEF) Procedures Stress Test With Myocardial Perfusion (1 Day) Stress Test With Myocardial Perfusion (1 Day) Jadon Cedeño PA-C [address] [facility] [address] [place] [address] Phone: tel: fax: [facility] [address] [place] [address] Phone: tel: Referral ID Status Reason Start Date Expiration Date V isits Requested Visits Authorized [id number] Authorized 04/12/2025 07/12/2026 4 4 Encounter Details Date Type Department Care Team (Latest Contact Info) Description 05/03/2025 11:59 PM EDT Hospital Encounter [facility] [place] [address] [facility] [address] [place] [address] Left without seen Discharge Disposition: Home or Self Care Social [...] or training? Not on file Preferred Language Sammarinese 03/09/2024 Sex and Gender Information Value Date [...] Take 120 mg by mouth Daily. 11/11/2024 fluticasone (FLONASE) 50 MCG/ACT nasal spray INSTILL 1 SPRAY INTRANASALLY DAILY FOR ALLERGIC RHINITIS 11/20/2023 furosemide (LASIX) 40 MG tablet Take 1 [...] capsule Take 1 capsule by mouth Daily. documented as of this encounter Plan of Treatment Upcoming Encounters Date Type Department Care Team (Late st Contact Info) Description 12/13/2025 10:15 AM EDT Office Visit [facility] C[facility] [address] [facility] [address] [place] [address] Siddharth Garcia MD [address] [facility] [address] [place] [id number] documented as of this encounter Procedures Procedure Name Priority Date/Time Associated Diagnosis Comments STRESS TEST, REGADENOSON W MYOCARDIAL PERFUSION SPECT (MULTI STUDY) Routine [...] with a low risk study. Carbonated lemon [place] soda given prior rest images to mitigate [...] recovery stage. Arrhythmias during recovery: PVC's. Test Boiler Control Technician ECG [place] Jadon Cedeño PA-C CV STRESS ORDERABLES Final R esult documented in this encounter Visit Diagnoses Not on filedocumented in this encounter Care Teams Medical Tech Relationship Specialty Start Date End Date Abbe Canales MD [facility] [place] [facility] [address] [facility] [address] [place] [address] PCP - General Family Medicine 12/15/23 documented as of this encounter
--- OUTSIDE RECORDS SUMMARY | 2025-05-09 07:58 | XMS_ITS | Encounter Summary ---
Author Organization [facility] Address [address] [place] [id number] Care Team Providers Care Heat Treater Name Role Phone Abbe Canales MD Primary Care Provider [phone] [phone] Encounter Details Date Type Department Care Team (Late st Contact Info) Description 05/04/2025 Results Follow-Up [facility] C[facility]IOLOG[facility] [address] [facility] [address] [place] [address] Jadon Cedeño PA-C [address] [facility] [address] [place] [address] Social History Tobacco Use Types Packs/Day Years [...] or training? Not on file Preferred Language Costa Rican 03/09/2024 Sex and Gender Information Value Date Recorded Sex Assigned at Male 04/06/2025 9:17 AM EDT Legal Sex Male 10:32 AM EDT Gender Identity Not on file Sexual Orientation Not on file documented as of this encounter Miscellaneous Notes * Telephone Encounter - Irene Jean Baptiste RN - 05/05/2025 2:55 PM EDT Patient notified and aware. RX for Flecainide sent to [facility] pharmacy in [place] and the EKG order was faxed to Dr. De Jesus's office. [phone] documented in this encounter Plan of Treatment Upcoming Encounters Date Type Department Care Team (Late st Contact Info) Description 12/13/2025 10:15 AM EDT Office Visit [facility] C[facility] [address] [facility] [address] [place] [address] Siddharth Garcia MD [address] [facility] [address] [place] [id number] Scheduled Orders Name Type Priority Associated Diagnoses Orde r Schedule ECG 12 Lead ECG Routine Atrial flutter with rapid ventricular response Paroxysmal atrial fibrillation Expected: 2025, Expires: 05/05/2026 documented as of this encounter Visit Diagnoses Diagnosis Atrial flutter with rapid ventricular response- Primary Paroxysmal atrial fibrillation Atrial fibrillation documented in this encounter Care Teams Heat Treater Relationship Specialty Start Date End Date Abbe Canales MD [address] [facility] [address] [place] [address] [place] [address] PCP - General Family Medicine 12/15/23 documented as of this encounter
--- OUTSIDE RECORDS SUMMARY | 2025-05-09 07:58 | XMS_ITS | Encounter Summary ---
Author Organization [facility] Address [address] [place] [address] Care Team Providers Care Clamp Carrier Operator Name Role Phone Abbe Canales MD Primary Care Provider [phone] [phone] Encounter Details Date Type Department Care Team (Latest Contact Info) Description 05/03/2025 Travel Social History Tobacco Use Types Packs/Day [...] or training? Not on file Preferred Language Bolivian 03/09/2024 Sex and Gender Information Value Date Recorded Sex Assigned at Male 04/06/2025 9:17 AM EDT Legal Sex Male 10:32 AM EDT Gender Identity Not on file Sexual Orientation Not on file documented as of this encounter Plan of Treatment Upcoming Encounters Date Type Department Care Team (Late st Contact Info) Description 12/13/2025 10:15 AM EDT Office Visit [facility]Y [address] [facility] [address] [place] [address] Siddharth Garcia MD [address] [facility] [address] [place] [address] documented as of this encounter Visit Diagnoses Not on filedocumented in this encounter Care Teams Clamp Carrier Operator Relationship Specialty Start Date End Date Abbe Canales MD [address] [facility] [address] [facility] [place] [address] PCP - General Family Medicine 12/15/23 documented as of this encounter
--- OUTSIDE RECORDS SUMMARY | 2025-05-09 07:58 | XMS_ITS | Clinical Summary ---
Author Organization [employer] ([place], [place], [place], [place]) Address [address] [place] [address] Care Team Providers Care Electrolytic De Scaler Name Role Phone Abbe Canales MD Primary Care Provider [phone] [phone] Allergies Active Allergy Reactions Criticality Noted Date Comments Lisinopril Other (See Comments) 06/06/2023 Cough Medications furosemide (LASIX) 40 MG tablet Take 1 tablet (40 mg total) by mouth daily. Active metoprolol succinate (TOPROL-XL) 200 MG 24 hr tablet Take 1 tablet (200 mg total) by mouth daily. Active potassium chloride (KLOR-CON) 20 MEQ tablet Take 1 tablet (20 mEq total) by mouth daily. Active tiotropium-olod ateroL (Stiolto Respimat) 2.5-2.5 mcg/actuation mist Inhale by mouth. Act jimbo atorvastatin (LIPITOR) 10 MG tablet Take 1 tablet (10 mg total) by mouth nightly. Active dilTIAZem (CARDIZEM CD) 120 MG 24 hr capsule Take 1 capsule (120 mg total) by mouth daily. Active ergocalciferol (Vitamin D2) 1,250 mcg (50,000 unit) capsule Take 1 capsule (50,000 Units total) by mouth every 7 days. Active cyanocobalamin (vitamin B-12) 1000 MCG tablet Take 1 tablet (1,000 mcg total) by mouth daily. Active albuterol 2.5 mg/0.5 mL nebu nebulizer solution Inhale 0.5 mLs (2.5 mg total) by nebulization every 4 (four) hours as needed. Active apixaban (Eliquis) 5 mg tab tablet Take 1 tablet (5 mg total) by mouth 2 (two) times daily. Active acetaminophen (TYLENOL) 325 MG tablet Take 2 tablets (650 mg total) by mouth every 6 (six) hours as needed for up to 360 days. 30 tablet 5 12/29/19 26 Active Active Problems Problem Noted Date Diagnosed Date Gross hematuria 01/01/2025 Hematuria 01/01/2025 Hypertension Atrial fibrillation COPD (chronic obstructive pulmonary disease) Social History Tobacco Use Types Packs/Day Years Used Date Smoking Tobacco: Former Cigarettes 2 50 0 12/08/1972 - 12/08/2022 Smokeless Tobacco: Never Tobacco Cessation:Counseling Given: Not Answered Alcohol Use Standard Drinks/Week Comments Never 0 (1 standard drink = 0.6 oz pur e alcohol) Employment Answer Date Recorded Help finding and keeping a job Not on file 0 08/30/2023 Family and Community Support Answer Alex e Recorded Help with Day to Day Activities Not on file 08/30/2023 Feeling Lonely or Isolated Not on file 08/30 Educational Attainment Answer Date Jameson rded Speak language other than Brazilian at home Not on file 08/30/2023 Want help with school or training Not on file 08/30/2023 Substance Use Answer Date Recorded Used prescription meds for non-medical reasons N ot on file 08/30/2023 Used illegal drugs past 12 months Not on file 08/30/2023 Sex and Gender Information Value Date Recorded Sex Assigned at Not on file Legal Sex Male 8:38 AM CDT Gender Identity Not on file Sexual Orientation Not on file Last Filed Vital Signs Vital Sign Reading Time Taken Comments Blood Pressure 108/80 01/02/2025 12:00 PM EDT Pulse 76 01/02/2025 12:00 PM EDT Temperature 36.8 C (98.2 F) 01/02/2025 12:00 PM EDT Respiratory Rate 16 01/02/2025 12:0 0 PM EDT Oxygen Saturation 93% 01/02/2025 1:50 PM EDT Inhaled Oxygen Concentration - - Weight 163.4 kg (360 lb 3.7 oz) 01/01/2025 6:27 PM EDT Height 175.3 cm (5' 9 ) 01/01/2025 6:27 PM EDT Body Mass Index 53.2 01/01/2025 6:27 PM EDT Plan of Treatment Health Maintenance Due Date Last Done Comments CT Colonography 1957 Colonoscopy 1957 Colorectal Cancer Screening 1957 FOBT/FIT 1957 Fit-DNA (Cologuard) 1957 Sigmoidoscopy 1957 Depression Screening (12+) 1969 Hepatitis C Screening 1975 Shingles Vaccine (Zoster) (1 of 2) 2007 Respiratory Syncytial Virus (RSV) Adult or (1 - Risk 60-74 years 1-dose series) 2017 Medicare Initial AWV [id number] 04/12/2023 DTAP/TDAP/TD VACCINES (2 - T d or Tdap) 03/17/2024 03/17/2014 Tobacco Cessation Counseling and Screening (12+) 06/09/2024 06/09/2023 Falls Risk Screening 08/11/2024 COVID-19 VACCINE (4 - 2024-2 6 season) 2025 04/25/2021, 09/05/2020, 08/08/2020 Influenza Vaccine (#1) 2025 1, 05/03/2020, 08/17/2019, Additional history exists Pneumococcal 50+ years Completed 4, 05/03/2020, 12/30/2016 Insurance MEDICARE PART A B [employer] MCR SUPP Advance Directives For more information, please contact: [phone] * Full Code (Latest Code Status on File) Date Activated Date Inactivated Comments 01/01/2025 4:41 PM 01/02/2025 4:06 PM Care Teams Electrolytic De Scaler Relationship Specialty Start Date End Date Abbe Canales MD [address] [place] [address] PCP - General Family Medicine 06/03/23
--- OUTSIDE RECORDS SUMMARY | 2025-05-09 07:59 | XMS_ITS | Encounter Summary ---
Author Organization [facility] Address [address] [place] [id number] Care Team Providers Care Business Office Assistant Name Role Phone Abbe Canales MD Primary Care Provider [phone] [phone] Reason for Visit * Reason Onset Date Comments Med Refill 04/27/2025 Encounter Details Date Type Department Care Team (Late st Contact Info) Description 04/27/2025 Refill [facility] CARDIOLOGY [address] [facility] [address] [place] [phone] Siddharth Garcia MD [address] [facility] [address] [place] [address] Med Refill Social History Tobacco Use Types [...] or training? Not on file Preferred Language Canadian 03/09/2024 Sex and Gender Information Value Date Recorded Sex Assigned at Male 04/06/2025 9:17 AM EDT Legal Sex Male 10:32 AM EDT Gender Identity Not on file Sexual Orientation Not on file documented as of this encounter Plan of Treatment Upcoming Encounters Date Type Department Care Team (Late st Contact Info) Description 12/13/2025 10:15 AM EDT Office Visit [facility] CARDIOLOGY [address] [facility] [address] [place] [phone] Siddharth Garcia MD [address] [facility] [address] [place] [address] documented as of this encounter Visit Diagnoses Not on filedocumented in this encounter Care Teams Business Office Assistant Relationship Specialty Start Date End Date Abbe Canales MD [address] [facility] [address] [facility] [address] [place] [address] PCP - General Family Medicine 12/15/23 documented as of this encounter
--- OUTSIDE RECORDS SUMMARY | 2025-05-09 07:59 | XMS_ITS | Clinical Summary ---
Author Organization [facility] Address [address] [place] [address] Care Team Providers Care Cad Programmer Name Role Phone Unavailable Primary Care Provider [...] (2 - Td or Tdap) 03/17/2024 03/17/2014 [id number] Vaccine ( - season) 2025 04/25/2021, 09/05/2020, 08/08/2020 UKY-Influenza [...]
--- OUTSIDE RECORDS SUMMARY | 2025-05-09 07:59 | XMS_ITS | Encounter Summary ---
Author Organization [facility] Address [address] [place] [id number] Care Team Providers Care Class C Driver Name Role Phone Abbe Canales MD Primary Care Provider [phone] [phone] Reason for Visit * Reason Onset Date Comments Appointment 03/14/2025 Encounter Details Date Type Department Care Team (Late st Contact Info) Description 03/14/2025 Telephone [facility] C[facility]IOLOG[facility] [address] [facility] [address] [place] [address] Siddharth Garcia MD [address] [facility] [address] [place] [address] Appointment Social History Tobacco Use Types Packs/Day [...] or training? Not on file Preferred Language Sierra Leonean 03/09/2024 Sex and Gender Information Value Date Recorded Sex Assigned at Male 04/06/2025 9:17 AM EDT Legal Sex Male 10:32 AM EDT Gender Identity Not on file Sexual Orientation Not on file documented as of this encounter Miscellaneous Notes * Telephone Encounter - Gary Pelaez RegSched Rep - 03/14/2025 4:41 PM EDT LVM [facility] documented in this encounter Plan of Treatment Upcoming Encounters Date Type Department Care Team (Late st Contact Info) Description 12/13/2025 10:15 AM EDT Office Visit [facility] C[facility]IOLOG[facility] [address] [facility] [address] [place] [address] Siddharth Garcia MD [address] [facility] [address] [place] [address] documented as of this encounter Visit Diagnoses Not on filedocumented in this encounter Care Teams Class C Driver Relationship Specialty Start Date End Date Abbe Canales MD [address] [facility] [address] [place] [address] PCP - General Family Medicine 12/15/23 documented as of this encounter
--- OUTSIDE RECORDS SUMMARY | 2025-05-09 07:59 | XMS_ITS | Encounter Summary ---
Author Organization [facility] Address [address] [place] [address] Care Team Providers Care Pourer Off Name Role Phone Abbe Canales MD Primary Care Provider [phone] [phone] Encounter Details Date Type Department Care Team [...] or training? Not on file Preferred Language Tuvaluan 03/09/2024 Sex and Gender Information Value Date [...] Visit [facility] C[facility]IOLOGY [address] [facility] [address] [place] [address] Siddharth Garcia MD [address] [facility] [address] [place] [address] documented as of this encounter Visit Diagnoses Not on filedocumented in this encounter Care Teams Pourer Off Relationship Specialty Start Date End Date Abbe Canales MD [address] [facility] [address] [facility] [place] [address] PCP - General Family Medicine 12/15/23 documented as of this encounter
--- OUTSIDE RECORDS SUMMARY | 2025-05-09 07:59 | XMS_ITS | Referral Summary ---
Author Organization [employer] ([place], [place], [place], [place]) Address [address] [place] [address] Care Team Providers Care Manager Spa Name Role Phone Abbe Canales MD Primary Care Provider +1 -[phone] Allergies Active Allergy Reactions Criticality Noted Date [...] Date Jameson rded Speak language other than Marshallese at home Not on file 08/30/2023 Want [...] 01/01/2025 6:27 PM EDT Plan of Treatment Not on file Insurance MEDICARE PART A B SUPP Advance Directives For more information, please contact: [phone] * Full Code (Latest Code Status on File) Date Activated Date Inactivated Comments 01/01/2025 4:41 PM 01/02/2025 4:06 PM Care Teams Manager Spa Relationship Specialty Start Date End Date Abbe Canales MD [address] [place] [address] PCP - General Family Medicine 06/03/23
--- OUTSIDE RECORDS SUMMARY | 2025-05-09 07:59 | XMS_ITS | Clinical Summary ---
Author Organization [facility] Address [address] [place] [address] Care Team Providers Care Electronic Musical Instrument Repairer Name Role Phone Abbe Canales MD Primary Care Provider +1 [phone] Allergies Active Allergy Reactions Criticality Noted Date [...] Day. 60 tablet 5 04/27/20 25 Active flecainide (TAMBOCOR) 50 MG tablet Take 1 tablet by mouth 2 (Two) Times a Day. 60 tablet 5 05/05/20 25 Active apixaban (ELIQUIS) 5 MG tablet tablet Take 1 tablet by mouth 2 (Two) Times a Day. 60 tablet 3 06/15/20 24 025 Discontinue d(Reorder) naproxen (NAPROSYN) 500 MG tablet Take 1 tablet by mouth Every 12 (Twelve) Hours. 08/13/19 025 Discontinue d(Patient Reported Not Taking) predniSONE [...] Encounters Date Type Department Care Team Description 05/04/2025 Results Follow-Up [facility] [address] [facility] [address] [place] [address] Jadon Cedeño PA-C 05/03/2025 11:59 PM EDT Hospital Encounter [facility] [address] [facility] [address] [place] [phone] Left without seen Discharge Disposition: Home or Self Care 05/03/2025 7:45 AM EDT - 05/03/2025 11:59 PM EDT Hospital Encounter [facility] [address] [facility] [address] [place] [phone] Paroxysmal atrial fibrillation; Heart failure with mildly reduced ejection fraction (HFmrEF) Discharge Disposition: Home or Self Care 05/03/2025 Travel 04/27/2025 Refill [facility] [address] [facility] [address] [place] [address] Siddharth Garcia MD Med Refill 04/12/2025 9:00 AM EDT Office Visit [facility] [address] [facility] [address] [place] [address] Jadon Cedeño PA-C Paroxysmal atrial fibrillation (Primary Dx); Essential hypertension; Heart failure with mildly reduced ejection fraction (HFmrEF) 04/12/2025 Travel 03/14/2025 Telephone [facility] [address] [place] [address] Siddharth Garcia MD Appointment from [...] or training? Not on file Preferred Language Swedish 03/09/2024 Sex and Gender Information Value Date [...] Description 12/13/2025 10:15 AM EDT Office Visit [facility] C[facility] [address] [facility] [address] [place] [phone] Siddharth Garcia MD [address] [facility] [address] [place] [id number] Health Maintenance Due Date Last Done Comments [...] failure with mildly reduced ejection fraction (HFmrEF) ECG 12-LEAD Routine 04/12/2025 Paroxysmal atrial fibrillation from Last 3 Months Results * STRESS TEST, REG[place] W MYOCARDIAL [...] with a low risk study. Carbonated lemon ysleta del sur soda given prior rest images to mitigate [...] recovery stage. Arrhythmias during recovery: PVC's. Test Photocopying Machine Operator ECG [place] us Jadon Cedeño PA-C CV STRESS ORDERABLES [...] were not included. Cardiac Electrophysiology Outpatient Note [facility] Office Visit Claude Le [id number] 11/23/2024 Primary Care Physician: Abbe Canales MD [...] stoppingAmiodarone today).; Surgeon: Siddharth Garcia MD; Location: [facility] LOCATION; Service: Cardiovascular; Laterality: N/A; CARDIOVERSION [...] Echo Complete W/ Cont if Necessary Per My[facility]clex51/29/2025 4:13 PM Interpretation Summary Left ventricular systolic [...] Rhythm, lateral t wave inversions likelynonspecific Claude Estradasourav Rushing. reports that he quit smoking about 2 [...] 46-50%. Patient will get astress test at [place] as soon as reasonable. If this rules [...] questions orconcerns. Jadon Cedeño PA-C Cardiac Electrophysiology [facility] us Jadon Cedeño PA-C ECG ORDERABLES Final Result from Last 3 Months Insurance [facility] HE[facility] CARE OPTIONS MEDICARE A & B Care Teams Electronic Musical Instrument Repairer Relationship Specialty Start Date End Date Abbe Canales MD [address] [facility] [address] [facility] [address] [place] [address] PCP - General Family Medicine 12/15/23
--- OUTSIDE RECORDS SUMMARY | 2025-05-09 07:59 | XMS_ITS | Patient Health Record ---
Author Organization [facility] Address [address] DR[place] Batista [phone] Care Team Providers Care End Worker Name Role Phone Hunter Canales Primary Care [...] date:03/15/2025 03:29:43 PM Interpretation:satisfactory Performing Lab: Notes/Report: Test performed by [facility] , [address], [place] [address] Conrad Baires MD, Patient Clerical Assistant CLIA: [id number] Sodium 141 135-145 mmol/L Potassium 4.5 3.5-5.3 mmol/L Chloride 104 97-108 mmol/L CO2 26 20-32 mmol/L Glucose 84 65-99 mg/dL BUN 27 8-23 mg/dL Creatinine 1.20 0.70-1.30 mg/dL Calcium 9.4 8.6-10.4 mg/dL eGFR by Creatinine 66 >59 mL/min/1.73m2 CBC Venipuncture (in house) Reviewed date:05/03/2025 12:48:28 [...] date:04/28/2025 10:52:37 AM Interpretation:Normal Performing Lab: Notes/Report: Test performed by [employer] [address] [place] [address] , [place] [address] Conrad Baires MD, Patient Clerical Assistant CLIA: [id number] Sodium 138 135-145 mmol/L Potassium 4.9 3.5-5.3 mmol/L Chloride 102 97-108 mmol/L CO2 25 20-32 mmol/L Glucose 81 65-99 mg/dL BUN 21 8-23 mg/dL Creatinine 1.28 0.70-1.30 mg/dL Calcium 9.6 8.6-10.4 mg/dL eGFR by Creatinine 61 >59 mL/min/1.73m2 P-TSH Reviewed date:04/28/2025 10:52:51 AM Interpretation:Normal Performing Lab: Notes/Report: Test performed by [employer] [address] [place] [address] , [address], [place] [address] Conrad Baiers MD, Patient Clerical Assistant CLIA: [id number] TSH 1.78 0.43-5.25 mU/L EKG Reviewed date:01/27/2025 11:49:08 AM Interpretation: Performing Lab: Notes/Report: P-Comprehensive Metabolic Pa marty (CMP) Reviewed date:09/21/2024 09:19:54 AM Interpretation:Cr 1.46, gfr 52 Performing Lab: Notes/Report: CLIA: [id number] Conrad Baires MD, Patient Clerical Assistant [address] [place] [address] , [place] [address] Test performed by [employer] Sodium 141 135-145 mmol/L Potassium 5.0 3.5-5.3 mmol/L Chloride 107 97-108 mmol/L CO2 25 22-32 mmol/L Glucose 91 65-99 mg/dL BUN 22 8-23 mg/dL Creatinine 1.46 0.70-1.30 mg/dL Calcium 9.2 8.6-10.4 mg/dL eGFR by Creatinine 52 >59 mL/min/1.73m2 Protein 6.5 6.0-8.3 g/dL Albumin 4.1 3.5-5.3 g/dL Alkaline Phosphatase 108 40-129 IU/L ALT (SGPT) 8 <5-55 IU/L AST (SGOT) 14 <5-46 IU/L Bilirubin, Total 0.8 <0.2-1.2 mg/dL A/G Ratio 1.7 1.1-2.5 P-Troponin I Reviewed date:10/12/2024 08:08:34 AM Interpretation:not performed Performing Lab: Notes/Report: not performed EKG Reviewed date:10/11/2024 12:23:22 PM Interpretation: Performing Lab: Notes/Report: Reason For Referral No Information Medications Medication SIG (Take, Route, Frequency, Duration) Notes Start Date End Date Status B-12 1000 MCG 1 tab(s) orally once [...] ONCE DAILY 30 DAYS; Duration: 90 Active Eliquis 5 MG as directed Orally t wice a day Active Furosemide 40 MG 1/2 orally once a day Active Losartan Potassium 50 MG 1 tablet Orally Once a day; Duration: 30 day(s) Not-Mayco ing Stiolto Respimat 2.5-2.5 MCG/ACT 2 puffs Inhalation Twice a day Active Vitamin D3 125 MCG (5000 UT) 1 cap(s) orally once a day 02/20/2018 Active Immunizations Vaccine Route Administration Date Status Comme nts Tetanus Tdap-Adacel (over 7yrs) Unknown 03/17/2014 Administered PNEUMOVAX 23 VACCINE IM Intramuscular 05/03/2020 Administe red Fluzone Quad (6months&older) IM Intramuscular 04/17/2018 Administered Fluzone Quad (6months&older) IM Intramuscular 08/17/2019 Administered Fluzone Quad (6months&older) IM Intramuscular 05/03/2020 Administered Fluzone Quad (6months&older) IM Intramuscular 06/01/2021 Administered Fluzone High Dose (65yr and older) IM Intramuscular 04/28/2023 Administered Fluzone High Dose (65yr and older) IM Intramuscular 04/19/2024 Administered DT, 7 YEARS OR OLDER IM Intramuscular 03/13/2006 Administe red COVID 19 Moderna Unknown 08/08/2020 Administered COVID 19 Moderna Unknown 09/05/2020 Administered COVID 19 Moderna Unknown 04/25/2021 Administered Social History Tobacco Use: Social History Observation Description Date Details (start date - stop date) Former Smoker NA - 12/12/2022 CURRENT TOBACCO USE: Question Answer Notes Are you a: former smoker When did you stop smoking? 12/12/2022 Problems Problem Type SNOMED Code ICD Code Onset Dates Problem Status W/U Status Risk Notes Problem Tobacco abuse (3985925511) Tobacco abuse (Z72.0) Active confirmed Problem Paroxysmal atrial fibrillation (526144849) Paroxysmal atrial fibrillation (I48.0) Active confirmed Problem Plantar fasciitis of right foot (88815226042100089) Plantar fasciitis of right foot (M72.2) Active confirmed Problem Seborrheic keratosis (70236505) Seborrheic keratosis (L82.1) Active confirmed Problem Arteriosclerotic vascular disease (93999215) Arteriosclerotic cardiovascular disease (I25.10) Active confirmed Problem Long-term current use of anticoagulant (424779410) residential current use of anticoagulant therapy (Z79.01) Active confirmed Problem Malignant tumor of urinary bladder (175124540) Bladder carcinoma (C67.9) Active confirmed Problem History of atrial fibrillation (391655414) History of atrial fibrillation (Z86.79) Active confirmed Problem COPD - Chronic obstructive pulmonary disease (71240153) Chronic obstructive pulmonary disease, unspecified COPD type (J44.9) Active confirmed Problem Kidney stone (26520714) Renal stones (N20.0) Active confirmed Problem Hyperlipidaemia (24360571) Hyperlipidemia, unspecified hyperlipidemia type (E78.5) Active confirmed Problem Atrial fibrillation (59685240) Atrial fibrillation with RVR (I48.91) Active confirmed Problem Atrial fibrillation (55441902) New onset atrial fibrillation (I48.91) Active confirmed Problem Atrial flutter (1056785) Atrial flutter, unspecified type (I48.92) Active confirmed Problem Cardiac arrhythmia (113385406) Irregular heart rhythm (I49.9) Active confirmed Problem Atherosclerotic heart disease of com[place] coronary artery without angina pectoris (097556621578551) Atherosclerosis of com[place] coronary artery without angina pectoris, unspecified whether comanche or transplanted heart (I25.10) Active confirmed Problem Mental disorder caused by drug (830415830) Cigarette nicotine dependence with nicotine-induced disorder (F17.219) Active confirmed Problem Benign prostatic hypertrophy without outflow obstruction (421538093) Benign prostatic hyperplasia without lower urinary tract symptoms (N40.0) Active confirmed Problem Cardiomyopathy (06171913) Cardiomyopathy, unspecified type (I42.9) Active confirmed Problem Nuclear senile cataract (052270881) Age-related nuclear cataract of both eyes (H25.13) Active confirmed Problem Longstanding persistent atrial fibrillation (241553628) Longstanding persistent atrial fibrillation (I48.11) Active confirmed Problem Persistent atrial fibrillation (979537125) Persistent atrial fibrillation (I48.19) Active confirmed Problem Neoplasm of bladder (874645324) Neoplasm of bladder (D49.4) Active confirmed Problem Primary hypertension (24653419) Primary hypertension (I10) Active confirmed Problem Neoplasm of kidney (043776977) 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) Active confirmed Problem Postprocedural states (032391205) S/P atrioventricular jules ablation (Z98.890) Active confirmed Problem Paroxysmal tachycardia (05105689) Paroxysmal tachycardia (I47.9) Active confirmed Vital Signs Heart Rate 58 /min 04/25/2025 Blood pressure diastolic 62 mm Hg 04/25/2025 Height 69 in 04/25/2025 Blood pressure systolic 82 mm Hg 04/25/2025 Weight 166.6 lbs 04/25/2025 BMI 24.6 kg/m2 04/25/2025 Encounters Encounter Location Date [facility] [address] [place] [address] [place] [id number] 06/28/2024 Hunter Canales Calcaneal spur of ri ght foot M77.31 and Plantar fasciitis of right foot M72.2 [facility] [address] [place] [address] [place] [id number] 09/20/2024 Hunter Canales 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 us e of anticoagulant therapy Z79.01 ; Atrial fibrillation with RVR I48.91 ; Cardiomyopathy, unspecified type I42.9 and S/P atrioventricular jules ablation Z98.890 [facility] [address] [place] [address] [place] [id number] 09/23/2024 Hunter Canales Paroxysmal atrial fibrillation I48.0 [facility] [address] [place] [id number] 10/11/2024 Hunter Canales Paroxysmal atrial fibrillation I48.0 ; Atrial flutter, unspecified type I48.92 ; S/P atrioventricular jules ablation Z98.890 and Paroxysmal tachycardia I47.9 [facility] [address] [place] [id number] 02/07/2025 Hunter Canales Paroxysmal atrial fibrillation I48.0 ; Bladder carcinoma C67.9 ; S/P atrioventricular jules ablation Z98.890 and BMI 25.0-25.9,adult Z68.25 [facility] [address] [place] [id number] 02/21/2025 Hunter Canales Paroxysmal atrial fibrillation I48.0 ; Arteriosclerotic cardiovascular disease I25.10 ; Bladder carcinoma C67.9 and BMI 25.0-25.9,adult Z68.25 [facility] [address] [place] [id number] 04/25/2025 Hunter Canales 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 us e of anticoagulant therapy Z79.01 ; Persistent atrial fibrillation I48.19 ; Bladder carcinoma C67.9 ; Hypotension, unspecified hypotension type I95.9 and BMI 24.0-24.9, adult Z68.24 [facility] [address] [place], [place] [id number] 12/02/2024 Hunter Canales Persistent atrial fibrillation I48.19 ; S/P atrioventricular jules ablation Z98.890 and BMI 25.0-25.9,adult Z68.25 [facility] [address] [facility] [place], [place] [id number] 09/21/2024 Hunter Canales [facility] [address] [facility] [address] [place] [id number] 10/11/2024 Hunter Canales [facility] [address] [facility] [address] [place] [id number] 02/22/2025 Hunter Canales [facility] [address] [facility] [address] [place], [place] [id number] 03/08/2025 Hunter Canales Assessments Encounter Date Diagnosis (ICD Code) Assessment Notes Treatment Notes Treatment Clinical Notes Section Notes 06/28/2024 Plantar fasciitis of right foot (ICD-10 - M72.2) Ice. Night brace. Discussed steroids. 06/28/2024 Calcaneal spur of right foot (ICD-10 - M77.31) In the office I modified the insole of the right shoe and he experienced significant improvement in sxs. 09/20/2024 residential current use of anticoagulant therapy (ICD-10 - Z79.01) 09/20/2024 Atrial fibrillation with RVR (ICD-10 - I48.91) To ER if SOA or edema. Dr. Canales contacted cardiology requesting return phone call to inform their office regarding the recurrent A-fib. The call was not returned. 09/23/2024 Paroxysmal atrial fibrillation (ICD-10 - I48.0) We shall send the EKG to Cardiology, Dr. Garcia 10/11/2024 Paroxysmal atrial fibrillation (ICD-10 - I48.0) 10/11/2024 Atrial flutter, unspecified type (ICD-10 - I48.92) 12/02/2024 Persistent atrial fibrillation (ICD-10 - I48.19) We discussed pacemaker 12/02/2024 S/P atrioventricular jules ablation (ICD-10 - Z98.890) 02/07/2025 Paroxysmal atrial fibrillation (ICD-10 - I48.0) 02/07/2025 Bladder carcinoma (ICD-10 - C67.9) 02/21/2025 Paroxysmal atrial fibrillation (ICD-10 - I48.0) continue current therapy 02/21/2025 Arteriosclerotic cardiovascular disease (ICD-10 - I25.10) 04/25/2025 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 use of anticoagulant therapy (ICD-10 - Z79.01) 04/25/2025 Persistent atrial fibrillation (ICD-10 - I48.19) 02/07/2025 S/P atrioventricular jules ablation (ICD-10 - Z98.890) 12/02/2024 BMI 25.0-25.9,adult (ICD-10 - Z68.25) 04/25/2025 Bladder carcinoma (ICD-10 - C67.9) 02/21/2025 Bladder carcinoma (ICD-10 - C67.9) 10/11/2024 S/P atrioventricular jules ablation (ICD-10 - Z98.890) 09/20/2024 Cardiomyopathy, unspecified type (ICD-10 - I42.9) 09/20/2024 S/P atrioventricular jules ablation (ICD-10 - Z98.890) 10/11/2024 Paroxysmal tachycardia (ICD-10 - I47.9) I spoke with Teofilo Carrillo [facility] cardiology. He is to come to their office for evaluation. 02/07/2025 BMI 25.0-25.9,adult (ICD-10 - Z68.25) 02/21/2025 BMI 25.0-25.9,adult (ICD-10 - Z68.25) 04/25/2025 Hypotension, unspecified hypotension type (ICD-10 - I95.9) 04/25/2025 BMI 24.0-24.9, adult (ICD-10 - Z68.24) Plan Of Treatment Next Appt Details Provider Name:Hunter Wei er, 06/27/2025 01:15:00 PM, [address], [address], [place], [place], [id number], Insurance Providers Payer Name Payer Address Payer Phone Subscriber Number Group Number Insured Name Patient Relationship to Insured Coverage Start Date Coverage End Date MEDICARE PART B [address] [address] [place] [id number] STACY LE Self - patient is the insured [employer] [address] [place] [address] [phone] [id number] STACY LE Self - patient is the insured Medications Administered Medication Instructions Date of Administration Dosage Notes B-12 06/17/2018 1 mL Medical (General) History Medical History History ICD Code Adenosine GXT 08/2017 Kidney Stones Dt 2005 A-Fib, 11/2018 EF=30-35%, 11/2018 EF=45%, 02/09/2019 Surgical History Surgery Date(Month/Year) Hernia Removal - [facility] [place], [place] Meniscus Repair - Dr. Acosta 07/22/20 17 Tonsillectomy 1969 Colonoscopy, Dr. Everett, 3 polyps 024 Ablation, [facility] [place] Dr. Garcia 024 Hospitalization History Reason Date(Month/Year) A-Fib 12/08/2018
--- OUTSIDE RECORDS SUMMARY | 2025-05-09 07:59 | XMS_ITS | Clinical Summary ---
Author Organization [facility] Address [address] [place] [address] Phone Care Team Providers Care Yardage Caller Name Role Phone Unavailable Primary Care Provider [...] 04/25/2021, 09/05/2020, 08/08/2020 Influenza Vaccine (#1) 2025 , 05/03/2020, 08/17/2019, Additional history exists Hepatitis C [...] Samy Bejarano MD Stay Tobacco Free Lifestyle Samy Owen MD Procedures Procedure Name Priority Date/Time Associated Diagnosis Comments HCV ANTIBODY SCREEN W/ REFLEX Routine 12/30/2016 9:14 AM EDT Encounter for hepatitis C screening test for low risk patient from Last 3 Months or Most Recently Relevant to Health Maintenance Results * HEPATITIS C ANTIBODY - SCREENING (12/30/2016 9:14 AM EDT) Hep C Ab Negative Negative [facility] Blood specimen (specimen) UPPER LIMB STRUCTURE / Unknown 12/30/2016 9:14 AM EDT 12/30/2016 5:52 PM EDT Samy Bejarano MD HEMATOLOGY ORDERABLES Final Result [facility] [address] [place] [address] from Last 3 Months or Most Recently Relevant to Health [place] [address]
--- NOTE | 2025-05-09 08:05 | ECG_ITS ---
APPROVED REPORT Exam: Resting ECG HR:96 bpm ECG Measurements Heart Rate 96 AXES QRSd 96 QRS 84 QT 351 T 89 QTc 405 Conclusion ATRIAL FLUTTER/TACHYCARDIA INDETERMINATE AXIS ABNORMAL RHYTHM ECG UNCONFIRMED REPORT Electronically signed by : Imer Ventura MD 05/09/2025 10:50:53
== END 2025-05-09 23:59 | disposition home or self-care (01) ==
LOC: RT 07:56
PROVIDERS: PCP Family Medicine; Visit Provider Physician Assistant
DX: I48.92 Unspecified atrial flutter (principal); I48.0 Paroxysmal atrial fibrillation; R94.31 Abnormal electrocardiogram [ECG] [EKG]
CPT/HCPCS: 93005